=== PATIENT | male | born 1955 | race Caucasian/White ===

== ENCOUNTER 2019-12-03 15:52 | Inpatient (IN) | payer MEDICAID, MEDICARE, OTHER ==
[~2019-12-03] VITALS: Ht 162.5 cm; Wt 51.9 kg
--- NOTE | 2019-12-03 16:10 | NUR ---
pt self ambulatory to ED room with belongings, pt vs assessed and stable,
[2019-12-03] MEDS ORDERED: LIDOCAINE UROJET 2% GEL 10 ML PKG TOP ONE (16:15)
--- NOTE | 2019-12-03 16:33 | ED GU-Female ---
General Chief Complaint: - Urinary Stated Complaint: UNABLE TO URINATE Nursing Triage Note: COMPLAINS OF NOT BEING ABLE TO PEE SINCE YESTERDAY. RECENT DX OF PROSTATE CA. Nursing Sepsis Screen: No Definite Risk Source: patient Exam Limitations: no limitations History of Present Illness Date Seen by Provider: Dec 03, 2019 Time Seen by Provider: 16:30 Initial Comments Unable to urinate since yesterday, recently saw primary care for 30-40 pound weight loss in the past few months, elevated PSA lead to a follow-up with Dr. Liu who diagnosed prostate cancer, CT scan pending in the outpatient setting to further evaluate whether or not there is been any metastasis. Timing/Duration: constant, yesterday Severity/Quality: cramping Location: suprapubic Radiation: suprapubic Prior Genitourinary Problems: none Allergies and Home Medications Allergies Coded Allergies: No Known Drug Allergies (Unverified , 12/03/19) Patient Home Medication List Home Medication List Reviewed: Yes Review of Systems Review of Systems Constitutional: see HPI; No chills, No fever EENTM: see HPI Respiratory: no symptoms reported Cardiovascular: no symptoms reported Genitourinary: see HPI Musculoskeletal: no symptoms reported Skin: no symptoms reported Endocrine: No Symptoms Reported Past Gcpuqwv-Akrcdt-Qibcjt Hx Patient Social History Alcohol Use: Denies Use Recreational Drug Use: No Smoking Status: Former Smoker Recent Foreign Travel: No Contact w/Someone Who Travel: No Recent Infectious Disease Expo: No Recent Hopitalizations: No Seasonal Allergies Seasonal Allergies: No Past Medical History Surgeries: Yes (FACIAL) Orthopedic, Vasectomy Respiratory: No Cardiac: Yes Hypertension Neurological: No Genitourinary: Yes Prostate Problems Gastrointestinal: No Musculoskeletal: No Endocrine: No Cancer: Yes Prostate Psychosocial: No Physical Exam Vital Signs Vital Signs - First Documented 12/03/19 16:00 Temp 35.0 Pulse 75 Resp 16 B/P (MAP) 90/68 (75) Pulse Ox 100 O2 Delivery Room Air Capillary Refill : Less Than 3 Seconds Height, Weight, BMI Height: '" Weight: lbs. oz. kg; 20.00 BMI Method: General Appearance: WD/WN, no apparent distress, thin (cachectic, appears much older than stated age) HEENT: PERRL/EOMI, normal ENT inspection Respiratory: no respiratory distress, no accessory muscle use Gastrointestinal: normal bowel sounds, soft, other (due to his body habitus is very easy to see the outline of the bladder which is obviously distended) Extremities: normal range of motion, non-tender Neurologic/Psychiatric: alert, normal mood/affect, oriented x 3 Skin: normal color, warm/dry 16 Citizen Of [place] Hernandez catheter placed draining clear yellow urine, clamped after 150 mL of urine drained. Clamp for 15 minutes then released to further drain. Progress/Results/Core Measures Suspected Sepsis Recent Fever Within 48 Hours: No Infection Criteria Present: Suspected New Infection New/Unexplained Altered Menta: No Sepsis Screen: No Definite Risk SIRS Temperature: Pulse: 75 Respiratory Rate: 16 Laboratory Tests 12/03/19 16:38: White Blood Count 8.2 Blood Pressure 90 /68 Mean: 75 Laboratory Tests 12/03/19 16:38: Creatinine 1.70H, INR Comment 1.2, Platelet Count 89L Results/Orders Lab Results Laboratory Tests Test 12/03/19 16:38 12/03/19 16:48 Range/Units White Blood Count 8.2 4.3-11.0 10^3/uL Red Blood Count 2.41 L 4.35-5.85 10^6/uL Hemoglobin 6.6 *L 13.3-17.7 G/DL Hematocrit 21 L 40-54 % Mean Corpuscular Volume 88 80-99 FL Mean Corpuscular Hemoglobin 27 25-34 PG Mean Corpuscular Hemoglobin Concent 31 L 32-36 G/DL Red Cell Distribution Width 19.9 H 10.0-14.5 % Platelet Count 89 L 130-400 10^3/uL Mean Platelet Volume 10.5 H 7.4-10.4 FL Neutrophils (%) (Auto) 41 L 42-75 % Lymphocytes (%) (Auto) 41 12-44 % Monocytes (%) (Auto) 13 H 0-12 % Eosinophils (%) (Auto) 2 0-10 % Basophils (%) (Auto) 3 0-10 % Neutrophils # (Auto) 3.6 1.8-7.8 X 10^3 Lymphocytes # (Auto) 3.7 1.0-4.0 X 10^3 Monocytes # (Auto) 1.2 H 0.0-1.0 X 10^3 Eosinophils # (Auto) 0.1 0.0-0.3 10^3/uL Basophils # (Auto) 0.3 H 0.0-0.1 10^3/uL Neutrophils % (Manual) 38 % Lymphocytes % (Manual) 40 % Monocytes % (Manual) 18 % Eosinophils % (Manual) 13 % Band Neutrophils 3 % Nucleated Red Blood Cells 8 Blood Morphology Comment NORMAL Prothrombin Time 15.6 H 12.2-14.7 SEC INR Comment 1.2 0.8-1.4 Sodium Level 132 L 135-145 MMOL/L Potassium Level 5.0 3.6-5.0 MMOL/L Chloride Level 94 L 98-107 MMOL/L Carbon Dioxide Level 24 21-32 MMOL/L Anion Gap 14 5-14 MMOL/L Blood Urea Nitrogen 54 H 7-18 MG/DL Creatinine 1.70 H 0.60-1.30 MG/DL Estimat Glomerular Filtration Rate 41 BUN/Creatinine Ratio 32 Glucose Level 103 70-105 MG/DL Calcium Level 9.4 8.5-10.1 MG/DL Urine Color YELLOW Urine Clarity CLEAR Urine pH 5.5 5-9 Urine Specific [place] 1.020 1.016-1.022 Urine Protein TRACE H NEGATIVE Urine Glucose (UA) NEGATIVE NEGATIVE Urine Ketones NEGATIVE NEGATIVE Urine Nitrite NEGATIVE NEGATIVE Urine Bilirubin NEGATIVE NEGATIVE Urine Urobilinogen 0.2 < = 1.0 MG/DL Urine Leukocyte Esterase NEGATIVE NEGATIVE Urine RBC (Auto) 3+ H NEGATIVE Urine RBC >100 H /HPF Urine WBC 2-5 /HPF Urine Crystals NONE /LPF Urine Bacteria MODERATE H /HPF Urine Casts NONE /LPF Urine Mucus NEGATIVE /LPF Urine Culture Indicated NO My Orders Orders - WINSTON JIMÉNEZ APRN Cbc With Automated Diff (12/03/19 16:10) Basic Metabolic Panel (12/03/19 16:10) Lidocaine 2% (Urojet) (Xylocaine Urojet) (12/03/19 16:15) Hernandez Cath (12/03/19 16:10) Ua Culture If Indicated (12/03/19 16:12) Protime With Inr (12/03/19 16:51) Red Cells Leukocytes Reduced (12/03/19 16:51) Type And Screen (12/03/19 16:51) Ct Chest/Abdomen/Pelvis Wo (12/03/19 16:51) Manual Differential (12/03/19 16:38) Smear For Path Review (12/03/19 17:59) Reticulocyte Count (12/03/19 17:59) Iron Tibc %Sat & Ferritin (12/03/19 17:59) Ferritin (12/03/19 17:59) Medications Given in ED Current Medications Medications Dose Ordered Sig/Sofie Route Start Time Stop Time Status Last Admin Dose Admin Lidocaine HCl 10 ml ONCE ONCE TOP 12/03/19 16:15 12/03/19 16:16 DC 12/03/19 16:27 10 ML Vital Signs/I&O 12/03/19 16:00 Temp 35.0 Pulse 75 Resp 16 B/P (MAP) 90/68 (75) Pulse Ox 100 O2 Delivery Room Air Capillary Refill : Less Than 3 Seconds Blood Pressure Mean: 75 Departure Communication (Admissions) Time/Spoke to Admitting Phy: 18:[address] Ortega, we will admit consult Dr. Noe Quigley. after inserting the Hernandez we had 900 cc urine output. As with all admissions I did discuss CODE STATUS with this patient, he would like to be DO NOT RESUSCITATE status. Impression Primary Impression: Urinary retention Additional Impression: Prostate cancer Disposition: ADMITTED INPATIENT Condition: Stable Admissions Decision to Admit Reason: Admit from ER (General) Decision to Admit/Date: Dec 03, 2019 Time/Decision to Admit Time: 17:45 Departure-Patient Inst. Referrals: NIRMAL HAQUE (PCP) Primary Care Physician WINSTON JIMÉNEZ APRN Dec 03, 2019 16:32
[2019-12-03 16:45] LABS: BASOPHILS # (AUTO) 0.3 10^3/uL (0.0-0.1); BASOPHILS % (AUTO) 3 % (0-10); EOSINOPHILS # (AUTO) 0.1 10^3/uL (0.0-0.3); EOSINOPHILS % (AUTO) 2 % (0-10); HEMATOCRIT 21 % (40-54); LYMPHOCYTES # (AUTO) 3.7 X 10^3 (1.0-4.0); LYMPHOCYTES % (AUTO) 41 % (12-44); MEAN CORPUSCULAR HEMOGLOBIN 27 PG (25-34); MEAN CORPUSCULAR HGB CONC 31 G/DL (32-36); MEAN CORPUSCULAR VOLUME 88 FL (80-99); MEAN PLATELET VOLUME 10.5 FL (7.4-10.4); MONOCYTES # (AUTO) 1.2 X 10^3 (0.0-1.0); MONOCYTES % (AUTO) 13 % (0-12); NEUTROPHILS # (AUTO) 3.6 X 10^3 (1.8-7.8); NEUTROPHILS % (AUTO) 41 % (42-75); PLATELET COUNT 89 10^3/uL (130-400); RED CELL DISTRIBUTION WIDTH 19.9 % (10.0-14.5)
[2019-12-03 16:50] LABS: HEMOGLOBIN 6.6 G/DL (13.3-17.7)
[2019-12-03 16:59] LABS: BILIRUBIN,URINE NEGATIVE (NEGATIVE); CLARITY,URINE CLEAR; COLOR,URINE YELLOW; GLUCOSE, URINE (UA) NEGATIVE (NEGATIVE); KETONES,URINE NEGATIVE (NEGATIVE); LEUKOCYTE ESTERASE ,URINE NEGATIVE (NEGATIVE); NITRITE,URINE NEGATIVE (NEGATIVE); PH,URINE 5.5 (5-9); PROTEIN,URINE TRACE (NEGATIVE)
[2019-12-03 17:02] LABS: CALCIUM 9.4 MG/DL (8.5-10.1); CREATININE SERUM 1.7 MG/DL (0.60-1.30)
[2019-12-03 17:07] LABS: INR 1.2 (0.8-1.4); PROTHROMBIN TIME PATIENT 15.6 SEC (12.2-14.7)
[2019-12-03 17:15] LABS: BACTERIA,URINE MODERATE /HPF; RBC,URINE >100 /HPF
[2019-12-03 17:38] LABS: WHITE BLOOD COUNT 8.2 10^3/uL (4.3-11.0)
[2019-12-03 17:39] LABS: BAND NEUTROPHILS 3 %; EOSINOPHILS % (MANUAL) 13 %; LYMPHOCYTES % (MANUAL) 40 %; MONOCYTES % (MANUAL) 18 %; NEUTROPHILS % (MANUAL) 38 %
[2019-12-03 17:40] LABS: NUCLEATED RED BLOOD CELLS 8; RBC MORPH NORMAL
--- NOTE | 2019-12-03 17:49 | Diagnostic Imaging Report ---
PROCEDURE: CT chest, abdomen, and pelvis without contrast. TECHNIQUE: Multiple contiguous axial images were obtained through the chest, abdomen, and pelvis without the use of intravenous contrast. Auto Exposure Controls were utilized during the CT exam to meet ALARA standards for radiation dose reduction. INDICATION: Recently diagnosed prostate carcinoma with difficulty urinating. COMPARISON: No prior studies are available for comparison. FINDINGS: CT chest: No axillary lymphadenopathy is detected. Hilar and mediastinal evaluation is limited without intravenous contrast but no gross abnormality is seen. There are coronary arterial calcifications. No pericardial or pleural fluid is identified. No definite pulmonary infiltrates are seen. There are several small nodules in both lungs. Several tiny right upper lobe nodules are present. Nodules in the left lower lobe are seen, largest 8 mm. A nodule in the right lower lobe measures 7 mm. Features are concerning for metastatic disease. There are innumerable sclerotic lesions throughout the thoracic vertebrae as well as bilateral ribs, the sternum, consistent with osteoblastic metastatic disease. CT abdomen and pelvis: No discrete liver mass is identified. Gallbladder is unremarkable. There is no biliary ductal dilatation. Pancreas and spleen are grossly unremarkable. No definite adrenal mass is seen. No renal calculi on the right are identified. There appears to be a tiny nonobstructing calculus in lower pole of left kidney. Aorta is calcified but non-aneurysmal. Central retroperitoneum is difficult to evaluate without intravenous contrast. Bowel loops are normal caliber. There is moderate stool throughout the colon. No definite free fluid or fluid collection is seen. There is a large amount of artifact through the pelvis from patient's right hip hardware. There appears to be a Hernandez catheter within the bladder which is full of gas. There are innumerable sclerotic lesions throughout the lumbar spine, bony pelvis and proximal left femur consistent with skeletal metastases. IMPRESSION: 1. Widespread osteoblastic metastatic disease. 2. Numerous subcentimeter pulmonary nodules bilaterally suggestive of pulmonary metastatic disease. 3. Limited evaluation of the abdomen and pelvis due to absence of IV contrast and very little intraperitoneal fat. This makes evaluation for abdominal and pelvic lymphadenopathy difficult. Patient does have a tiny nonobstructing left renal calculus. Dictated by: Dictated on workstation # [id number]
[2019-12-03 18:25] LABS: ABSOLUTE RETIC # 106 10e9/L (24-90); RETICULOCYTE % 4.31 % (0.50-2.40)
--- NOTE | 2019-12-03 18:38 | NUR ---
PATIENT TO FLOOR AT THIS TIME VIA CART ACCOMPANIED BY PCT FROM ER.
[2019-12-03 18:55] VITALS: BP 130/67
[2019-12-03] MEDS ORDERED: NS IV 500 ML 500 ML IV ONE (19:00)
[2019-12-03 19:06] VITALS: BP 130/67
[2019-12-03] MEDS ORDERED: NS IV 500 ML 500 ML IV SCH (19:30)
--- NOTE | 2019-12-03 20:06 | History & Physical-Hospitalist ---
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 Source: patient, RN/MD, old records Date Seen 12/03/19 Time Seen by a Provider: 18:00 Attending Physician Lianet Ty DO PCP [facility] Referring Physician Date of Admission Dec 03, 2019 at 17:56 Home Medications & Allergies Home Medications Reviewed patient Home Medication Reconciliation performed by pharmacy medication reconciliations corn lab technician and/or nursing. Patients Allergies have been reviewed. Allergies Allergies Coded Allergies No Known Drug Allergies (Unverified12/03/19) Past Wqpqddq-Tsjfkz-Wltive Hx Past Med/Social Hx: Reviewed Nursing Past Med/Soc Hx, Reviewed and Corrections made Patient Social History Marrital Status: Employed/Student: retired Alcohol Use: Denies Use Recreational Drug Use: No Smoking Status: Former Smoker Recent Foreign Travel: No Contact w/other who traveled: No Recent Hopitalizations: No Recent Infectious Disease Expo: No Immunizations Up To Date Date of Influenza Vaccine: Sep 02, 2019 Seasonal Allergies Seasonal Allergies: No Past Medical History Surgeries: Orthopedic, Vasectomy Cardiac: Hypertension Genitourinary: Prostate Problems Cancer: Prostate Review of Systems Constitutional: see HPI Genitourinary: other (retention) All Other Systems Reviewed Negative Unless Noted: Yes Physical Exam Physical Exam Vital Signs Vital Signs - First Documented 12/03/19 16:00 Temp 35.0 Pulse 75 Resp 16 B/P (MAP) 90/68 (75) Pulse Ox 100 O2 Delivery Room Air Capillary Refill : Less Than 3 Seconds Height, Weight, BMI Height: '" Weight: lbs. oz. kg; 19.65 BMI Method: General Appearance: Anxious, Chronically ill, Cachetic, Mild Distress, Thin Eyes: Right Eye Normal Inspection, Right Eye PERRL HEENT: PERRL/EOMI, Normal ENT Inspection, Pharynx Normal, Moist Mucous Membranes Neck: Full Range of Motion, Normal Inspection, Non Tender Respiratory: Chest Non Tender, Lungs Clear, Normal Breath Sounds, No Accessory Muscle Use, No Respiratory Distress Cardiovascular: Regular Rate, Rhythm, No Edema, No Gallop, No JVD, No Murmur, Normal Peripheral Pulses Gastrointestinal: Normal Bowel Sounds, No Organomegaly, No Pulsatile Mass, Non Tender, Soft Back: Normal Inspection, No CVA Tenderness, No Vertebral Tenderness Extremity: Normal Capillary Refill, Normal Inspection, Normal Range of Motion, Non Tender, No Calf Tenderness, No Pedal Edema Neurologic/Psychiatric: Alert, Oriented x3, No Motor/Sensory Deficits, 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 Assessment/Plan Admission Diagnosis Assessment: Anemia Urinary retention requiring madrid cath Presumed prostate cancer with mets HTN Wt loss Former smoker Depression ARF creat 1.7 Plan: IVF [place] Peg Liu and Dann Admission Status: Inpatient Order (span 2 midnights) Reason for Inpatient Admission: severe anemia with prostate cancer with mets Diagnosis/Problems Diagnosis/Problems (1) Urinary retention Status: Acute (2) Prostate cancer Status: Acute LIANET TY DO Dec 03, 2019 20:06
[2019-12-03 20:10] VITALS: BP 114/56
[2019-12-03 20:38] VITALS: BP 105/58
[2019-12-03] MEDS ORDERED: ALPRAZolam 0.25 MG (XANAX) TAB PO PRN (21:15)
[2019-12-03] MEDS ORDERED: fentaNYL INJECTION 100 MCG/2 ML AMP IVP PRN (21:15)
[2019-12-03] MEDS ORDERED: DOCUSATE SODIUM 100 MG (COLACE) CAP PO PRN (21:15)
[2019-12-03] MEDS ORDERED: LOPERAMIDE 2 MG (IMODIUM) TABLET PO PRN (21:15)
[2019-12-03] MEDS ORDERED: HYDROmorphone 2 MG/ML VIAL (DILAUDID) IVP PRN (21:15)
[2019-12-03] MEDS ORDERED: ONDANSETRON 4 MG (ZOFRAN) ORAL DISSOLVE TAB PO PRN (21:15)
[2019-12-03] MEDS ORDERED: ONDANSETRON 4 MG/2 ML (SDV) Z0FRAN IVP PRN (21:15)
[2019-12-03] MEDS ORDERED: diphenhydrAMINE 25 MG TAB (BENADRYL) PO PRN (21:15)
[2019-12-03] MEDS ORDERED: CALCIUM CARBONATE 500 MG (TUMS) TAB.CHEW PO PRN (21:15)
[2019-12-03] MEDS: HYDROcodone/APAP 5 MG/325 MG (LORTAB) TAB PO PRN (22:33)
[2019-12-03] MEDS: MELATONIN 3 MG TABLET PO PRN (22:34)
[2019-12-03 23:09] VITALS: BP 130/70
[2019-12-03 23:11] VITALS: BP 130/70
[2019-12-04] VITALS (9 sets, daily range): BP systolic 90–128; BP diastolic 50–76
[2019-12-04] MEDS: HYDROcodone/APAP 5 MG/325 MG (LORTAB) TAB PO PRN ×3 (04:23→22:02)
[2019-12-04 06:17] LABS: BASOPHILS # (AUTO) 0.2 10^3/uL (0.0-0.1); BASOPHILS % (AUTO) 3 % (0-10); EOSINOPHILS # (AUTO) 0.1 10^3/uL (0.0-0.3); EOSINOPHILS % (AUTO) 2 % (0-10); HEMATOCRIT 22 % (40-54); LYMPHOCYTES # (AUTO) 2.2 X 10^3 (1.0-4.0); LYMPHOCYTES % (AUTO) 40 % (12-44); MEAN CORPUSCULAR HGB CONC 32 G/DL (32-36); MEAN CORPUSCULAR VOLUME 86 FL (80-99); MONOCYTES # (AUTO) 0.7 X 10^3 (0.0-1.0); MONOCYTES % (AUTO) 12 % (0-12); NEUTROPHILS # (AUTO) 2.3 X 10^3 (1.8-7.8); NEUTROPHILS % (AUTO) 42 % (42-75); PLATELET COUNT 56 10^3/uL (130-400); RED CELL DISTRIBUTION WIDTH 18.4 % (10.0-14.5); WHITE BLOOD COUNT 5.6 10^3/uL (4.3-11.0)
[2019-12-04 06:20] LABS: MEAN CORPUSCULAR HEMOGLOBIN 28 PG (25-34)
[2019-12-04 06:37] LABS: ALBUMIN 3.7 GM/DL (3.2-4.5); BILIRUBIN,TOTAL 0.9 MG/DL (0.1-1.0); CALCIUM 8.7 MG/DL (8.5-10.1); CREATININE SERUM 1.4 MG/DL (0.60-1.30); POTASSIUM 4.9 MMOL/L (3.6-5.0); TOTAL PROTEIN 5.9 GM/DL (6.4-8.2)
[2019-12-04] MEDS ORDERED: MELO7.5T46 PO ×2 (08:03)
[2019-12-04] MEDS ORDERED: ACET325T38 PO (08:03)
[2019-12-04] MEDS ORDERED: TRAM50TA3 PO (08:03)
[2019-12-04] MEDS ORDERED: IBUP-2473 PO ×2 (08:03)
--- NOTE | 2019-12-04 08:39 | NUR ---
SPOKE WITH THE PT WELL CALLING [facility] AND [facility] IN [place] TO COMPLETE THE MED REC. PT SAYS HE TAKES A BLOOD PRESSURE BUT WASNT SURE OF THE NAME- I CALLED [facility] AND WAS TOLD IT IS LISINOPRIL 5 MG BUT THEY HAVE NOT GIVEN HIM ANY THRU THE REPOSITORY SINCE 11-26-2018- FOR THAT REASON I LEFT IT OFF THE MED REC. OTC MEDS: TYLENOL IBUPROFEN
[2019-12-04] MEDS: ENOXAPARIN 40 MG/0.4 ML (LOVENOX) SYR SC SCH (08:45)
[2019-12-04] MEDS: SENNA W/DOCUSATE (SENOKOT S) TABLET PO SCH ×2 (08:45→20:11)
--- NOTE | 2019-12-04 10:00 | NUR ---
This RN asked Dr. Quigley if he would like to administer another unit of blood to the pt. Pt's hemoglobin had only gone up from 6.6 (12/03) to 7.0 (12/04). Dr. Quigley requested 1 unit to be administered.
--- NOTE | 2019-12-04 10:21 | NUR ---
Met with pt who lives in [place] with a friend who pt describes as helpful. Pt tearful about his recently diagnosed cancer and states that he scheduled a trip to [place] to visit his daughter and meet his granddaughter on December 10 and is hoping he can still make the trip. He is anxious to meet with ,Oncologist to discuss treatment options. 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 Will follow and assist.
--- NOTE | 2019-12-04 10:23 | NUR ---
This RN went and got the unit of blood. Pt's pre-blood vitals showed a temperature of 101.2. This RN notified Dr. Quigley of the temperature, he requested I hold the blood until the pt's temperature comes down and to notify PCP for blood culture orders. This RN returned the blood to blood bank. Addendum: 12/04/19 at 1804 by DALLAS MURRELL RN 1040: Tylenol was administered after notifying Dr. Quigley of temperature of 101.2. 1115: This RN rechecked pt's temperature which was 100.6.
--- NOTE | 2019-12-04 10:26 | Progress Note - Hospitalist ---
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 Subjective/Events-last exam Pt having a lot of pain so we did initiate pain medication. Hgb 7 after [address] unit [address] Dr[address] Madrigal ordered another unit. Dr. Niño will actually see the Pt since he was originally consulted as an outpatient. Fever noted, garcia culture and Zosyn initiated. Catheter in and draining bloody urine. Bowels need to move and he did take a stool softener. Spoke with Dr. Liu. Flomax and Proscar started. Review of Systems General: Fatigue Musculoskeletal: shoulder pain, back pain, leg pain Focused Exam Lactate Level 12/04/19 11:14: Lactic Acid Level 0.99 Objective Exam Vital Signs Vital Signs Date Time Temp Pulse Resp B/P (MAP) Pulse Ox O2 Delivery O2 Flow Rate FiO2 12/04/19 19:26 37.0 87 18 91/55 (67) 98 Room Air Capillary Refill : Less Than 3 Seconds General Appearance: WD/WN, Anxious, Chronically ill, Mild Distress, Thin Respiratory: Chest Non Tender, Lungs Clear, Normal Breath Sounds, No Accessory Muscle Use, No Respiratory Distress Cardiovascular: Regular Rate, Rhythm, No Edema, No Gallop, No JVD, No Murmur, Normal Peripheral Pulses Neurologic/Psychiatric: Alert, Oriented x3, No Motor/Sensory Deficits, Normal Mood/Affect Results/Procedures Lab Laboratory Tests 12/04/19 05:35 Patient resulted labs reviewed. Assessment/Plan Assessment and Plan Assess & Plan/Chief Complaint Assessment: Anemia Urinary retention requiring madrid cath Presumed prostate cancer with mets HTN Wt loss Former smoker Depression ARF creat 1.7 Fever s/p cultures and empirically started on Zosyn Plan: IVF [place] Peg Liu and [place] Ramirez and Tamie Lawson Diagnosis/Problems Diagnosis/Problems (1) Urinary retention Status: Acute (2) Prostate cancer Status: Acute Clinical Quality Measures DVT/VTE Risk/Contraindication: Risk Factor Score Per Nursin RFS Level Per Nursing on Admit: 2=Moderate ELENA TY DO Dec 04, 2019 10:26
[2019-12-04] MEDS: ACETAMINOPHEN 500 MG TAB (TYLENOL) PO PRN ×3 (10:30→22:01)
[2019-12-04] MEDS ORDERED: PIPERACILLIN/TAZO 4.5 GM/NS 100 ML IV NR ×2 (11:45)
[2019-12-04] MEDS: FINASTERIDE (PROSCAR) 5 MG TAB PO SCH (12:17)
--- NOTE | 2019-12-04 12:21 | CONSULTATION REPORT ---
DATE OF SERVICE: 12/04/2019 ATTENDING PHYSICIAN: Dr. Ortega. SUMMARY: A 64-year-old white man known to me, seen for the first time several days ago at the office for a PSA of 4000. At that time, rectal exam revealed a hard fixed prostate. He was also anemic and had lost 40 pounds. His alkaline phosphatase was elevated. I attempted to do an ultrasound of the prostate. He could not tolerate it, so I obtained biopsies from both sides and they both came back positive group V. He then called the office complaining of difficulty voiding. We told him to go to the emergency room to be evaluated. Catheter was inserted with recovery of 900 mL of urine. His H and H was 7 and 22. His creatinine was 1.4. His alkaline phosphatase 401. He had a CAT scan of the chest, abdomen and pelvis, which revealed widespread osteoblastic metastatic disease, pulmonary nodules. He was subsequently admitted to the hospital and received blood transfusion. He is under the care of Dr. Ortega, our hospitalist, who had seen him already and gave him blood transfusion. He is to be seen by Dr. Quigley. IMPRESSION: Advanced metastatic stage IV cancer of the prostate with urinary retention now, weight loss, and anemia. RECOMMENDATIONS: Hormonal manipulation along with treatment by Dr. Quigley regarding chemotherapy, it may be Zometa or else also start on some Flomax and Proscar, try to remedy the urinary retention. If Dr. Quigley will start medication on him might as well have the Cancer Center give him the hormonal manipulation, I will talk to Dr. Quigley and Dr. Ortega to correlate the treatment plan. Job ID: [id number] DocumentID: [id number] Dictated Date: 12/04/2019 11:42:09 Vmware Architect Date: 12/04/2019 12:20:19 Dictated By: PATRIZIA TOBIN MD
--- NOTE | 2019-12-04 13:30 | NUR ---
This RN tried to once again administer the unit of blood but pt's temperature was still elevated at 100.0. This [facility] and applied ice packs and cooling blankets to pt. 1600: Pt's vitals showed his BP: 95/50, R 18, Pulse 100, O2 98%, and temperature at 100.4. This RN administered tylenol at this time. 1700: This RN rechecked pt's temp 100.0. 1745: Myranda PCT rechecked BP and temperature at this time. Recorded as 100.2 for temp, and 101/51 for BP.
--- NOTE | 2019-12-04 13:32 | Diagnostic Imaging Report ---
INDICATION: Cachexia, history of prostate cancer, fever. Known metastatic disease. TECHNIQUE: Two-view chest at 12:57 p.m. CORRELATION STUDY: CT chest of 12/03/2019. FINDINGS: The heart size, mediastinal configuration and pulmonary vasculature are within normal limits. A few scattered pulmonary nodules are present on chest radiograph as demonstrated on recent CT examination. Lung pascual are hyperinflated. There is no definitive consolidating infiltrate or significant interval change from one day earlier. Heterogeneous somewhat increased density throughout the osseous structures, compatible with the known osseous blastic metastatic disease. There are multifocal areas of slight anterior wedging and loss of height of thoracic vertebral body segments. IMPRESSION: 1. Findings consistent with likely pulmonary and osseous metastatic disease. No appreciable change from CT chest examination one day earlier. No consolidating infiltrate to suggest pneumonia. Dictated by: Dictated on workstation # [id number]
[2019-12-04] MEDS: RT-ALBUTEROL SULF 2.5 MG/3 ML PRE-MIX VIAL INH SCH ×2 (14:22→22:06)
--- NOTE | 2019-12-04 15:13 | Physical Therapy Evaluation ---
PT Evaluation-General Medical Diagnosis Admission Date Dec 03, 2019 at 17:56 Medical Diagnosis: Prostate CA with mets Onset Date: Dec 04, 2019 Therapy Diagnosis Therapy Diagnosis: weakness Precautions Precautions/Isolations: Standard Precautions Referral Physician: Jordan Reason for Referral: Evaluation/Treatment Medical History Pertinent Medical History: HTN Additional Medical History anemia, depression Current History Pt admitted to [facility] with anemia. Reviewed History: Yes Social History Home: Single Level Current Living Status: Friend Prior Prior Level of Function SCALE: Activities may be completed with or without assistive devices. 1-Ledxuuvukq-nlwhgdp completes the activity by him/herself with no assistance from a helper. 5-Set-up or Clean-up Assistance-helper sets up or cleans up; patient completes activity. [place] assists only prior to or following the activity. 4-Supervision or Touching Assistance-helper provides verbal cues and/or touching/steadying and/or contact guard assistance as patient completes activity. Assistance may be provided throughout the activity or intermittently. 3-Partial/Moderate Assistance-helper does LESS THAN HALF the effort. [place] lifts, holds or supports trunk or limbs, but provides less than half the effort. 2-Substantial/Maximal Assistance-helper does MORE THAN HALF the effort. [place] lifts or holds trunk or limbs and provides more than half the effort. 5-Qttvrjsdq-pyabvw does ALL the effort. Patient does none of the effort to complete the activity. Or, the assistance of 2 or more helpers is required for the patient to complete the activity. If activity was not attempted, code reason: 7-Patient Refused. 9-Not Applicable-not attempted and the patient did not perform the activity be fore the current illness, exacerbation or injury. 10-Not Attempted due to Environmental Limitations-(lack of equipment, weather restraints, etc.). 88-Not Attempted due to Medical Conditions or Safety Concerns. Bed Mobility: 6 Transfers (B,C,W/C): 6 Gait: 6 (typically uses a cane) Stairs: 6 Indoor Mobility (Ambulation): Independent Stairs: Independent Pt reports that his mobilty has been limited in the recent past due to pain PT Evaluation-Current Subjective Agrees to PT. Pain Numeric Pain Scale: 8 Location: Right Location Body Site: Thigh (anterior) Pt/Family Goals return home when able Objective Patient Orientation: Person, Place, Time, Situation Attachments: Hernandez Catheter ROM/Strength ROM Lower Extremities wFL Strength Lower Extremities grossly 4-/5 Integumentary/Posture Integumentary refer to nursing notes. Bowel Incontinence: No Bladder Incontinence: Hernandez Cath Posture kyphotic, head forward and down and lacks full hip extension in standing. Neuromuscular (Tone, Coordination, Reflexes) intact and functional Sensory Vision: Wears Glasses Hearing: Functional Hand Dominance: Right Sensation Right Lower Extremit: Intact Sensation Left Lower Extremity: Intact Transfers Sit to Lying (QC): 5 Lying to Sitting/Side of Bed(Q: 5 Sit to Stand (QC): 4 (CGA for safety) Gait Does the Patient Walk?: Yes Mode of Locomotion: Walk Anticipated Mode of Locomotion: Walk Walk 10 feet (QC): 4 Walk 50 ft with 2 Turns(QC): 4 Distance: 75 ft Gait Assistive Device: FWW Comments/Gait Description slow gait, with narrow CONNOR and occas scissoring. Forward flexed. Balance Sitting Static: Good Sitting Dynamic: Good Standing Static: Fair Standing Dynamic: Fair Assessment/Needs Pt will benefit from skilled PT toaddress functional mobiltiy and strength to allow him to return home as before. He presents with strength, balance and functional activity deficits that impair safe mobility and limit his ability to care for himself. Rehab Potential: Good PT Prison Goals Full Time Goals PT Prison Goals Time Frame: Dec 11, 2019 Sit to Lying (QC): 6 Lying-Sitting on Side/Bed(QC): 6 Sit to Stand (QC): 6 Walk 150 ft (QC): 6 PT Plan Problem List Problem List: Activity Tolerance, Functional Strength, Safety, Balance, Gait, Transfer, Bed Mobility Treatment/Plan Treatment Plan: Continue Plan of Care Treatment Plan: Bed Mobility, Education, Functional Activity Cooper, Functional Strength, Gait, Safety, Therapeutic Exercise, Transfers Treatment Duration: Dec 11, 2019 Frequency: 5 times per week (to 6) Estimated Hrs Per Day: .25 hour per day Safety Risks/Education Patient Education: Safety Issues Teaching Recipient: Patient Teaching Methods: Discussion Response to Teaching: Reinforcement Needed Time/GCodes Time In: 1435 Time Out: 1455 Total Billed Treatment Time: 20 Total Billed Treatment visit EVM 20 KHADIJAH RAMIREZ PT Dec 04, 2019 15:13
--- NOTE | 2019-12-04 16:34 | Consultation ---
History of Present Illness History of Present Illness Patient Consulted On(tito/time) 12/04/19 16:29 Date Seen by Provider: Dec 04, 2019 Time Seen by Provider: 16:29 History of Present Illness Mr. Sargent is a 64 yo male with OA who was admitted last night with severe urine retention x1 day and UTI. Nine hundred ml urine was drained with a Hernandez in the ED. On admission he was found to be severely anemic and thrombocytopenic. Patient was referred to urology as an outpatient for a PSA >4000 detected by [facility] in [place], and peripheral prostate biopsies were consistent with grade group 5 adenocarcinoma. He initially presented to [facility] because he had been experiencing worsening left hip and intermittent radiating left thigh pain since June. Patient initially believed it was arthritis since he had a right hip replacement in the past, but a hip injection by ortho failed to control pain more than 3 days. He starting losing weight rapidly in September (35 lbs since then). In the hospital, patient's pain is generally well controlled with opiates although he still has episodes of severe pain in his left thigh. He can walk to the end of the perez and back with his walker. He currently has recurrent fevers and is on antibiotics. Allergies and Home Medications Allergies Coded Allergies: No Known Drug Allergies (Unverified , 12/03/19) Home Medications Acetaminophen 325 Mg Tablet, 650 MG PO Q8H PRN for PAIN-MILD (1-4), (Reported) Ibuprofen 200 Mg Tablet, 600 MG PO Q8H PRN for PAIN-MILD (1-4), (Reported) Meloxicam 7.5 Mg Tablet, 7.5 MG PO DAILY PRN for JOINT PAIN, (Reported) Tramadol HCl 50 Mg Tablet, 50 MG PO BID PRN for PAIN-MODERATE (5-7), (Reported) Patient Home Medication List Home Medication List Reviewed: Yes Past Bzhsqyd-Yqxuuc-Hzrenj Hx Past Med/Social Hx: Reviewed Nursing Past Med/Soc Hx, Reviewed and Corrections made Patient Social History Alcohol Use: Denies Use Recreational Drug Use: No Smoking Status: Former Smoker Recent Foreign Travel: No Contact w/Someone Who Travel: No Recent Infectious Disease Expo: No Recent Hopitalizations: No Immunizations Up To Date Date of Influenza Vaccine: Sep 02, 2019 Seasonal Allergies Seasonal Allergies: No Past Medical History Surgeries: Yes (FACIAL) Orthopedic, Vasectomy Respiratory: No Cardiac: Yes Hypertension Neurological: No Genitourinary: Yes Prostate Problems Gastrointestinal: No Musculoskeletal: No Endocrine: No Cancer: Yes Prostate Psychosocial: No Review of Systems-General Constitutional: malaise, weakness EENTM: no symptoms reported Respiratory: no symptoms reported Cardiovascular: no symptoms reported Gastrointestinal: No abdominal pain, No constipation; diarrhea, loss of appetite; No nausea, No vomiting Genitourinary: hesitancy, pain Musculoskeletal: joint pain (left hip), muscle pain (left thigh), muscle weakness Psychiatric/Neurological: No Symptoms Reported Physical Exam-General Problems Physical Exam Vital Signs Vital Signs - First Documented 12/03/19 16:00 Temp 35.0 Pulse 75 Resp 16 B/P (MAP) 90/68 (75) Pulse Ox 100 O2 Delivery Room Air Capillary Refill : Less Than 3 Seconds General Appearance: WD/WN, no apparent distress Eyes: Bilateral Eye Normal Inspection, Bilateral Eye EOMI HEENT: PERRL/EOMI, normal ENT inspection Neck: supple, normal inspection Respiratory: chest non-tender, lungs clear, normal breath sounds, no respiratory distress, no accessory muscle use Cardiovascular: regular rate, rhythm, no edema Gastrointestinal: normal bowel sounds, non tender, soft, no organomegaly Back: normal inspection Extremities: normal range of motion, non-tender, normal inspection, no pedal edema Neurologic/Psychiatric: no motor/sensory deficits, alert, normal mood/affect, oriented x 3 Skin: normal color, warm/dry Assessment/Plan Assessment/Plan Admission Diagnosis/Plan 64 yo male admitted with urine retention and UTI secondary to widespread prostate adenocarcinoma, metastatic to bilateral lungs and axial and appendicula r skeleton. Patient also has new severe anemia and thrombocytopenia. He received one unit of PRBCs last night for hgb 6.6. He is currently being treated for UTI and has a Hernandez in place. MALINDA improved with placement of catheter. Iron studies, folate and vitamin B12 are pending (although folate and B12 may be skewed by recent transfusion); that being said, nutritional deficiency seems less likely in the face of a robust reticulocytosis. I have a significant suspicion for myelophthisic cytopenias. Therefore, we will go ahead and do a bone marrow biopsy to rule out prostate adenocarcinoma infiltration. If he does have a significant amount of marrow replacement by cancer, he could benefit from receiving his first dose of palliative chemotherapy while [facility]. Will continue to follow. Thank you for allowing me to participate in the care of Mr. Sargent. Clinical Quality Measures DVT/VTE Risk/Contraindication: Risk Factor Score Per Nursin RFS Level Per Nursing on Admit: 2=Moderate Results Labs Labs Laboratory Tests 12/04/19 05:35: White Blood Count 5.6, Red Blood Count 2.52L, Hemoglobin 7.0L, Hematocrit 22L, Mean Corpuscular Volume 86, Mean Corpuscular Hemoglobin 28, Mean Corpuscular Hemoglobin Concent 32, Red Cell Distribution Width 18.4H, Platelet Count 56L, Mean Platelet Volume 11.0H, Neutrophils (%) (Auto) 42, Lymphocytes (%) (Auto) 40, Monocytes (%) (Auto) 12, Eosinophils (%) (Auto) 2, Basophils (%) (Auto) 3, Neutrophils # (Auto) 2.3, Lymphocytes # (Auto) 2.2, Monocytes # (Auto) 0.7, Eosinophils # (Auto) 0.1, Basophils # (Auto) 0.2H, Sodium Level 130L, Potassium Level 4.9, Chloride Level 95L, Carbon Dioxide Level 24, Anion Gap 11, Blood Urea Nitrogen 54H, Creatinine 1.40H, Estimat Glomerular Filtration Rate 51, BUN/Creatinine Ratio 39, Glucose Level 87, Calcium Level 8.7, Corrected Calcium 8.9, Total Bilirubin 0.9, Aspartate Amino Transf (AST/SGOT) 1574H, Alanine Aminotransferase (ALT/SGPT) 28, Alkaline Phosphatase 401H, Total Protein 5.9L, Albumin 3.7 12/04/19 11:14: Lactic Acid Level 0.99 12/04/19 11:54: Lab Scanned Report Transfusion Reaction Form Procedures Procedures Date of Exam:12/03/19 CT CHEST/ABDOMEN/PELVIS WO PROCEDURE: CT chest, abdomen, and pelvis without contrast. TECHNIQUE: Multiple contiguous axial images were obtained through the chest, abdomen, and pelvis without the use of intravenous contrast. Auto Exposure Controls were utilized during the CT exam to meet ALARA standards for radiation dose reduction. INDICATION: Recently diagnosed prostate carcinoma with difficulty urinating. COMPARISON: No prior studies are available for comparison. FINDINGS: CT chest: No axillary lymphadenopathy is detected. Hilar and mediastinal evaluation is limited without intravenous contrast but no gross abnormality is seen. There are coronary arterial calcifications. No pericardial or pleural fluid is identified. No definite pulmonary infiltrates are seen. There are several small nodules in both lungs. Several tiny right upper lobe nodules are present. Nodules in the left lower lobe are seen, largest 8 mm. A nodule in the right lower lobe measures 7 mm. Features are concerning for metastatic disease. There are innumerable sclerotic lesions throughout the thoracic vertebrae as well as bilateral ribs, the sternum, consistent with osteoblastic metastatic disease. CT abdomen and pelvis: No discrete liver mass is identified. Gallbladder is unremarkable. There is no biliary ductal dilatation. Pancreas and spleen are grossly unremarkable. No definite adrenal mass is seen. No renal calculi on the right are identified. There appears to be a tiny nonobstructing calculus in lower pole of left kidney. Aorta is calcified but non-aneurysmal. Central retroperitoneum is difficult to evaluate without intravenous contrast. Bowel loops are normal caliber. There is moderate stool throughout the colon. No definite free fluid or fluid collection is seen. There is a large amount of artifact through the pelvis from patient's right hip hardware. There appears to be a Hernandez catheter within the bladder which is full of gas. There are innumerable sclerotic lesions throughout the lumbar spine, bony pelvis and proximal left femur consistent with skeletal metastases. IMPRESSION: 1. Widespread osteoblastic metastatic disease. 2. Numerous subcentimeter pulmonary nodules bilaterally suggestive of pulmonary metastatic disease. 3. Limited evaluation of the abdomen and pelvis due to absence of IV contrast and very little intraperitoneal fat. This makes evaluation for abdominal and pelvic lymphadenopathy difficult. Patient does have a tiny nonobstructing left renal calculus. BOBBY RICHARDS MD Dec 04, 2019 16:34
[2019-12-04] MEDS: TAMSULOSIN 0.4 MG (FLOMAX) CAP PO SCH (18:09)
[2019-12-04] MEDS: PIPERACILLIN/TAZOBACTAM (BULK) 4.5 GM in NS (IVPB) 100 ML IV SCH (18:09)
[2019-12-04] MEDS: MELATONIN 3 MG TABLET PO PRN (20:12)
[2019-12-05] VITALS (19 sets, daily range): BP systolic 88–149; BP diastolic 41–82
[2019-12-05] MEDS: PIPERACILLIN/TAZOBACTAM (BULK) 4.5 GM in NS (IVPB) 100 ML IV SCH ×3 (01:29→18:34)
[2019-12-05 07:05] LABS: ABSOLUTE RETIC # 85 10e9/L (24-90); BASOPHILS # (AUTO) 0.1 10^3/uL (0.0-0.1); BASOPHILS % (AUTO) 2 % (0-10); EOSINOPHILS # (AUTO) 0.1 10^3/uL (0.0-0.3); EOSINOPHILS % (AUTO) 2 % (0-10); HEMATOCRIT 25 % (40-54); HEMOGLOBIN 8.1 G/DL (13.3-17.7); LYMPHOCYTES # (AUTO) 1.7 X 10^3 (1.0-4.0); LYMPHOCYTES % (AUTO) 38 % (12-44); MEAN CORPUSCULAR HEMOGLOBIN 28 PG (25-34); MEAN CORPUSCULAR HGB CONC 33 G/DL (32-36); MEAN CORPUSCULAR VOLUME 86 FL (80-99); MONOCYTES # (AUTO) 0.5 X 10^3 (0.0-1.0); MONOCYTES % (AUTO) 11 % (0-12); NEUTROPHILS # (AUTO) 2.2 X 10^3 (1.8-7.8); NEUTROPHILS % (AUTO) 47 % (42-75); PLATELET COUNT 51 10^3/uL (130-400); RED CELL DISTRIBUTION WIDTH 17.7 % (10.0-14.5); RETICULOCYTE % 2.94 % (0.50-2.40)
[2019-12-05 07:23] LABS: INR 1.2 (0.8-1.4); PROTHROMBIN TIME PATIENT 15.4 SEC (12.2-14.7)
[2019-12-05 07:28] LABS: ALBUMIN 3.8 GM/DL (3.2-4.5); BILIRUBIN,TOTAL 1.5 MG/DL (0.1-1.0); CREATININE SERUM 1.31 MG/DL (0.60-1.30); POTASSIUM 4.7 MMOL/L (3.6-5.0); TOTAL PROTEIN 6.3 GM/DL (6.4-8.2)
[2019-12-05] MEDS: ACETAMINOPHEN 500 MG TAB (TYLENOL) PO PRN ×2 (07:50→21:43)
[2019-12-05] MEDS: RT-ALBUTEROL SULF 2.5 MG/3 ML PRE-MIX VIAL INH SCH ×2 (08:00→16:16)
[2019-12-05 09:08] LABS: BAND NEUTROPHILS 4 %; BASOPHILS % (MANUAL) 0 %; EOSINOPHILS % (MANUAL) 2 %; LYMPHOCYTES % (MANUAL) 36 %; METAMYELOCYTES % 1 %; MONOCYTES % (MANUAL) 10 %; NEUTROPHILS % (MANUAL) 46 %; NUCLEATED RED BLOOD CELLS 10; POIKILOCYTOSIS SLIGHT; REACTIVE LYMPHOCYTES 1 %; WHITE BLOOD COUNT 4.2 10^3/uL (4.3-11.0)
[2019-12-05 09:09] LABS: ANISOCYTOSIS SLIGHT; ELLIPT/OVALOCYTES SLIGHT; HELMET/BITE CELLS SLIGHT; TEAR DROP CELLS SLIGHT
--- NOTE | 2019-12-05 09:19 | Physical Therapy Daily Note ---
PT Daily Note-Current Subjective Pt smiling. Agrees to PT. Reports he is hungry....notes he is NPO due to pending procedure today. Pain Comment: Pt reports he is not hurting today. Mental Status Patient Orientation: Person, Place, Time, Situation Transfers SCALE: Activities may be completed with or without assistive devices. 7-Axnnpyygbo-soruooj completes the activity by him/herself with no assistance from a helper. 5-Set-up or Clean-up Assistance-helper sets up or cleans up; patient completes activity. [place] assists only prior to or following the activity. 4-Supervision or Touching Assistance-helper provides verbal cues and/or touching/steadying and/or contact guard assistance as patient completes activity. Assistance may be provided throughout the activity or intermittently. 3-Partial/Moderate Assistance-helper does LESS THAN HALF the effort. [place] lifts, holds or supports trunk or limbs, but provides less than half the effort. 2-Substantial/Maximal Assistance-helper does MORE THAN HALF the effort. [place] lifts or holds trunk or limbs and provides more than half the effort. 6-Vstdlqgah-znrwbc does ALL the effort. Patient does none of the effort to complete the activity. Or, the assistance of 2 or more helpers is required for the patient to complete the activity. If activity was not attempted, code reason: 7-Patient Refused. 9-Not Applicable-not attempted and the patient did not perform the activity before the current illness, exacerbation or injury. 10-Not Attempted due to Environmental Limitations-(lack of equipment, weather restraints, etc.). 88-Not Attempted due to Medical Conditions or Safety Concerns. Lying to Sitting/Side of Bed(Q: 4 Sit to Stand (QC): 4 CGA for bed mobility and transfers for safety. Gait Training Does the Patient Walk?: Yes Distance: 150 ft Walk 150 ft (QC): 4 Gait Assistive Device: FWW CGA with gait; narrow CONNOR but no scissoring noted today. Increased safety with improved balance. Treatments Pt up in chair post treatment with needs met. Assessment Current Status: Good Progress Pt transferred and ambulated better today. Increased distance with decreased pain. Pt very motivated and cooperative. PT Supervisor Chlorine Liquefaction Goals Supervisor Chlorine Liquefaction Goals PT Supervisor Chlorine Liquefaction Goals Time Frame: Dec 11, 2019 Sit to Lying (QC): 6 Lying-Sitting on Side/Bed(QC): 6 Sit to Stand (QC): 6 Walk 150 ft (QC): 6 PT Plan Problem List Problem List: Activity Tolerance, Functional Strength, Safety Treatment/Plan Treatment Plan: Continue Plan of Care Treatment Plan: Bed Mobility, Education, Functional Activity Cooper, Functional Strength, Gait, Safety, Therapeutic Exercise, Transfers Treatment Duration: Dec 11, 2019 Frequency: 5 times per week (to 6) Estimated Hrs Per Day: .25 hour per day Safety Risks/Education Patient Education: Safety Issues Teaching Recipient: Patient Teaching Methods: Discussion Response to Teaching: Reinforcement Needed Time/GCodes Time In: 855 Time Out: 910 Total Billed Treatment Time: 15 Total Billed Treatment visit GT 15 KHADIJAH RAMIREZ PT Dec 05, 2019 09:19
--- NOTE | 2019-12-05 11:53 | Progress Note - Hospitalist ---
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 Subjective/Events-last exam Pt doing very well Receiving great care her reports Dr. Niño note reviewed Dr. Liu note reviewed [place] catheter maintained, Flomax and Proscar maintained Medicare advantage plan will evaluate if he can go to [facility] Pain is well controlled Bowels moved last night Review of Systems General: Fatigue Musculoskeletal: back pain Focused Exam Lactate Level 12/04/19 11:14: Lactic Acid Level 0.99 Objective Exam Vital Signs Vital Signs Date Time Temp Pulse Resp B/P (MAP) Pulse Ox O2 Delivery O2 Flow Rate FiO2 12/05/19 18:30 102 16 100/58 (72) 97 Room Air 12/05/19 15:54 37.5 12/05/19 13:33 2.00 Capillary Refill : Less Than 3 SecondsLess Than 3 Seconds General Appearance: No Apparent Distress, WD/WN, Chronically ill Respiratory: Chest Non Tender, Lungs Clear, Normal Breath Sounds, No Accessory Muscle Use, No Respiratory Distress Cardiovascular: Regular Rate, Rhythm, No Edema, No Gallop, No JVD, No Murmur, Normal Peripheral Pulses Neurologic/Psychiatric: Alert, Oriented x3, No Motor/Sensory Deficits, Normal Mood/Affect Results/Procedures Lab Laboratory Tests 12/05/19 05:58 Patient resulted labs reviewed. Assessment/Plan Assessment and Plan Assess & Plan/Chief Complaint Assessment: Anemia requiring transfusions Urinary retention requiring madrid cath Presumed prostate cancer with mets HTN Wt loss Former smoker Depression ARF creat 1.7 Fever s/p cultures and empirically started on Zosyn Plan: IVF Madrid Peg Johnson Flomax and Proscar Zosyn Diagnosis/Problems Diagnosis/Problems (1) Urinary retention Status: Acute (2) Prostate cancer Status: Acute Clinical Quality Measures DVT/VTE Risk/Contraindication: Risk Factor Score Per Nursin RFS Level Per Nursing on Admit: 2=Moderate ELENA TY DO Dec 05, 2019 11:53
--- NOTE | 2019-12-05 13:00 | NUR ---
patient is off floor for procedure
[2019-12-05] MEDS ORDERED: NS IV 1000 ML 1,000 ML IV STA (13:03)
[2019-12-05] MEDS ORDERED: LIDOCAINE 1% INJ 20 ML 20 ML VIAL ONE (13:08)
[2019-12-05] MEDS ORDERED: MIDAZOLAM 2 MG/2 ML (VERSED) VIAL ONE (13:08)
[2019-12-05] MEDS ORDERED: fentaNYL INJECTION 100 MCG/2 ML AMP IVP NR (13:12)
[2019-12-05] MEDS ORDERED: LIDOCAINE 1% INJ 20 ML 20 ML VIAL INJ NR (13:13)
[2019-12-05] MEDS ORDERED: MIDAZOLAM 2 MG/2 ML (VERSED) VIAL IVP ONE (13:15)
--- NOTE | 2019-12-05 13:59 | Diagnostic Imaging Report ---
INDICATION: Prostate carcinoma with anemia and thrombocytopenia. DETAILS OF PROCEDURE: Patient was brought to the CT suite, placed on table in the prone position. Axial imaging through the pelvis was performed to evaluate appropriate entry site. Low back was prepped and draped in usual sterile fashion. Small amount of 1% lidocaine was utilized for local anesthesia. Study was performed utilizing conscious sedation with radiology nursing in constant patient monitoring. Patient was administered a total of 100 mcg of fentanyl intravenously and 0.5 mg of Versed intravenously. Total procedure time was 11 minutes. Bone marrow needle was advanced and placed with its tip along the posterior cortex of the right iliac bone. The needle was advanced through the cortex utilizing the bone marrow drill. Aspiration was attempted however no return of marrow could be performed. The needle was then advanced further into the right iliac bone with a drill and reattempt at aspiration was performed. Again, no significant aspirate could be obtained. Therefore, the drill was utilized to obtain a core biopsy. Next, the procedure was repeated with a similar result of no significant aspirate. A second core biopsy was obtained. Hemostasis was obtained using manual compression. Patient tolerated the procedure well and left the department in stable condition. IMPRESSION: Successful CT-guided bone marrow biopsy, utilizing conscious sedation. Pathology results are currently pending. Dictated by: Dictated on workstation # [id number]
[2019-12-05] MEDS ORDERED: HYDROcodone/APAP 5 MG/325 MG (LORTAB) TAB PO PRN (14:00)
[2019-12-05] MEDS: FINASTERIDE (PROSCAR) 5 MG TAB PO SCH (14:04)
[2019-12-05] MEDS: SENNA W/DOCUSATE (SENOKOT S) TABLET PO SCH ×2 (14:04→20:15)
--- NOTE | 2019-12-05 15:52 | Pre-Op Note & Conscious Sedat ---
Pre-Operative Progress Note H&P Reviewed The H&P was reviewed, patient examined and no changes noted. Date H&P Reviewed: Dec 05, 2019 Time H&P Reviewed: 12:00 Pre-Op Diagnosis: prostate ca Conscious Sedation Pre-Proced Time 12:00 ASA Score 2 For ASA 3 and 4: Consider anesthesia and medical clearance. Also, for patients with a history of failed moderate sedation consider anesthesia. Airway Lungs Heart ASA score ASA 1: a normal healthy patient ASA 2: a patient with a mild systemic disease (mid diabetes, controlled hypertension, obesity ASA 3: a patient with a severe systemic disease that limits activity (angina, COPD, prior Myocardial infarction) ASA 4: a patient with an incapacitating disease that is a constant threat to life (CHF, renal failure) ASA 5: a moribund patient not expected to survive 24 hrs. (ruptured aneurysm) ASA 6: a declared brain- patient whose organs are being harvested. For emergent operations, add the letter E after the classification Mallampati Classification Grade 2 Sedation Plan Analgesia, Amnesia, Plan communicated to team members, Discussed options with patient/fam, Discussed risks with patient/fam The patient is an appropriate candidate to undergo the planned procedure, sedation, and anesthesia. The patient immediately re-assessed prior to indication. ISI ISRAEL MD Dec 05, 2019 15:52
--- NOTE | 2019-12-05 17:04 | Progress Note ---
Standard Progress Note Progress Notes/Assess & Plan Date Seen by a Provider: Dec 05, 2019 Time Seen by a Provider: 16:59 Progress/Assessment & Plan 64 yo male admitted with urine retention and UTI secondary to widespread prostate adenocarcinoma, metastatic to bilateral lungs and axial and append icular skeleton. Patient also has new severe anemia and thrombocytopenia. He received two units of PRBCs and responded well with hgb 8.1 this morning. Platelets seem to be nadiring around 50,000/ul. He is currently being treated for UTI and MALINDA continues to improve. Iron studies returned showing severely elevated iron and ferritin. Bone marrow biopsy done today and results are pending. 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 Ferritin could be elevated due to being an acute phase reactant in the setting of multiple sources of inflammation (infection, cancer). Could also be an underlying hemochromatosis. Will continue to follow. Focused Exam Lactate Level 12/04/19 11:14: Lactic Acid Level 0.99 BOBBY RICHARDS MD Dec 05, 2019 17:04
[2019-12-05] MEDS: TAMSULOSIN 0.4 MG (FLOMAX) CAP PO SCH (18:34)
[2019-12-05] MEDS: HYDROcodone/APAP 5 MG/325 MG (LORTAB) TAB PO PRN (20:15)
[2019-12-05 22:45] LABS: HEPATITIS C ANTIBODY C Non-Reactive (Non-Reactive)
[2019-12-06] MEDS: RT-ALBUTEROL SULF 2.5 MG/3 ML PRE-MIX VIAL INH SCH ×3 (01:12→15:39)
[2019-12-06] MEDS: PIPERACILLIN/TAZOBACTAM (BULK) 4.5 GM in NS (IVPB) 100 ML IV SCH ×2 (02:18→11:13)
[2019-12-06] MEDS: HYDROcodone/APAP 5 MG/325 MG (LORTAB) TAB PO PRN (02:22)
[2019-12-06 03:24] VITALS: BP 112/62
[2019-12-06 06:32] LABS: FIBRIN DEGRADATION PRODUCTS 15.04 UG/ML (0.00-0.49)
[2019-12-06 06:36] LABS: TRIGLYCERIDES 144 MG/DL (<150)
[2019-12-06] MEDS: FINASTERIDE (PROSCAR) 5 MG TAB PO SCH (07:32)
[2019-12-06] MEDS: SENNA W/DOCUSATE (SENOKOT S) TABLET PO SCH (07:32)
[2019-12-06 08:00] VITALS: BP 115/67
[2019-12-06] MEDS: ENOXAPARIN 40 MG/0.4 ML (LOVENOX) SYR SC SCH (09:00)
--- NOTE | 2019-12-06 09:55 | NUR ---
Met with pt and his sister who also lives in [place]. Pt cancelled his trip to [place] as realized that he was too weak to travel. Sister states that she can assist with pt care when discharged. Recommend he have a front wheel walker when discharged.
--- NOTE | 2019-12-06 10:43 | Physical Therapy Daily Note ---
PT Daily Note-Current Subjective Agreeable . Reports he will plan to sit up in his chair for meals through the weekend. Mental Status Patient Orientation: Person, Place, Time, Situation Transfers SCALE: Activities may be completed with or without assistive devices. 5-Ppqgswrlww-icwecan completes the activity by him/herself with no assistance from a helper. 5-Set-up or Clean-up Assistance-helper sets up or cleans up; patient completes activity. [place] assists only prior to or following the activity. 4-Supervision or Touching Assistance-helper provides verbal cues and/or touching/steadying and/or contact guard assistance as patient completes activity. Assistance may be provided throughout the activity or intermittently. 3-Partial/Moderate Assistance-helper does LESS THAN HALF the effort. [place] lifts, holds or supports trunk or limbs, but provides less than half the effort. 2-Substantial/Maximal Assistance-helper does MORE THAN HALF the effort. [place] lifts or holds trunk or limbs and provides more than half the effort. 4-Naagdjsfz-ajyrmb does ALL the effort. Patient does none of the effort to complete the activity. Or, the assistance of 2 or more helpers is required for the patient to complete the activity. If activity was not attempted, code reason: 7-Patient Refused. 9-Not Applicable-not attempted and the patient did not perform the activity before the current illness, exacerbation or injury. 10-Not Attempted due to Environmental Limitations-(lack of equipment, weather restraints, etc.). 88-Not Attempted due to Medical Conditions or Safety Concerns. Sit to Lying (QC): 5 Lying to Sitting/Side of Bed(Q: 5 Sit to Stand (QC): 4 (SBA with skilled cues for sequencing; unsteady with initial standing. ) Gait Training Does the Patient Walk?: Yes Distance: 200 ft Walk 150 ft (QC): 4 (CGA) Gait Assistive Device: FWW narrow CONNOR with occas scissoring. Treatments Functional gait training. Pt up in chair post treatment with needs met. Assessment Current Status: Good Progress Pt is progressing. Still unsteady with gait but distance and functional act tolerance progressing. PT Burring Wheel Operator Goals Burring Wheel Operator Goals PT Burring Wheel Operator Goals Time Frame: Dec 11, 2019 Sit to Lying (QC): 6 Lying-Sitting on Side/Bed(QC): 6 Sit to Stand (QC): 6 Walk 150 ft (QC): 6 PT Plan Problem List Problem List: Activity Tolerance, Functional Strength, Safety Treatment/Plan Treatment Plan: Continue Plan of Care Treatment Plan: Bed Mobility, Education, Functional Activity Cooper, Functional Strength, Gait, Safety, Therapeutic Exercise, Transfers Treatment Duration: Dec 11, 2019 Frequency: 5 times per week (to 6) Estimated Hrs Per Day: .25 hour per day Safety Risks/Education Patient Education: Safety Issues Teaching Recipient: Patient Teaching Methods: Discussion Response to Teaching: Reinforcement Needed Discharge Recommendations Therapy Discharge Recommendati: Post Acute PT (home PT at discharge) Time/GCodes Time In: 955 Time Out: 1011 Total Billed Treatment Time: 16 Total Billed Treatment visit GT 16 KHADIJAH RAMIREZ PT Dec 06, 2019 10:43
[2019-12-06 12:00] VITALS: BP 117/74
--- NOTE | 2019-12-06 13:14 | Progress Note - Hospitalist ---
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 Subjective/Events-last exam Patient is very cheerful but complains of severe right femur pain we will get plain films to make sure he does not have an pending fracture. Otherwise he feels much better. Review of Systems Musculoskeletal: leg pain Neurological: Weakness Focused Exam Lactate Level 12/04/19 11:14: Lactic Acid Level 0.99 Objective Exam Vital Signs Vital Signs Date Time Temp Pulse Resp B/P (MAP) Pulse Ox O2 Delivery O2 Flow Rate FiO2 12/06/19 15:40 100 12/06/19 12:00 37.6 102 18 117/74 (88) Room Air 12/05/19 13:33 2.00 Capillary Refill : Less Than 3 SecondsLess Than 3 Seconds General Appearance: Chronically ill HEENT: Other (Poor dentition) Neck: Supple Respiratory: Lungs Clear, Normal Breath Sounds, No Accessory Muscle Use, No Respiratory Distress Cardiovascular: Regular Rate, Rhythm, No Gallop, No Murmur Gastrointestinal: Soft Back: Normal Inspection Extremity: No Pedal Edema Neurologic/Psychiatric: Alert, Oriented x3, No Motor/Sensory Deficits, Normal Mood/Affect, transition manager II-XII Norm as Tested Results/Procedures Lab Patient resulted labs reviewed. Assessment/Plan Assessment and Plan Assess & Plan/Chief Complaint Metastatic prostate cancer-with multiple osteoblastic lesions Elevated serum ferritin and percent saturation of uncertain etiology Pancytopenia with bone marrow biopsy results pending unable to get aspiration per radiology Right leg pain will obtain plain films to rule out impending fracture Urinary retention Dr. Sandoval has requested that he be discharged with his catheter Cachexia Clinical Quality Measures DVT/VTE Risk/Contraindication: Risk Factor Score Per Nursin RFS Level Per Nursing on Admit: 2=Moderate SANDNESS,NAI Campos MD Dec 06, 2019 13:14
--- NOTE | 2019-12-06 14:28 | NUR ---
Swing Bed Note: Dr Ortega requested yesterday that a swing bed request for authorization be initiated yesterday with the patients [employer] Medicare insurance. I initiated that et submitted clinical yesterday 12/05/19 at 1300. I spoke with the clinical intake person at approximately 1500 to clarify with them that the clinical information that was submitted was for a swing bed request although it did have that information wrote on the cover sheet that was faxed along with the specific pending auth number of [id number] for swing bed request also wrote on the cover sheet. Care Management Nurse Katty ARANDA contacted me at approximately 0730 this morning to let me know that Shona from [facility] had left a message on her machine asking for an H&P, Consult notes, PT evaluation, et progress notes. They also asked her for OT evaluation which the patient did not have ordered at this time. What Lisha was requesting had been faxed yesterday 12/05/19 at 1300 except for the OT which the patient still does not have ordered. I re faxed that information to the same fax number of [phone] at 0815. I received a call from Shona at [facility] at 11:23 et she had additional clinical questions of when the IV abx were set to stop (12/09/19), what the plan of care was (to give palliative chemotherapy x1 in conjunction with continued Physical Therapy et anticipation of Occupational Therapy), et what the plan was after skilled/swing bed stay (to go home with his friend et his daughter lives near his home). She reported that she would put that information in and would send it to the medical radiation therapist for review. I have not received any further f/u.
--- NOTE | 2019-12-06 15:04 | Progress Note ---
Standard Progress Note Progress Notes/Assess & Plan Date Seen by a Provider: Dec 06, 2019 Time Seen by a Provider: 14:49 Progress/Assessment & Plan 64 yo male admitted with urine retention and UTI secondary to widespread prostate adenocarcinoma, metastatic to bilateral lungs and axial and append icular skeleton. Patient also has new severe anemia and thrombocytopenia. He received two units of PRBCs over two days and hgb improved from 6.6 to 8.1 the day after his second unit. Platelets seem to be nadiring around 50,000/ul. He is currently being treated for UTI and MALINDA continues to improve. Hernandez catheter expected to remain after discharge. He is complaining of worsening right thigh pain since the biopsy yesterday. Primary team is evaluating for fracture risk. Preliminary bone marrow biopsy results show extensive fibrosis with areas of adenocarcinoma consistent with prostate cancer. This is consistent with myelophthisic anemia and thrombocytopenia. He will need the chemotherapy docetaxel 75mg/m^2 IV for urgent control of disease, but I will start at a 20% dose reduction due to his cytopenias. His blood counts will not improve without treatment. If his blood counts remain stable tomorrow, he can be discharged, to follow in clinic next week. Otherwise, it might be better to consider giving c ycle 1 as an inpatient and monitoring blood counts for several days afterwards. Focused Exam Lactate Level 12/04/19 11:14: Lactic Acid Level 0.99 BOBBY RICHARDS MD Dec 06, 2019 15:04
[2019-12-07] MEDS ORDERED: ACHD5005 PO ×2 (14:03)
[2019-12-07] MEDS ORDERED: FINA5TAB6 PO ×2 (14:03)
--- OUTSIDE RECORDS SUMMARY | 2019-12-10 11:50 | XMS REPORT ---
Author Author [employer]. Organization [employer] Address [address] [address] Care Team Providers Care Campaign Coordinator Name Role Phone LAOTAMARA Carlisle Unavailable Unavailable HAQUENIRMAL SNOW Unavailable Unavailable YAMILETH RAMIREZ Unavailable SUSAN HAMM Unavailable M., ROCIO Grey Unavailable F., CASEY Palacios Unavailable F., POLLO Unavailable B., SAVANNAH Unavailable S., EDDIE Unavailable K., NOEMI Grey Unavailable G., SHAMAR Unavailable HAQUENIRMAL SNOW Unavailable HAQUE, NIRMAL Unavailable HAQUE NIRMAL Unavailable Migration, Doctor Unavailable Unavailable Migration, Doctor Unavailable Unavailable HAQUE, NIRMAL Unavailable HAQUENIRMAL SNOW R Unavailable Unavailable Unavailable Unavailable BAILEY DUARTE, NIRMAL Cleary Unavailable Unavailable VIOLETA NAM MD Unavailable Unavailable ELENA TY DO Unavailable Unavailable ELENA TY DO Unavailable Unavailable Keri [facility] Allergies The data below is from unstructured sources Substance Reaction Event Type N.K.D.A. Info Not Available Non Drug Allergy Allergy Code Allergy Type Reaction Status No Known Drug Allergies 0 Drug allergy Active No known allergies. Medications Current Medications Medication Ingredient Drug Dose Dates Status Sig Sig Care Class(es) (Normalized) (Original) Provid er no Acetaminoph no Active no Acetaminophe no information en information information n Active 650 n cesar (2 ORAL Every (no sources.) 8HRS as phone) needed for Pain-Mild (1-4) doxycycline Doxycycline Tetracyclin 100 mg 05-06-20 Active take 1 Doxycycline no hyclate 100 Translation e-class 13 tablet by Hyclate 100 name mg oral s: [ Drug mouth twice mg 1 tablet (no tablet (1 Doxycycline daily by Oral phone) source.) Hyclate 100 route 2 mg] times per day for 14 days February, Active finasteride Finasteride 5-alpha 12-07-19 Active no Finasteri de no 5 mg oral Reductase 20 information Active 5 name tablet (1 Inhibitor ORAL Daily (no source.) 30 30 phone) December 07, 2019 2:03pm sildenafil sildenafil Phosphodies 100 mg 10-25-19 Active take 0.5 -1 Viagra 100 no 100 mg oral Translation terase 5 18 tablets by mg Orally name tablet (4 s: [ Viagra Inhibitor mouth once Once a day (no sources.) 100 mg, daily as .5-1 tablet phone) Viagra 100 needed as needed mg] 24h Oct, Active sulfamethox Sulfamethox Dihydrofola 04-10-20 Active take 1 Bactr im DS no azole 800 azole / te 13 tablet by 800-160 mg 1 nam e mg / Trimethopri Reductase mouth twice tablet by (no trimethopri m Inhibitor daily Oral route 2 phone ) m 160 mg Translation Antibacteri times per oral tablet s: [ al, day for 10 (1 source.) Bactrim DS Sulfonamide day(s) 03 800-160 mg] Antimicrobi Apr, 2013 al Active Completed/Discontinued Medications Medication Ingredient Drug Dose Dates Status Sig Sig Care Class(es) (Normalized) (Original) Provid er meloxicam meloxicam Nonsteroida 12-07-19 Complete no Meloxic am no 7.5 mg oral l 20 d information Discontinued name tablet (2 Anti-inflam 7.5 ORAL (no sources.) [facility] Drug Daily as phone) needed for Joint Pain December 07, 2019 Problems Active Problems Problem Normalized Date of Normalized Normalized Provider Fac ility Classification Problem(s) Problem Problem Problem Sta tus Onset/Resoluti Duration on Other Acromegaly and 11-14-2019 - Chronic Active NIRMAL LEONG [facility] Via endocrine pituitary MD [place] disorders (1 [facility] - source.) [place] ([address]255) 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 (4 sources.) screening [facility] [address] [facility] malignant of [facility] neoplasm of [place] (89302) prostate Translations: [ - Prostate cancer screening Z12.5, - Prostate cancer screening Z12.5] Other [facility] joint [ Arthralgia of [facility] disorders (4 of right hip, [place] (39452) sources.) Arthralgia of right hip] Other male Impotence Chronic Active [facility] ity genital Translations: [address] [facility] disorders (6 [ Erectile of [facility] sources.) disorder, [place] (84856) acquired, generalized, moderate, Erectile disorder, acquired, generalized, moderate] Unclassified Male erectile Chronic Active [facility] (13 sources.) disorder [address] [facility] Translations: of [facility] [ - Erectile [place] (29811) disorder, acquired, generalized, moderate F52.21, - Erectile disorder, acquired, generalized, moderate F52.21] Cancer of Malignant Chronic Active [facility] [place] [facility] prostate ([place] [address] [place] source.) prostate Hospital Translations: (48073) [ Malignant neoplasm of prostate, Malignant neoplasm of prostate] Chronic ulcer Non-pressure 11-14-2019 - Chronic Active [facility] of skin (20 chronic ulcer [facility] [facility] sources.) of other part of [facility] of left foot [place] (08941) limited to breakdown of skin Translations: [ - Toe ulcer, left, limited to breakdown of skin L97.521, Toe ulcer, left, limited to breakdown of skin, Toe ulcer, left, limited to breakdown of skin, - Ulceration L98.499, Toe ulcer, left, limited to breakdown of skin, - Toe ulcer, left, limited to breakdown of skin L97.521, - Ulceration L98.499, Skin ulcer of toe of left foot, limited to breakdown of skin, - Skin ulcer of toe of left foot, limited to breakdown of skin L97.521, NON-PRS CHRONIC ULCER OTH PRT LEFT FOOT , NON-PRESSURE CHRONIC ULCER OTH PRT LEFT ] Acquired foot Other hammer Chronic Active NIRMAL HAQUE [facility] deformities (2 toe(s) [address] [facility] sources.) (acquired), of [facility] left foot [place] () Translations: [ - Other hammer toe(s) (acquired), left foot M20.42, Other hammer toe(s) (acquired), left foot, Other hammer toe(s) (acquired), left foot] Acquired foot Other hammer Chronic [facility] [address] [facility] sources.) (acquired), of [facility] right foot [place] () Translations: [ - Other hammer toe(s) (acquired), right foot M20.41, Other hammer toe(s) (acquired), right foot, Other hammer toe(s) (acquired), right foot] Genitourinary Retention of 12-05-2019 - Episodic Active ELENA TY [facility] Via symptoms and urine, DO [place] ill-defined unspecified Hospital - conditions (2 Translations: [place] sources.) [ Retention of (01861) urine, Retention of urine] Mycoses (2 Tinea pedis 11-14-2019 - Episodic Active NIRMAL CLARK [facility] Via sources.) , [facility] (24855) Other injuries Unspecified Episodic Active NIRMAL GARLAND [facility] and conditions site of sprain [id number] [place], [place] [address]e r due to and strain of [facility] external Translations: [place] () causes (4 [ - Muscle sources.) strain 848.9, - Muscle strain 848.9] Past or Other Problems Problem Normalized Date of Normalized Normalized Provider Fac ility Classification Problem(s) Problem Problem Problem Sta tus Onset/Resoluti Duration on Acquired foot Bunion of left no information no information [facility] ([facility] foot [facility] [facility] source.) Translations: of [facility] [ - Bunion of [place] (86203) great toe of left foot M21.612] Acquired foot Bunion of no information no information NIRMAL CARTER [facility] deformities (1 right foot [address]82 Health Center source.) Translations: of [facility] [ - Bunion of [place] (36940) right foot M21.611] Procedures Procedure Normalized Procedure Procedure Result Performer Facility Date 05-08-2018 Assay of prostate no information no name (no phone) [facility] specific antigen total [facility] ([id number]) 05-08-2018 Blood count complete no information no name (no shailesh ne) [facility] auto&auto difrntl wbc [facility] ([id number]) 12-05-2019 Bone marrow aspiration no information no name (no p marian) [place] [facility] ([id number]) 12-05-2019 - 12-05-2019 05-08-2018 Collection venous no information no name (no phone) [facility] blood venipuncture [facility] (18692) 05-08-2018 Comprehensive no information no name (no phone) [facility] metabolic panel [facility] (33553) 12-05-2019 CT guided aspiration no information no name (no shailesh ne) [place] [facility] ([id number]) 12-05-2019 - 12-05-2019 12-03-2019 CT of chest, abdomen no information no name (no shailesh ne) [place] [facility] and pelvis without Hospital (78155) 12-03-2019 contrast - 12-03-2019 12-04-2019 Diagnostic radiography no information no name (no p marian) [place] [facility], combined [facility] ([phone]) 12-04-2019 and lateral - 12-04-2019 07-22-2015 Diagnostic radiologic no information [facility] - examination [facility] 07-22-2015 [place] ([id number]) - 07-22-2015 12-05-2019 Intravenous sedation no information no name (no shailesh ne) [place] [facility] (31832) 12-05-2019 - 12-05-2019 05-08-2018 Lipid panel no information no name (no phone) [facility] (77105) 12-06-2019 Plain X-ray of femur no information no name (no shailesh ne) no [place] [facility] [place] [facility] (no phone) Hospital ([id number]) 12-06-2019 - 12-06-2019 12-03-2019 Total iron binding 337 no name (no phone) [place] [facility] (02596 ) 12-03-2019 - 12-03-2019 12-03-2019 Unsaturated iron 97 no name (no phone) [place] [facility] ([id number]) 12-03-2019 measurement - 12-03-2019 Comment: Test performed at [facility] Danielle PILAR# [id number] [place] [address] Immunizations Normalized Immunization Date Notes Care Provider Facili ty Immunization influenza, seasonal, 09-03-2019 no information no name [facility] ([id number]) Results Test Name Value Interpretation Reference Range Date Time Fa cility (Normalized) (Normalized) (Medline Reference) venous blood hemoglobin measurement (mass/volume) on 2019-12-07 Hemoglobin (Bld) 7.9 g/dL (L) 12.1 - 17.2 g/dL 12-07-2019 [place] [facility] [Mass/Vol] 14:55-0500 [facility] (55213) serum or plasma urea nitrogen/creatin ine mass ratio on 2019-12-07 Urea 21 mg/mg (no code) 6 - 22 mg/mg 12-07-2019 [place] [facility] nitrogen/Creatin 14:55-0500 [facility] ine [Mass ratio] (40017) serum or plasma urea nitrogen measurement (mass/volume) on 2019-12-07 Urea nitrogen 20 mg/dL (H) 7 - 20 mg/dL 12-07-2019 [facility] [Mass/Vol] 14:55-0500 [facility] (08701) serum or plasma total bilirubin measurement (mass/volume) on 2019-12-07 Bilirubin 0.7 mg/dL (no code) 0.1 - 1.2 mg/dL 12-07-2019 [facility] [Mass/Vol] 14:55-0500 [facility] (38062) serum or plasma sodium measurement (moles/volume) on 2019-12-07 Sodium 134 mmol/L (L) 135 - 145 mmol/L 12-07-2019 [facility] [Moles/Vol] 14:55-0500 [facility] (59206) serum or plasma protein measurement (mass/volume) on 2019-12-07 Protein 6.3 g/dL (L) 6.4 - 8.3 g/dL 12-07-2019 [facility] [Mass/Vol] 14:55-0500 [facility] (76086) serum or plasma potassium measurement (moles/volume) on 2019-12-07 Potassium 3.7 mmol/L (no code) 3.7 - 5.2 mmol/L 12-07-2019 [facility] [Moles/Vol] 14:55-0500 [facility] ([id number]) serum or plasma glucose measurement (mass/volume) on 2019-12-07 Glucose 100 mg/dL (no code) 60 - 125 mg/dL 12-07-2019 [facility] [Mass/Vol] 14:55-0500 [facility] ([id number]) serum or plasma creatinine measurement with calculation of estimated glomerular filtration rate on 2019-12-07 GFR/1.73 sq M mL/min/{1.73_m2} (no code) 90 - 120 12-07-2019 [facility] predicted among mL/min/{1.73_m2} 14:55-0500 [facility] spital non-blacks MDRD (02021) (S/P/Bld) [Vol rate/Area] Comment: GFR INTERPRETIVE DATA UNITS FOR ESTIMATED GFR (eGFR): mL/min/1.73 M2 REFERENCE RANGE FOR ESTIMATED GFR (eGFR) eGFR NORMAL eGFR >60 MODERATELY DECREASED eGFR 30-59 SEVERLY DECREASED eGFR 15-29 KIDNEY FAILURE <15 (OR DIALYSIS) serum or plasma creatinine measurement (mass/volume) on 2019-12-07 Creatinine 0.96 mg/dL (no code) 12-07-2019 [place] [facility] [Mass/Vol] 14:55-0500 [facility] (57731) serum or plasma chloride measurement (moles/volume) on 2019-12-07 Chloride 99 mmol/L (no code) 95 - 106 mmol/L 12-07-2019 [facility] [Moles/Vol] 14:55-0500 [facility] ([id number]) serum or plasma calcium measurement (mass/volume) on 2019-12-07 Calcium 9.2 mg/dL (no code) 8.5 - 10.2 mg/dL 12-07-2019 [facility] [Mass/Vol] 14:55-0500 [facility] (71636) serum or plasma aspartate aminotransferase measurement (enzymatic activity/volume) on 2019-12-07 AST [Catalytic 74 U/L (H) 10 - 34 U/L 12-07-2019 [facility] activity/Vol] 14:55-0500 [facility] (88369) serum or plasma anion gap determination (moles/volume) on 2019-12-07 Anion gap 10 mmol/L (no code) 3 - 11 mmol/L 12-07-2019 [facility] [Moles/Vol] 14:55-0500 [facility] (43290) serum or plasma alkaline phosphatase measurement (enzymatic activity/volume) on 2019-12-07 ALP [Catalytic 233 U/L (H) 44 - 147 U/L 12-07-2019 [facility] activity/Vol] 14:550500 [facility] ([id number]) serum or plasma albumin measurement (mass/volume) on 2019-12-07 Albumin 3.6 g/dL (no code) 3.4 - 5.4 g/dL 12-07-2019 [facility] [Mass/Vol] 14:55-0500 [facility] ([id number]) serum or plasma alanine aminotransferase measurement (enzymatic activity/volume) on 2019-12-07 ALT [Catalytic 14 U/L (no code) 4 - 40 U/L 12-07-2019 [facility] activity/Vol] 14:55-0500 [facility] (70086) carbon dioxide on 2019-12-07 CO2 [Moles/Vol] 25 mmol/L (no code) 23 - 29 mmol/L 12-07-2019 [facility] 14:550500 [facility] (39306) calcium measurement corrected for albumin on 2019-12-07 Calcium 9.5 mg/dL (no code) 8.5 - 10.2 mg/dL 12-07-2019 [facility] [Mass/Vol] 14:550500 [facility] (30807) Comment: Calcium corrected calculation = [0.8x(normal albumin - patient's albumin] + serum Ca levelformula in [employer] is (4-ALB)*0.8+CA blood monocytes/100 leukocytes on 2019-12-07 Monocytes/100 13 % (H) 2 - 8 % 12-07-2019 [facility] WBC (Bld) 14:55-0500 [facility] (52903) blood monocytes automated count (number/volume) on 2019-12-07 Monocytes (Bld) 0.5 10*3/uL (no code) 0.3 - 0.9 12-07-2019 [facility] [#/Vol] 10*3/uL 14:55-0500 [facility] l (49932) blood hematocrit (volume fraction) on 2019-12-07 Hematocrit (Bld) 24 % (L) 36.1 - 50.3 % 12-07-2019 [facility] [Volume 14:55-0500 [facility] fraction] ([id number]) blood erythrocytes automated count (number/volume) on 2019-12-07 RBC (Bld) 2.77 10*6/uL (L) 4.2 - 6.1 12-07-2019 [place] [facility] [#/Vol] 10*6/uL 14:55-0500 [facility] l (44698) automated erythrocyte mean corpuscular volume (mcv) measurement on 2019-12-07 MCV (RBC) 88 fL (no code) 80 - 100 fL 12-07-2019 [place] [facility] [Entitic vol] 14:55-0500 [facility] (23505) automated erythrocyte mean corpuscular hemoglobin concentration measurement (mass/volume) on 2019-12-07 MCHC (RBC) 32 g/dL (no code) 32 - 36 g/dL 12-07-2019 [facility] [Mass/Vol] 14:550500 [facility] (27062) automated erythrocyte mean corpuscular hemoglobin (mass per erythrocyte) on 2019-12-07 MCH (RBC) 29 pg (no code) 27 - 31 pg 12-07-2019 [place] [facility] [Entitic mass] 14:550500 [facility] ([id number]) automated erythrocyte distribution width ratio on 2019-12-07 Erythrocyte 18.1 % (H) 11.6 - 14.6 % 12-07-2019 [facility] distribution 14:550500 [facility] width (RBC) (69938) [Ratio] automated eosinophil count on 2019-12-07 Eosinophils 0.1 10*3/uL (no code) 0.05 - 0.5 12-07-2019 [facility] (Bld) [#/Vol] 10*3/uL 14:550500 [facility] al (25838) automated blood platelet mean volume measurement on 2019-12-07 Platelet mean 9.3 fL (no code) 7.2 - 11.7 fL 12-07-2019 [facility] volume (Bld) 14:550500 [facility] [Entitic vol] (24537) automated blood platelet count (count/volume) on 2019-12-07 Platelets (Bld) 47 10*3/uL (L) 150 - 450 12-07-2019 [facility] [#/Vol] 10*3/uL 14:550500 [facility] l (94524) automated blood neutrophils/100 leukocytes on 2019-12-07 Neutrophils/100 46 % (no code) 40 - 60 % 12-07-2019 [facility] WBC (Bld) 14:550500 [facility] ([id number]) automated blood neutrophil count (number/volume) on 2019-12-07 Neutrophils 1.8 10*3/uL (no code) 1.7 - 7 10*3/uL 12-07-2019 [facility] (Bld) [#/Vol] 14:550500 [facility] (19775) automated blood lymphocytes/100 leukocytes on 2019-12-07 Lymphocytes/100 36 % (no code) 20 - 40 % 12-07-2019 [facility] WBC (Bld) 14:550500 [facility] (68726) automated blood lymphocyte count (number/volume) on 2019-12-07 Lymphocytes 1.4 10*3/uL (no code) 0.9 - 2.9 12-07-2019 [facility] (Bld) [#/Vol] 10*3/uL 14:550500 [facility] al (12884) automated blood leukocyte count (number/volume) on 2019-12-07 WBC (Bld) 4.0 10*3/uL (L) 3.5 - 10.5 12-07-2019 [place] [facility] [#/Vol] 10*3/uL 14:550500 [facility] l (86578) automated blood eosinophils/100 leukocytes on 2019-12-07 Eosinophils/100 2 % (no code) 1 - 4 % 12-07-2019 [facility] WBC (Bld) 14:550500 [facility] (54386) automated blood basophils/100 leukocytes on 2019-12-07 Basophils/100 3 % (no code) 0.5 - 1 % 12-07-2019 [facility] WBC (Bld) 14: [facility] (09482) automated blood basophil count (number/volume) on 2019-12-07 Basophils (Bld) 0.1 10*3/uL (no code) 0 - 0.3 10*3/uL 12-07-2019 [place] [facility] [#/Vol] 14:55050 [facility] (61403) serum or plasma triglyceride measurement (mass/volume) on 2019-12-06 Triglyceride 144 mg/dL (no code) 0 - 150 mg/dL 12-06-2019 [facility] [Mass/Vol] 08: [facility] (96122) lactate dehydrogenase (ldh) measurement on 2019-12-06 LDH [Catalytic 1478 U/L (H) 105 - 333 U/L 12-06-2019 [facility] activity/Vol] 08: [facility] (07439) fibrinogen measurement in platelet poor plasma by coagulation assay (mass/volume) on 2019-12-06 Fibrinogen Coag 447 mg/dL (no code) 12-06-2019 [place] [facility] (PPP) [Mass/Vol] 08: [facility] (26506) fibrin d-dimer feu measurement in platelet poor plasma (mass/volume) on 2019-12-06 Fibrin D-dimer 15.04 (H) 12-06-2019 [place] [facility] FEU (PPP) 08: [facility] [Mass/Vol] ([id number]) vitamin b12 on 2019-12-05 Cobalamin 899 pg/mL (no code) 200 - 900 pg/mL 12-05-2019 [facility] (Vitamin B12) 08:540 [facility] [Mass/Vol] ([id number]) Comment: Test performed at [facility], CLIA# [id number] [place] [address] venous blood hemoglobin measurement (mass/volume) on 2019-12-05 Hemoglobin (Bld) 8.1 g/dL (L) 12.1 - 17.2 g/dL 12-05-2019 [place] [facility] [Mass/Vol] 08:58-0500 [facility] (91129) serum or plasma urea nitrogen/creatin ine mass ratio on 2019-12-05 Urea 31 mg/mg (no code) 6 - 22 mg/mg 12-05-2019 [place] [facility] nitrogen/Creatin 08:58-0500 [facility] ine [Mass ratio] (09783) serum or plasma urea nitrogen measurement (mass/volume) on 2019-12-05 Urea nitrogen 41 mg/dL (H) 7 - 20 mg/dL 12-05-2019 [facility] [Mass/Vol] 08:58-0500 [facility] (56393) serum or plasma total bilirubin measurement (mass/volume) on 2019-12-05 Bilirubin 1.5 mg/dL (H) 0.1 - 1.2 mg/dL 12-05-2019 [facility] [Mass/Vol] 08:58-0500 [facility] (34974) serum or plasma sodium measurement (moles/volume) on 2019-12-05 Sodium 132 mmol/L (L) 135 - 145 mmol/L 12-05-2019 [facility] [Moles/Vol] 08:58-0500 [facility] ([id number]) serum or plasma protein measurement (mass/volume) on 2019-12-05 Protein 6.3 g/dL (L) 6.4 - 8.3 g/dL 12-05-2019 [facility] [Mass/Vol] 08:58-0500 [facility] (07638) serum or plasma potassium measurement (moles/volume) on 2019-12-05 Potassium 4.7 mmol/L (no code) 3.7 - 5.2 mmol/L 12-05-2019 [facility] [Moles/Vol] 08:58-0500 [facility] (83572) serum or plasma glucose measurement (mass/volume) on 2019-12-05 Glucose 96 mg/dL (no code) 60 - 125 mg/dL 12-05-2019 [facility] [Mass/Vol] 08:58-0500 [facility] (35395) serum or plasma folate measurement (mass/volume) on 2019-12-05 Folate 7.1 ng/mL (no code) 2.7 - 17 ng/mL 12-05-2019 [facility] [Mass/Vol] 08:54-0500 [facility] (23799) Comment: Test performed at [facility], CLIA# [id number] [place] [address] serum or plasma creatinine measurement with calculation of estimated glomerular filtration rate on 2019-12-05 GFR/1.73 sq M 55 (no code) 90 - 120 12-05-2019 [facility] predicted among mL/min/{1.73_m2} mL/min/{1.73_m2} 08:580500 [facility] non-blacks MDRD (74615) (S/P/Bld) [Vol rate/Area] Comment: GFR INTERPRETIVE DATA UNITS FOR ESTIMATED GFR (eGFR): mL/min/1.73 M2 REFERENCE RANGE FOR ESTIMATED GFR (eGFR) eGFR NORMAL eGFR >60 MODERATELY DECREASED eGFR 30-59 SEVERLY DECREASED eGFR 15-29 KIDNEY FAILURE <15 (OR DIALYSIS) serum or plasma creatinine measurement (mass/volume) on 2019-12-05 Creatinine 1.31 mg/dL (H) 12-05-2019 [place] [facility] [Mass/Vol] 08:580500 [facility] (08688) serum or plasma chloride measurement (moles/volume) on 2019-12-05 Chloride 95 mmol/L (L) 95 - 106 mmol/L 12-05-2019 [facility] [Moles/Vol] 08:580500 [facility] (36917) serum or plasma calcium measurement (mass/volume) on 2019-12-05 Calcium 9.0 mg/dL (no code) 8.5 - 10.2 mg/dL 12-05-2019 [facility] [Mass/Vol] 08:58-0500 [facility] (00663) serum or plasma aspartate aminotransferase measurement (enzymatic activity/volume) on 2019-12-05 AST [Catalytic 254 U/L (H) 10 - 34 U/L 12-05-2019 [facility] activity/Vol] 08:58-0500 [facility] (78200) serum or plasma anion gap determination (moles/volume) on 2019-12-05 Anion gap 10 mmol/L (no code) 3 - 11 mmol/L 12-05-2019 [facility] [Moles/Vol] 08:58-0500 [facility] (21437) serum or plasma alkaline phosphatase measurement (enzymatic activity/volume) on 2019-12-05 ALP [Catalytic 347 U/L (H) 44 - 147 U/L 12-05-2019 [facility] activity/Vol] 08:580500 [facility] (91390) serum or plasma albumin measurement (mass/volume) on 2019-12-05 Albumin 3.8 g/dL (no code) 3.4 - 5.4 g/dL 12-05-2019 [facility] [Mass/Vol] 08:580500 [facility] (30375) serum or plasma alanine aminotransferase measurement (enzymatic activity/volume) on 2019-12-05 ALT [Catalytic 17 U/L (no code) 4 - 40 U/L 12-05-2019 [facility] activity/Vol] 08:580500 [facility] (54827) prothrombin time (pt) in platelet poor plasma on 2019-12-05 PT Coag (PPP) 15.4 s (H) 9.4 - 12.5 s 12-05-2019 [facility] [Time] 08:580500 [facility] (79044) manual eosinophils/100 leukocytes in nose on 2019-12-05 Eosinophils/100 2 % (no code) 12-05-2019 [place] [facility] WBC (Nose) [id number]:[id number] [facility] ([id number]) manual blood segmented neutrophils/100 leukocytes on 2019-12-05 Segmented 46 % (no code) 35 - 80 % 12-05-2019 [place] [facility] neutrophils/100 08:[id number] [facility] WBC (Bld) ([id number]) manual blood nucleated erythrocytes/100 leukocytes ratio on 2019-12-05 Nucleated 10 % (no code) 0 - 0 % 12-05-2019 [place] [facility] RBC/100 WBC 08:[id number] [facility] ([facility]) [Ratio] ([id number]) manual blood metamyelocytes/1 00 leukocytes on 2019-12-05 Metamyelocytes/1 1 % (no code) 0 - 0 % 12-05-2019 [facility] 00 WBC (Bld) 08:[id number] [facility] ([id number]) manual blood lymphocytes/100 leukocytes on 2019-12-05 Lymphocytes/100 36 % (no code) 20 - 40 % 12-05-2019 [facility] WBC (Bld) 08:[id number] [facility] (10531) manual blood basophils/100 leukocytes on 2019-12-05 Basophils/100 0 % (no code) 0.5 - 1 % 12-05-2019 [facility] WBC (Bld) 08:[id number] [facility] (08351) inr in platelet poor plasma or blood by coagulation assay on 2019-12-05 INR Coag 1.2 (no code) 12-05-2019 [place] [facility] (Platelet poor 08:580500 [facility] plasma or blood) ([id number]) [Relative time] Comment: INTERPRETIVE DATASUGGESTED THERAPEUTIC RANGE FOR INR'S: VENOUS THROMBOSIS, PULMONARY EMBOLISM, OR PREVENTION OF SYSTEMIC EMBOLISM (EG. IN ATRIAL FIBRILLATION): 2.0 - 3.0 MECHANICAL PROSTHETIC HEART VALVES: 2.5 - 3.5NOTE: INR'S UP TO 4.5 MAY BE NECESSARY IN SELECTED GROUPS OF HIGH RISK PATIENTS.SIX[employer] CHEST PHYSICIANS CONSENSUSCONFERE NCE ON ANTITHROMBOTIC THERAPY (1999). carbon dioxide on 2019-12-05 CO2 [Moles/Vol] 27 mmol/L (no code) 23 - 29 mmol/L 12-05-2019 [facility] [id number] [facility] ([id number]) calcium measurement corrected for albumin on 2019-12-05 Calcium 9.2 mg/dL (no code) 8.5 - 10.2 mg/dL 12-05-2019 [facility] [Mass/Vol] 08:[id number] [facility] (49230) Comment: Calcium corrected calculation = [0.8x(normal albumin - patient's albumin] + serum Ca levelformula in BMdrtech is (4-ALB)*0.8+CA blood reticulocytes/10 0 erythrocytes on 2019-12-05 Reticulocytes/10 2.94 % (H) 0.5 - 1.5 % 12-05-2019 [facility] 0 RBC (Bld) 08:580500 [facility] (21260) blood reticulocytes count (number/volume) on 2019-12-05 Reticulocytes 85 10*3/uL (no code) 12-05-2019 [place] [facility] (Bld) [#/Vol] 08:580500 [facility] (57959) blood poikilocytosis detection by light microscopy on 2019-12-05 Poikilocytosis SLIGHT (no code) 12-05-2019 [place] [facility] LM Ql (Bld) 08:58-0500 [facility] (76908) blood ovalocytes detection by light microscopy on 2019-12-05 Ovalocytes LM Ql SLIGHT (no code) 12-05-2019 [place] [facility] (Bld) 08:58-0500 [facility] (36865) blood monocytes/100 leukocytes on 2019-12-05 Monocytes/100 11 % (no code) 2 - 8 % 12-05-2019 [facility] WBC (Bld) 08:[id number] [facility] ([id number]) Monocytes/100 10 % (no code) 2 - 8 % 12-05-2019 [facility] WBC (Bld) 08:58-0500 [facility] (97653) blood monocytes automated count (number/volume) on 2019-12-05 Monocytes (Bld) 0.5 10*3/uL (no code) 0.3 - 0.9 12-05-2019 [facility] [#/Vol] 10*3/uL 08:58-0500 [facility] (12443) blood lymphocytes variant/100 leukocytes on 2019-12-05 Variant 1 % (no code) 0 - 1 % 12-05-2019 [place] [facility] lymphocytes/100 08:58-0500 [facility] WBC (Bld) (88832) blood hematocrit (volume fraction) on 2019-12-05 Hematocrit (Bld) 25 % (L) 36.1 - 50.3 % 12-05-2019 [facility] [Volume 08:58-0500 [facility] fraction] (72550) blood helmet cells detection by light microscopy on 2019-12-05 Helmet cells LM SLIGHT (no code) 12-05-2019 [place] [facility] Ql (Bld) 08:58-0500 [facility] (35283) blood erythrocytes automated count (number/volume) on 2019-12-05 RBC (Bld) 2.89 10*6/uL (L) 4.2 - 6.1 12-05-2019 [place] [facility] [#/Vol] 10*6/uL 08:58-0500 [facility] l (48818) blood dacrocytes detection by light microscopy on 2019-12-05 Dacrocytes LM Ql SLIGHT (no code) 12-05-2019 [place] [facility] (Bld) 08:58-0500 [facility] (56961) blood basophilic stippling detection by light microscopy on 2019-12-05 Basophilic SLIGHT (no code) 12-05-2019 [place] [facility] stippling LM Ql 08:580500 [facility] (d) (93931) blood band neutrophils/100 leukocytes on 2019-12-05 Band form 4 % (no code) 0 - 3 % 12-05-2019 [place] [facility] neutrophils/100 08:580500 [facility] WBC (Bld) (16369) blood anisocytosis detection by light microscopy on 2019-12-05 Anisocytosis Ql SLIGHT (no code) 12-05-2019 [place] [facility] (Bld) 08:58-0500 [facility] (18908) automated erythrocyte mean corpuscular volume (mcv) measurement on 2019-12-05 MCV (RBC) 86 fL (no code) 80 - 100 fL 12-05-2019 [place] [facility] [Entitic vol] 08:58-0500 [facility] (77395) automated erythrocyte mean corpuscular hemoglobin concentration measurement (mass/volume) on 2019-12-05 MCHC (RBC) 33 g/dL (no code) 32 - 36 g/dL 12-05-2019 [facility] [Mass/Vol] 08:58-0500 [facility] (57777) automated erythrocyte mean corpuscular hemoglobin (mass per erythrocyte) on 2019-12-05 MCH (RBC) 28 pg (no code) 27 - 31 pg 12-05-2019 [place] [facility] [Entitic mass] 08:58-0500 [facility] (26529) automated erythrocyte distribution width ratio on 2019-12-05 Erythrocyte 17.7 % (H) 11.6 - 14.6 % 12-05-2019 [facility] distribution 08:580500 [facility] width (RBC) (54848) [Ratio] automated eosinophil count on 2019-12-05 Eosinophils 0.1 10*3/uL (no code) 0.05 - 0.5 12-05-2019 [facility] (Bld) [#/Vol] 10*3/uL 08:58-0500 [facility] (28958) automated blood platelet count (count/volume) on 2019-12-05 Platelets (Bld) 51 10*3/uL (L) 150 - 450 12-05-2019 [facility] [#/Vol] 10*3/uL 08:58050 [facility] (60313) automated blood neutrophils/100 leukocytes on 2019-12-05 Neutrophils/100 47 % (no code) 40 - 60 % 12-05-2019 [facility] WBC (Bld) 08: [facility] () automated blood neutrophil count (number/volume) on 2019-12-05 Neutrophils 2.2 10*3/uL (no code) 1.7 - 7 10*3/uL 12-05-2019 [facility] (Bld) [#/Vol] 08:050 [facility] () automated blood lymphocytes/100 leukocytes on 2019-12-05 Lymphocytes/100 38 % (no code) 20 - 40 % 12-05-2019 [facility] WBC (Bld) 08: [facility] () automated blood lymphocyte count (number/volume) on 2019-12-05 Lymphocytes 1.7 10*3/uL (no code) 0.9 - 2.9 12-05-2019 [facility] (Bld) [#/Vol] 10*3/uL 08:58050 [facility] (42363) automated blood leukocyte count (number/volume) on 2019-12-05 WBC (Bld) 4.2 10*3/uL (L) 3.5 - 10.5 12-05-2019 [place] [facility] [#/Vol] 10*3/uL 08:58050 [facility] (06401) Comment: Corrected WBC for nucleated red blood cell count--- 12/05/19906 ---WBC previously reported as: 4.6 10^3/uL automated blood eosinophils/100 leukocytes on 2019-12-05 Eosinophils/100 2 % (no code) 1 - 4 % 12-05-2019 [facility] WBC (Bld) 08: [facility] () automated blood basophils/100 leukocytes on 2019-12-05 Basophils/100 2 % (no code) 0.5 - 1 % 12-05-2019 [facility] WBC (Bld) 08:58-0500 [facility] (56424) automated blood basophil count (number/volume) on 2019-12-05 Basophils (Bld) 0.1 10*3/uL (no code) 0 - 0.3 10*3/uL 12-05-2019 [place] [facility] [#/Vol] 08:58-0500 [facility] (45555) activated partial thromboplastin time (aptt) in platelet poor plasma bycoagulation assay on 2019-12-05 aPTT Coag (PPP) 38 s (H) 25 - 35 s 12-05-2019 [facility] [Time] 08:58-0500 [facility] (08013) blood lactic acid measurement (moles/volume) on 2019-12-04 Lactate 0.99 mmol/L (no code) 0.5 - 2.2 mmol/L 12-04-2019 [facility] [Moles/Vol] 14:140500 [facility] (87002) Comment: Lactic acid levels can appear lower than actual values in patients receiving NAC (N-Acetyl Cysteine). bacterial blood culture on 2019-12-04 Bacteria No growth (no code) 12-04-2019 [place] [facility] identified Cx 14:19-0500 [facility] Nom (Bld) (39665) automated blood platelet mean volume measurement on 2019-12-04 Platelet mean 11.0 fL (H) 7.2 - 11.7 fL 12-04-2019 [facility] volume (Bld) 08:35-0500 [facility] [Entitic vol] (38034) urine urobilinogen measurement by automated test strip (mass/volume) on 2019-12-03 Urobilinogen (U) 0.2 mg/dL (no code) 12-03-2019 [place] [facility] [Mass/Vol] 19:48-0500 [facility] (92476) urine total bilirubin detection by test strip on 2019-12-03 Bilirubin Ql (U) no information (no code) 12-03-2019 [facility] 19:48-0500 [facility] (05931) urine protein assay by test strip, semi-quantitativ e on 2019-12-03 Protein Ql (U) TRACE (no code) 12-03-2019 [place] [facility] 19:48-0500 [facility] (20660) urine ph measurement by test strip on 2019-12-03 pH (U) 5.5 [pH] (no code) 4.6 - 8 [pH] 12-03-2019 [place] [facility] 19:48-0500 [facility] (64239) urine nitrite detection by test strip on 2019-12-03 Nitrite Ql (U) no information (no code) 12-03-2019 [facility] 19:48-0500 [facility] (08634) urine leukocyte esterase detection by dipstick on 2019-12-03 Leukocyte no information (no code) 12-03-2019 [place] [facility] esterase Test 19:48-0500 [facility] strip Ql (U) (94861) urine ketones detection by automated test strip on 2019-12-03 Ketones Auto no information (no code) 12-03-2019 [place] [facility] test strip Ql 19:48-0500 [facility] (U) (07422) urine glucose detection by automated test strip on 2019-12-03 Glucose Auto no information (no code) 12-03-2019 [place] [facility] test strip Ql 19:48-0500 [facility] (U) (58392) urine color determination on 2019-12-03 Color (U) YELLOW (no code) 12-03-2019 [place] [facility] 19:48-0500 [facility] (61574) urine clarity determination on 2019-12-03 Clarity (U) CLEAR (no code) 12-03-2019 [place] [facility] 19:48-0500 [facility] (58624) total iron binding capacity and transferrin saturation measurement on 2019-12-03 Iron and Iron 71 (H) 12-03-2019 [place] [facility] binding capacity 19:38-0500 [facility] panel - Serum or (31360) Plasma specific gravity of urine by test strip on 2019-12-03 Specific gravity 1.020 (no code) 12-03-2019 [place] [facility] (U) [Rel 19:48-0500 [facility] density] (22179) serum or plasma iron measurement (mass/volume) on 2019-12-03 Iron [Mass/Vol] 240 ug/dL (H) 60 - 170 ug/dL 12-03-2019 [facility] 19:38-0500 [facility] (54139) serum or plasma ferritin measurement (mass/volume) on 2019-12-03 Ferritin 67364.3 ng/mL (H) 12-03-2019 [place] [facility] [Mass/Vol] 19:38-0500 [facility] (17283) Comment: Test performed at [facility], CLIA# [id number] [place] [address] mucus detection in urine sediment by light microscopy on 2019-12-03 Mucus Ql (Urine no information (no code) 12-03-2019 [facility] sed) 19:480500 [facility] (10918) erythrocytes detection in urine sediment by light microscopy on 2019-12-03 RBC Ql (U) 3+ (no code) 12-03-2019 [place] [facility] 19:48-0500 [facility] (81614) crystals detection in urine sediment by light microscopy on 2019-12-03 Crystals LM Ql NONE (no code) 12-03-2019 [place] [facility] (Urine sed) :480500 [facility] (48747) complete urinalysis with reflex to culture on 2019-12-03 Urinalysis NO (no code) 12-03-2019 [place] [facility] complete W 19:48-0500 [facility] Reflex Culture ([id number]) panel - Urine casts detection in urine sediment by light microscopy on 2019-12-03 Casts LM Ql NONE (no code) 12-03-2019 [place] [facility] (Urine sed) 19:48-0500 [facility] (47149) blood erythrocyte morphology finding identification on 2019-12-03 RBC morphology NORMAL (no code) 12-03-2019 [place] [facility] finding Nom 19:380500 [facility] (Bld) (82922) bacteria detection in urine sediment by light microscopy on 2019-12-03 Bacteria LM Ql MODERATE (no code) 12-03-2019 [place] [facility] (Urine sed) 19:48-0500 [facility] (03213) automated urine sediment leukocyte count by microscopy (number/high power field) on 2019-12-03 WBC LM.HPF 2-5 (no code) 12-03-2019 [place] [facility] (Urine sed) 19:480500 [facility] [#/Area] (79300) automated urine sediment erythrocyte count by microscopy (number/high power field) on 2019-12-03 RBC LM.HPF /[HPF] (no code) 0 - 4 /[HPF] 12-03-2019 [facility] (Urine sed) 19:48-0500 [facility] [#/Area] (15340) No panel information on 2019-11-11 Band form 0.528 10*3/uL (N) 0 - 0.75 10*3/uL [facility] neutrophils [facility] (Bld) [#/Vol] [facility] (93795) Band form 12 % (N) 0 - 3 % Counts Include [address] [facility] th neutrophils/100 [facility] WBC (Bld) [facility] (67722) Basophils (Bld) 0 10*3/uL (N) 0 - 0.3 10*3/uL [facility] [#/Vol] [facility] (76069) Basophils/100 0 % (N) 0.5 - 1 % [facility] He alth WBC (Bld) [facility] (50490) Blasts (Bld) 0.132 10*3/uL (H) Counts Include [facility] [#/Vol] [facility] (57080) Blasts/100 WBC 3 % (H) 0 - 0 % [facility] H ealth (Bld) [facility] (74694) Cobalamin 1773 pg/mL (H) 200 - 900 pg/mL [facility] (Vitamin B12) [facility] [Mass/Vol] [facility] (44861) Eosinophils 0.088 10*3/uL (N) 0.05 - 0.5 [facility] He alth (Bld) [#/Vol] 10*3/uL [facility] (03353) Eosinophils/100 2 % (N) 1 - 4 % [facility] WBC (Bld) [facility] (16489) Erythrocyte 14.9 % (N) 11.6 - 14.6 % [facility] H ealth distribution [facility] width (RBC) [facility] [Ratio] (83887) Ferritin 5011 ng/mL (H) Counts Include [facility] [Mass/Vol] [facility] (30608) Folate 7.5 ng/mL (N) 2.7 - 17 ng/mL [facility] [Mass/Vol] [facility] (72133) HAV IgM IA Ql NON-REACTIVE (N) [facility] (29665) HBV core IgM IA NON-REACTIVE (N) [facility] (89680) HBV surface Ag NON-REACTIVE (N) [facility] IA Ql [facility] (70609) HCV Ab IA Ql NON-REACTIVE (N) [facility] (21450) HCV Ab 0.01 {ratio} (N) 0 - 3 {ratio} [facility] Signal/Cutoff IA [facility] [Rel units/Vol] [facility] (88702) Hematocrit (Bld) 24.0 % (L) 36.1 - 50.3 % [facility] [[facility] (76242) Hemoglobin (Bld) 8.1 g/dL (L) 12.1 - 17.2 g/dL [facility] [Mass/Vol] [facility] (01613) Iron [Mass/Vol] 185 ug/dL (H) 60 - 170 ug/dL [facility] (78037) Iron binding 287 (N) [facility] [Mass/Vol] [facility] (37148) Iron saturation 64 (H) [facility] [Mass fraction] [facility] (95527) Lymphocytes 1.54 10*3/uL (N) 0.9 - 2.9 [facility] [#/[facility] 10*3/uL [facility] (47409) Lymphocytes/100 35 % (N) 20 - 40 % [facility] WBC (Bld) [facility] (09305) MCH (RBC) 27.7 pg (N) 27 - 31 pg [facility] [Entitic mass] [facility] (03073) MCHC (RBC) 33.8 g/dL (N) 32 - 36 g/dL [facility] [Mass/Vol] [facility] (16765) MCV (RBC) 82.2 fL (N) 80 - 100 fL [facility]a [facility]th [Entitic vol] [facility] (90685) Metamyelocytes 0.704 10*3/uL (H) [facility] [#/Vol] [facility] (21785) Metamyelocytes/1 16 % (H) 0 - 0 % [facility] 00 WBC (Bld) [facility] (97404) Monocytes (Bld) 0.132 10*3/uL (L) 0.3 - 0.9 [facility] [#/Vol] 10*3/uL [facility] (66726) Monocytes/100 3 % (N) 2 - 8 % [facility] alth WBC (Bld) [facility] (13631) Morphology [place] no information (N) [facility]alt [facility] (Bld) [Interp] [facility] (40790) Myelocytes (Bld) 0.176 10*3/uL (H) 0.2 - 0.9 [facility] [#/Vol] 10*3/uL [facility] (64816) Myelocytes/100 4 % (H) 2 - 8 % [facility] ealth WBC (Bld) [facility] (72419) Neutrophils 1.1 10*3/uL (L) 1.7 - 7 10*3/uL [facility] (Bld) [#/Vol] [facility] (30243) Neutrophils/100 25 % (N) 40 - 60 % [facility] WBC (Bld) [facility] (15590) Nucleated RBC 0.704 10*3/uL (H) 0 - 0 10*3/uL [facility] (Bld) [#/Vol] [facility] (48226) Nucleated 16 (H) Counts [facility] RBC/100 WBC [facility] (Bld) [Ratio] [facility] (63200) Pathologist no information (no code) [facility] comment (Bld) (63398) [Interp] Platelet mean 11.9 fL (N) 7.2 - 11.7 fL [facility] volume (Bld) [facility] [Entitic vol] [facility] (49613) Platelets (Bld) 96 10*3/uL (L) 150 - 450 [facility] [#/Vol] 10*3/uL [facility] (87342) Platelets LM Ql DECREASED (A) Counts Include [address] [facility] th (Bld) [facility] (74675) RBC (Bld) 2.92 10*6/uL (L) 4.2 - 6.1 [facility]th [#/Vol] 10*6/uL [facility] (80065) Service comment no information (no code) [facility] (Unsp spec) [facility] [Interp] [facility] () WBC (Bld) 4.4 10*3/uL (N) 3.5 - 10.5 [facility] [#/Vol] 10*3/uL [facility] (38758) No panel information on 2019-11-07 Albumin 4.2 g/dL (N) 3.4 - 5.4 g/dL [facility] [Mass/Vol] [facility] () Albumin/Globulin 1.7 {ratio} (N) 1 - 2.5 {ratio} Comm [facility] [Mass ratio] [facility] () ALP [Catalytic 332 U/L (H) 44 - 147 U/L [facility] activity/Vol] [facility] (13677) ALT [Catalytic 13 U/L (N) 4 - 40 U/L [facility] activity/Vol] [facility] () Appearance (U) CLEAR (N) [facility]alt h [facility] (31335) AST [Catalytic 76 U/L (H) 10 - 34 U/L [facility] activity/Vol] [facility] (11592) Bacteria LM.HPF NONE SEEN (N) [facility] (Urine sed) [facility] [#/Area] [facility] () Band form 1.02 10*3/uL (H) 0 - 0.75 10*3/uL [facility] neutrophils [facility] (Bld) [#/Vol] [facility] (12612) Band form 17 % (N) 0 - 3 % [facility] neutrophils/100 [facility] WBC (Bld) [facility] (14507) Basophils (Bld) 0.06 10*3/uL (N) 0 - 0.3 10*3/uL [facility] [#/Vol] [facility] (87163) Basophils/100 1 % (N) 0.5 - 1 % [facility] WBC (Bld) [facility] (92353) Bilirubin 1.0 mg/dL (N) 0.1 - 1.2 mg/dL [facility] [Mass/Vol] [facility] (48539) Bilirubin Ql (U) no information (N) [facility] (97457[facility] Blasts (Bld) 0.12 10*3/uL (H) [facility] h [#/Vol] [facility] (31773) Blasts/100 WBC 2 % (H) 0 - 0 % [facility] ealth (Bld) [facility] (34798) Calcium 10.2 mg/dL (N) 8.5 - 10.2 mg/dL [facility] [Mass/Vol] [facility] (06658) Calcium oxalate FEW (N) [facility] crystals LM.HPF [facility] (Urine sed) [facility] [#/Area] (48564) Chloride 97 mmol/L (L) 95 - 106 mmol/L [facility] [Moles/Vol] [facility] (45316) Cholesterol 177 mg/dL (N) 180 - 200 mg/dL [facility] [Mass/Vol] [facility] (30919) Cholesterol in 37 mg/dL (L) [facility] h HDL [Mass/Vol] [facility] (00052) Cholesterol in 109 mg/dL (H) 0 - 100 mg/dL [facility] LDL [Mass/Vol] [facility] (68189) Cholesterol non 140 mg/dL (H) [facility] HDL [Mass/Vol] [facility] (57474) Cholesterol.tota 4.8 {ratio} (N) [facility] HDL [Mass ratio] [facility] (86309) CO2 [Moles/Vol] 26 mmol/L (N) 23 - 29 mmol/L [facility] (34584) Color (U) YELLOW (N) [facility] (27434) Creatinine 1.14 mg/dL (N) [facility] [Mass/Vol] [facility] (98971) Eosinophils 0.18 10*3/uL (N) 0.05 - 0.5 [facility] Hea lth (Bld) [#/Vol] 10*3/uL [facility] (37401) Eosinophils/100 3 % (N) 1 - 4 % [facility] WBC (Bld) [facility] (31558) Epithelial 0-5 (no code) [facility] cells.squamous [facility] LM.HPF (Urine [facility] sed) [#/Area] (31814) Erythrocyte 14.5 % (N) 11.6 - 14.6 % [facility] ealth distribution [facility] width (RBC) [facility] [Ratio] (31254) GFR/1.73 sq M 77 (N) 90 - 120 [facility] predicted among mL/min/{1.73_m2} mL/min/{1.73_m2} [place] [facility] blacks MDRD [facility] (S/P/Bld) [Vol (16854) rate/Area] GFR/1.73 sq 67 (N) 90 - 120 Counts Include [address] [facility] th M.predicted MDRD mL/min/{1.73_m2} mL/min/{1.73_m2} [facility] (S/P/Bld) [Vol [facility] rate/Area] (13869) Globulin (S) 2.5 g/dL (N) 2 - 3.5 g/dL [facility] ealt [Mass/Vol] [facility] (74215) Glucose 116 mg/dL (H) 60 - 125 mg/dL [facility] [Mass/Vol] [facility] (60931) Glucose Ql (U) no information (N) [facility] (71497) Hematocrit (Bld) 26.9 % (L) 36.1 - 50.3 % [facility] [Volume [facility]] [facility] (81981) Hemoglobin (Bld) 8.9 g/dL (L) 12.1 - 17.2 g/dL [facility] [Mass/Vol] [facility] (74788) Hemoglobin Ql no information (N) [facility] (U[facility] (38742) Hyaline casts 10-20 (A) [facility] (Urine sed) [facility] [#/Area] [facility] (15908) Ketones Ql (U) no information (N) [facility] (43509) Leukocyte no information (N) Counts Include [facility] ester[facility] Ql (U) [facility] (40953) Lymphocytes 1.86 10*3/uL (N) 0.9 - 2.9 [facility] lth (Bld) [#/Vol] 10*3/uL [facility] (77457) Lymphocytes/100 31 % (N) 20 - 40 % [facility] WBC (Bld) [facility] (28390) MCH (RBC) 27.2 pg (N) 27 - 31 pg [facility] [Entitic mass] [facility] (18910) MCHC (RBC) 33.1 g/dL (N) 32 - 36 g/dL [facility] alth [Mass/Vol] [facility] (89660) MCV (RBC) 82.3 fL (N) 80 - 100 fL [facility] lt [Entitic vol] [facility] (41617) Metamyelocytes 0.18 10*3/uL (H) [facility]alt h (Bld) [#/Vol] [facility] (46274) Metamyelocytes/1 3 % (H) 0 - 0 % [facility] 00 WBC (Bld) [facility] (24271) Monocytes (Bld) 0.36 10*3/uL (N) 0.3 - 0.9 [facility] [#/Vol] 10*3/uL [facility] (32012) Monocytes/100 6 % (N) 2 - 8 % [facility] alth WBC (Bld) [facility] (50841) Myelocytes (Bld) 0.12 10*3/uL (H) 0.2 - 0.9 [facility] [#/Vol] 10*3/uL [facility] (04426) Myelocytes/100 2 % (H) 2 - 8 % [facility] WBC (Bld) [facility] (44292) Neutrophils 2.1 10*3/uL (N) 1.7 - 7 10*3/uL [facility] Health (Bld) [#/Vol] [facility] (80473) Neutrophils/100 35 % (N) 40 - 60 % [facility] WBC (Bld) [facility] (63182) Nitrite Ql (U) no information (N) [facility] (42376) Nucleated RBC 0.3 10*3/uL (H) 0 - 0 10*3/uL [facility] (Bld) [#/Vol] [facility] (48566) Nucleated 5 (H) Counts Include [facility] WBC [facility] (Bld) [Ratio] [facility] (98144) pH (U) 5.5 [pH] (N) 4.6 - 8 [pH] [facility] (44603) Platelet mean 11.4 fL (N) 7.2 - 11.7 fL [facility] Health volume (Bld) [facility] [Entitic vol] [facility] (92328) Platelets (Bld) 93 10*3/uL (L) 150 - 450 [facility] [#/Vol] 10*3/uL [facility] (54673) Potassium 4.5 mmol/L (N) 3.7 - 5.2 mmol/L [facility] [Moles/Vol] [facility] (36266) Prostate 4056.4 ng/mL (H) 0 - 4 ng/mL [facility] specific Ag [facility] [Mass/Vol] [facility] (73164) Protein 6.7 g/dL (N) 6.4 - 8.3 g/dL [facility] [Mass/Vol] [facility] (82991) Protein Ql (U) TRACE (A) [facility]alt [facility] (20724) RBC (Bld) 3.27 10*6/uL (L) 4.2 - 6.1 [facility]th [#/Vol] 10*6/uL [facility] (57331) RBC LM.HPF 0-2 (N) [facility] (Urine sed) [facility] [#/Area] [facility] (23824) Service comment no information (no code) [facility] (Unsp spec) [facility] [Interp] [facility] (46545) Sodium 136 mmol/L (N) 135 - 145 mmol/L [facility] [Moles/Vol] [facility] (09522) Specific gravity 1.020 (N) [facility] (U) [Rel [facility] density] [facility] (72260) Triglyceride 191 mg/dL (H) 0 - 150 mg/dL [facility] [Mass/Vol] [facility] (56015) TSH Qn 0.01 m[IU]/L (L) 0.4 - 4 m[IU]/L [facility] (38088) Urate crystals MANY (A) Counts Include [facility] LM.HPF (Urine [facility]) [#/Area] [facility] (98273) Urea nitrogen 35 mg/dL (H) 7 - 20 mg/dL [facility] [Mass/Vol] [facility] (86299) Urea 31 mg/mg (H) 6 - 22 mg/mg [facility] alth nitrogen/Creatin [facility] [Mass ratio] [facility] (75341) WBC (Bld) 6.0 10*3/uL (N) 3.5 - 10.5 [facility] [#/Vol] 10*3/uL [facility] (93005) WBC LM.HPF 0-5 (N) [facility] (Urine sed) [facility] [#/Area] [facility] (59656) No panel information on 2018-05-08 Albumin mass 3.9 g/dL (N) 3.4 - 5.4 g/dL [facility] (85896) Albumin/Globulin 1.4 (N) [facility] mass ratio [facility] (43039) ALP enzyme 114 U/L (N) 44 - 147 U/L [facility] act/vol [facility] (88963) ALT enzyme 20 U/L (N) 4 - 40 U/L Counts Include [facility] th act/vol [facility] (26105) AST enzyme 16 U/L (N) 10 - 34 U/L [facility] act/vol [facility] (37376) Basophils Auto 0.03 10*3/uL (N) 0 - 0.3 10*3/uL [facility] #/vol (Bld) [facility] (64930) Basophils/100 0.5 % (N) 0.5 - 1 % [facility] alth WBC Auto (d) [facility] (52382) Bilirubin mass 0.3 mg/dL (N) 0.1 - 1.2 mg/dL [facility] (81270) Calcium mass 9.3 mg/dL (N) 8.5 - 10.2 mg/dL [facility] (40260) Chloride molar 101 mmol/L (N) 95 - 106 mmol/L [facility] (74306) Cholesterol in 41 mg/dL (N) Counts Include [facility] HDL mass conc [facility] (63501) Cholesterol in 88 (N) Counts Include [facility] LDL mass conc [facility] (35553) Cholesterol mass 158 mg/dL (N) 180 - 200 mg/dL [facility] (46819) Cholesterol non 117 (N) [facility] HDL mass conc [facility] (66427) Cholesterol.tota 3.9 (N) [facility] lt l/Cholesterol in [facility] HDL mass [facility] (19144) CO2 molar conc 28 mmol/L (N) 23 - 29 mmol/L [facility] (82948) Creatinine mass 0.83 mg/dL (N) [facility] (88641) Eosinophils Auto 0.372 10*3/uL (N) 0.05 - 0.5 [facility] #/vol (Bld) 10*3/uL [facility] (65750) Eosinophils/100 6.3 % (N) 1 - 4 % [facility] WBC Auto (Bld) [facility] (12441) Erythrocyte 12.8 % (N) 11.6 - 14.6 % [facility] ealth distribution [facility] Auto Ratio [facility] (RBC) (01088) GFR/1.73 sq M 107 (N) 90 - 120 [facility] predicted among mL/min/{1.73_m2} mL/min/{1.73_m2} Center o f [facility] MDRD vol [facility] rate/area (59166) (S/P/Bld) GFR/1.73 sq 92 (N) 90 - 120 [facility] Heal th M.predicted MDRD mL/min/{1.73_m2} mL/min/{1.73_m2} Center [facility] rate/area [facility] (39947) Globulin 2.7 (N) Counts Include [facility] Calculated mass [facility] (S) [facility] (78595) Glucose mass 79 mg/dL (N) 60 - 125 mg/dL [facility] (09154) Hematocrit Auto 41.8 % (N) 36.1 - 50.3 % [facility] Volume Fraction [facility] (Bld) [facility] (93959) Hemoglobin mass 13.9 g/dL (N) 12.1 - 17.2 g/dL [facility] conc (Bld) [facility] (64467) Lymphocytes Auto 1.794 10*3/uL (N) 0.9 - 2.9 [facility] #/vol (Bld) 10*3/uL [facility] (31291) Lymphocytes/100 30.4 % (N) 20 - 40 % [facility] WBC Auto (Bld) [facility] (47652) MCH Auto Entitic 28.7 pg (N) 27 - 31 pg [facility] mass (RBC) [facility] (20741) MCHC Auto mass 33.3 g/dL (N) 32 - 36 g/dL [facility] conc (RBC) [facility] (15904) MCV Auto Entitic 86.4 fL (N) 80 - 100 fL [facility] volume (RBC) [facility] (11570) Monocytes Auto 0.684 10*3/uL (N) 0.3 - 0.9 [facility] Health #/vol (Bld) 10*3/uL [facility] (29236) Monocytes/100 11.6 % (N) 2 - 8 % [facility] He alth WBC Auto (Bld) [facility] (34158) Neutrophils Auto 3.021 10*3/uL (N) 1.7 - 7 10*3/uL [facility] #/vol (Bld) [facility] (40999) Neutrophils/100 51.2 % (N) 40 - 60 % [facility] WBC Auto (Bld) [facility] (85724) Platelet mean 10.9 fL (N) 7.2 - 11.7 fL [facility] Health volume Auto [facility] Entitic [facility] (Bld) (98681) Platelets Auto 274 10*3/uL (N) 150 - 450 [facility] #/vol (Bld) 10*3/uL [facility] (55256) Potassium molar 4.8 mmol/L (N) 3.7 - 5.2 mmol/L [facility] (04780) Prostate 47.6 ng/mL (H) 0 - 4 ng/mL [facility] Hea lth specific Ag mass [facility] (43731) Protein mass 6.6 g/dL (N) 6.4 - 8.3 g/dL [facility] conc [facility] (96547) RBC Auto #/vol 4.84 10*6/uL (N) 4.2 - 6.1 [facility] Health (Bld) 10*6/uL [facility] (21071) Sodium molar 136 mmol/L (N) 135 - 145 mmol/L [facility] (07974) Triglyceride 196 mg/dL (H) 0 - 150 mg/dL [facility] conc [facility] (95781) Urea nitrogen 22 mg/dL (N) 7 - 20 mg/dL [facility] (70671) Urea NOT APPLICABLE (no code) [facility] nitrogen/Creatin [facility] (37105) WBC Auto #/vol 5.9 10*3/uL (N) 3.5 - 10.5 [facility] (Bld) 10*3/uL [facility] (63406) Vital Signs Vital Sign Value Interpretation Reference Date Time Care Prov ider Facility (Normalized) (Normalized) Range BMI (Body Mass 27.5 kg/m2 (no code) 15 - 25 kg/m2 11-27-2018 [facility] Index) 11:20-0500 41435 [facility] (34370) BMI (Body Mass 26.31 kg/m2 (no code) 15 - 25 kg/m2 05-08-2018 [facility] Community Index) 11:00-0400 54323 [facility] (20080) BMI (Body Mass 26.38 kg/m2 (no code) 15 - 25 kg/m2 12-18-2017 [facility] Index) 11:40-[id number] [place] [address] (13259) BMI (Body Mass 26.54 kg/m2 (no code) 15 - 25 kg/m2 10-25-2017 [facility] Index) 13:20-0500 16903 [facility] (95468) Body 96.1 [degF] (no code) 97.8 - 99.0 11-27-2018 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 Community Temperature [degF]

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
--- OUTSIDE RECORDS SUMMARY | 2019-12-10 11:51 | XMS REPORT | CCD ---
Author Author GIGI VILLARREAL Organization Unknown Address [address] [facility] [address] [place] [address] Care Team Providers Care Family Nurse Name Role Phone HANSEL DUARTE, SUSAN GUAMAN Attphys M., ROCIO Grey NASST F., CASEY Palacios NASST F., POLLO NASST B., SAVANNAH NASST S., EDDIE NASST K., NOEMI Grey NASST G., SHAMAR NASST Allergies Allergy Code Allergy Type Reaction Status No Known Drug Allergies 0 Drug allergy Active Active Medications Medication Code Dose Units Frequency Rou te Modification Start Date/Time Aspirin 325MG Oral Tablet, Enteric Coated 170016 1 TABLET TWO TIMES A DAY BY MOUTH 12/15/2016 08:05 Prescription Detail 1 TABLET BY MOUTH TWO TIMES A DAY start 24hrs after the last Xarleto dose HYDROcodone bitartrate-acetaminophen 10MG-325MG Oral Tablet 228121 1/2 - 1 TABLET NEEDED EVERY 4 HR BY MOUTH FOR P AIN 12/15/2016 08:04 Prescription Detail 1/2 - 1 TABLET BY MOUTH NEEDED EVERY 4 HR FOR PAIN Docusate Sodium 100MG Oral Capsule, Liquid Filled 6419920 1 TABLET TWO TIMES A DAY BY MOUTH 12/15/2016 08:03 Prescription Detail 1 TABLET BY MOUTH TWO TIMES A DAY hold with loose stools Thera-M Enhanced 90MG-0.03MG-0.15MG-4 Oral Tablet 246339 1 TABLET DAILY BY MOUTH 12/15/2016 08:03 Prescription Detail 1 TABLET BY MOUTH DAILY Xarelto 10MG Oral Tablet 1655141 1 MILLIGRAM S DAILY BY MOUTH 12/15/2016 08:03 Prescription Detail 1 MILLIGRAMS BY MOUTH DAILY for ten days Problems Problem Code Start Date Resolved Date Sta s Status post hip replacement 954983292851 Active Post op pain 315416543 Active HTN 44377634 Active Procedures Procedure Code Procedure Type Date Replacement of Right Hip Joint with [place] l on Polyethylene Synthetic Substi [id number] ICD-10 PCS 12/14/2016 PT THERAPEUTIC EXERCISES [address] 12/15/2016 PT GROUP THERAPY 322641122 SNOM[address] CT 7 PT GAIT TRAINING/STAIRS EA 15 MIN 71596448 SNOMED C T 12/15/2016 PT EVALUATION; LOW 821221292 SNOMED CT 017 HIP [address] 12/14/2016 CBC W/ AUTO DIFF (RFLX MAN DIFF IF IND) 3344706 SN OMED CT 12/15/2016 THERAPEP SUBSEQUENT 298131716 SNOMED CT 2016 THERAPEP SUBSEQUENT 548660005 SNOMED CT 2016 THERAPEP SUBSEQUENT 304386885 SNOMED CT 2016 THERAPEP SUBSEQUENT 681565427 SNOMED CT 2016 THERAPEP TREATMENT 217394675 SNOMED CT 017 ^CBC W/AUTO DIFF 1344926 SNOMED CT 7 Results CBC W/ AUTO DIFF (RFLX MAN DIFF IF IND) - Collect Date/Time: 12/15/2016 06:20 Test Name Code Test Result Test Units Lola t Ref Range WBC 83068-5 10.9 TH/CMM L=4.5 H=1 0.8 RBC 789-8 4.70 ML/CMM L=4.70 H=6. 10 HGB 718-7 13.5 G/DL L=14.0 H=18 .0 HCT 4544-3 40.3 % L=42.0 H=52 .0 MCV 36541-2 86 FL L=81 H=9 9 MCH 15463-2 28.7 PG L=27.0 H=3 3.0 MCHC 97726-4 33.5 G/DL L=31.0 H=3 6.0 [place] [address]-9 38 FL L=36 H=5 0 [place] [address]-0 12.3 % L=0.0 H=1 4.8 MPV 25671-7 10.2 FL L=9.3 H=1 2.5 PLT 777-3 239 TH/CMM L=130 H=44 0 NRBC# 12316-1 0.00 TH/CMM L=0.00 H=0 .00 NRBC% 18268-1 0.0 /100WBC L=0.0 H= 2.0 %NEUT 74916-4 72.2 % %LYMP 08431-6 14.8 % %MONO 58813-9 12.4 % %EOS 92406-8 0.1 % %BASO 63987-8 0.1 % #NEUT 03434-3 7.84 TH/CMM L=2.10 H=8 .20 #LYMP 63245-7 1.61 TH/CMM L=0.90 H=5 .20 #MONO 70283-2 1.34 TH/CMM L=0.16 H=1 .00 #EOS 01467-3 0.01 TH/CMM L=0.00 H=0 .80 #BASO 89425-1 0.01 TH/CMM L=0.00 H=0 .20 MANUAL DIFF 52971-9 NOT IND N/A Function Status Unknown or Not Available. History of Immunizations Unknown or Not Available. Plan of Treatment Unknown or Not Available. Social History Smoking Status Code Start Date End Date Current every day smoker 432494218 Vital Signs Vital Sign Value Unit Date/Time Recent/I nitial? Weight Measured 170 [lb_av] 03/28/2016 08:09 Initial VS Height 65 [in_i] 03/28/2016 08:09 Initi al VS BMI (Body Mass Index) 28.29 kg/m2 03/28/2016 08 :09 Initial VS BSA (Body Surface Area) 1.88 m2 03/28/2016 08:09 Initial VS BP Systolic 135 mm[Hg] 11/21/2016 11:00 Initial VS BP Diastolic 79 mm[Hg] 11/21/2016 11:00 Initial VS Respiratory Rate 18 /min 11/21/2016 11:00 Initial VS Heart Rate 81 /min 11/21/2016 11:00 I nitial VS O2 % BldC Oximetry 97 % 11/21/2016 11:00 Initial VS Body Temperature 95.4 [degF] 12/14/2016 15:00 Initial VS BP Systolic 95 mm[Hg] 12/15/2016 14:38 Most Recent VS BP Diastolic 51 mm[Hg] 12/15/2016 14:38 Most Recent VS Respiratory Rate 16 /min 12/15/2016 14:38 Most Recent VS Heart Rate 92 /min 12/15/2016 14:38 M ost Recent VS O2 % BldC Oximetry 95 % 12/15/2016 14:38 Most Recent VS Body Temperature 98.9 [degF] 12/15/2016 14:38 Most Recent VS Function Status Unknown or Not Available. Goals Unknown or Not Available. ASSESSMENTS Unknown or Not Available. Health Concerns Section Unknown or Not Available.
--- OUTSIDE RECORDS SUMMARY | 2019-12-10 11:52 | XMS REPORT ---
Author Author Rich HAQUE Organization [employer] Address Unknown Phone Unavailable Care Team Providers Care Bridal Gown Fitter Name Role Phone NIRMAL HAQUE CP Unavailable Allergies, Adverse Reactions, Alerts Substance Reaction Event Type N.K.D.A. Info Not Available Non Drug Allergy Problems Problem Type Condition Code Onset Dates Condition Statu s Problem Elevated blood pressure reading without diagnosi s of hypertension 796.2 Active Problem Cellulitis and abscess of unspecified site 682.9 Active Problem Actinic keratosis 702.0 Active Problem Arthralgia of right hip M25.551 Acti ve Problem Muscle strain 848.9 Active Problem Primary osteoarthritis of right hip M16.11 Active Problem Other, multiple, and unspeci fied sites, insect bite, nonvenomous, infected 919.5 Active Problem Pain in soft tissues of limb 729.5 Active Problem Muscle spasm 728.85 Active Problem Muscle strain of thigh 843.9 Activ e Problem Abdominal pain, periumbilic 789.05 Active Problem Unspecified follow-up examination V67.9 Active Problem Encounter for change or removal of surgical wound dres sing V58.31 Active Assessment Primary osteoarthritis of right hip M16.11 Active Problem Other, multiple, and unspeci fied sites, insect bite, nonvenomous, without mention of infection 919.4 Active Medications Medication Code System Code Instructions Start Date End Date Status Dosage Ibuprofen [facility] [address]-69 800 MG Orally Three times a day Jun 02, 2015 1 tablet Tramadol HCl [facility] [address]-09 50 MG Orally 3 times a day Aug 24 15 1 tablet as needed Procedures Procedure Coding System Code Date Office Visit, Est Pt., Level 3 CPT-4 55268 N 2014 Vital Signs Date/Time: Aug 24, 2015 Temperature 98.3 F Weight 162.6 lbs Height 67.5 in BMI 25.09 Index Blood Pressure Diastolic 80 mmHg Blood Pressure Systolic 142 mmHg Cardiac Monitoring Heart Rate 84 bpm Results No Known Results Summary Purpose [employer] Submission
--- OUTSIDE RECORDS SUMMARY | 2019-12-10 11:52 | XMS REPORT ---
Author Author Rich HAQUE [facility] Address [address] [place] [address] Care Team Providers Care Salesperson Men'S Furnishings Name Role Phone NIRMAL HAQUE Unavailable PROBLEMS Type Condition ICD9-CM Code [id number] Code Onset Dates Condition S tatus SNOMED Code Problem Pain in soft tissues of limb 729.5 A ctive 28964697 Problem Muscle strain of thigh 843.9 Active 252244736 Problem Other, multiple, and unspeci fied sites, insect bite, nonvenomous, infected 919.5 Active 581186586 Problem Toe ulcer, left, limited to breakdown of skin L97. 521 Active 570716193 Problem Essential hypertension I10 Active 45887429 Problem Muscle strain 848.9 Active 194815 05 Problem Muscle spasm 728.85 Active 1038669 6 Problem Primary osteoarthritis of right hip M16.11 Active 642614270 Problem Arthralgia of right hip M25.551 Active 07277123 Problem Abdominal pain, periumbilic 789.05 Ac tive 969685600 Problem Other, multiple, and unspeci fied sites, insect bite, nonvenomous, without mention of infection 919.4 Active 198627053 Problem Elevated blood pressure reading without diagnosi s of hypertension 796.2 Active 999315375 Problem Unspecified follow-up examination V67.9 Active 142460612 Problem Actinic keratosis 702.0 Active 20 3487969 Problem Encounter for change or removal of surgical wound dressing V58.31 Active 96248265 Problem Cellulitis and abscess of unspecified site 682.9 Active 509176665 ALLERGIES Substance Reaction Event Type Date Status N.K.D.A. Unknown Non Drug Allergy Sep, Unknown SOCIAL HISTORY No smoking Hx information available PLAN OF CARE Activity Details Follow Up prn Reason:after consult VITAL SIGNS Height 67.5 in 2016-09-27 Weight 161.4 lbs 2016-09-27 Heart Rate 84 bpm 2016-09-27 Respiratory Rate 16 2016-09-27 BMI 24.90 kg/m2 2016-09-27 Blood pressure systolic 120 mmHg 2016-09-27 Blood pressure diastolic 68 mmHg 2016-09-27 MEDICATIONS No Known Medications RESULTS No Results PROCEDURES Procedure Date Ordered Related Diagnosis Body Site Office Visit, Est Pt., Level 3 Sep 27, 2016 IMMUNIZATIONS No Known Immunizations
--- OUTSIDE RECORDS SUMMARY | 2019-12-10 11:52 | XMS REPORT ---
Author Author Rich HAQUE Organization [employer] Address Unknown Phone Unavailable Care Team Providers Care Inspector Wire Rope Name Role Phone NIRMAL HAQUE CP Unavailable [...] Instructions Start Date End Date Status Dosage Acetaminophen-Codeine [facility] [address]-74 300-30 MG Orally 3 times a day Sep 23, 2015 1 tablet as needed Diclofenac Sodium [facility] [address]-05 75 MG Orally Twice a day Sep 23, 2015 1 tablet Amitriptyline HCl [facility] [address]-32 25 MG Orally Once a day Sep 23, 2015 .5- 1 tablet Procedures Procedure Coding System Code Date Office Visit, Est Pt., Level 3 CPT-4 09037 D 2014 Vital Signs Date/Time: Sep 23, 2015 Temperature 98.1 F Weight 167.4 lbs Height 67.5 in BMI 25.83 Index Blood Pressure Diastolic 92 mmHg Blood Pressure Systolic 184 mmHg Cardiac Monitoring Heart Rate 87 bpm Results No Known Results Summary Purpose [employer] Submission
--- OUTSIDE RECORDS SUMMARY | 2019-12-10 11:52 | XMS REPORT ---
Author Author Rich LAO [facility] [employer] Address Unknown Phone Unavailable Care Team Providers Care Infection Control Coordinator Name Role Phone TAMARA LAO Unavailable Allergies No Known Allergies Problems Problem Type Condition Code Onset Dates [...] surgical wound dres sing V58.31 Active Assessment Degenerative joint disease of right hip M16.11 Active Problem Other, multiple, and unspeci fied sites, insect bite, nonvenomous, without mention of infection 919.4 Active Medications No Known Medications Procedures Procedure Coding System Code Date Office Visit, Est Pt., Level 2 CPT-4 11265 N ov 2014 Vital Signs Date/Time: Aug 20, 2015 Blood Pressure Diastolic 86 mmHg Blood Pressure Systolic 140 mmHg Height 67.5 in Results No Known Results Summary Purpose [employer] Submission
--- OUTSIDE RECORDS SUMMARY | 2019-12-10 11:52 | XMS REPORT ---
Author Author Rich HAQUE Organization [employer] Address Unknown Phone Unavailable Care Team Providers Care Improvement Auditor Name Role Phone NIRMAL HAQUE CP Unavailable Allergies No Known Allergies Problems Problem Type Condition Code Onset Dates Condition Statu s Problem Other, multiple, and unspeci fied sites, insect bite, nonvenomous, without mention of infection 919.4 Active Problem Actinic keratosis 702.0 Active Problem Elevated blood pressure reading without diagnosi s of hypertension 796.2 Active Problem Muscle strain 848.9 Active Problem Muscle spasm 728.85 Active Problem Arthralgia of right hip M25.551 Acti ve Problem Pain in soft tissues of limb 729.5 Active Problem Cellulitis and abscess of unspecified site 682.9 Active Problem Muscle strain of thigh 843.9 Activ e Problem Other, multiple, and unspeci fied sites, insect bite, nonvenomous, infected 919.5 Active Assessment Arthralgia of right hip M25.551 Acti ve Problem Abdominal pain, periumbilic 789.05 Active Problem Unspecified follow-up examination V67.9 Active Problem Encounter for change or removal of surgical wound dres sing V58.31 Active Medications No Known Medications Procedures Procedure Coding System Code Date X-RAY EXAM OF HIP CPT-4 36518 Jul 22, 2015 Results No Known Results Summary Purpose [employer] Submission
--- OUTSIDE RECORDS SUMMARY | 2019-12-10 11:52 | XMS REPORT | Continuity of Care Document ---
Author Organization Unknown Address Unknown Phone Unavailable Allergies Active Description Code Type Severity Reaction Onset Reported/Identified Relationship to Patient Clinical Status Yes No Known Drug Allergies [id number] Drug Allergy Unknown N/A 12/03/2019 Medications There is no data. 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 09/13/2012 NIRMAL HAQUE APRN 796.2 ELEVATED BLOOD PRESSURE READING WITHOUT DIAGNOSIS OF H YPERTENSION 09/13/2012 702.0 ACTI YESY KERATOSIS 09/13/2012 796.2 ELEV ATED BLOOD PRESSURE READING WITHOUT DIAGNOSIS OF HYPERTENSION 09/13/2012 702.0 ACTI YESY KERATOSIS 09/13/2012 796.2 ELEV ATED BLOOD PRESSURE READING WITHOUT DIAGNOSIS OF HYPERTENSION 09/13/2012 702.0 ACTI YESY KERATOSIS 09/13/2012 796.2 ELEV ATED BLOOD PRESSURE READING WITHOUT DIAGNOSIS OF HYPERTENSION 02/11/[address] BITE NONVENOMOUS OF OTHER MULTIPLE AND UNSPECIFIED SITES WITHOUT INFECTION 01/18/2016 NIRMAL AVALOS MD Ot B35 .3 01/18/2016 NIRMAL AVALOS MD, Ot L97.522 01/18/2016 NIRMAL AVALOS MD, Ot M86.372 01/19/2016 NIRMAL AVALOS MD Ot B35 .3 01/19/2016 NIRMAL AVALOS MD Ot E22 .0 01/19/2016 NIRMAL AVALOS MD Ot L97.522 01/19/2016 NIRMAL AVALOS MD, Ot M86.371 01/19/2016 NIRMAL AVALOS MD, Ot M86.372 01/29/2016 BAILEY DUARTE, NIRMAL Cleary Ot L97.529 NON-PRESSURE CHRONIC ULCER OTH PRT LEFT 01/29/2016 NIRMAL AVALOS MD Ot B35 .3 TINEA PEDIS 01/29/2016 NIRMAL AVALOS MD Ot E22 .0 ACROMEGALY AND PITUITARY GIGANTISM 01/29/2016 NIRMAL AVALOS MD Ot L97.522 NON-PRS CHRONIC ULCER OTH PRT LEFT FOOT 01/29/2016 NIRMAL AVALOS MD Ot M86.371 CHRONIC MULTIFOCAL OSTEOMYELITIS, RIGHT 01/29/2016 NIRMAL AVALOS MD Ot M86.372 CHRONIC MULTIFOCAL OSTEOMYELITIS, LEFT A 02/08/2016 NIRMAL AVALOS MD Ot B35 .3 TINEA PEDIS 02/08/2016 NIRMAL AVALOS MD Ot L97.522 NON-PRS CHRONIC ULCER OTH PRT LEFT FOOT 02/08/2016 NIRMAL AVALOS MD Ot M86.372 CHRONIC MULTIFOCAL OSTEOMYELITIS, LEFT A 11/14/2019 NIRMAL AVALOS MD Ot L97.529 NON-PRESSURE CHRONIC ULCER OTH PRT LEFT 11/14/2019 NIRMAL AVALOS MD Ot B35 .3 TINEA PEDIS 11/14/2019 NIRMAL AVALOS MD Ot E22 .0 ACROMEGALY AND PITUITARY GIGANTISM 11/14/2019 NIRMAL AVALOS MD Ot L97.522 NON-PRS CHRONIC ULCER OTH PRT LEFT FOOT 11/14/2019 NIRMAL AVALOS MD Ot M86.371 CHRONIC MULTIFOCAL OSTEOMYELITIS, RIGHT 11/14/2019 NIRMAL AVALOS MD Ot M86.372 CHRONIC MULTIFOCAL OSTEOMYELITIS, LEFT A 12/05/2019 TY DO, ELENA Ot R33.9 RETENTION OF URINE, UNSPECIFIED 12/06/2019 TY DO, ELENA Ot C61 MALIGNANT NEOPLASM OF PROSTATE 12/06/2019 TY DO, ELENA Ot 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 12/06/2019 TY DO, ELENA Ot 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 12/06/2019 TY DO, ELENA Ot C79.51 SECONDARY MALIGNANT NEOPLASM OF BONE 12/06/2019 TY DO, ELENA Ot D61.81 8 OTHER PANCYTOPENIA 12/06/2019 TY DO, ELENA Ot F32.9 MAJOR DEPRESSIVE DISORDER, SINGLE EPISOD 12/06/2019 TY DO, ELENA Ot I10 ESSENTIAL (PRIMARY) HYPERTENSION 12/06/2019 TY DO, ELENA Ot N17.9 ACUTE KIDNEY FAILURE, UNSPECIFIED 12/06/2019 TY DO, ELENA Ot N39.0 URINARY TRACT INFECTION, SITE NOT SPECIF 12/06/2019 TY DO, ELENA Ot R33.9 RETENTION OF URINE, UNSPECIFIED 12/06/2019 TY DO, ELENA Ot R50.9 FEVER, UNSPECIFIED 12/06/2019 TY DO, ELENA Ot R64 CACHEXIA 12/06/2019 TY DO, ELENA Ot R70.1 ABNORMAL PLASMA VISCOSITY 12/06/2019 TY DO, ELENA Ot Z66 DO NOT RESUSCITATE 12/06/2019 TY DO, ELENA Ot Z87.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 DEPENDENCE 12/07/2019 NAI BERNARD MD Ot C61 MALIGNANT NEOPLASM OF PROSTATE 12/07/2019 NAI BERNARD MD Ot 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 12/07/2019 NAI BERNARD MD Ot 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 12/07/2019 NAI BERNARD MD Ot C79.51 SECONDARY MALIGNANT NEOPLASM OF BONE 12/07/2019 NAI BERNARD MD Ot D61.818 OTHER PANCYTOPENIA 12/07/2019 NAI BERNARD MD Ot M79.661 PAIN IN RIGHT LOWER LEG 12/07/2019 NAI BERNARD MD Ot N39.0 URINARY TRACT INFECTION, SITE NOT SPECIF 12/07/2019 NAI BERNARD MD Ot R15.9 FULL INCONTINENCE OF FECES 12/07/2019 NAI BERNARD MD Ot R33.9 RETENTION OF URINE, UNSPECIFIED 12/07/2019 NAI BERNARD MD Ot R64 [place] Procedures Code Description [place] [id number] LESI ON DESTRUCTION 1-14 (BENIGN) 10/10/2012 [id number] EX TRACTION OF ILIAC BONE MARROW, PERC AP 12/05/2019 Results Test Result Range PSA - 05/08/18 11:11 PSA, TOTAL 47.6 ng/mL < OR = 4.0 UA W/ MICROSCOPY - 11/07/19 10:54 COLOR YELLOW YELLOW APPEARANCE CLEAR CLEAR SPECIFIC GRAVITY 1.020 1.001-1.035 PH 5.5 5.0-8.0 GLUCOSE NEGATIVE NEGATIVE BILIRUBIN NEGATIVE NEGATIVE KETONES NEGATIVE NEGATIVE OCCULT BLOOD NEGATIVE NEGATIVE PROTEIN TRACE NEGATIVE NITRITE NEGATIVE NEGATIVE LEUKOCYTE ESTERASE NEGATIVE NEGATIVE WBC 0-5 /HPF < OR = 5 RBC 0-2 /HPF < OR = 2 SQUAMOUS EPITHELIAL CELLS 0-5 /HPF < OR = 5 BACTERIA NONE SEEN /HPF NONE SEEN HYALINE CAST 10-20 /LPF NONE SEEN CALCIUM OXALATE CRYSTALS FEW /HPF NONE OR FEW URIC ACID CRYSTALS MANY /HPF NONE OR FEW PSA - 11/07/19 10:54 PSA, TOTAL 4056.4 ng/mL < OR = 4.0 TSH - 11/07/19 10:54 TSH 0.01 mIU/L 0.40-4.50 DIFFERENTIAL, MANUAL - 11/11/19 09:37 ABSOLUTE NEUTROPHILS 1100 cells/uL 1500- 7800 ABSOLUTE MONOCYTES 132 cells/uL 200-950 ABSOLUTE EOSINOPHILS 88 cells/uL 15-500 ABSOLUTE BASOPHILS 0 cells/uL 0-200 NEUTROPHILS 25 % NRG LYMPHOCYTES 35 % NRG MONOCYTES 3 % NRG EOSINOPHILS 2 % NRG BASOPHILS 0 % NRG ABSOLUTE BAND NEUTROPHILS 528 cells/uL 0 -750 ABSOLUTE METAMYELOCYTES 704 cells/uL ABSOLUTE LYMPHOCYTES 1540 cells/uL 850-3 900 BAND NEUTROPHILS 12 % NRG METAMYELOCYTES 16 % NRG PLATELET ESTIMATION DECREASED ADEQUATE CBC MORPHOLOGY NORMAL ABSOLUTE MYELOCYTES 176 cells/uL ABSOLUTE BLASTS 132 cells/uL ABSOLUTE NUCLEATED RBC 704 cells/uL MYELOCYTES 4 % NRG BLASTS 3 % NRG NUCLEATED RBC 16 /100 WBC COMMENT(S) NRG FOLATE (FOLIC ACID) - 11/11/19 09:37 FOLATE, SERUM 7.5 ng/mL NRG VITAMIN B12 - 11/11/19 09:37 VITAMIN B12 1773 pg/mL 200-1100 Pathologist review of blood test by scooby ent - 12/03/19 16:38 Blood leukocytes automated count (number/volume) 8.2 10*3/uL 4.3-11.0 Blood erythrocytes automated count (number/volume) 2.41 10*6/uL 4.35-5.85 Venous blood hemoglobin measurement (mass/volume) 6.6 g/dL 13.3-17.7 Blood hematocrit (volume fraction) 21 % 40-54 Automated erythrocyte mean corpuscular volume 88 [ foz_us] 80-99 Automated erythrocyte mean corpuscular h emoglobin (mass per erythrocyte) 27 pg 25-34 Automated erythrocyte mean corpuscular h emoglobin concentration measurement (mass/volume) 31 g/dL 32-36 Automated erythrocyte distribution width ratio 19. 9 % 10.0- 14.5 Automated blood platelet count (count/volume) 89 1 0*3/uL 130-400 Automated blood platelet mean volume measurement 10.5 [foz_us] 7.4-10.4 Automated blood neutrophils/100 leukocytes 41 % 42-75 Automated blood lymphocytes/100 leukocytes 41 % 12-44 Blood monocytes/100 leukocytes 18 % NRG Automated blood eosinophils/100 leukocytes 2 % 0-10 Automated blood basophils/100 leukocytes 3 % 0-10 Blood neutrophils automated count (number/volume) 3.6 10*3 1.8-7.8 Blood lymphocytes automated count (number/volume) 3.7 10*3 1.0-4.0 Blood monocytes automated count (number/volume) 1. 2 10*3 0.0-1.0 Automated eosinophil count 0.1 10*3/uL 0 .0-0.3 Automated blood basophil count (count/volume) 0.3 10*3/uL 0.0-0.1 Manual blood segmented neutrophils/100 leukocytes 38 % NRG Blood band neutrophils/100 leukocytes 3 % NRG Manual blood lymphocytes/100 leukocytes 40 % NRG Manual eosinophils/100 leukocytes in nose 13 % NRG Blood erythrocyte morphology finding identification NORMAL NRG Manual blood nucleated erythrocytes/100 leukocytes ratio 8 NRG Blood reticulocytes count (number/volume) 106 10*9 /L 24-90 Blood reticulocytes/100 erythrocytes 4.31 % 0.50-2.40 Whole blood basic metabolic panel - 11/10 02/25 16:38 Serum or plasma sodium measurement (moles/volume) 132 mmol/L 135-145 Serum or plasma potassium measurement (moles/volume) 5.0 mmol/L 3.6-5.0 Serum or plasma chloride measurement (moles/volume) 94 mmol/L 98-107 Carbon dioxide 24 mmol/L 21-32 Serum or plasma anion gap determination (moles/volume) 14 mmol/L 5-14 Serum or plasma urea nitrogen measurement (mass/volume ) 54 mg/dL 7-18 Serum or plasma creatinine measurement (mass/volume) 1.70 mg/dL 0.60-1.30 Serum or plasma urea nitrogen/creatinine mass ratio 32 NRG Serum or plasma creatinine measurement w ith calculation of estimated glomerular filtration rate 41 NRG Serum or plasma glucose measurement (mass/volume) 103 mg/dL 70-105 Serum or plasma calcium measurement (mass/volume) 9.4 mg/dL 8.5-10.1 PT panel in platelet poor plasma by coag ulation assay - 12/03/19 16:38 Prothrombin time (PT) in platelet poor plasma by coagu lation assay 15.6 s 12.2-14.7 INR in platelet poor plasma or blood by coagulation as say 1.2 0.8-1.4 Manual absolute plasma cell count - 11/10 02/25 16:38 Blood monocytes/100 leukocytes 18 % NRG Manual blood segmented neutrophils/100 leukocytes 38 % NRG Blood band neutrophils/100 leukocytes 3 % NRG Manual blood lymphocytes/100 leukocytes 40 % NRG Manual eosinophils/100 leukocytes in nose 13 % NRG Blood erythrocyte morphology finding identification NORMAL NRG Manual blood nucleated erythrocytes/100 leukocytes ratio 8 NRG Serum or plasma ferritin measurement (ma ss/volume) - 12/03/19 16:38 Serum or plasma ferritin measurement (mass/volume) 54607.3 % 32.0-356.0 Serum iron and total iron binding capaci ty panel - 12/03/19 16:38 TIBC 337 % 280-380 UIBC 97 % 55-450 Serum or plasma iron measurement (mass/volume) 240 % 40-180 Total iron binding capacity and transferrin saturation measurement 71 % 15-50 Complete urinalysis with reflex to cultu re - 12/03/19 16:48 Urine color determination YELLOW NRG Urine clarity determination CLEAR NR G Urine pH measurement by test strip 5.5 5-9 Specific gravity of urine by test strip 1.020 1.016-1.022 Urine protein assay by test strip, semi-quantitative TRACE NEGATIVE Urine glucose detection by automated test strip NE GATIVE NEGATIVE Erythrocytes detection in urine sediment by light micr oscopy 3+ NEGATIVE Urine ketones detection by automated test strip NE GATIVE NEGATIVE Urine nitrite detection by test strip NEGATIVE NEGATIVE Urine total bilirubin detection by test strip NEGA TIVE NEGATIVE Urine urobilinogen measurement by automated test strip (mass/volume) 0.2 mg/dL < = 1.0 Urine leukocyte esterase detection by dipstick NEG ATIVE NEGATIVE Automated urine sediment erythrocyte cou nt by microscopy (number/high power field) > [HPF] NRG Automated urine sediment leukocyte count by microscopy (number/high power field) [HPF] NRG Bacteria detection in urine sediment by light microsco py MODERATE NRG Crystals detection in urine sediment by light microsco py NONE NRG Casts detection in urine sediment by light microscopy NONE NRG Mucus detection in urine sediment by light microscopy NEGATIVE NRG Complete urinalysis with reflex to culture NO NRG RED CELLS LEUKO REDUCED AS1 - 12/03/19 1 7:01 RED CELLS LEUKO REDUCED AS1 T RANSFUSED 12/03/192006 NRG Blood type T Indirect antibody screen pa davide - 12/03/19 17:01 WRISTBAND NUMBER [id number] NRG ABO+Rh group AP NRG Blood group antibody screen NEGATIVE NR G Complete blood count (CBC) with automate d white blood cell (WBC) differential - 12/04/19 05:35 Blood leukocytes automated count (number/volume) 5.6 10*3/uL 4.3-11.0 Blood erythrocytes automated count (number/volume) 2.52 10*6/uL 4.35-5.85 Venous blood hemoglobin measurement (mass/volume) 7.0 g/dL 13.3-17.7 Blood hematocrit (volume fraction) 22 % 40-54 Automated erythrocyte mean corpuscular volume 86 [ foz_us] 80-99 Automated erythrocyte mean corpuscular h emoglobin (mass per erythrocyte) 28 pg 25-34 Automated erythrocyte mean corpuscular h emoglobin concentration measurement (mass/volume) 32 g/dL 32-36 Automated erythrocyte distribution width ratio 18. 4 % 10.0- 14.5 Automated blood platelet count (count/volume) 56 1 0*3/uL 130-400 Automated blood platelet mean volume measurement 11.0 [foz_us] 7.4-10.4 Automated blood neutrophils/100 leukocytes 42 % 42-75 Automated blood lymphocytes/100 leukocytes 40 % 12-44 Blood monocytes/100 leukocytes 12 % 0-12 Automated blood eosinophils/100 leukocytes 2 % 0-10 Automated blood basophils/100 leukocytes 3 % 0-10 Blood neutrophils automated count (number/volume) 2.3 10*3 1.8-7.8 Blood lymphocytes automated count (number/volume) 2.2 10*3 1.0-4.0 Blood monocytes automated count (number/volume) 0. 7 10*3 0.0-1.0 Automated eosinophil count 0.1 10*3/uL 0 .0-0.3 Automated blood basophil count (count/volume) 0.2 10*3/uL 0.0-0.1 Comprehensive metabolic panel - 12/04/19 05:35 Serum or plasma sodium measurement (moles/volume) 130 mmol/L 135-145 Serum or plasma potassium measurement (moles/volume) 4.9 mmol/L 3.6-5.0 Serum or plasma chloride measurement (moles/volume) 95 mmol/L 98-107 Carbon dioxide 24 mmol/L 21-32 Serum or plasma anion gap determination (moles/volume) 11 mmol/L 5-14 Serum or plasma urea nitrogen measurement (mass/volume ) 54 mg/dL 7-18 Serum or plasma creatinine measurement (mass/volume) 1.40 mg/dL 0.60-1.30 Serum or plasma urea nitrogen/creatinine mass ratio 39 NRG Serum or plasma creatinine measurement w ith calculation of estimated glomerular filtration rate 51 NRG Serum or plasma glucose measurement (mass/volume) 87 mg/dL 70-105 Serum or plasma calcium measurement (mass/volume) 8.7 mg/dL 8.5-10.1 Serum or plasma total bilirubin measurement (mass/volu me) 0.9 mg/dL 0.1-1.0 Serum or plasma alkaline phosphatase zainab surement (enzymatic activity/volume) 401 U/L 40-136 Serum or plasma aspartate aminotransfera se measurement (enzymatic activity/volume) 1574 U/L 5-34 Serum or plasma alanine aminotransferase measurement (enzymatic activity/volume) 28 U/L 0-55 Serum or plasma protein measurement (mass/volume) 5.9 g/dL 6.4-8.2 Serum or plasma albumin measurement (mass/volume) 3.7 g/dL 3.2-4.5 CALCIUM CORRECTED 8.9 mg/dL 8.5-10.1 Blood lactic acid measurement (moles/vol ume) - 12/04/19 11:14 Blood lactic acid measurement (moles/volume) 0.99 mmol/L 0.50-2.00 Bacterial blood culture - 12/04/19 11:14 Bacterial blood culture NG NRG Bacterial blood culture - 12/04/19 11:19 Bacterial blood culture NG NRG Serum or plasma folate measurement (mass /volume) - 12/05/19 05:54 Serum or plasma folate measurement (mass/volume) 7 .1 % >=4.0 Acute hepatitis panel - 12/05/19 05:54 HEPATITIS A ANTIBODY IGM Non-Reactive N on-Reactive HEPATITIS B CORE MALIHA IGM Non-Reactive N on-Reactive Confirmatory quantitative serum or plasm a hepatitis B virus surface antigen measurement Non-Reactive Non-Reactive Serum hepatitis C virus antibody detection Non-Antonia ctive Non-Reactive VITAMIN B 12 - 12/05/19 05:54 VITAMIN B 12 899 pg/mL 190-1100 Serum ragweed IgE antibody assay - 12/05 05:54 Serum ragweed IgE antibody assay 204.3 % 70.0-140.0 Blood CBC with ordered manual differenti al panel - 12/05/19 05:58 Blood leukocytes automated count (number/volume) 4.2 10*3/uL 4.3-11.0 Blood erythrocytes automated count (number/volume) 2.89 10*6/uL 4.35-5.85 Venous blood hemoglobin measurement (mass/volume) 8.1 g/dL 13.3-17.7 Blood hematocrit (volume fraction) 25 % 40-54 Automated erythrocyte mean corpuscular volume 86 [ foz_us] 80-99 Automated erythrocyte mean corpuscular h emoglobin (mass per erythrocyte) 28 pg 25-34 Automated erythrocyte mean corpuscular h emoglobin concentration measurement (mass/volume) 33 g/dL 32-36 Automated erythrocyte distribution width ratio 17. 7 % 10.0- 14.5 Automated blood platelet count (count/volume) 51 1 0*3/uL 130-400 Automated blood neutrophils/100 leukocytes 47 % 42-75 Automated blood lymphocytes/100 leukocytes 38 % 12-44 Blood monocytes/100 leukocytes 10 % NRG Automated blood eosinophils/100 leukocytes 2 % 0-10 Automated blood basophils/100 leukocytes 2 % 0-10 Blood neutrophils automated count (number/volume) 2.2 10*3 1.8-7.8 Blood lymphocytes automated count (number/volume) 1.7 10*3 1.0-4.0 Blood monocytes automated count (number/volume) 0. 5 10*3 0.0-1.0 Automated eosinophil count 0.1 10*3/uL 0 .0-0.3 Automated blood basophil count (count/volume) 0.1 10*3/uL 0.0-0.1 Manual blood segmented neutrophils/100 leukocytes 46 % NRG Blood band neutrophils/100 leukocytes 4 % NRG Manual blood lymphocytes/100 leukocytes 36 % NRG Manual eosinophils/100 leukocytes in nose 2 % NRG Manual blood basophils/100 leukocytes 0 % NRG Blood lymphocytes variant/100 leukocytes 1 % NRG Blood anisocytosis detection by light microscopy S LIGHT NRG Blood ovalocytes detection by light microscopy SLI GHT NRG Manual blood metamyelocytes/100 leukocytes 1 % NRG Blood poikilocytosis detection by light microscopy SLIGHT NRG Manual blood nucleated erythrocytes/100 leukocytes rat io 10 NRG Blood dacrocytes detection by light microscopy SLI GHT NRG Blood basophilic stippling detection by light microsco py SLIGHT NRG Blood helmet cells detection by light microscopy S LIGHT NRG Automated reticulocyte percentage - 11/10 04/27 05:58 Blood reticulocytes count (number/volume) 85 10*9/ L 24-90 Blood reticulocytes/100 erythrocytes 2.94 % 0.50-2.40 PT panel in platelet poor plasma by coag ulation assay - 12/05/19 05:58 Prothrombin time (PT) in platelet poor plasma by coagu lation assay 15.4 s 12.2-14.7 INR in platelet poor plasma or blood by coagulation as say 1.2 0.8-1.4 Activated partial thromboplastin time (a PTT) in platelet poor plasma bycoagulation assay - 12/05/19 05:58 Activated partial thromboplastin time (a PTT) in platelet poor plasma bycoagulation assay 38 s 24-35 Comprehensive metabolic panel - 12/05/19 05:58 Serum or plasma sodium measurement (moles/volume) 132 mmol/L 135-145 Serum or plasma potassium measurement (moles/volume) 4.7 mmol/L 3.6-5.0 Serum or plasma chloride measurement (moles/volume) 95 mmol/L 98-107 Carbon dioxide 27 mmol/L 21-32 Serum or plasma anion gap determination (moles/volume) 10 mmol/L 5-14 Serum or plasma urea nitrogen measurement (mass/volume ) 41 mg/dL 7-18 Serum or plasma creatinine measurement (mass/volume) 1.31 mg/dL 0.60-1.30 Serum or plasma urea nitrogen/creatinine mass ratio 31 NRG Serum or plasma creatinine measurement w ith calculation of estimated glomerular filtration rate 55 NRG Serum or plasma glucose measurement (mass/volume) 96 mg/dL 70-105 Serum or plasma calcium measurement (mass/volume) 9.0 mg/dL 8.5-10.1 Serum or plasma total bilirubin measurement (mass/volu me) 1.5 mg/dL 0.1-1.0 Serum or plasma alkaline phosphatase zainab surement (enzymatic activity/volume) 347 U/L 40-136 Serum or plasma aspartate aminotransfera se measurement (enzymatic activity/volume) 254 U/L 5-34 Serum or plasma alanine aminotransferase measurement (enzymatic activity/volume) 17 U/L 0-55 Serum or plasma protein measurement (mass/volume) 6.3 g/dL 6.4-8.2 Serum or plasma albumin measurement (mass/volume) 3.8 g/dL 3.2-4.5 CALCIUM CORRECTED 9.2 mg/dL 8.5-10.1 Serum ragweed IgE antibody assay - 12/06 05:23 Serum ragweed IgE antibody assay 1478 U/L 125-220 Fibrinogen measurement in platelet poor plasma by coagulation assay (mass/volume) - 12/06/19 05:23 Fibrinogen measurement in platelet poor plasma by coagulation assay (mass/volume) 447 mg/dL 221-496 Fibrin D-dimer FEU measurement in platel et poor plasma (mass/volume) - 12/06/19 05:23 Fibrin D-dimer FEU measurement in platelet poor plasma (mass/volume) 15.04 ug/mL 0.00-0.49 Serum or plasma triglyceride measurement (mass/volume) - 12/06/19 05:23 Serum or plasma triglyceride measurement (mass/volume) 144 mg/dL <150 Complete blood count (CBC) with automate d white blood cell (WBC) differential - 12/07/19 11:55 Blood leukocytes automated count (number/volume) 4.0 10*3/uL 4.3-11.0 Blood erythrocytes automated count (number/volume) 2.77 10*6/uL 4.35-5.85 Venous blood hemoglobin measurement (mass/volume) 7.9 g/dL 13.3-17.7 Blood hematocrit (volume fraction) 24 % 40-54 Automated erythrocyte mean corpuscular volume 88 [ foz_us] 80-99 Automated erythrocyte mean corpuscular h emoglobin (mass per erythrocyte) 29 pg 25-34 Automated erythrocyte mean corpuscular h emoglobin concentration measurement (mass/volume) 32 g/dL 32-36 Automated erythrocyte distribution width ratio 18. 1 % 10.0- 14.5 Automated blood platelet count (count/volume) 47 1 0*3/uL 130-400 Automated blood platelet mean volume measurement 9.3 [foz_us] 7.4-10.4 Automated blood neutrophils/100 leukocytes 46 % 42-75 Automated blood lymphocytes/100 leukocytes 36 % 12-44 Blood monocytes/100 leukocytes 13 % 0-12 Automated blood eosinophils/100 leukocytes 2 % 0-10 Automated blood basophils/100 leukocytes 3 % 0-10 Blood neutrophils automated count (number/volume) 1.8 10*3 1.8-7.8 Blood lymphocytes automated count (number/volume) 1.4 10*3 1.0-4.0 Blood monocytes automated count (number/volume) 0. 5 10*3 0.0-1.0 Automated eosinophil count 0.1 10*3/uL 0 .0-0.3 Automated blood basophil count (count/volume) 0.1 10*3/uL 0.0-0.1 Comprehensive metabolic panel - 12/07/19 11:55 Serum or plasma sodium measurement (moles/volume) 134 mmol/L 135-145 Serum or plasma potassium measurement (moles/volume) 3.7 mmol/L 3.6-5.0 Serum or plasma chloride measurement (moles/volume) 99 mmol/L 98-107 Carbon dioxide 25 mmol/L 21-32 Serum or plasma anion gap determination (moles/volume) 10 mmol/L 5-14 Serum or plasma urea nitrogen measurement (mass/volume ) 20 mg/dL 7-18 Serum or plasma creatinine measurement (mass/volume) 0.96 mg/dL 0.60-1.30 Serum or plasma urea nitrogen/creatinine mass ratio 21 NRG Serum or plasma creatinine measurement w ith calculation of estimated glomerular filtration rate > NRG Serum or plasma glucose measurement (mass/volume) 100 mg/dL 70-105 Serum or plasma calcium measurement (mass/volume) 9.2 mg/dL 8.5-10.1 Serum or plasma total bilirubin measurement (mass/volu me) 0.7 mg/dL 0.1-1.0 Serum or plasma alkaline phosphatase zainab surement (enzymatic activity/volume) 233 U/L 40-136 Serum or plasma aspartate aminotransfera se measurement (enzymatic activity/volume) 74 U/L 5-34 Serum or plasma alanine aminotransferase measurement (enzymatic activity/volume) 14 U/L 0-55 Serum or plasma protein measurement (mass/volume) 6.3 g/dL 6.4-8.2 Serum or plasma albumin measurement (mass/volume) 3.6 g/dL 3.2-4.5 CALCIUM CORRECTED 9.5 mg/dL 8.5-10.1 Encounters ACCT No. Visit Date/Time Discharge Status Pt. Type Provider Facility Loc./Unit Complaint [id number] 10/29/2012 10:07:00 10/29/2012 23:59: 59 CLS Outpatient [id number] 10/10/2012 09:59:00 10/10/2012 23:59: 59 CLS Outpatient [id number] 09/13/2012 15:00:00 09/13/2012 23:59: 59 CLS Outpatient NIRMAL HAQUE APRN [id number] 02/11/2013 11:23:00 Document Registration [id number] 12/06/2019 15:53:00 020 17:40:00 DIS Inpatient MARCO ANTONIO DUARTE, NAI Campos [facility] [address] [place] [id number] 12/03/2019 17:56:00 020 15:33:00 DIS Inpatient ELENA TY DO, [facility] [address] [place], [place] [id number] 11/27/2019 16:09:00 020 23:59:59 CLS Preadmit BOBBY RICHARDS MD [facility] ONC [id number] 02/08/2016 08:44:00 016 12:00:00 DIS Outpatient NIRMAL AVALOS MD [facility] WOUNDCARE [id number] 01/18/2016 09:41:00 016 23:59:59 CLS Outpatient NIRMAL AVALOS MD [facility] RAD ACROMEGALY,CHRONIC OSTEOMYLITIS,RIGHT ANKLE FOOT [id number] 01/18/2016 06:29:00 016 23:59:59 CLS Outpatient BAILEY DUARTE, NIRMAL Cleary [facility] LAB CBC [id number] 11/18/2019 14:40:00 11/18/2019 23:59:5 9 CLS Outpatient NIRMAL HAQUE APRN [facility] [address] [id number] 11/11/2019 09:20:00 Document Registration [id number] 11/07/2019 09:20:00 Document Registration [id number] 05/08/2018 10:00:00 Document Registration [id number] 02/09/2017 11:15:58 02/09/2017 23:59: 59 CLS Outpatient Maylin Duncan [id number] 03/31/2016 12:05:37 03/31/2016 23:59: 59 CLS Outpatient Maylin Duncan
--- OUTSIDE RECORDS SUMMARY | 2019-12-10 11:52 | XMS REPORT ---
Author Author Rich HAQUE Organization [employer] Address Unknown Phone Unavailable Care Team Providers Care Bacteriologist Soil Name Role Phone NIRMAL HAQUE CP Unavailable Allergies, Adverse Reactions, Alerts Substance Reaction Event Type N.K.D.A. Info Not Available Non Drug Allergy Problems Problem Type Condition ICD-9 Code Onset Dates Condition Statu s Problem Unspecified follow-up examination V67.9 Active Problem Other, multiple, and unspeci fied sites, insect bite, nonvenomous, without mention of infection 919.4 Active Problem Encounter for change or removal of surgical wound dres sing V58.31 Active Assessment Muscle spasm 728.85 Active Problem Abdominal pain, periumbilic 789.05 Active Problem Muscle strain of thigh 843.9 Activ e Problem Other, multiple, and unspeci fied sites, insect bite, nonvenomous, infected 919.5 Active Problem Muscle spasm 728.85 Active Problem Actinic keratosis 702.0 Active Problem Elevated blood pressure reading without diagnosi s of hypertension 796.2 Active Problem Pain in soft tissues of limb 729.5 Active Problem Cellulitis and abscess of unspecified site 682.9 Active Medications Medication Code System Code Instructions Start Date End Date Status Dosage Parafon Forte DSC [facility] [address]-45 500 MG Orally 2 times a day Jun 02, 2015 1 tablet Ibuprofen [facility] [address]-29 800 MG Orally Three times a day Jun 02, 2015 1 tablet Procedures Procedure Coding System Code Date Office Visit, Est Pt., Level 3 CPT-4 57145 A 2014 Vital Signs Date/Time: Jun 02, 2015 Temperature 97.8 F Weight 169.0 lbs Height 67.5 in BMI 26.08 Index Blood Pressure Diastolic 96 mmHg Blood Pressure Systolic 162 mmHg Cardiac Monitoring Heart Rate 92 bpm Results No Known Results Summary Purpose [employer] Submission
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
--- OUTSIDE RECORDS SUMMARY | 2019-12-10 11:52 | XMS REPORT ---
Author Author Rich HAQUE Organization [employer] Address Unknown Phone Unavailable Care Team Providers Care Rope Silica Machine Operator Name Role Phone NIRMAL HAQUE CP Unavailable Allergies, Adverse Reactions, Alerts Substance Reaction Event Type N.K.D.A. Info Not Available Non Drug Allergy Problems Problem Type Condition ICD-9 Code Onset Dates Condition Statu s Problem Encounter for change or removal of surgical wound dres sing V58.31 Active Problem Elevated blood pressure reading without diagnosi s of hypertension 796.2 Active Problem Other, multiple, and unspeci fied sites, insect bite, nonvenomous, without mention of infection 919.4 Active Problem Muscle spasm 728.85 Active Problem Muscle strain of thigh 843.9 Activ e Problem Muscle strain 848.9 Active Problem Cellulitis and abscess of unspecified site 682.9 Active Problem Actinic keratosis 702.0 Active Problem Other, multiple, and unspeci fied sites, insect bite, nonvenomous, infected 919.5 Active Problem Pain in soft tissues of limb 729.5 Active Assessment Muscle strain 848.9 Active Problem Abdominal pain, periumbilic 789.05 Active Problem Unspecified follow-up examination V67.9 Active Medications Medication Code System Code Instructions Start Date End Date Status Dosage Parafon Forte DSC [facility] [address]-96 500 MG Orally 2 times a day Jun 02, 2015 1 tablet PredniSONE [facility] [address]-94 10 MG Orally Once a day 1 tablet with food or milk Ibuprofen [facility] [address]-31 800 MG Orally Three times a day Jun 02, 2015 1 tablet Methocarbamol [facility] [address]-53 500 MG Orally 3 times a day 1 tablet Procedures Procedure Coding System Code Date Office Visit, Est Pt., Level 3 CPT-4 24623 S ept 2014 Vital Signs Date/Time: Jun 23, 2015 Temperature 96.0 F Weight 166.8 lbs Height 67.5 in BMI 25.74 Index Blood Pressure Diastolic 98 mmHg Blood Pressure Systolic 148 mmHg Cardiac Monitoring Heart Rate 78 bpm Results No Known Results Summary Purpose eClinicalWorks Submission
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
--- OUTSIDE RECORDS SUMMARY | 2019-12-10 13:41 | XMS REPORT ---
Author Author [employer]. Organization [employer] Address [address] [address] Care Team Providers Care Digital Product Manager Name Role Phone LAOTAMARA Carlisle Unavailable Unavailable [...] Unavailable ELENA TY DO Unavailable Unavailable Keri SHENANDOAH - [place] OF PCP Allergies The data below is [...] and 11-14-2019 - Chronic Active NIRMAL LEONG [facility] Via endocrine pituitary MD [place] disorders (1 [facility] - source.) [place] ([address]) Infective Chronic 11-14-2019 - Chronic Active NIRMAL AVALOS [facility] Via arthritis and multifocal , MD [place] osteomyelitis osteomyelitis, Hospital - (except that left ankle and [place] caused by foot (19591) tuberculosis Translations: or sexually [ CHRONIC transmitted MULTIFOCAL disease) (3 OSTEOMYELITIS, sources.) RIGHT ] Unclassified Encounter for Episodic Active [facility] (4 [place] [address] [facility] malignant of [facility] neoplasm of [place] ([address]) prostate Translations: [ - Prostate cancer screening Z12.5, - Prostate cancer screening Z12.5] Other Hip pain [facility] [address] [facility] joint [ Arthralgia of [facility] disorders (4 of right hip, [place] ([address]2110) sources.) Arthralgia of right hip] Other male Impotence Chronic Active [facility] ity genital Translations: [address] [facility] disorders (6 [ Erectile of [facility] sources.) disorder, [place] (46301) acquired, generalized, moderate, Erectile disorder, acquired, generalized, moderate] Unclassified Male erectile Chronic Active [facility] (13 sources.) disorder [address] [facility] Translations: of [facility] [ - Erectile [place] (66602) disorder, acquired, generalized, moderate F52.21, - Erectile disorder, acquired, generalized, moderate F52.21] Cancer of Malignant Chronic Active SHENANDOAH [facility] [place] Via prostate [place] [address] [place] source.) prostate Hospital Translations: (88473) [ Malignant neoplasm of prostate, Malignant neoplasm of prostate] Chronic ulcer Non-pressure 11-14-2019 - Chronic Active [facility] of skin (20 chronic ulcer [address] [facility] sources.) of other part of [facility] of left foot [place] (17429) limited to breakdown of skin Translations: [ [...] foot Other hammer Chronic Active NIRMAL HAQUE [facility] deformities (2 toe(s) [address] [facility] sources.) (acquired), of [facility] left foot [place] () Translations: [ - Other hammer toe(s) (acquired), left foot M20.42, Other hammer toe(s) (acquired), left foot, Other hammer toe(s) (acquired), left foot] Acquired foot Other hammer [facility] [address] [facility] sources.) (acquired), of [facility] right foot [place] () Translations: [ - Other hammer toe(s) (acquired), right foot M20.41, Other hammer toe(s) (acquired), right foot, Other hammer toe(s) (acquired), right foot] Genitourinary Retention of 12-05-2019 - Episodic Active ELENA TY [facility] Via symptoms and urine, DO [place] ill-defined unspecified Hospital - conditions (2 Translations: [place] sources.) [ Retention of (89261) urine, Retention of urine] Mycoses (2 Tinea pedis 11-14-2019 - Episodic Active NIRMAL [facility] Via sources.) , [facility] (76889) Other injuries Unspecified Episodic Active NIRMAL GARLAND [facility] and conditions site of sprain [id number] [place], [place] [address]e r due to and strain of [facility] external Translations: [place] () causes (4 [ - Muscle sources.) strain 848.9, - Muscle strain 848.9] Past or Other Problems Problem Normalized Date of Normalized Normalized Provider Fac ility Classification Problem(s) Problem Problem Problem Sta tus Onset/Resoluti Duration on Acquired foot Bunion of left no information no information [facility] [facility] source.) Translations: of [facility] [ - Bunion of [place] (58072) great toe of left foot M21.612] Acquired foot Bunion of no information no information 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 CARTER [facility] deformities (1 right foot [address] [facility] source.) Translations: of [facility] [ - Bunion of [place] (75421) right foot M21.611] Procedures Procedure Normalized Procedure Procedure Result Performer Facility Date 05-08-2018 Assay of prostate no information no name (no phone) [facility] specific antigen total [facility] ([id number]) 05-08-2018 Blood count complete no information no name (no shailesh ne) [facility] auto&auto difrntl wbc [facility] (23284) 12-05-2019 Bone marrow aspiration no information no name (no p marian) [place] [facility] ([id number]) 12-05-2019 - 12-05-2019 05-08-2018 Collection venous no information no name (no phone) [facility] blood venipuncture [facility] (78923) 05-08-2018 Comprehensive no information no name (no phone[facility] (24952) 12-05-2019 CT guided aspiration no information no name (no shailesh ne) [place] [facility] (32350) 12-05-2019 - 12-05-2019 12-03-2019 CT of chest, abdomen no information no name (no shailesh ne) [place] [facility] and pelvis without Hospital (72009) 12-03-2019 contrast - 12-03-2019 12-04-2019 Diagnostic radiography no information no name (no p marian) [place] [facility], combined [facility] (0000 0) 12-04-2019 and lateral - 12-04-2019 07-22-2015 Diagnostic radiologic no information [facility] - examination [facility] 07-22-2015 [place] (07988) - 07-22-2015 12-05-2019 Intravenous sedation no information no name (no shailesh ne) [place] [facility] (88194) 12-05-2019 - 12-05-2019 05-08-2018 Lipid panel no information no name (no phone) [facility] (46005) 12-06-2019 Plain X-ray of femur no information no name (no shailesh ne) no [place] [facility] [place] [facility] (no phone) Hospital ([id number]) 12-06-2019 - 12-06-2019 12-03-2019 Total iron binding 337 no name (no phone) [place] [facility] ([id number] ) 12-03-2019 - 12-03-2019 12-03-2019 Unsaturated iron 97 no name (no phone) [facility] Via [facility] (31368) 12-03-2019 measurement - 12-03-2019 Comment: Test performed at COUNT INCLUDES THE [facility] Danielle PILAR# [id number] [place] [address] Immunizations Normalized Immunization Date Notes Care Provider Facili ty Immunization influenza, seasonal, 09-03-2019 no information no name [facility] ([id number]) Results Test Name Value Interpretation Reference Range Date Time Fa cility (Normalized) (Normalized) (Medline Reference) venous blood hemoglobin measurement (mass/volume) on 2019-12-07 Hemoglobin (Bld) 7.9 g/dL (L) 12.1 - 17.2 g/dL 12-07-2019 [place] [facility] [Mass/Vol] 14:55-0500 [facility] (71191) serum or plasma urea nitrogen/creatin ine mass ratio on 2019-12-07 Urea 21 mg/mg (no code) 6 - 22 mg/mg 12-07-2019 [place] [facility] nitrogen/Creatin 14:55-0500 [facility] ine [Mass ratio] (50848) serum or plasma urea nitrogen measurement (mass/volume) on 2019-12-07 Urea nitrogen 20 mg/dL (H) 7 - 20 mg/dL 12-07-2019 [facility] Via [Mass/Vol] 14:55-0500 [facility] (00400) serum or plasma total bilirubin measurement (mass/volume) on 2019-12-07 Bilirubin 0.7 mg/dL (no code) 0.1 - 1.2 mg/dL 12-07-2019 [facility] Via [Mass/Vol] 14:55-0500 [facility] (34539) serum or plasma sodium measurement (moles/volume) on 2019-12-07 Sodium 134 mmol/L (L) 135 - 145 mmol/L 12-07-2019 Asce nsion Via [Moles/Vol] 14:55-0500 [facility] (45556) serum or plasma protein measurement (mass/volume) on 2019-12-07 Protein 6.3 g/dL (L) 6.4 - 8.3 g/dL 12-07-2019 [facility] [Mass/Vol] 14:55-0500 [facility] (89852) serum or plasma potassium measurement (moles/volume) on 2019-12-07 Potassium 3.7 mmol/L (no code) 3.7 - 5.2 mmol/L 12-07-2019 As[facility] nsion Via [Moles/Vol] 14:55-0500 [facility] (06955) serum or plasma glucose measurement (mass/volume) on 2019-12-07 Glucose 100 mg/dL (no code) 60 - 125 mg/dL 12-07-2019 [facility] [Mass/Vol] 14:55-0500 [facility] (57563) serum or plasma creatinine measurement with calculation of estimated glomerular filtration rate on 2019-12-07 GFR/1.73 sq M mL/min/{1.73_m2} (no code) 90 - 120 12-07-2019 A scension Via predicted among mL/min/{1.73_m2} 14:55-0500 [facility] spital non-blacks MDRD (74037) (S/P/Bld) [Vol rate/Area] Comment: GFR INTERPRETIVE DATA UNITS FOR ESTIMATED GFR (eGFR): mL/min/1.73 M2 REFERENCE RANGE FOR ESTIMATED GFR (eGFR) eGFR NORMAL eGFR >60 MODERATELY DECREASED eGFR 30-59 SEVERLY DECREASED eGFR 15-29 KIDNEY FAILURE <15 (OR DIALYSIS) serum or plasma creatinine measurement (mass/volume) on 2019-12-07 Creatinine 0.96 mg/dL (no code) 12-07-2019 [place] [facility] [Mass/Vol] 14:55-0500 [facility] (54153) serum or plasma chloride measurement (moles/volume) on 2019-12-07 Chloride 99 mmol/L (no code) 95 - 106 mmol/L 12-07-2019 [facility] [Moles/Vol] 14:55-0500 [facility] (86094) serum or plasma calcium measurement (mass/volume) on 2019-12-07 Calcium 9.2 mg/dL (no code) 8.5 - 10.2 mg/dL 12-07-2019 [facility]en ruth Via [Mass/Vol] 14:55-0500 [facility] (33770) serum or plasma aspartate aminotransferase measurement (enzymatic activity/volume) on 2019-12-07 AST [Catalytic 74 U/L (H) 10 - 34 U/L 12-07-2019 Ascen ruth Via activity/Vol] 14:55-0500 [facility] (23754) serum or plasma anion gap determination (moles/volume) on 2019-12-07 Anion gap 10 mmol/L (no code) 3 - 11 mmol/L 12-07-2019 [facility] Via [Moles/Vol] 14:55-0500 [facility] (50165) serum or plasma alkaline phosphatase measurement (enzymatic activity/volume) on 2019-12-07 ALP [Catalytic 233 U/L (H) 44 - 147 U/L 12-07-2019 Asce nsion Via activity/Vol] 14:550500 [facility] (94307) serum or plasma albumin measurement (mass/volume) on 2019-12-07 Albumin 3.6 g/dL (no code) 3.4 - 5.4 g/dL 12-07-2019 [facility] [Mass/Vol] 14:55-0500 [facility] (80969) serum or plasma alanine aminotransferase measurement (enzymatic activity/volume) on 2019-12-07 ALT [Catalytic 14 U/L (no code) 4 - 40 U/L 12-07-2019 [facility] activity/Vol] 14:55-0500 [facility] (08627) carbon dioxide on 2019-12-07 CO2 [Moles/Vol] 25 mmol/L (no code) 23 - 29 mmol/L 12-07-2019 A scension Via 14:550500 [facility] (08545) calcium measurement corrected for albumin on 2019-12-07 Calcium 9.5 mg/dL (no code) 8.5 - 10.2 mg/dL 12-07-2019 Ascen ruth Via [Mass/Vol] 14:550500 [facility] (27129) Comment: Calcium corrected calculation = [0.8x(normal albumin - patient's albumin] + serum Ca levelformula in [employer] is (4-ALB)*0.8+CA blood monocytes/100 leukocytes on 2019-12-07 Monocytes/100 13 % (H) 2 - 8 % 12-07-2019 [facility] Via WBC (Bld) 14:55-0500 [facility] (69610) blood monocytes automated count (number/volume) on 2019-12-07 Monocytes (Bld) 0.5 10*3/uL (no code) 0.3 - 0.9 12-07-2019 Asce nsion Via [#/Vol] 10*3/uL 14:55-0500 [facility] l (05570) blood hematocrit (volume fraction) on 2019-12-07 Hematocrit (Bld) 24 % (L) 36.1 - 50.3 % 12-07-2019 A scension Via [Volume 14:55-0500 [facility] fraction] (57925) blood erythrocytes automated count (number/volume) on 2019-12-07 RBC (Bld) 2.77 10*6/uL (L) 4.2 - 6.1 12-07-2019 [place] [facility] [#/Vol] 10*6/uL 14:55-0500 [facility] l (08039) automated erythrocyte mean corpuscular volume (mcv) measurement on 2019-12-07 MCV (RBC) 88 fL (no code) 80 - 100 fL 12-07-2019 [place] [facility] [Entitic vol] 14:55-0500 [facility] (52667) automated erythrocyte mean corpuscular hemoglobin concentration measurement (mass/volume) on 2019-12-07 MCHC (RBC) 32 g/dL (no code) 32 - 36 g/dL 12-07-2019 [facility] Via [Mass/Vol] 14:550500 [facility] (25645) automated erythrocyte mean corpuscular hemoglobin (mass per erythrocyte) on 2019-12-07 MCH (RBC) 29 pg (no code) 27 - 31 pg 12-07-2019 [place] [facility] ia [Entitic mass] 14:550500 [facility] (57068) automated erythrocyte distribution width ratio on 2019-12-07 Erythrocyte 18.1 % (H) 11.6 - 14.6 % 12-07-2019 [facility] Via distribution 14:550500 [facility] width (RBC) (32150) [Ratio] automated eosinophil count on 2019-12-07 Eosinophils 0.1 10*3/uL (no code) 0.05 - 0.5 12-07-2019 [facility] Via (Bld) [#/Vol] 10*3/uL 14:550500 [facility] al (40756) automated blood platelet mean volume measurement on 2019-12-07 Platelet mean 9.3 fL (no code) 7.2 - 11.7 fL 12-07-2019 Asce nsion Via volume (Bld) 14:550500 [facility] [Entitic vol] (93132) automated blood platelet count (count/volume) on 2019-12-07 Platelets (Bld) 47 10*3/uL (L) 150 - 450 12-07-2019 Ascen ruth Via [#/Vol] 10*3/uL 14:550500 [facility] l (50040) automated blood neutrophils/100 leukocytes on 2019-12-07 Neutrophils/100 46 % (no code) 40 - 60 % 12-07-2019 [facility] Via WBC (Bld) 14:550500 [facility] (46781) automated blood neutrophil count (number/volume) on 2019-12-07 Neutrophils 1.8 10*3/uL (no code) 1.7 - 7 10*3/uL 12-07-2019 As cension Via (Bld) [#/Vol] 14:550500 [facility] (83560) automated blood lymphocytes/100 leukocytes on 2019-12-07 Lymphocytes/100 36 % (no code) 20 - 40 % 12-07-2019 [facility] WBC (Bld) 14:550500 [facility] (71502) automated blood lymphocyte count (number/volume) on 2019-12-07 Lymphocytes 1.4 10*3/uL (no code) 0.9 - 2.9 12-07-2019 [facility] Via (Bld) [#/Vol] 10*3/uL 14:550500 [facility] al (47479) automated blood leukocyte count (number/volume) on 2019-12-07 WBC (Bld) 4.0 10*3/uL (L) 3.5 - 10.5 12-07-2019 [place] [facility] [#/Vol] 10*3/uL 14:550500 [facility] l (56543) automated blood eosinophils/100 leukocytes on 2019-12-07 Eosinophils/100 2 % (no code) 1 - 4 % 12-07-2019 [facility] WBC (Bld) 14:550500 [facility] (30899) automated blood basophils/100 leukocytes on 2019-12-07 Basophils/100 3 % (no code) 0.5 - 1 % 12-07-2019 [facility] WBC (Bld) 14: [facility] (58382) automated blood basophil count (number/volume) on 2019-12-07 Basophils (Bld) 0.1 10*3/uL (no code) 0 - 0.3 10*3/uL 12-07-2019 [place] [facility] [#/Vol] 14:55050 [facility] (77797) serum or plasma triglyceride measurement (mass/volume) on 2019-12-06 Triglyceride 144 mg/dL (no code) 0 - 150 mg/dL 12-06-2019 [facility]en ruth Via [Mass/Vol] 08: [facility] (14684) lactate dehydrogenase (ldh) measurement on 2019-12-06 LDH [Catalytic 1478 U/L (H) 105 - 333 U/L 12-06-2019 Asc ension Via activity/Vol] 08: [facility] (56572) fibrinogen measurement in platelet poor plasma by coagulation assay (mass/volume) on 2019-12-06 Fibrinogen Coag 447 mg/dL (no code) 12-06-2019 [place] Via (PPP) [Mass/Vol] 08: [facility] (67528) fibrin d-dimer feu measurement in platelet poor plasma (mass/volume) on 2019-12-06 Fibrin D-dimer 15.04 (H) 12-06-2019 [place] [facility] ia FEU (PPP) 08: [facility] [Mass/Vol] (91407) vitamin b12 on 2019-12-05 Cobalamin 899 pg/mL (no code) 200 - 900 pg/mL 12-05-2019 [facility] Via (Vitamin B12) 08:540 [facility] [Mass/Vol] (64965) Comment: Test performed at [facility], CLIA# [id number] [place] [address] venous blood hemoglobin measurement (mass/volume) on 2019-12-05 Hemoglobin (Bld) 8.1 g/dL (L) 12.1 - 17.2 g/dL 12-05-2019 [place] [facility] [Mass/Vol] 08:58-0500 [facility] (29245) serum or plasma urea nitrogen/creatin ine mass ratio on 2019-12-05 Urea 31 mg/mg (no code) 6 - 22 mg/mg 12-05-2019 [place] Via nitrogen/Creatin 08:58-0500 [facility] ine [Mass ratio] (91539) serum or plasma urea nitrogen measurement (mass/volume) on 2019-12-05 Urea nitrogen 41 mg/dL (H) 7 - 20 mg/dL 12-05-2019 Ascen ruth Via [Mass/Vol] 08:58-0500 [facility] (49416) serum or plasma total bilirubin measurement (mass/volume) on 2019-12-05 Bilirubin 1.5 mg/dL (H) 0.1 - 1.2 mg/dL 12-05-2019 [facility] [Mass/Vol] 08:58-0500 [facility] (01028) serum or plasma sodium measurement (moles/volume) on 2019-12-05 Sodium 132 mmol/L (L) 135 - 145 mmol/L 12-05-2019 Asce nsion Via [Moles/Vol] 08:58-0500 [facility] (30576) serum or plasma protein measurement (mass/volume) on 2019-12-05 Protein 6.3 g/dL (L) 6.4 - 8.3 g/dL 12-05-2019 [facility] [Mass/Vol] 08:58-0500 [facility] (35314) serum or plasma potassium measurement (moles/volume) on 2019-12-05 Potassium 4.7 mmol/L (no code) 3.7 - 5.2 mmol/L 12-05-2019 Asce nsion Via [Moles/Vol] 08:58-0500 [facility] (00902) serum or plasma glucose measurement (mass/volume) on 2019-12-05 Glucose 96 mg/dL (no code) 60 - 125 mg/dL 12-05-2019 [facility] [Mass/Vol] 08:58-0500 [facility] (16946) serum or plasma folate measurement (mass/volume) on 2019-12-05 Folate 7.1 ng/mL (no code) 2.7 - 17 ng/mL 12-05-2019 [facility] [Mass/Vol] 08:54-0500 [facility] (38107) Comment: Test performed at [facility], CLIA# [id number] [place] [address] serum or plasma creatinine measurement with calculation of estimated glomerular filtration rate on 2019-12-05 GFR/1.73 sq M 55 (no code) 90 - 120 12-05-2019 [facility] Via predicted among mL/min/{1.73_m2} mL/min/{1.73_m2} 08:580500 [facility] non-blacks MDRD (24956) (S/P/Bld) [Vol rate/Area] Comment: GFR INTERPRETIVE DATA UNITS FOR ESTIMATED GFR (eGFR): mL/min/1.73 M2 REFERENCE RANGE FOR ESTIMATED GFR (eGFR) eGFR NORMAL eGFR >60 MODERATELY DECREASED eGFR 30-59 SEVERLY DECREASED eGFR 15-29 KIDNEY FAILURE <15 (OR DIALYSIS) serum or plasma creatinine measurement (mass/volume) on 2019-12-05 Creatinine 1.31 mg/dL (H) 12-05-2019 [place] [facility] [Mass/Vol] 08:580500 [facility] (95155) serum or plasma chloride measurement (moles/volume) on 2019-12-05 Chloride 95 mmol/L (L) 95 - 106 mmol/L 12-05-2019 [facility] [Moles/Vol] 08:580500 [facility] (18147) serum or plasma calcium measurement (mass/volume) on 2019-12-05 Calcium 9.0 mg/dL (no code) 8.5 - 10.2 mg/dL 12-05-2019 [facility] Via [Mass/Vol] 08:58-0500 [facility] (89419) serum or plasma aspartate aminotransferase measurement (enzymatic activity/volume) on 2019-12-05 AST [Catalytic 254 U/L (H) 10 - 34 U/L 12-05-2019 [facility] Via activity/Vol] 08:58-0500 [facility] (55156) serum or plasma anion gap determination (moles/volume) on 2019-12-05 Anion gap 10 mmol/L (no code) 3 - 11 mmol/L 12-05-2019 [facility] [Moles/Vol] 08:58-0500 [facility] (67547) serum or plasma alkaline phosphatase measurement (enzymatic activity/volume) on 2019-12-05 ALP [Catalytic 347 U/L (H) 44 - 147 U/L 12-05-2019 Asce nsion Via activity/Vol] 08:580500 [facility] (72193) serum or plasma albumin measurement (mass/volume) on 2019-12-05 Albumin 3.8 g/dL (no code) 3.4 - 5.4 g/dL 12-05-2019 [facility] [Mass/Vol] 08:580500 [facility] (56859) serum or plasma alanine aminotransferase measurement (enzymatic activity/volume) on 2019-12-05 ALT [Catalytic 17 U/L (no code) 4 - 40 U/L 12-05-2019 [facility] Via activity/Vol] 08:580500 [facility] (00074) prothrombin time (pt) in platelet poor plasma on 2019-12-05 PT Coag (PPP) 15.4 s (H) 9.4 - 12.5 s 12-05-2019 [facility] Via [Time] 08:580500 [facility] (87975) manual eosinophils/100 leukocytes in nose on 2019-12-05 Eosinophils/100 2 % (no code) 12-05-2019 [place] [facility] WBC (Nose) 08:580500 [facility] (33708) manual blood segmented neutrophils/100 leukocytes on 2019-12-05 Segmented 46 % (no code) 35 - 80 % 12-05-2019 [place] [facility] a neutrophils/100 08:580500 [facility] WBC (Bld) (02811) manual blood nucleated erythrocytes/100 leukocytes ratio on 2019-12-05 Nucleated 10 % (no code) 0 - 0 % 12-05-2019 [place] [facility] a RBC/100 WBC 08:580500 [facility] ([facility]) [Ratio] (17620) manual blood metamyelocytes/1 00 leukocytes on 2019-12-05 Metamyelocytes/1 1 % (no code) 0 - 0 % 12-05-2019 [facility] Via 00 WBC (Bld) 08:580500 [facility] (48479) manual blood lymphocytes/100 leukocytes on 2019-12-05 Lymphocytes/100 36 % (no code) 20 - 40 % 12-05-2019 [facility] WBC (Bld) 08:580500 [facility] (63563) manual blood basophils/100 leukocytes on 2019-12-05 Basophils/100 0 % (no code) 0.5 - 1 % 12-05-2019 [facility] WBC (Bld) 08:580500 [facility] (72798) inr in platelet poor plasma or blood by coagulation assay on 2019-12-05 INR Coag 1.2 (no code) 12-05-2019 [place] [facility] (Platelet poor 08:580500 [facility] plasma or blood) (41482) [Relative time] Comment: INTERPRETIVE DATASUGGESTED THERAPEUTIC RANGE FOR INR'S: VENOUS THROMBOSIS, PULMONARY EMBOLISM, OR PREVENTION OF SYSTEMIC EMBOLISM (EG. IN ATRIAL FIBRILLATION): 2.0 - 3.0 MECHANICAL PROSTHETIC HEART VALVES: 2.5 - 3.5NOTE: INR'S UP TO 4.5 MAY BE NECESSARY IN SELECTED GROUPS OF HIGH RISK PATIENTS.[employer] CONSENS[employer]CONFERE NCE ON ANTITHROMBOTIC THERAPY (1999). carbon dioxide on 2019-12-05 CO2 [Moles/Vol] 27 mmol/L (no code) 23 - 29 mmol/L 12-05-2019 A scension Via 08:580500 [facility] (12982) calcium measurement corrected for albumin on 2019-12-05 Calcium 9.2 mg/dL (no code) 8.5 - 10.2 mg/dL 12-05-2019 [facility] Via [Mass/Vol] 08:580500 [facility] (52177) Comment: Calcium corrected calculation = [0.8x(normal albumin - patient's albumin] + serum Ca levelformula in [employer] is (4-ALB)*0.8+CA blood reticulocytes/10 0 erythrocytes on 2019-12-05 Reticulocytes/10 2.94 % (H) 0.5 - 1.5 % 12-05-2019 Asc ension Via 0 RBC (Bld) 08:580500 [facility] (89864) blood reticulocytes count (number/volume) on 2019-12-05 Reticulocytes 85 10*3/uL (no code) 12-05-2019 [place] [facility] a (Bld) [#/Vol] 08:580500 [facility] (86034) blood poikilocytosis detection by light microscopy on 2019-12-05 Poikilocytosis SLIGHT (no code) 12-05-2019 [place] [facility] LM Ql (Bld) 08:58-0500 [facility] (14247) blood ovalocytes detection by light microscopy on 2019-12-05 Ovalocytes LM Ql SLIGHT (no code) 12-05-2019 [place] [facility] (Bld) 08:58-0500 [facility] (12196) blood monocytes/100 leukocytes on 2019-12-05 Monocytes/100 11 % (no code) 2 - 8 % 12-05-2019 [facility] WBC (Bld) 08:580500 [facility] (56077) Monocytes/100 10 % (no code) 2 - 8 % 12-05-2019 [facility] WBC (Bld) 08:58-0500 [facility] (64463) blood monocytes automated count (number/volume) on 2019-12-05 Monocytes (Bld) 0.5 10*3/uL (no code) 0.3 - 0.9 12-05-2019 [facility] nsion Via [#/Vol] 10*3/uL 08:58-0500 [facility] [place] ([address]74) blood lymphocytes variant/100 leukocytes on 2019-12-05 Variant 1 % (no code) 0 - 1 % 12-05-2019 [place] [facility] a lymphocytes/100 08:58-0500 [facility] WBC (Bld) (51073) blood hematocrit (volume fraction) on 2019-12-05 Hematocrit (Bld) 25 % (L) 36.1 - 50.3 % 12-05-2019 A [facility] [Volume 08:58-0500 [facility] fraction] ([id number]) blood helmet cells detection by light microscopy on 2019-12-05 Helmet cells LM SLIGHT (no code) 12-05-2019 [place] [facility] Ql (Bld) 08:58-0500 [facility] (56869) blood erythrocytes automated count (number/volume) on 2019-12-05 RBC (Bld) 2.89 10*6/uL (L) 4.2 - 6.1 12-05-2019 [place] [facility] [#/Vol] 10*6/uL 08:58-0500 [facility] l (08010) blood dacrocytes detection by light microscopy on 2019-12-05 Dacrocytes LM Ql SLIGHT (no code) 12-05-2019 [place] [facility] (Bld) 08:58-0500 [facility] (14431) blood basophilic stippling detection by light microscopy on 2019-12-05 Basophilic SLIGHT (no code) 12-05-2019 [place] [facility] stippling LM Ql 08:580500 [facility] (d) (68682) blood band neutrophils/100 leukocytes on 2019-12-05 Band form 4 % (no code) 0 - 3 % 12-05-2019 [place] [facility] [place] neutrophils/100 08:580500 [facility] WBC (Bld) (24852) blood anisocytosis detection by light microscopy on 2019-12-05 Anisocytosis Ql SLIGHT (no code) 12-05-2019 [place] [facility] (Bld) 08:58-0500 [facility] (92780) automated erythrocyte mean corpuscular volume (mcv) measurement on 2019-12-05 MCV (RBC) 86 fL (no code) 80 - 100 fL 12-05-2019 [place] [facility] [Entitic vol] 08:58-0500 [facility] (01102) automated erythrocyte mean corpuscular hemoglobin concentration measurement (mass/volume) on 2019-12-05 MCHC (RBC) 33 g/dL (no code) 32 - 36 g/dL 12-05-2019 [facility] [Mass/Vol] 08:58-0500 [facility] (19481) automated erythrocyte mean corpuscular hemoglobin (mass per erythrocyte) on 2019-12-05 MCH (RBC) 28 pg (no code) 27 - 31 pg 12-05-2019 [place] [facility] [Entitic mass] 08:58-0500 [facility] (34392) automated erythrocyte distribution width ratio on 2019-12-05 Erythrocyte 17.7 % (H) 11.6 - 14.6 % 12-05-2019 [facility] distribution 08:580500 [facility] width (RBC) (12082) [Ratio] automated eosinophil count on 2019-12-05 Eosinophils 0.1 10*3/uL (no code) 0.05 - 0.5 12-05-2019 [facility] (Bld) [#/Vol] 10*3/uL 08:58-0500 [facility] (81754) automated blood platelet count (count/volume) on 2019-12-05 Platelets (Bld) 51 10*3/uL (L) 150 - 450 12-05-2019 [facility] ruth [facility] [#/Vol] 10*3/uL 08:58050 [facility] [place] (14341) automated blood neutrophils/100 leukocytes on 2019-12-05 Neutrophils/100 47 % (no code) 40 - 60 % 12-05-2019 [facility] WBC (Bld) 08: [facility] () automated blood neutrophil count (number/volume) on 2019-12-05 Neutrophils 2.2 10*3/uL (no code) 1.7 - 7 10*3/uL 12-05-2019 As cension [facility] (Bld) [#/Vol] 08:050 [facility] () automated blood lymphocytes/100 leukocytes on 2019-12-05 Lymphocytes/100 38 % (no code) 20 - 40 % 12-05-2019 [facility] WBC (Bld) 08: [facility] () automated blood lymphocyte count (number/volume) on 2019-12-05 Lymphocytes 1.7 10*3/uL (no code) 0.9 - 2.9 12-05-2019 [facility] (Bld) [#/Vol] 10*3/uL 08:58050 [facility] (44951) automated blood leukocyte count (number/volume) on 2019-12-05 WBC (Bld) 4.2 10*3/uL (L) 3.5 - 10.5 12-05-2019 [place] [facility] [#/Vol] 10*3/uL 08:58050 [facility] [place] (45644) Comment: Corrected WBC for nucleated red blood cell count--- 12/05/19906 ---WBC previously reported as: 4.6 10^3/uL automated blood eosinophils/100 leukocytes on 2019-12-05 Eosinophils/100 2 % (no code) 1 - 4 % 12-05-2019 [facility] WBC (Bld) 08: [facility] () automated blood basophils/100 leukocytes on 2019-12-05 Basophils/100 2 % (no code) 0.5 - 1 % 12-05-2019 [facility] WBC (Bld) 08:58-0500 [facility] (07142) automated blood basophil count (number/volume) on 2019-12-05 Basophils (Bld) 0.1 10*3/uL (no code) 0 - 0.3 10*3/uL 12-05-2019 [place] [facility] [#/Vol] 08:58-0500 [facility] (88819) activated partial thromboplastin time (aptt) in platelet poor plasma bycoagulation assay on 2019-12-05 aPTT Coag (PPP) 38 s (H) 25 - 35 s 12-05-2019 [facility] [Time] 08:58-0500 [facility] (90854) blood lactic acid measurement (moles/volume) on 2019-12-04 Lactate 0.99 mmol/L (no code) 0.5 - 2.2 mmol/L 12-04-2019 [facility] [Moles/Vol] 14:140500 [facility] (73280) Comment: Lactic acid levels can appear lower than actual values in patients receiving NAC (N-Acetyl Cysteine). bacterial blood culture on 2019-12-04 Bacteria No growth (no code) 12-04-2019 [place] [facility] identified Cx 14:19-0500 [facility] Nom (Bld) (22710) automated blood platelet mean volume measurement on 2019-12-04 Platelet mean 11.0 fL (H) 7.2 - 11.7 fL 12-04-2019 Asce nsion Via volume (Bld) 08:35-0500 [facility] [Entitic vol] (53955) urine urobilinogen measurement by automated test strip (mass/volume) on 2019-12-03 Urobilinogen (U) 0.2 mg/dL (no code) 12-03-2019 [place] [facility] [Mass/Vol] 19:48-0500 [facility] (79699) urine total bilirubin detection by test strip on 2019-12-03 Bilirubin Ql (U) no information (no code) 12-03-2019 [facility] 19:48-0500 [facility] (80554) urine protein assay by test strip, semi-quantitativ e on 2019-12-03 Protein Ql (U) TRACE (no code) 12-03-2019 [place] [facility] 19:48-0500 [facility] (17735) urine ph measurement by test strip on 2019-12-03 pH (U) 5.5 [pH] (no code) 4.6 - 8 [pH] 12-03-2019 [place] [facility] 19:48-0500 [facility] (65451) urine nitrite detection by test strip on 2019-12-03 Nitrite Ql (U) no information (no code) 12-03-2019 [facility] 19:48-0500 [facility] (59486) urine leukocyte esterase detection by dipstick on 2019-12-03 Leukocyte no information (no code) 12-03-2019 [place] [facility] esterase Test 19:48-0500 [facility] strip Ql (U) (15646) urine ketones detection by automated test strip on 2019-12-03 Ketones Auto no information (no code) 12-03-2019 [place] [facility] test strip Ql 19:48-0500 [facility] (U) (20225) urine glucose detection by automated test strip on 2019-12-03 Glucose Auto no information (no code) 12-03-2019 [place] [facility] test strip Ql 19:48-0500 [facility] (U) (30185) urine color determination on 2019-12-03 Color (U) YELLOW (no code) 12-03-2019 [place] [facility] 19:48-0500 [facility] (80448) urine clarity determination on 2019-12-03 Clarity (U) CLEAR (no code) 12-03-2019 [place] [facility] 19:48-0500 [facility] (61954) total iron binding capacity and transferrin saturation measurement on 2019-12-03 Iron and Iron 71 (H) 12-03-2019 [place] [facility] a binding capacity 19:38-0500 [facility] panel - Serum or (39249) Plasma specific gravity of urine by test strip on 2019-12-03 Specific gravity 1.020 (no code) 12-03-2019 [place] [facility] (U) [Rel 19:48-0500 [facility] density] (43328) serum or plasma iron measurement (mass/volume) on 2019-12-03 Iron [Mass/Vol] 240 ug/dL (H) 60 - 170 ug/dL 12-03-2019 A scension Via 19:38-0500 [facility] (19926) serum or plasma ferritin measurement (mass/volume) on 2019-12-03 Ferritin 65996.3 ng/mL (H) 12-03-2019 [place] [facility] [place] [Mass/Vol] 19:38-0500 [facility] (21443) Comment: Test performed at [facility], CLIA# [id number] [place] [address] mucus detection in urine sediment by light microscopy on 2019-12-03 Mucus Ql (Urine no information (no code) 12-03-2019 [facility] sed) 19:480500 [facility] (23315) erythrocytes detection in urine sediment by light microscopy on 2019-12-03 RBC Ql (U) 3+ (no code) 12-03-2019 [place] [facility] 19:48-0500 [facility] (73273) crystals detection in urine sediment by light microscopy on 2019-12-03 Crystals LM Ql NONE (no code) 12-03-2019 [place] [facility] (Urine sed) :480500 [facility] (84103) complete urinalysis with reflex to culture on 2019-12-03 Urinalysis NO (no code) 12-03-2019 [place] [facility] complete W 19:48-0500 [facility] Reflex Culture (50280) panel - Urine casts detection in urine sediment by light microscopy on 2019-12-03 Casts LM Ql NONE (no code) 12-03-2019 [place] [facility] (Urine sed) 19:48-0500 [facility] (40894) blood erythrocyte morphology finding identification on 2019-12-03 RBC morphology NORMAL (no code) 12-03-2019 [place] [facility] finding Nom 19:380500 [facility] (Bld) (06299) bacteria detection in urine sediment by light microscopy on 2019-12-03 Bacteria LM Ql MODERATE (no code) 12-03-2019 [place] [facility] (Urine sed) 19:48-0500 [facility] (12936) automated urine sediment leukocyte count by microscopy (number/high power field) on 2019-12-03 WBC LM.HPF 2-5 (no code) 12-03-2019 [place] [facility] (Urine sed) 19:480500 [facility] [#/Area] (40493) automated urine sediment erythrocyte count by microscopy (number/high power field) on 2019-12-03 RBC LM.HPF /[HPF] (no code) 0 - 4 /[HPF] 12-03-2019 [facility] (Urine sed) 19:48-0500 [facility] [#/Area] (18039) No panel information on 2019-11-11 Band form 0.528 10*3/uL (N) 0 - 0.75 10*3/uL [facility] neutrophils [facility] (Bld) [#/Vol] [facility] (62101) Band form 12 % (N) 0 - 3 % [facility] th neutrophils/100 [facility] WBC (Bld) [facility] (33601) Basophils (Bld) 0 10*3/uL (N) 0 - 0.3 10*3/uL [facility] [#/Vol] [facility] (00451) Basophils/100 0 % (N) 0.5 - 1 % [facility] WBC (Bld) [facility] (73797) Blasts (Bld) 0.132 10*3/uL (H) [facility] [#/Vol] [facility] (32279) Blasts/100 WBC 3 % (H) 0 - 0 % [facility] (Bld) [facility] (51568) Cobalamin 1773 pg/mL (H) 200 - 900 pg/mL [facility] (Vitamin B12) [facility] [Mass/Vol] [facility] (27141) Eosinophils 0.088 10*3/uL (N) 0.05 - 0.5 [facility] (Bld) [#/Vol] 10*3/uL [facility] (04902) Eosinophils/100 2 % (N) 1 - 4 % [facility] WBC (Bld) [facility] (86526) Erythrocyte 14.9 % (N) 11.6 - 14.6 % [facility] distribution [facility] width (RBC) [facility] [Ratio] (20104) Ferritin 5011 ng/mL (H) [facility] [Mass/Vol] [facility] (56477) Folate 7.5 ng/mL (N) 2.7 - 17 ng/mL [facility] [Mass/Vol] [facility] (30731) HAV IgM IA Ql NON-REACTIVE (N) [facility] (15138) HBV core IgM IA NON-REACTIVE (N) [facility] (00457) HBV surface Ag NON-REACTIVE (N) [facility] IA Ql [facility] (52073) HCV Ab IA Ql NON-REACTIVE (N) [facility] (68105) HCV Ab 0.01 {ratio} (N) 0 - 3 {ratio} [facility] Signal/Cutoff IA [facility] [Rel units/Vol] [facility] (45050) Hematocrit (Bld) 24.0 % (L) 36.1 - 50.3 % [facility] [Volume [facility] (06708) Hemoglobin (Bld) 8.1 g/dL (L) 12.1 - 17.2 g/dL Critical [facility] hospital [Mass/Vol] [facility] (02699) Iron [Mass/Vol] 185 ug/dL (H) 60 - 170 ug/dL [facility] (01023) Iron binding 287 (N) [facility] [Mass/Vol] [facility] (71316) Iron saturation 64 (H) [facility] [Mass fraction] [facility] (35540) Lymphocytes 1.54 10*3/uL (N) 0.9 - 2.9 [facility] [#/Vol[facility] 10*3/uL [facility] (32504) Lymphocytes/100 35 % (N) 20 - 40 % [facility] WBC (Bld) [facility] (61852) MCH (RBC) 27.7 pg (N) 27 - 31 pg [facility] [Entitic mass] [facility] (41811) MCHC (RBC) 33.8 g/dL (N) 32 - 36 g/dL [facility] [Mass/Vol] [facility] (44691) MCV (RBC) 82.2 fL (N) 80 - 100 fL [facility] [Entitic vol] [facility] (35695) Metamyelocytes 0.704 10*3/uL (H) [facility] [#/Vol] [facility] (63376) Metamyelocytes/1 16 % (H) 0 - 0 % [facility] 00 WBC (Bld) [facility] (21232) Monocytes (Bld) 0.132 10*3/uL (L) 0.3 - 0.9 [facility] [#/Vol] 10*3/uL [facility] (81296) Monocytes/100 3 % (N) 2 - 8 % [facility] WBC (Bld) [facility] (27730) Morphology [place] no information (N) [facility] (Bld) [Interp] [facility] (47916) Myelocytes (Bld) 0.176 10*3/uL (H) 0.2 - 0.9 [facility] [#/Vol] 10*3/uL [facility] (18525) Myelocytes/100 4 % (H) 2 - 8 % [facility] WBC (Bld) [facility] (16694) Neutrophils 1.1 10*3/uL (L) 1.7 - 7 10*3/uL [facility] (Bld) [#/Vol] [facility] (43037) Neutrophils/100 25 % (N) 40 - 60 % [facility] WBC (Bld) [facility] (51672) Nucleated RBC 0.704 10*3/uL (H) 0 - 0 10*3/uL [facility] (Bld) [#/Vol] [facility] (04631) Nucleated 16 (H) [facility] RBC/100 WBC [facility] (Bld) [Ratio] [facility] (09464) Pathologist no information (no code) [facility] comment (Bld) (34189) [Interp] Platelet mean 11.9 fL (N) 7.2 - 11.7 fL [facility] volume (Bld) [facility] [Entitic vol] [facility] (75505) Platelets (Bld) 96 10*3/uL (L) 150 - 450 [facility] [#/Vol] 10*3/uL [facility] (02443) Platelets LM Ql DECREASED (A) [facility] (Bld) [facility] (02099) RBC (Bld) 2.92 10*6/uL (L) 4.2 - 6.1 [facility] [#/Vol] 10*6/uL [facility] (40802) Service comment no information (no code) [facility] (Unsp spec) [facility] [Interp] [facility] () WBC (Bld) 4.4 10*3/uL (N) 3.5 - 10.5 [facility] [#/Vol] 10*3/uL [facility] (96288) No panel information on 2019-11-07 Albumin 4.2 g/dL (N) 3.4 - 5.4 g/dL [facility] [Mass/Vol] [facility] () Albumin/Globulin 1.7 {ratio} (N) 1 - 2.5 {ratio} Comm [facility] [Mass ratio] [facility] () ALP [Catalytic 332 U/L (H) 44 - 147 U/L [facility] activity/Vol] [facility] (89719) ALT [Catalytic 13 U/L (N) 4 - 40 U/L [facility] activity/Vol] [facility] () Appearance (U) CLEAR (N) [facility] (12150) AST [Catalytic 76 U/L (H) 10 - 34 U/L [facility] activity/Vol] [facility] (94199) Bacteria LM.HPF NONE SEEN (N) [facility] (Urine sed) [facility] [#/Area] [facility] () Band form 1.02 10*3/uL (H) 0 - 0.75 10*3/uL [facility] neutrophils [facility] (Bld) [#/Vol] [facility] (47594) Band form 17 % (N) 0 - 3 % [facility] neutrophils/100 [facility] WBC (Bld) [facility] (68989) Basophils (Bld) 0.06 10*3/uL (N) 0 - 0.3 10*3/uL [facility] [#/Vol] [facility] (04676) Basophils/100 1 % (N) 0.5 - 1 % [facility] WBC (Bld) [facility] (12850) Bilirubin 1.0 mg/dL (N) 0.1 - 1.2 mg/dL [facility] [Mass/Vol] [facility] (47929) Bilirubin Ql (U) no information (N) [facility] (40315) Blasts (Bld) 0.12 10*3/uL (H) [facility] h [#/Vol] [facility] (35528) Blasts/100 WBC 2 % (H) 0 - 0 % [facility] (Bld) [facility] (06653) Calcium 10.2 mg/dL (N) 8.5 - 10.2 mg/dL [facility] [Mass/Vol] [facility] (14157) Calcium oxalate FEW (N) [facility] crystals LM.HPF [facility] (Urine sed) [facility] [#/Area] (70185) Chloride 97 mmol/L (L) 95 - 106 mmol/L [facility] [Moles/Vol] [facility] (90584) Cholesterol 177 mg/dL (N) 180 - 200 mg/dL [facility] [Mass/Vol] [facility] (59051) Cholesterol in 37 mg/dL (L) [facility] h HDL [Mass/Vol] [facility] (21074) Cholesterol in 109 mg/dL (H) 0 - 100 mg/dL [facility] LDL [Mass/Vol] [facility] (04711) Cholesterol non 140 mg/dL (H) [facility] HDL [Mass/Vol] [facility] (47689) Cholesterol.tota 4.8 {ratio} (N) [facility]/Cholesterol in [facility] HDL [Mass ratio] [facility] (33677) CO2 [Moles/Vol] 26 mmol/L (N) 23 - 29 mmol/L [facility] (04891) Color (U) YELLOW (N) [facility] (08383) Creatinine 1.14 mg/dL (N) [facility] [Mass/Vol] [facility] (16747) Eosinophils 0.18 10*3/uL (N) 0.05 - 0.5 [facility] (Bld) [#/Vol] 10*3/uL [facility] (57923) Eosinophils/100 3 % (N) 1 - 4 % [facility] WBC (Bld) [facility] (42005) Epithelial 0-5 (no code) [facility] cells.squamous [facility] LM.HPF (Urine [facility] sed) [#/Area] (90732) Erythrocyte 14.5 % (N) 11.6 - 14.6 % [facility] ealth distribution [facility] width (RBC) [facility] [Ratio] (40078) GFR/1.73 sq M 77 (N) 90 - 120 [facility] predicted among mL/min/{1.73_m2} mL/min/{1.73_m2} [place] [facility] blacks MDRD [facility] (S/P/Bld) [Vol (05575) rate/Area] GFR/1.73 sq 67 (N) 90 - 120 [facility] M.predicted MDRD mL/min/{1.73_m2} mL/min/{1.73_m2} [facility] (S/P/Bld) [Vol [facility] rate/Area] (17974) Globulin (S) 2.5 g/dL (N) 2 - 3.5 g/dL [facility] ealt [Mass/Vol] [facility] (65416) Glucose 116 mg/dL (H) 60 - 125 mg/dL [facility] [Mass/Vol] [facility] (58942) Glucose Ql (U) no information (N) [facility] (70848) Hematocrit (Bld) 26.9 % (L) 36.1 - 50.3 % [facility] [Volume [facility] (16295) Hemoglobin (Bld) 8.9 g/dL (L) 12.1 - 17.2 g/dL [facility] [Mass/Vol] [facility] (82989) Hemoglobin Ql no information (N) [facility] (U) [facility] (98199) Hyaline casts 10-20 (A) [facility] (Urine sed) [facility] [#/Area] [facility] (03795) Ketones Ql (U) no information (N) [facility] (25530) Leukocyte no information (N) [facility] esterase Test [facility] Ql (U) [facility] (05817) Lymphocytes 1.86 10*3/uL (N) 0.9 - 2.9 [facility] lth (Bld) [#/Vol] 10*3/uL [facility] (15794) Lymphocytes/100 31 % (N) 20 - 40 % [facility] WBC (Bld) [facility] (67645) MCH (RBC) 27.2 pg (N) 27 - 31 pg [facility] [Entitic mass] [facility] (12893) MCHC (RBC) 33.1 g/dL (N) 32 - 36 g/dL [facility] alth [Mass/Vol] [facility] (01649) MCV (RBC) 82.3 fL (N) 80 - 100 fL [facility] lt [Entitic vol] [facility] (24429) Metamyelocytes 0.18 10*3/uL (H) [facility] (Bld) [#/Vol] [facility] (56775) Metamyelocytes/1 3 % (H) 0 - 0 % [facility] 00 WBC (Bld) [facility] (01691) Monocytes (Bld) 0.36 10*3/uL (N) 0.3 - 0.9 [facility] [#/Vol] 10*3/uL [facility] (45258) Monocytes/100 6 % (N) 2 - 8 % [facility] alth WBC (Bld) [facility] (91286) Myelocytes (Bld) 0.12 10*3/uL (H) 0.2 - 0.9 [facility] [#/Vol] 10*3/uL [facility] (62748) Myelocytes/100 2 % (H) 2 - 8 % [facility] WBC (Bld) [facility] (83483) Neutrophils 2.1 10*3/uL (N) 1.7 - 7 10*3/uL [facility] (Bld) [#/Vol] [facility] (82652) Neutrophils/100 35 % (N) 40 - 60 % [facility] WBC (Bld) [facility] (89136) Nitrite Ql (U) no information (N) [facility] (41170) Nucleated RBC 0.3 10*3/uL (H) 0 - 0 10*3/uL [facility] (Bld) [#/Vol] [facility] (79280) Nucleated 5 (H) [facility] RBC/100 WBC [facility] (Bld) [Ratio] [facility] (03940) pH (U) 5.5 [pH] (N) 4.6 - 8 [pH] [facility] (80706) Platelet mean 11.4 fL (N) 7.2 - 11.7 fL [facility] volume (Bld) [facility] [Entitic vol] [facility] (60067) Platelets (Bld) 93 10*3/uL (L) 150 - 450 [facility] [#/Vol] 10*3/uL [facility] (40219) Potassium 4.5 mmol/L (N) 3.7 - 5.2 mmol/L [facility] [Moles/Vol] [facility] (96400) Prostate 4056.4 ng/mL (H) 0 - 4 ng/mL [facility] specific Ag [facility] [Mass/Vol] [facility] (11590) Protein 6.7 g/dL (N) 6.4 - 8.3 g/dL [facility] [Mass/Vol] [facility] (61402) Protein Ql (U) TRACE (A) [facility] (18217) RBC (Bld) 3.27 10*6/uL (L) 4.2 - 6.1 [facility] [#/Vol] 10*6/uL [facility] (77084) RBC LM.HPF 0-2 (N) [facility] (Urine sed) [facility] [#/Area] [facility] (06754) Service comment no information (no code) [facility] (Unsp spec) [facility] [Interp] [facility] (10107) Sodium 136 mmol/L (N) 135 - 145 mmol/L [facility] [Moles/Vol] [facility] (68857) Specific gravity 1.020 (N) [facility] (U) [Rel [facility] density] [facility] (96813) Triglyceride 191 mg/dL (H) 0 - 150 mg/dL [facility] [Mass/Vol] [facility] (95607) TSH Qn 0.01 m[IU]/L (L) 0.4 - 4 m[IU]/L [facility] (27461) Urate crystals MANY (A) [facility] LM.HPF (Urine [facility] Hospital) [#/Area] [facility] (92564) Urea nitrogen 35 mg/dL (H) 7 - 20 mg/dL [facility] [Mass/Vol] [facility] (29767) Urea 31 mg/mg (H) 6 - 22 mg/mg [facility] alth nitrogen/Creatin [facility] [Mass ratio] [facility] (91526) WBC (Bld) 6.0 10*3/uL (N) 3.5 - 10.5 [facility] [#/Vol] 10*3/uL [facility] (68546) WBC LM.HPF 0-5 (N) Formerly [facility], 1928–1983 (Urine sed) [facility] [#/Area] [facility] (77992) No panel information on 2018-05-08 Albumin mass 3.9 g/dL (N) 3.4 - 5.4 g/dL [facility] (05134) Albumin/Globulin 1.4 (N) [facility] mass [facility] (15451) ALP enzyme 114 U/L (N) 44 - 147 U/L [facility] act/vol [facility] (63871) ALT enzyme 20 U/L (N) 4 - 40 U/L [facility] th act/vol [facility] (20078) AST enzyme 16 U/L (N) 10 - 34 U/L [facility] act/vol [facility] (10637) Basophils Auto 0.03 10*3/uL (N) 0 - 0.3 10*3/uL [facility] #/vol (Bld) [facility] (04147) Basophils/100 0.5 % (N) 0.5 - 1 % [facility] alth WBC Auto (d) [facility] (69066) Bilirubin mass 0.3 mg/dL (N) 0.1 - 1.2 mg/dL [facility] (67322) Calcium mass 9.3 mg/dL (N) 8.5 - 10.2 mg/dL [facility] (06640) Chloride molar 101 mmol/L (N) 95 - 106 mmol/L [facility] (09911) Cholesterol in 41 mg/dL (N) [facility] HDL mass conc [facility] (59945) Cholesterol in 88 (N) [facility] LDL mass conc [facility] (08218) Cholesterol mass 158 mg/dL (N) 180 - 200 mg/dL [facility] (42803) Cholesterol non 117 (N) [facility] HDL mass conc [facility] (55732) Cholesterol.tota 3.9 (N) [facility] lt l/Cholesterol in [facility] HDL mass [facility] (58852) CO2 molar conc 28 mmol/L (N) 23 - 29 mmol/L [facility] (56029) Creatinine mass 0.83 mg/dL (N) [facility] (31763) Eosinophils Auto 0.372 10*3/uL (N) 0.05 - 0.5 [facility] #/vol (Bld) 10*3/uL [facility] (76273) Eosinophils/100 6.3 % (N) 1 - 4 % [facility] WBC Auto (Bld) [facility] (38381) Erythrocyte 12.8 % (N) 11.6 - 14.6 % [facility] ealth distribution [facility] Auto Ratio [facility] (RBC) (80706) GFR/1.73 sq M 107 (N) 90 - 120 [facility] predicted among mL/min/{1.73_m2} mL/min/{1.73_m2} Center o f [facility] MDRD vol [facility] rate/area (88405) (S/P/Bld) GFR/1.73 sq 92 (N) 90 - 120 [facility] th M.predicted MDRD mL/min/{1.73_m2} mL/min/{1.73_m2} Center [facility] rate/area [facility] (22190) Globulin 2.7 (N) [facility] Calculated mass [facility] (S) [facility] (91981) Glucose mass 79 mg/dL (N) 60 - 125 mg/dL [facility] (28153) Hematocrit Auto 41.8 % (N) 36.1 - 50.3 % [facility] Volume Fraction [facility] (Bld) [facility] (41265) Hemoglobin mass 13.9 g/dL (N) 12.1 - 17.2 g/dL [facility] conc (Bld) [facility] (65565) Lymphocytes Auto 1.794 10*3/uL (N) 0.9 - 2.9 [facility] #/vol (Bld) 10*3/uL [facility] (54036) Lymphocytes/100 30.4 % (N) 20 - 40 % [facility] WBC Auto (Bld) [facility] (40815) MCH Auto Entitic 28.7 pg (N) 27 - 31 pg [facility] mass (RBC) [facility] (59282) MCHC Auto mass 33.3 g/dL (N) 32 - 36 g/dL [facility] conc (RBC) [facility] (61372) MCV Auto Entitic 86.4 fL (N) 80 - 100 fL [facility] volume (RBC) [facility] (36805) Monocytes Auto 0.684 10*3/uL (N) 0.3 - 0.9 [facility] #/vol (Bld) 10*3/uL [facility] (25367) Monocytes/100 11.6 % (N) 2 - 8 % [facility]th WBC Auto (Bld) [facility] (53096) Neutrophils Auto 3.021 10*3/uL (N) 1.7 - 7 10*3/uL [facility] #/vol (Bld) [facility] (55835) Neutrophils/100 51.2 % (N) 40 - 60 % [facility] WBC Auto (Bld) [facility] (37338) Platelet mean 10.9 fL (N) 7.2 - 11.7 fL [facility] volume [facility] Entitic [facility] (Bld) (12288) Platelets Auto 274 10*3/uL (N) 150 - 450 [facility] #/vol (Bld) 10*3/uL [facility] (88837) Potassium molar 4.8 mmol/L (N) 3.7 - 5.2 mmol/L [facility] (15893) Prostate 47.6 ng/mL (H) 0 - 4 ng/mL [facility] specific Ag mass [facility] (79486) Protein mass 6.6 g/dL (N) 6.4 - 8.3 g/dL [facility] conc [facility] (88223) RBC Auto #/vol 4.84 10*6/uL (N) 4.2 - 6.1 [facility] (Bld) 10*6/uL [facility] (48449) Sodium molar 136 mmol/L (N) 135 - 145 mmol/L [facility] (24342) Triglyceride 196 mg/dL (H) 0 - 150 mg/dL [facility] conc [facility] (15387) Urea nitrogen 22 mg/dL (N) 7 - 20 mg/dL [facility] (92790) Urea NOT APPLICABLE (no code) [facility] nitrogen/Creatin [facility] (64277) WBC Auto #/vol 5.9 10*3/uL (N) 3.5 - 10.5 [facility] (Bld) 10*3/uL [facility] (36316) Vital Signs Vital Sign Value Interpretation Reference Date Time Care Prov ider Facility (Normalized) (Normalized) Range BMI (Body Mass 27.5 kg/m2 (no code) 15 - 25 kg/m2 11-27-2018 [facility] Index) 11:20-0500 62106 [facility] (40890) BMI (Body Mass 26.31 kg/m2 (no code) 15 - 25 kg/m2 05-08-2018 [facility] Community Index) 11:00-0400 21680 [facility] (75447) BMI (Body Mass 26.38 kg/m2 (no code) 15 - 25 kg/m2 12-18-2017 [facility] Index) 11:40-[id number] [place] [address] (72907) BMI (Body Mass 26.54 kg/m2 (no code) 15 - 25 kg/m2 10-25-2017 [facility] Index) 13:20-0500 95962 [facility] (59938) Body 96.1 [degF] (no code) 97.8 - 99.0 11-27-2018 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 Community Temperature [degF] 11:20-[address] [facility] (35864) Body 97.3 [degF] (no code) 97.8 - 99.0 05-08-2018 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 Community Temperature [degF] 11:00-[address] [facility] (45402) Body 98 [degF] (no code) 97.8 - 99.0 12-18-2017 NIRMAL MORRISON [facility] Temperature [degF] 11:40-[address] [facility] (41381) Body 98.1 [degF] (no code) 97.8 - 99.0 10-25-2017 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 [facility] Temperature [degF] 13:20-[address] [facility] (90331) Body weight 77.29 kg (no code) kg 11-27-2018 [place] MARIBETH [facility] 11:20-[address] [place] [address] (47057) Height 167.64 cm (no code) cm 11-27-2018 [place] GARLAND [facility] 11:20-[address] [place] [address] (30119) Height 167.64 cm (no code) cm 05-08-2018 [place] GARLAND [facility] 11:00-[id number] [place] [address] (54612) Height 171.45 cm (no code) cm [facility]-18-2017 [facility] 11:40-[address] [place] [address] (56219) Height 171.45 cm (no code) cm 10-25-2017 [facility] 13:20-[address] [place] [address] (04346) Weight 73.94 kg (no code) kg 05-08-2018 [place] GARLAND [facility] 11:00-[id number] [place] [address] (25158) Weight 77.57 kg (no code) kg 12-18-2017 [facility] 11:40-[id number] [place] [address] (50576) Weight 78.02 kg (no code) kg 10-25-2017 [facility] 13:20-[address] [place] [address] (08740) Interventions No Information Plan of Treatment Normalized Care Care Detail Care Activity Date Care Provider F acility Activity (ACUTE) Acute Visit [facility] 05-01-2019 NIRMAL GARLAND [address] [place] [address] (41327) Copper (Unsp spec) no information no information [facility] [phone] [place] [address] [Mass/Vol] [facility] (06874) Patient Education no information no information SHENANDOAH SEK [phone] [place] [address] [facility] (61722) Goals Patient Goal Desired Goal no information no information Social History Normalized Code Original Code Date Value Tobacco smoking status Tobacco smoking status no information Ex-smoker (finding) NCIS NCIS no information no information 12-03-2019 Denies Use no information no information 12-03-2019 No no information no information 12-03-2019 Former Smoker Sex Assigned At Sex Assigned At 1955 - 03-09 Male Functional Status Status Assessment Result Care Provider Facility Functional status no information MICAELA SEK [address] [facility] Person;Place;Time;Situati [facility] (26226) on Functional status Patient Orientation MICAELA SEK [address] [facility] Person;Place;[facility] (09706) Functional status Pasero Opioid-induced MICAELA SEK [address] [facility] [facility] Sedation Scale (POSS) [facility] (56113) Awake and alert Mental Status Status Assessment Result Care Provider Facility Cognitive function no information MICAELA SEK [address] [facility] (13207) Cognitive function Comprehension Ability MICAELA SEK [address] [place] [facility] (12257) Cognitive function Pasero Opioid-induced MICAELA SEK [address] [place] [address] [facility] Sedation Scale (POSS) [facility] (85510) Awake and alert Encounters Encounter Normalized Encounter Encounter Diagnosis Care Provi boom Organization Date Type 04-17-2019 (ACUTE) Acute Visit Non-pressure chronic NIRMAL PUCKETT RBES (no [facility] M[facility] (no ulcer of other part of phone) phone) left foot limited to breakdown of skin 11-27-2018 ([facility]) Chronic Health Essential (primary) NIRMAL PUCKETT RBES (no [facility] (no - Maintenance hypertension phone) phone) 11-27-2018 - 11-27-2018 05-08-2018 ([facility]) Chronic Health Essential (primary) NIRMAL PUCKETT RBES [...] - phone) phone) 07-21-2015 - 07-21-2015 06-23-2015 [facility] MICA[facility]

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
== END 2019-12-06 15:33 | disposition swing bed (61) | DRG 723 ==
LOC: EDUNIT# 15:52 → ER 15:54 → 4TH 17:56
PROVIDERS: ADMIT Internal Medicine; ATTEND Internal Medicine
PROC: 07DR3ZX Extraction of Iliac Bone Marrow, Percutaneous Approach, Diagnostic (ICD-10-PCS; principal; 2019-12-05)
DX: C61 Malignant neoplasm of prostate (principal); N39.0 Urinary tract infection, site not specified; R33.9 Retention of urine, unspecified; N17.9 Acute kidney failure, unspecified; C78.01 Secondary malignant neoplasm of right lung; C78.02 Secondary malignant neoplasm of left lung; C79.51 Secondary malignant neoplasm of bone; D61.818 Other pancytopenia; Z66 Do not resuscitate; R64 Cachexia; I10 Essential (primary) hypertension; F32.9 Major depressive disorder, single episode, unspecified; R50.9 Fever, unspecified; R70.1 Abnormal plasma viscosity; Z87.891 Personal history of nicotine dependence
CPT/HCPCS: 36415; 38222; 71046; 71250; 74176; 77012; 80048; 80053; 80074; 81000; 82525; 82607; 82728; 82746; 83540; 83605; 83615; 84478; 85007; 85025; 85027; 85045; 85379; 85384; 85610; 85730; 86850; 86900; 86901; 86920; 87040; 94640; 94760; 99156

== ENCOUNTER 2019-12-06 15:08 | Inpatient (IN) | payer MEDICARE ==
[~2019-12-06] VITALS: Ht 162.5 cm; Wt 51.9 kg
[~2019-12-06 15:08] MED LIST: ACET325T38 PO; IBUP-2473 PO; MELO7.5T46 PO; TRAM50TA3 PO
[2019-12-06] MEDS ORDERED: DOCUSATE SODIUM 100 MG (COLACE) CAP PO PRN (15:45)
[2019-12-06] MEDS ORDERED: ALPRAZolam 0.25 MG (XANAX) TAB PO PRN (15:45)
[2019-12-06] MEDS ORDERED: diphenhydrAMINE 25 MG TAB (BENADRYL) PO PRN (15:45)
[2019-12-06] MEDS ORDERED: HYDROmorphone 2 MG/ML VIAL (DILAUDID) IVP PRN (15:45)
[2019-12-06] MEDS ORDERED: fentaNYL INJECTION 100 MCG/2 ML AMP IVP PRN (15:45)
[2019-12-06] MEDS ORDERED: PIPERACILLIN/TAZOBACTAM (BULK) 4.5 GM in NS (IVPB) 100 ML IV SCH (15:45)
[2019-12-06] MEDS ORDERED: ACETAMINOPHEN 500 MG TAB (TYLENOL) PO PRN (15:45)
[2019-12-06] MEDS ORDERED: ONDANSETRON 4 MG (ZOFRAN) ORAL DISSOLVE TAB PO PRN (15:45)
[2019-12-06] MEDS ORDERED: MELATONIN 3 MG TABLET PO PRN (15:45)
[2019-12-06] MEDS ORDERED: LOPERAMIDE 2 MG (IMODIUM) TABLET PO PRN (15:45)
[2019-12-06] MEDS ORDERED: ONDANSETRON 4 MG/2 ML (SDV) Z0FRAN IVP PRN (15:45)
[2019-12-06] MEDS ORDERED: CALCIUM CARBONATE 500 MG (TUMS) TAB.CHEW PO PRN (15:45)
--- NOTE | 2019-12-06 15:55 | Physical Therapy Evaluation ---
PT Evaluation-General Medical Diagnosis Admission Date Medical Diagnosis: Magalys prostate cancer Onset Date: Dec 06, 2019 Therapy Diagnosis Therapy Diagnosis: Muscle weakness Referral Physician: [facility] Reason for Referral: Evaluation/Treatment Medical History Pertinent Medical History: HTN Additional Medical History Prostate cancer Reviewed History: Yes Social History Home: Single Level Current Living Status: Alone Prior Prior Level of Function SCALE: Activities may be completed with or without assistive devices. 5-Ijdeluhegg-aybgcjo completes the activity by him/herself with no assistance from a helper. 5-Set-up or Clean-up Assistance-helper sets up or cleans up; patient completes activity. [place] assists only prior to or following the activity. 4-Supervision or Touching Assistance-helper provides verbal cues and/or touching/steadying and/or contact guard assistance as patient completes activity. Assistance may be provided throughout the activity or intermittently. 3-Partial/Moderate Assistance-helper does LESS THAN HALF the effort. [place] lifts, holds or supports trunk or limbs, but provides less than half the effort. 2-Substantial/Maximal Assistance-helper does MORE THAN HALF the effort. [place] lifts or holds trunk or limbs and provides more than half the effort. 4-Sadnnedle-eyfptd does ALL the effort. Patient does none of the effort to complete the activity. Or, the assistance of 2 or more helpers is required for the patient to complete the activity. If activity was not attempted, code reason: 7-Patient Refused. 9-Not Applicable-not attempted and the patient did not perform the activity before the current illness, exacerbation or injury. 10-Not Attempted due to Environmental Limitations-(lack of equipment, weather restraints, etc.). 88-Not Attempted due to Medical Conditions or Safety Concerns. Bed Mobility: 6 Transfers (B,C,W/C): 6 Gait: 6 Indoor Mobility (Ambulation): Independent PT Evaluation-Current Subjective Patient is agreeable to therapy at this time. Pain Numeric Pain Scale: 0-No Pain Pt/Family Goals "improve strength" Objective Patient Orientation: Person, Place, Time, Situation ROM/Strength ROM Lower Extremities WNL BLE Strength Lower Extremities 4+ / 5 grossly BLE Integumentary/Posture Integumentary See nursing notes. Sensory Vision: Functional Hearing: Functional Sensation Right Lower Extremit: Intact Sensation Left Lower Extremity: Intact Transfers Roll Left to Right (QC): 6 Sit to Lying (QC): 6 Lying to Sitting/Side of Bed(Q: 6 Sit to Stand (QC): 4 Chair/Pyg-rx-Wsjrd Xfer(QC): 4 Gait Does the Patient Walk?: Yes Mode of Locomotion: Walk Anticipated Mode of Locomotion: Walk Walk 10 feet (QC): 4 Walk 50 ft with 2 Turns(QC): 4 Walk 150 ft (QC): 4 Distance: 500' Gait Assistive Device: FWW Comments/Gait Description CGA for safety. Patient walks with feet one foot in front of the other, almost in tandem. Wheelchair Training Does the Pt Use a Wheelchair?: No Balance Sitting Static: Good Sitting Dynamic: Good Standing Static: Good Standing Dynamic: Good Treatment BLE exercise x 10: ankle pumps, LAQ, seated marching, hip abduction Assessment/Needs Patient tolerates exercises well. Patient is stable during ambulation and walks with one foot in front of the other, almost in tandem. Rehab Potential: Fair PT Silica Filter Operator Goals Silica Filter Operator Goals PT Silica Filter Operator Goals Time Frame: Dec 13, 2019 Roll Left & Right (QC): 6 Sit to Lying (QC): 6 Lying-Sitting on Side/Bed(QC): 6 Sit to Stand (QC): 6 Chair/Fyn-xa-Gfovt Xfer(QC): 6 Toilet Transfer (QC): 6 Does the Patient Walk: Yes Walk 10 feet (QC): 6 Walk 50ft with 2 Turns (QC): 6 Walk 150 ft (QC): 6 PT Plan Problem List Problem List: Activity Tolerance, Functional Strength, Safety, Balance, Gait, Transfer Treatment/Plan Treatment Plan: Continue Plan of Care Treatment Plan: Education, Functional Activity Cooper, Functional Strength, Gait, Safety, Therapeutic Exercise, Transfers Treatment Duration: Dec 13, 2019 Frequency: 6 times per week Estimated Hrs Per Day: .25 hour per day Patient and/or Family Agrees t: Yes Safety Risks/Education Patient Education: Gait Training, Transfer Techniques, Correct Positioning, Safety Issues Teaching Recipient: Patient Teaching Methods: Demonstration, Discussion Response to Teaching: Reinforcement Needed Discharge Recommendations Plan Patient will participate in bed mobility training, transfer training, strength a nd endurance training, balance training, and gait training. Therapy Discharge Recommendati: Home & Family Time/GCodes Time In: 1522 Time Out: 1552 Total Billed Treatment Time: 30 Total Billed Treatment 1 visit EVL 20 EX 10 JOSE MANUEL ANGEL PT Dec 06, 2019 15:55
--- NOTE | 2019-12-06 16:13 | NUR ---
Authorization for swing bed has been given by ERICKA clinical reviewer of [facility]. Auth number is [id number]. The next review date is 12/10/19 et the fax number is [phone]. The swing bed request is for continued IV abx (UTI) with patient also having dx of prostate cancer with mets to the bone. He will be receiving a palliative chemotherapy treatment (for pain) while on swing bed with continued need for Physical et Occupational therapy to maximize independent level of functioning to return home with an elderly friend as his support system. His ultimate goal is to return home with manageable pain level et independence with his ADLS. He also has a daughter that lives near him that will be a support at discharge.
--- NOTE | 2019-12-06 16:21 | NUR ---
Admission Drug Regimen Review: Date: 12/06/19 Time: 1620 Review Completed, No Issues found
--- NOTE | 2019-12-06 16:28 | Occupational Therapy Eval ---
OT Evaluation-General/PLF Medical Diagnosis Admission Date Dec 06, 2019 at 15:53 Medical Diagnosis: Nirmala, prostate cancer Onset Date: Dec 06, 2019 Therapy Diagnosis Therapy Diagnosis: debility Referral Physician: [facility] Medical History Pertinent Medical History: HTN Additional Medical History prostate cancer Social History Home: Single Level Current Living Status: Alone Entry Into Home: Stairs With Railing Steps Into Home: 3 ADL-Prior Level of Function SCALE: Activities may be completed with or without assistive devices. 1-[place]jb-ynxcfmq completes the activity by him/herself with no assistance from a helper. 5-Set-up or Clean-up Assistance-helper sets up or cleans up; patient completes activity. [place] assists only prior to or following the activity. 4-Supervision or Touching Assistance-helper provides verbal cues and/or touching/steadying and/or contact guard assistance as patient completes activity. Assistance may be provided throughout the activity or intermittently. 3-Partial/Moderate Assistance-helper does LESS THAN HALF the effort. [place] lifts, holds or supports trunk or limbs, but provides less than half the effort. 2-Substantial/Maximal Assistance-helper does MORE THAN HALF the effort. [place] lifts or holds trunk or limbs and provides more than half the effort. 5-Yhxvisrbx-ykrbeg does ALL the effort. Patient does none of the effort to complete the activity. Or, the assistance of 2 or more helpers is required for the patient to complete the activity. If activity was not attempted, code reason: 7-Patient Refused. 9-Not Applicable-not attempted and the patient did not perform the activity before the current illness, exacerbation or injury. 10-Not Attempted due to Environmental Limitations-(lack of equipment, weather restraints, etc.). 88-Not Attempted due to Medical Conditions or Safety Concerns. ADL PLOF Comments Pt reports being independent with basic self care and mobility prior to admission. Uses cane for mobility. Self Care: Independent DME/Equipment: Grab Bars, Shower, Tub/Shower, Toilet/[address] Self: Yes OT Current Status Subjective Pt resting in bed, agrees to therapy. Pt reports 4/10 pain in right LE. Mental Status/Objective Patient Orientation: Person, Place, Situation Attachments: [place] Catheter, IV Current Glasses/Contacts: Yes Hearing Aids: No Dentures/Partials: No Hand Dominance: Right Upper Extremity ROM Grossly WFL Upper Extremity Coordination Intact Upper Extremity Sensation Intact per pt report Upper Extremity Strength Grossly 4/5 ADL-Treatment Eating (QC): 6 (Pt reports feeding self and managing containers without assist) Oral Hygiene (QC): 5 (Pt states he already brushed teeth this morning after set up) Upper Body Dressing (QC): 5 On/Off Footwear (QC): 3 Toileting Hygiene (QC): 7 (Pt has a [place] and denied need to use restroom at this time.) Other Treatments Pt states he just returned to bed after ambulating with PT. Pt supine to sit without assist. Pt sat EOB with good balance during assessment. Pt performed sit to stand with supervision. Sit to supine without assist. Pt resting in bed with needs met after session. Education OT Patient Education: Rehab process Teaching Recipient: Patient Teaching Methods: Discussion Response to Teaching: Verbalize Understanding OT Assisted Goals Assisted Goals Time Frame: Dec 20, 2019 Eating (QC): 6 Oral Hygiene (QC): 6 Toileting Hygiene (QC): 6 Shower/Bathe Self (QC): 6 Upper Body Dressing (QC): 6 Lower Body Dressing (QC): 6 On/Off Footwear (QC): 6 Additional Goals: 1-Demonstrate ADL Tasks, 2-Verbalize Understanding, 3- ImproveStrength/Cooper 1=Demonstrate adherence to instructed precautions during ADL tasks. 2=Patient will verbalize/demonstrate understanding of assistive devices/modifications for ADL. 3=Patient will improve strength/tolerance for activity to enable patient to perform ADL's. OT Education/Plan Problem List/Assessment Assessment: Decreased Activ Tolerance, Decreased UE Strength, Dependent Transfers, Impaired Self-Care Skills Pt to benefit from skilled OT intervention for ADL training, transfers, strengthening, and home safety education to increase level of independence and allow safe discharge home. Discharge Recommendations Plan/Recommendations: Continue POC Treatment Plan/Plan of Care Treatment,Training & Education: Yes Patient would benefit from OT for education, treatment and training to promote independence in ADL's, mobility, safety and/or upper extremity function for ADL's. Plan of Care: ADL Retraining, Functional Mobility, UE Funct Exercise/Act Treatment Duration: Dec 20, 2019 Frequency: 5 times per week Estimated Hrs Per Day: .25 hour per day Agreement: Yes Rehab Potential: Fair Time/GCodes Start Time: 15:55 Stop Time: 16:20 Total Time Billed (hr/min): 25 Billed Treatment Time 1 visit, EVL(10minutes), ADL(15minutes) DENNY MADERA OT Dec 06, 2019 16:28
[2019-12-06 16:35] VITALS: BP 134/74
--- NOTE | 2019-12-06 17:16 | Diagnostic Imaging Report ---
INDICATION: Right leg pain. FINDINGS: Two views of the right femur demonstrate previous right total hip. No evidence of hardware loosening or fracture is present. Mild arterial sclerosis is present. IMPRESSION: There are no acute findings. Dictated by: Dictated on workstation # [id number]
[2019-12-06] MEDS: PIPERACILLIN/TAZOBACTAM (BULK) 4.5 GM in NS (IVPB) 100 ML IV SCH (17:42)
[2019-12-06 18:00] VITALS: BP 109/59
[2019-12-06] MEDS ORDERED: TAMSULOSIN 0.4 MG (FLOMAX) CAP PO SCH (18:00)
[2019-12-06 19:28] VITALS: BP 109/59
[2019-12-06] MEDS: RT-ALBUTEROL SULF 2.5 MG/3 ML PRE-MIX VIAL INH SCH (20:08)
[2019-12-06] MEDS: SENNA W/DOCUSATE (SENOKOT S) TABLET PO SCH (21:35)
[2019-12-07] MEDS: PIPERACILLIN/TAZOBACTAM (BULK) 4.5 GM in NS (IVPB) 100 ML IV SCH ×3 (02:23→17:36)
[2019-12-07] MEDS: HYDROcodone/APAP 5 MG/325 MG (LORTAB) TAB PO PRN ×2 (04:03→16:24)
[2019-12-07 06:06] VITALS: BP 112/74
[2019-12-07] MEDS: RT-ALBUTEROL SULF 2.5 MG/3 ML PRE-MIX VIAL INH SCH ×2 (07:57→13:54)
[2019-12-07] MEDS: SENNA W/DOCUSATE (SENOKOT S) TABLET PO SCH (08:26)
[2019-12-07] MEDS ORDERED: FINASTERIDE (PROSCAR) 5 MG TAB PO SCH (09:00)
[2019-12-07] MEDS ORDERED: ENOXAPARIN 40 MG/0.4 ML (LOVENOX) SYR SC SCH (09:00)
[2019-12-07 12:03] LABS: BASOPHILS # (AUTO) 0.1 10^3/uL (0.0-0.1); BASOPHILS % (AUTO) 3 % (0-10); EOSINOPHILS # (AUTO) 0.1 10^3/uL (0.0-0.3); EOSINOPHILS % (AUTO) 2 % (0-10); HEMATOCRIT 24 % (40-54); HEMOGLOBIN 7.9 G/DL (13.3-17.7); LYMPHOCYTES # (AUTO) 1.4 X 10^3 (1.0-4.0); LYMPHOCYTES % (AUTO) 36 % (12-44); MEAN CORPUSCULAR HEMOGLOBIN 29 PG (25-34); MEAN CORPUSCULAR HGB CONC 32 G/DL (32-36); MEAN CORPUSCULAR VOLUME 88 FL (80-99); MEAN PLATELET VOLUME 9.3 FL (7.4-10.4); MONOCYTES # (AUTO) 0.5 X 10^3 (0.0-1.0); MONOCYTES % (AUTO) 13 % (0-12); NEUTROPHILS # (AUTO) 1.8 X 10^3 (1.8-7.8); NEUTROPHILS % (AUTO) 46 % (42-75); PLATELET COUNT 47 10^3/uL (130-400); RED CELL DISTRIBUTION WIDTH 18.1 % (10.0-14.5)
--- NOTE | 2019-12-07 12:17 | Physical Therapy Daily Note ---
PT Daily Note-Current Subjective Agrees to PT. Reports he did not sleep well last night, reports he felt he was worrying. Transfers SCALE: Activities may be completed with or without assistive devices. 5-Qfjovscyfo-wjneoyq completes the activity by him/herself with no assistance from a helper. 5-Set-up or Clean-up Assistance-helper sets up or cleans up; patient completes activity. [place] assists only prior to or following the activity. 4-Supervision or Touching Assistance-helper provides verbal cues and/or touching/steadying and/or contact guard assistance as patient completes activity. Assistance may be provided throughout the activity or intermittently. 3-Partial/Moderate Assistance-helper does LESS THAN HALF the effort. [place] lifts, holds or supports trunk or limbs, but provides less than half the effort. 2-Substantial/Maximal Assistance-helper does MORE THAN HALF the effort. [place] lifts or holds trunk or limbs and provides more than half the effort. 0-Mxpwvsngm-mlddva does ALL the effort. Patient does none of the effort to complete the activity. Or, the assistance of 2 or more helpers is required for the patient to complete the activity. If activity was not attempted, code reason: 7-Patient Refused. 9-Not Applicable-not attempted and the patient did not perform the activity before the current illness, exacerbation or injury. 10-Not Attempted due to Environmental Limitations-(lack of equipment, weather restraints, etc.). 88-Not Attempted due to Medical Conditions or Safety Concerns. Lying to Sitting/Side of Bed(Q: 4 Sit to Stand (QC): 4 Gait Training Does the Patient Walk?: Yes Distance: 250 ft Walk 150 ft (QC): 4 Gait Assistive Device: FWW Narrow CONNOR with occas scissoring but without sallie LOB; SBA with gait for safety. Pt up in chair post treatment with needs met. Assessment Current Status: Good Progress Progressing well. Cooperative and motivated PT Spice Blender Goals Spice Blender Goals PT Chcf Goals Time Frame: Dec 13, 2019 Roll Left & Right (QC): 6 Sit to Lying (QC): 6 Lying-Sitting on Side/Bed(QC): 6 Sit to Stand (QC): 6 Chair/Kvx-ze-Xhbdm Xfer(QC): 6 Toilet Transfer (QC): 6 Does the Patient Walk: Yes Walk 10 feet (QC): 6 Walk 50ft with 2 Turns (QC): 6 Walk 150 ft (QC): 6 PT Plan Problem List Problem List: Activity Tolerance, Functional Strength, Safety Treatment/Plan Treatment Plan: Continue Plan of Care Treatment Plan: Education, Functional Activity Cooper, Functional Strength, Gait, Safety, Therapeutic Exercise, Transfers Treatment Duration: Dec 13, 2019 Frequency: 6 times per week Estimated Hrs Per Day: .25 hour per day Patient and/or Family Agrees t: Yes Safety Risks/Education Patient Education: Safety Issues Teaching Recipient: Patient Teaching Methods: Discussion Response to Teaching: Return Demonstration Time/GCodes Time In: 905 Time Out: 926 Total Billed Treatment Time: 21 Total Billed Treatment visit GT 21 KHADIJAH RAMIREZ PT Dec 07, 2019 12:17
[2019-12-07 12:21] LABS: ALANINE AMINOTRANSFERASE 14 U/L (0-55); ALBUMIN 3.6 GM/DL (3.2-4.5); ALKALINE PHOSPHATASE 233 U/L (40-136); BILIRUBIN,TOTAL 0.7 MG/DL (0.1-1.0); BUN/CREATININE RATIO 21; CALCIUM 9.2 MG/DL (8.5-10.1); CARBON DIOXIDE 25 MMOL/L (21-32); CHLORIDE 99 MMOL/L (98-107); CREATININE SERUM 0.96 MG/DL (0.60-1.30); GFR ESTIMATED > 60; GLUCOSE 100 MG/DL (70-105); POTASSIUM 3.7 MMOL/L (3.6-5.0); SODIUM 134 MMOL/L (135-145); TOTAL PROTEIN 6.3 GM/DL (6.4-8.2)
--- NOTE | 2019-12-07 12:41 | Progress Note - Hospitalist ---
Subjective HPI/CC On Admission Date Seen by Provider: Dec 07, 2019 Time Seen by Provider: 11:45 Patient currently is doing a little bit better. He says he feels a lot better than when he came in. He did have some fecal incontinence yesterday. He has no real weakness of his legs. Dr. Niño and I discussed going ahead and starting treatments since he's in swing bed status, and this would help his movement and pain the most quickly. X-ray of his right femur was unremarkable. Subjective/Events-last exam No new complaints except the bowel movements, patient is somewhat tearful today Review of Systems Genitourinary: Incontinence Neurological: Weakness Objective Exam Vital Signs Vital Signs Date Time Temp Pulse Resp B/P (MAP) Pulse Ox O2 Delivery O2 Flow Rate FiO2 12/07/19 08:30 96 Room Air 12/07/19 06:06 37.5 83 18 112/74 (87) Capillary Refill : Less Than 3 Seconds General Appearance: Chronically ill HEENT: Other (Poor dentition) Neck: Normal Inspection, Non Tender Respiratory: Chest Non Tender, Lungs Clear, Normal Breath Sounds, No Accessory Muscle Use, No Respiratory Distress Cardiovascular: Regular Rate, Rhythm, No Edema, No Gallop Gastrointestinal: Normal Bowel Sounds, No Organomegaly, Non Tender, Soft Rectal: Deferred Extremity: Normal Capillary Refill, Normal Range of Motion, No Calf Tenderness, No Pedal Edema, Other (Muscle strength 5 over 5 lower extremities) Neurologic/Psychiatric: Alert, Oriented x3, No Motor/Sensory Deficits, Normal Mood/Affect, wood gluer II-XII Norm as Tested Skin: Pallor Results/Procedures Lab Laboratory Tests 12/07/19 11:55 Patient resulted labs reviewed. 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 Sandoval has requested that he be discharged with his catheter Cachexia Plan is to proceed with treatment while he is an inpatient so that we can follow his blood counts Clinical Quality Measures DVT/VTE Risk/Contraindication: Risk Factor Score Per Nursin NAI BERNARD MD Dec 07, 2019 12:41
--- NOTE | 2019-12-07 12:46 | Progress Note ---
Standard Progress Note Progress Notes/Assess & Plan Date Seen by a Provider: Dec 07, 2019 Time Seen by a Provider: 12:29 Progress/Assessment & Plan 64 yo male admitted on 12/03/19 with urine retention and UTI secondary to widespread prostate adenocarcinoma, metastatic to bilateral lungs and axial and appendicular skeleton. Patient also developed new severe anemia and thrombocytopenia, noted on admission. He received two units of PRBCs from 12/03 to 12/04 and hgb improved from 6.6 to 8.1 g/dl by 12/05. Hgb has stabilized around 8.0 and platelets seem to be stable around 50,000/ul. He appears to have developed a mild leukopenia as well. He is currently being treated for UTI and MALINDA appears to have resolved. Hernandez catheter expected to remain after discharge. Pain in his right leg is improved and x-ray did not show any concern for fracture. Patient was incontinent of bowel three times last night but has no signs of spinal impingement on imaging or exam. Possibly it is related to stool softeners given last night and antibiotics. Preliminary bone marrow biopsy results show extensive fibrosis with areas of adenocarcinoma consistent with prostate cancer. This is consistent with myelophthisic pancytopenia. He will need the chemotherapy docetaxel 75mg/m^2 IV for urgent control of disease, but I will start at a 20% dose reduction due to his cytopenias. Patient transitioned to swing bed status today, so we will plan to treat him while he is in the hospital. If patient wishes to leave, we will treat him in clinic. Nothing to be done this weekend. Will continue to follow. BOBBY RICHARDS MD Dec 07, 2019 12:46
[2019-12-07] MEDS ORDERED: FINA5TAB6 PO ×2 (14:03)
[2019-12-07] MEDS ORDERED: ACHD5005 PO ×2 (14:03)
--- NOTE | 2019-12-07 14:08 | Discharge Summary ---
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 Severe anemia Urinary retention Cachexia Discharge Summary Discharge Physical Exam Allergies: Coded Allergies: No Known Drug Allergies (Unverified , 12/03/19) Vitals & I&Os Vital Signs Date Time Temp Pulse Resp B/P (MAP) Pulse Ox O2 Delivery O2 Flow Rate FiO2 12/07/19 13:54 96 Room Air 12/07/19 06:06 37.5 83 18 112/74 (87) General Appearance: Chronically ill HEENT: Other (Poor dentition) Respiratory: Lungs Clear, Normal Breath Sounds, No Accessory Muscle Use, No Respiratory Distress Cardiovascular: Regular Rate, Rhythm, No Gallop, No Murmur, Normal Peripheral Pulses Gastrointestinal: Normal Bowel Sounds, No Organomegaly, Non Tender, Soft Extremity: Normal Capillary Refill, Normal Range of Motion, No Calf Tenderness Skin: Warm/Dry, Pallor Neurologic/Psychiatric: Alert, Oriented x3, No Motor/Sensory Deficits, Normal Mood/Affect, Other (Tearful) Hospital Course Was the Problem List Reviewed?: Yes Patient was admitted and transfused with several units of packed red cells. He was seen in consultation by Dr. RICHARDS. Bone marrow biopsy was done which showed fibrosis. No aspiration was obtained. This was consistent with myelophthisic pancytopenia. The patient felt much better after his pain was controlled and after he is transfusions. He is anxious to go home to be with his animals and to get outside before he begins treatment. As such she is discharged home with a urinary catheter in place with instructions to follow-up with Dr. Richards on Monday Labs (last 24 hrs) Laboratory Tests 12/07/19 11:55: White Blood Count 4.0L, Red Blood Count 2.77L, Hemoglobin 7.9L, Hematocrit 24L, Mean Corpuscular Volume 88, Mean Corpuscular Hemoglobin 29, Mean Corpuscular Hemoglobin Concent 32, Red Cell Distribution Width 18.1H, Platelet Count 47L, Mean Platelet Volume 9.3, Neutrophils (%) (Auto) 46, Lymphocytes (%) (Auto) 36, Monocytes (%) (Auto) 13H, Eosinophils (%) (Auto) 2, Basophils (%) (Auto) 3, Neutrophils # (Auto) 1.8, Lymphocytes # (Auto) 1.4, Monocytes # (Auto) 0.5, Eosinophils # (Auto) 0.1, Basophils # (Auto) 0.1, Sodium Level 134L, Potassium Level 3.7, Chloride Level 99, Carbon Dioxide Level 25, Anion Gap 10, Blood Urea Nitrogen 20H, Creatinine 0.96, Estimat Glomerular Filtration Rate > 60, B UN/Creatinine Ratio 21, Glucose Level 100, Calcium Level 9.2, Corrected Calcium 9.5, Total Bilirubin 0.7, Aspartate Amino Transf (AST/SGOT) 74H, Alanine Aminotransferase (ALT/SGPT) 14, Alkaline Phosphatase 233H, Total Protein 6.3L, Albumin 3.6 Patient resulted labs reviewed. Pending Labs Laboratory Tests 12/07/19 11:55: White Blood Count 4.0, Red Blood Count 2.77, Hemoglobin 7.9, Hematocrit 24, Mean Corpuscular Volume 88, Mean Corpuscular Hemoglobin 29, Mean Corpuscular Hemoglobin Concent 32, Red Cell Distribution Width 18.1, Platelet Count 47, Mean Platelet Volume 9.3, Neutrophils (%) (Auto) 46, Lymphocytes (%) (Auto) 36, Monocytes (%) (Auto) 13, Eosinophils (%) (Auto) 2, Basophils (%) (Auto) 3, Neutrophils # (Auto) 1.8, Lymphocytes # (Auto) 1.4, Monocytes # (Auto) 0.5, Eosinophils # (Auto) 0.1, Basophils # (Auto) 0.1, Sodium Level 134, Potassium Level 3.7, Chloride Level 99, Carbon Dioxide Level 25, Anion Gap 10, Blood Urea Nitrogen 20, Creatinine 0.96, Estimat Glomerular Filtration Rate > 60, BUN/Creatinine Ratio 21, Glucose Level 100, Calcium Level 9.2, Corrected Calcium 9.5, Total Bilirubin 0.7, Aspartate Amino Transf (AST/SGOT) 74, Alanine Aminotransferase (ALT/SGPT) 14, Alkaline Phosphatase 233, Total Protein 6.3, Albumin 3.6 Discussion & Recommendations Discharge Planning: <30 minutes discharge planning Discharge Home Medications: Active Scripts Active Hydrocodone/Acetaminophen 5/325mg Tablet (Acetaminophen/Hydrocodone Bitart) 1 Tab Tab 1-2 Tab PO Q4H PRN 30 Days Finasteride 5 Mg Tablet 5 Mg PO DAILY 30 Days Reported Tylenol (Acetaminophen) 325 Mg Tablet 650 Mg PO Q8H PRN Ibuprofen 200 Mg Tablet 600 Mg PO Q8H PRN Meloxicam 7.5 Mg Tablet 7.5 Mg PO DAILY PRN Tramadol HCl 50 Mg Tablet 50 Mg PO BID PRN Condition at discharge STable Instructions to patient/family Please see electronic discharge instructions given to patient. Clinical Quality Measures DVT/VTE Risk/Contraindication: VTE Addressed: Yes VTE Present on Admission: Yes Risk Factor Score Per Nursin NAI BERNARD MD Dec 07, 2019 14:08
[2019-12-07 16:03] VITALS: BP 111/62
[2019-12-07 16:32] VITALS: BP 111/62
== END 2019-12-07 17:40 | disposition home or self-care (01) | DRG 723 ==
LOC: 4TH 15:53
PROVIDERS: ADMIT Internal Medicine; ATTEND Internal Medicine
DX: C61 Malignant neoplasm of prostate (principal); C79.51 Secondary malignant neoplasm of bone; C78.01 Secondary malignant neoplasm of right lung; C78.02 Secondary malignant neoplasm of left lung; N39.0 Urinary tract infection, site not specified; D61.818 Other pancytopenia; R33.9 Retention of urine, unspecified; R15.9 Full incontinence of feces; R64 Cachexia; M79.661 Pain in right lower leg
CPT/HCPCS: 36415; 73552; 80053; 85025; 94640; 94760

== ENCOUNTER → 2019-12-12 | Outpatient (CLI) | payer MEDICARE ==
[~2019-12-12] MED LIST changes: +ACHD5005 PO; +FINA5TAB6 PO
--- NOTE | 2019-12-12 10:41 | Diagnostic Imaging Report ---
EXAMINATION: CT chest, abdomen, and pelvis without intravenous contrast. TECHNIQUE: Multiple contiguous axial images were obtained through the chest, abdomen and pelvis without intravenous contrast. All CT scans use one or more of the following dose optimizing techniques: Automated exposure control, MA and/or KvP adjustment based on a patient size and exam type, or iterative reconstruction. HISTORY: Prostate cancer. COMPARISON: 12/03/2019. FINDINGS: There is no edema or pneumonia. No pleural effusion. No pneumothorax. There are unchanged scattered pulmonary nodules (greater than 10). The largest is in the left lower lobe and measures 8 mm, unchanged (series 2, image 47). No new nodules are seen. Heart size is normal. There are mild coronary artery calcifications. No pericardial effusion. Aorta is normal in caliber. There is no axillary or supraclavicular lymphadenopathy. There is no mediastinal lymphadenopathy. The liver is normal without focal lesion. There is no biliary ductal dilation. Gallbladder is normal. Pancreas is normal. Spleen is normal. Adrenal glands are normal. Nonobstructing punctate stones are seen in the left kidney. No suspicious renal lesions are seen. There is no hydronephrosis. Urinary bladder is decompressed by a Hernandez catheter. Visualized bowel is normal in caliber without obstruction or inflammation. No free fluid or air. There is an unchanged 20 mm retroperitoneal lymph node (series 2, image 61). There is likely additional lymphadenopathy, but these are obscured by absence of intravenous contrast and paucity of intraperitoneal fat. Aorta is normal in caliber without aneurysm. There is widespread osseous metastatic disease as evidenced by blastic lesions throughout the skeleton. No pathologic fracture is seen. There is extensive involvement of the left acetabulum. There has been a right total hip arthroplasty. The extent of osseous disease appears unchanged. IMPRESSION: 1. Unchanged pulmonary nodules, retroperitoneal lymphadenopathy, and osseous metastatic disease. Dictated by: Dictated on workstation # [id number]
== END ==
LOC: RAD 09:14
PROVIDERS: ATTEND Urology
DX: C61 Malignant neoplasm of prostate (principal); C79.51 Secondary malignant neoplasm of bone; R59.0 Localized enlarged lymph nodes; R91.8 Other nonspecific abnormal finding of lung field
CPT/HCPCS: 71250; 74176

== ENCOUNTER 2019-12-17 14:54 | Emergency (ER) | payer MEDICARE ==
[~2019-12-17] VITALS: Ht 162 cm; Wt 56.2 kg
[2019-12-17] MEDS ORDERED: LIDOCAINE UROJET 2% GEL 10 ML PKG TOP ONE (15:30)
--- NOTE | 2019-12-17 15:33 | ED GU-Male ---
General Chief Complaint: Abdominal/GI Problems Stated Complaint: TROUBLE URINATING Nursing Triage Note: patient states has had issues since yesterday with urination. states had a madrid cath in for about a week and removed yesterday. pt states unable to void. also said frequent bm. denies diarrhea, states soft stools. Source: patient Exam Limitations: no limitations History of Present Illness Date Seen by Provider: Dec 17, 2019 Time Seen by Provider: 15:30 Initial Comments To ER with urinary retention. Recent diagnosis of prostate cancer, admitted for this recently secondary to anemia. He had his Madrid catheter removed yesterday, urinating okay initially and today it is nothing more than agreeable. He is on Proscar and Flomax daily. Follows with Dr. Liu. No fevers or chills. Timing/Duration: constant Severity/Quality: moderate Location: suprapubic Radiation: none Activities at Onset: none Prior Genitourinary Problems: none Associated Symptoms: dysuria Allergies and Home Medications Allergies Coded Allergies: No Known Drug Allergies (Unverified , 12/03/19) Home Medications Acetaminophen 325 Mg Tablet, 650 MG PO Q8H PRN for PAIN-MILD (1-4), (Reported) Finasteride 5 Mg Tablet, 5 MG PO DAILY Prescribed by: NAI BERNARD on 12/07/19 1403 Hydrocodone Bit/Acetaminophen 1 Tab Tab, 1-2 TAB PO Q4H PRN for PAIN-MODERATE (5-7) Prescribed by: NAI BERNARD on 12/07/19 1403 Tramadol HCl 50 Mg Tablet, 50 MG PO BID PRN for PAIN-MODERATE (5-7), (Reported) Patient Home Medication List Home Medication List Reviewed: Yes Review of Systems Review of Systems Constitutional: see HPI EENTM: see HPI Respiratory: no symptoms reported Cardiovascular: no symptoms reported Genitourinary: see HPI Musculoskeletal: no symptoms reported Skin: no symptoms reported Psychiatric/Neurological: No Symptoms Reported Past Nlhdswt-Akfxpk-Jffaxz Hx Patient Social History Alcohol Use: Denies Use Recreational Drug Use: No Smoking Status: Never a Smoker 2nd Hand Smoke Exposure: No Recent Foreign Travel: No Contact w/Someone Who Travel: No Recent Infectious Disease Expo: No Recent Hopitalizations: No Immunizations Up To Date Tetanus Booster (TDap): Unknown Date of Influenza Vaccine: Aug 08, 2019 Seasonal Allergies Seasonal Allergies: No Past Medical History Surgeries: Yes (FACIAL) Orthopedic, Vasectomy Respiratory: No Cardiac: Yes Hypertension Neurological: No Genitourinary: Yes Prostate Problems Gastrointestinal: No Musculoskeletal: No Endocrine: No Cancer: Yes Prostate Psychosocial: No Physical Exam Vital Signs Vital Signs - First Documented 12/17/19 15:02 Temp 36.4 Pulse 82 Resp 18 B/P (MAP) 109/70 (83) Pulse Ox 98 O2 Delivery Room Air Capillary Refill : Less Than 3 Seconds Height, Weight, BMI Height: '" Weight: lbs. oz. kg; 21.00 BMI Method: General Appearance: WD/WN, no apparent distress HEENT: PERRL/EOMI, normal ENT inspection Respiratory: no respiratory distress, no accessory muscle use Gastrointestinal: normal bowel sounds, soft, tenderness (suprapubic fullness and tenderness consistent with bladder distention) Neurologic/Psychiatric: alert, normal mood/affect, oriented x 3 Skin: normal color, warm/dry Progress/Results/Core Measures Suspected Sepsis Recent Fever Within 48 Hours: No Infection Criteria Present: None New/Unexplained Altered Menta: No Sepsis Screen: No Definite Risk SIRS Temperature: Pulse: 82 Respiratory Rate: 18 Blood Pressure 109 /70 Mean: 83 Results/Orders My Orders Orders - WINSTON JIMÉNEZ APRN Lidocaine 2% (Urojet) (Xylocaine Urojet) (12/17/19 15:30) Madrid Cath (12/17/19 15:22) Medications Given in ED Current Medications Medications Dose Ordered Sig/Sofie Route Start Time Stop Time Status Last Admin Dose Admin Lidocaine HCl 10 ml ONCE ONCE TOP 12/17/19 15:30 12/17/19 15:31 12/17/19 15:27 10 ML Vital Signs/I&O 12/17/19 15:02 Temp 36.4 Pulse 82 Resp 18 B/P (MAP) 109/70 (83) Pulse Ox 98 O2 Delivery Room Air Capillary Refill : Less Than 3 Seconds Blood Pressure Mean: 83 Departure Communication (Admissions) Urojet was used, a Madrid catheter inserted by RN, attached to leg bag. I discussed with Dr. Liu he would like to increase the Flomax from once a day to twice a day. Impression Primary Impression: Urinary retention Additional Impression: Prostate cancer Disposition: HOME, SELF-CARE Condition: Stable Departure-Patient Inst. Decision time for Depature: 15:32 Referrals: [facility] (PCP) Primary Care Physician NIRMAL HAQUE (Family) Primary Care Physician Patient Instructions: Urinary Retention Add. Discharge Instructions: 1. Increase your Flomax (Tamsulosin) from once a day to twice a day. Leave the Madrid catheter in place until you follow up with Dr. Liu. All discharge instructions reviewed with patient and/or family. Voiced understanding. WINSTON JIMÉNEZ APRN Dec 17, 2019 15:33
[2019-12-17 16:00] VITALS: BP 109/70
[2019-12-17 16:06] LABS: BILIRUBIN,URINE NEGATIVE (NEGATIVE); CLARITY,URINE SL CLOUDY; COLOR,URINE YELLOW; GLUCOSE, URINE (UA) NEGATIVE (NEGATIVE); KETONES,URINE NEGATIVE (NEGATIVE); LEUKOCYTE ESTERASE ,URINE NEGATIVE (NEGATIVE); NITRITE,URINE NEGATIVE (NEGATIVE); PH,URINE 6.5 (5-9); PROTEIN,URINE NEGATIVE (NEGATIVE)
[2019-12-17 16:36] LABS: BACTERIA,URINE TRACE /HPF; RBC,URINE RARE /HPF; WBC,URINE RARE /HPF
== END 2019-12-17 16:00 | disposition home or self-care (01) ==
LOC: EDUNIT# 14:54 → ER 14:55
DX: C61 Malignant neoplasm of prostate (principal)
CPT/HCPCS: 51702; 81000

== ENCOUNTER 2020-01-02 12:04 | Inpatient (IN) | payer MEDICARE ==
[~2020-01-02] VITALS: Ht 162.6 cm; Wt 58.7 kg
--- NOTE | 2020-01-02 12:13 | ED General ---
General Stated Complaint: WEAKNESS Source of Information: Patient, EMS Exam Limitations: No Limitations History of Present Illness Date Seen by Provider: Jan 02, 2020 Time Seen by Provider: 12:11 Initial Comments To ER per EMS from home in [facility] with general weakness and fever. This gentleman has recently diagnosed prostate cancer with metastasis to multiple bony sites. He was supposed to receive chemotherapy today but was too weak to do so. Upon arrival to ER his temperature is 102, he does have a cough. He also reports that his chest pain for about 2 weeks. Timing/Duration: 1-2 Days Severity: Moderate Associated Systoms: Cough, Fever/Chills, Weakness Allergies and Home Medications Allergies Coded Allergies: No Known Drug Allergies (Unverified , 12/03/19) Home Medications Acetaminophen 325 Mg Tablet, 650 MG PO Q8H PRN for PAIN-MILD (1-4), (Reported) Finasteride 5 Mg Tablet, 5 MG PO DAILY Prescribed by: NAI BERNARD on 12/07/19 1403 Hydrocodone Bit/Acetaminophen 1 Tab Tab, 1-2 TAB PO Q4H PRN for PAIN-MODERATE (5-7) Prescribed by: NAI BERNARD on 12/07/19 1403 Tramadol HCl 50 Mg Tablet, 50 MG PO BID PRN for PAIN-MODERATE (5-7), (Reported) Patient Home Medication List Home Medication List Reviewed: Yes Review of Systems Review of Systems Constitutional: see HPI EENTM: see HPI Respiratory: see HPI, cough Cardiovascular: no symptoms reported Genitourinary: no symptoms reported Musculoskeletal: no symptoms reported Skin: no symptoms reported Psychiatric/Neurological: No Symptoms Reported Hematologic/Lymphatic: No Symptoms Reported Immunological/Allergic: no symptoms reported Past Sveomqg-Vawdlr-Bvmpby Hx Patient Social History 2nd Hand Smoke Exposure: No Recent Hopitalizations: No Immunizations Up To Date Tetanus Booster (TDap): Unknown Date of Influenza Vaccine: Aug 08, 2019 Seasonal Allergies Seasonal Allergies: No Past Medical History Surgeries: Yes (FACIAL) Orthopedic, Vasectomy Respiratory: No Cardiac: Yes Hypertension Neurological: No Genitourinary: Yes Prostate Problems Gastrointestinal: No Musculoskeletal: No Endocrine: No Cancer: Yes Prostate Psychosocial: No Physical Exam Vital Signs Vital Signs - First Documented Capillary Refill : Height, Weight, BMI Height: '" Weight: lbs. oz. kg; 21.00 BMI Method: General Appearance: No Apparent Distress, WD/WN Eyes: Bilateral Eye Normal Inspection, Bilateral Eye PERRL, Bilateral Eye EOMI HEENT: PERRL/EOMI, TMs Normal Respiratory: No Accessory Muscle Use, No Respiratory Distress Gastrointestinal: Normal Bowel Sounds, Non Tender, Soft Extremity: Normal Capillary Refill, Normal Inspection Neurologic/Psychiatric: Alert, Oriented x3 Skin: Normal Color, Warm/Dry Focused Exam Lactate Level 01/02/20 12:09: Lactic Acid Level 1.12 Lactic Acid Level Laboratory Tests Test 01/02/20 12:09 Lactic Acid Level 1.12 MMOL/L (0.50-2.00) Progress/Results/Core Measures Suspected Sepsis SIRS Temperature: Pulse: Respiratory Rate: Laboratory Tests 01/02/20 12:09: White Blood Count 10.9 Blood Pressure / Mean: 01/02/20 12:09: Lactic Acid Level 1.12 Laboratory Tests 01/02/20 12:09: Creatinine 0.92, Platelet Count 120L, Total Bilirubin 1.4H Results/Orders Lab Results Laboratory Tests Test 01/02/20 12:09 01/02/20 12:34 01/02/20 12:35 Range/Units White Blood Count 10.9 4.3-11.0 10^3/uL Red Blood Count 2.40 L 4.35-5.85 10^6/uL Hemoglobin 7.0 L 13.3-17.7 G/DL Hematocrit 22 L 40-54 % Mean Corpuscular Volume 90 80-99 FL Mean Corpuscular Hemoglobin 29 25-34 PG Mean Corpuscular Hemoglobin Concent 32 32-36 G/DL Red Cell Distribution Width 19.8 H 10.0-14.5 % Platelet Count 120 L 130-400 10^3/uL Mean Platelet Volume 9.5 7.4-10.4 FL Neutrophils (%) (Auto) 70 42-75 % Lymphocytes (%) (Auto) 19 12-44 % Monocytes (%) (Auto) 9 0-12 % Eosinophils (%) (Auto) 1 0-10 % Basophils (%) (Auto) 1 0-10 % Neutrophils # (Auto) 7.6 1.8-7.8 X 10^3 Lymphocytes # (Auto) 2.1 1.0-4.0 X 10^3 Monocytes # (Auto) 1.0 0.0-1.0 X 10^3 Eosinophils # (Auto) 0.1 0.0-0.3 10^3/uL Basophils # (Auto) 0.2 H 0.0-0.1 10^3/uL Sodium Level 128 L 135-145 MMOL/L Potassium Level 4.3 3.6-5.0 MMOL/L Chloride Level 96 L 98-107 MMOL/L Carbon Dioxide Level 24 21-32 MMOL/L Anion Gap 8 5-14 MMOL/L Blood Urea Nitrogen 28 H 7-18 MG/DL Creatinine 0.92 0.60-1.30 MG/DL Estimat Glomerular Filtration Rate > 60 BUN/Creatinine Ratio 30 Glucose Level 103 70-105 MG/DL Lactic Acid Level 1.12 0.50-2.00 MMOL/L Calcium Level 8.4 L 8.5-10.1 MG/DL Corrected Calcium 8.8 8.5-10.1 MG/DL Total Bilirubin 1.4 H 0.1-1.0 MG/DL Aspartate Amino Transf (AST/SGOT) 1421 H 5-34 U/L Alanine Aminotransferase (ALT/SGPT) 27 0-55 U/L Alkaline Phosphatase 551 H 40-136 U/L Troponin I < 0.028 <0.028 NG/ML B-Type Natriuretic Peptide 82.5 <100.0 PG/ML Total Protein 6.1 L 6.4-8.2 GM/DL Albumin 3.5 3.2-4.5 GM/DL Urine Color YELLOW Urine Clarity CLOUDY Urine pH 6.0 5-9 Urine Specific [place] 1.015 L 1.016-1.022 Urine Protein 2+ H NEGATIVE Urine Glucose (UA) NEGATIVE NEGATIVE Urine Ketones NEGATIVE NEGATIVE Urine Nitrite NEGATIVE NEGATIVE Urine Bilirubin NEGATIVE NEGATIVE Urine Urobilinogen 4.0 < = 1.0 MG/DL Urine Leukocyte Esterase 2+ H NEGATIVE Urine RBC (Auto) 1+ H NEGATIVE Urine RBC NONE /HPF Urine WBC 50-100 H /HPF Urine Squamous Epithelial Cells NONE /HPF Urine Crystals NONE /LPF Urine Bacteria LARGE H /HPF Urine Casts NONE /LPF Urine Mucus NEGATIVE /LPF Urine Culture Indicated YES Group A Streptococcus Screen NEGATIVE NEGATIVE Micro Results Microbiology 01/02/20 Influenza Types A,B Antigen (SANDRA) - Final, Complete My Orders Orders - WINSTON JIMÉNEZ CRACKER AND COOKIE MACHINE OPERATOR Cbc With Automated Diff (01/02/20 12:09) Comprehensive Metabolic Panel (01/02/20 12:09) Troponin I (01/02/20 12:09) Chest 1 View, Ap/Pa Only (01/02/20 12:09) Influenza A And B Antigens (01/02/20 12:09) Rapid Strep A Screen (01/02/20 12:09) Blood Culture (01/02/20 12:09) Lactic Acid Analyzer (01/02/20 12:09) Acetaminophen Tablet (Tylenol Tablet) (01/02/20 12:15) Ekg Tracing (01/02/20 12:09) BNP (01/02/20 12:09) Ua Culture If Indicated (01/02/20 12:13) Acetaminophen Tablet (Tylenol Tablet) (01/02/20 12:15) Red Cells Leukocytes Reduced (01/02/20 12:22) Type And Screen (01/02/20 12:22) Urine Culture (01/02/20 12:34) Ceftriaxone For Iv Use (Rocephin For I (01/02/20 13:00) Medications Given in ED Current Medications Medications Dose Ordered Sig/Sofie Route Start Time Stop Time Status Last Admin Dose Admin Acetaminophen 1,000 mg ONCE ONCE PO 01/02/20 12:15 01/02/20 12:16 DC 01/02/20 12:19 1,000 MG Ceftriaxone Sodium 1000 mg/ Sterile Water 10 ml @ 200 mls/hr ONCE ONCE IV 01/02/20 13:00 01/02/20 13:02 DC 01/02/20 13:04 200 MLS/HR Vital Signs/I&O 01/02/20 01/02/20 01/02/20 12:06 12:06 12:19 Temp 39.0 39.0 Pulse 116 Resp 22 B/P (MAP) 135/77 (96) Pulse Ox 94 O2 Delivery Nasal Cannula Nasal Cannula O2 Flow Rate 2.00 2.0 Capillary Refill : Diagnostic Imaging Diagonstic Imaging: Xray Plain Films/CT/US/NM/MRI: chest Comments NAME: GIGI VALDIV[facility] REC#: [id number] PT STATUS: REG ER : 1955 PHYSICIAN: WINSTON JIMÉNEZ APRN ADMIT DATE: 01/02/20/ER Draft Date of Exam:01/02/20 CHEST 1 VIEW, AP/PA ONLY Indication: Fever, shortness of air. Exam compared to 12/04/2019. Findings: Symmetrical hyperexpansion of lungs and air trapping a chronic finding. Interstitial markings bilaterally have increased in density in the interim suspicious for an active inflammatory process. No sallie lobar or alveolar consolidation. No effusion or pneumothorax. Heart size and vascular is stable. Impression: 1. Chronic air trapping, pulmonary markings are more conspicuous and denser than on prior suggestive of a diffuse inflammatory process. No focal consolidation or pleural abnormality. Dictated on workstation # [id number] Dict: 01/02/20 1241 Trans: 01/02/20 1258 CV [id number] Interpreted by: ISSAC LAROSE Electronically signed by: Departure Communication (Admissions) Time/Spoke to Admitting Phy: 13:[address] Ortega, we'll admit using Rocephin for UTI, Tylenol Motrin for fever, transfused 2 units of packed red cells. Spoke with Dr. Niño and he agrees. He lives at home in [place], there is 1 case of COVID-19 it is not community spread at this point and he has no known exposure to contacts who have that. He has other diagnoses that would explain the findings including prostate cancer metastasized to lung and urinary tract infection to account for the fever. We will not do COVID-19 testing on this gentleman at this time. He was do not resuscitate status last visit and we'll continue that this viist. Impression Primary Impression: Anemia Additional Impressions: Urinary tract infection Prostate cancer metastatic to bone Disposition: ADMITTED INPATIENT Condition: Stable Admissions Decision to Admit Reason: Admit from ER (General) Decision to Admit/Date: Jan 02, 2020 Time/Decision to Admit Time: 13:18 Departure-Patient Inst. Referrals: [facility] (PCP) Primary Care Physician NIRMAL HAQUE (Family) Primary Care Physician WINSTON JIMÉNEZ APRN Jan 02, 2020 12:13
[2020-01-02] MEDS ORDERED: ACETAMINOPHEN 500 MG TAB (TYLENOL) PO ONE ×2 (12:15)
[2020-01-02 12:19] LABS: BASOPHILS # (AUTO) 0.2 10^3/uL (0.0-0.1); BASOPHILS % (AUTO) 1 % (0-10); EOSINOPHILS # (AUTO) 0.1 10^3/uL (0.0-0.3); EOSINOPHILS % (AUTO) 1 % (0-10); HEMATOCRIT 22 % (40-54); LYMPHOCYTES # (AUTO) 2.1 X 10^3 (1.0-4.0); LYMPHOCYTES % (AUTO) 19 % (12-44); MEAN CORPUSCULAR HEMOGLOBIN 29 PG (25-34); MEAN CORPUSCULAR HGB CONC 32 G/DL (32-36); MEAN CORPUSCULAR VOLUME 90 FL (80-99); MEAN PLATELET VOLUME 9.5 FL (7.4-10.4); MONOCYTES % (AUTO) 9 % (0-12); NEUTROPHILS # (AUTO) 7.6 X 10^3 (1.8-7.8); NEUTROPHILS % (AUTO) 70 % (42-75); PLATELET COUNT 120 10^3/uL (130-400); RED CELL DISTRIBUTION WIDTH 19.8 % (10.0-14.5); WHITE BLOOD COUNT 10.9 10^3/uL (4.3-11.0)
[2020-01-02 12:42] LABS: BILIRUBIN,URINE NEGATIVE (NEGATIVE); CLARITY,URINE CLOUDY; COLOR,URINE YELLOW; GLUCOSE, URINE (UA) NEGATIVE (NEGATIVE); KETONES,URINE NEGATIVE (NEGATIVE); LEUKOCYTE ESTERASE ,URINE 2+ (NEGATIVE); NITRITE,URINE NEGATIVE (NEGATIVE); PROTEIN,URINE 2+ (NEGATIVE)
[2020-01-02 12:42] LABS: ALANINE AMINOTRANSFERASE 27 U/L (0-55); ALBUMIN 3.5 GM/DL (3.2-4.5); ALKALINE PHOSPHATASE 551 U/L (40-136); BILIRUBIN,TOTAL 1.4 MG/DL (0.1-1.0); BUN/CREATININE RATIO 30; CALCIUM 8.4 MG/DL (8.5-10.1); CARBON DIOXIDE 24 MMOL/L (21-32); CHLORIDE 96 MMOL/L (98-107); CREATININE SERUM 0.92 MG/DL (0.60-1.30); GFR ESTIMATED > 60; GLUCOSE 103 MG/DL (70-105); POTASSIUM 4.3 MMOL/L (3.6-5.0); SODIUM 128 MMOL/L (135-145); TOTAL PROTEIN 6.1 GM/DL (6.4-8.2)
[2020-01-02 12:53] LABS: BACTERIA,URINE LARGE /HPF; WBC,URINE 50-100 /HPF
--- NOTE | 2020-01-02 12:58 | Diagnostic Imaging Report ---
Indication: Fever, shortness of air. Exam compared to 12/04/2019. Findings: Symmetrical hyperexpansion of lungs and air trapping a chronic finding. Interstitial markings bilaterally have increased in density in the interim suspicious for an active inflammatory process. No sallie lobar or alveolar consolidation. No effusion or pneumothorax. Heart size and vascular is stable. Impression: 1. Chronic air trapping, pulmonary markings are more conspicuous and denser than on prior suggestive of a diffuse inflammatory process. No focal consolidation or pleural abnormality. Dictated by: Dictated on workstation # [id number]
[2020-01-02] MEDS ORDERED: cefTRIAXone FOR IV USE 1,000 MG in WATER (STERILE) FOR INJECTION 10 ML IV ONE (13:00)
--- NOTE | 2020-01-02 13:23 | NUR ---
Provider contacted sister, Cecille, regarding pt update et adm to fourth floor.
[2020-01-02 14:26] VITALS: BP 102/59
[2020-01-02] MEDS ORDERED: NS IV 500 ML 500 ML IV SCH (14:45)
[2020-01-02] MEDS ORDERED: fentaNYL INJECTION 100 MCG/2 ML AMP IVP PRN (14:45)
[2020-01-02] MEDS ORDERED: FINA5TAB6 PO (15:15)
[2020-01-02] MEDS ORDERED: DEXA4TAB PO (15:15)
[2020-01-02] MEDS ORDERED: PANT20TA3 PO (15:15)
[2020-01-02] MEDS ORDERED: PRED5TAB PO (15:15)
[2020-01-02] MEDS ORDERED: HYDR-3820 PO (15:15)
[2020-01-02 15:35] VITALS: BP 108/64
[2020-01-02] MEDS ORDERED: TMSL.4C PO (15:37)
--- NOTE | 2020-01-02 15:38 | NUR ---
SPOKE WITH THE PT (HE HAD A MED LIST ON HIS CHART), WENT THRU THE EXT MED HISTORY, CALLED [facility]OD[facility] AND DR GEORGE OFFICE TO COMPLETE THE MED REC LISINOPRIL: WHEN THE PT WAS HERE IN NOVEMBER I SPOKE WITH HIM THEN AND HE STATED HE WAS ON LISINOPRIL HOWEVER AFTER CONSULTING [facility] AND [facility] IN [place] I FOUND NEITHER LOCATION HAD DISPENSED THIS MED SINCE - FOR THAT REASON IT WAS LEFT OFF THE MED REC. IT IS STILL LISTED ON THE HOME MED LIST AND I CHECKED WITH BOTH PROVIDERS AND THEY STILL HAVE NOT FILLED THIS MEDICATION SO I DID NOT ADD THIS TO THE MED REC DEXAMETHASON 4MG:PT TAKES 2 TABS BID THE DAY BEFORE, THE DAY OF AND THE DAY AFTER CHEMO FINASTERIDE 5MG AND TAMSULOSIN 0.4MG: I CHECKED WITH DR. GEORGE OFFICE TO MAKE SURE PT WAS SUPPOSED TO BE TAKING BOTH THESE MEDICATIONS- THE NURSE VERIFIED IN HIS CHART THAT HE IS ON BOTH MEDICATIONS. OTC MEDS: TYLENOL PRN
[2020-01-02 16:01] VITALS: BP 111/63
[2020-01-02 16:24] VITALS: BP 108/64
--- NOTE | 2020-01-02 16:40 | NUR ---
PER BLOOD BANK PATIENT'S DON'T RECEIVE PRBC UNLESS Hgb IS LESS THAN 7.PT WILL HAVE ONE UNIT WITH REPEAT Hgb IN AM.
[2020-01-02 17:20] VITALS: BP 131/78
--- NOTE | 2020-01-02 18:16 | History & Physical-Hospitalist ---
History of Present Illness HPI/Chief Complaint Chief complaint: UTI with severe anemia and advanced prostate cancer with widespread skeletal metastasis History present illness: This is a 64-year-old white male known to me from prior admission upon the diagnosis of widespread prostate cancer requiring bone marrow biopsy status post transfusions and ultimately sent home in a Madrid catheter due to urinary retention close follow-up with Dr. Liu who presented to the ER with severe weakness cachexia and fever and chills found to have UTI and severe anemia of hemoglobin 7.0 requiring transfusion and oncology consultation. Patient reports that he does not feel safe at home is unable to get to adequate food and water and had severe pain. Patient appears to be slightly delusional and subtle confusion. Source: patient Exam Limitations: no limitations Date Seen 01/02/20 Time Seen by a Provider: 18:00 Attending Physician Lianet Ty DO PCP [facility] Referring Physician Date of Admission Jan 02, 2020 at 13:00 Home Medications & Allergies Home Medications Reviewed patient Home Medication Reconciliation performed by pharmacy medication reconciliations electron beam photo mask technician and/or nursing. Patients Allergies have been reviewed. 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[employer]) Alcohol Use: Denies Use Recreational Drug Use: No Smoking Status: Never a Smoker 2nd Hand Smoke Exposure: No Recent Foreign Travel: No Contact w/other who traveled: No Recent Hopitalizations: No Recent Infectious Disease Expo: No Immunizations Up To Date Tetanus Booster (TDap): Unknown Date of Influenza Vaccine: Aug 08, 2019 Seasonal Allergies Seasonal Allergies: No Past Medical History Surgeries: Orthopedic, Vasectomy Cardiac: Hypertension Genitourinary: Prostate Problems Cancer: Prostate Did You Recieve Any Treatments: Yes What Type of Treatment Did You: Chemotherapy Review of Systems Constitutional: see HPI, dizziness, fever, malaise, weakness EENTM: no symptoms reported Respiratory: no symptoms reported Cardiovascular: no symptoms reported Gastrointestinal: loss of appetite, nausea Genitourinary: dysuria, hesitancy Skin: no symptoms reported Psychiatric/Neurological: Anxiety, Depressed Physical Exam Physical Exam Vital Signs Vital Signs - First Documented Capillary Refill : Less Than 3 SecondsLess Than 3 Seconds Height, Weight, BMI Height: '" Weight: lbs. oz. kg; 22.20 BMI Method: General Appearance: No Apparent Distress, Anxious, Chronically ill, Cachetic Eyes: Right Eye Normal Inspection, Right Eye PERRL HEENT: PERRL/EOMI, Normal ENT Inspection, Pharynx Normal, Moist Mucous Membran es Neck: Full Range of Motion, Normal Inspection, Non Tender Respiratory: Chest Non Tender, Lungs Clear, Normal Breath Sounds, No Accessory Muscle Use, No Respiratory Distress Cardiovascular: Regular Rate, Rhythm, No Edema, No Gallop, No JVD, No Murmur, Normal Peripheral Pulses Gastrointestinal: Normal Bowel Sounds, No Organomegaly, No Pulsatile Mass, Non Tender, Soft Back: Normal Inspection, No CVA Tenderness, No Vertebral Tenderness Extremity: Normal Capillary Refill, Normal Inspection, Normal Range of Motion, Non Tender, No Calf Tenderness, No Pedal Edema Neurologic/Psychiatric: Alert, Oriented x3, No Motor/Sensory Deficits, Normal Mood/Affect, chest pain coordinator II-XII Norm as Tested Skin: Normal Color, Warm/Dry Lymphatic: No Adenopathy Results Results/Procedures Labs Laboratory Tests 01/02/20 12:09 Patient resulted labs reviewed. Assessment/Plan Admission Diagnosis Assessment: Sepsis UTI with fever and chills and leukocytosis Anemia-secondary to fibrosis from adenocarcinoma of prostate severe and symptomatic requiring transfusion of PRBC's h/o Urinary retention requiring madrid cath in the past Dehydration Adenocarcinoma of prostate with mets to axial skeleton and lungs undergoing treatment by Dr Niño HTN Wt loss/cachexia Former smoker Depression CRI Plan: IV abx empiric IVF Transfuse Dr Niño consultation is appreciated Pain control Admission Status: Inpatient Order (span 2 midnights) Reason for Inpatient Admission: UTI with advanced prostate cancer with transfusion dependency Diagnosis/Problems Diagnosis/Problems (1) Urinary tract infection Status: Acute (2) Anemia Status: Acute (3) Prostate cancer metastatic to bone Status: Acute Clinical Quality Measures AMI/AHF: ASA po Prior to arrival: No DVT/VTE Risk/Contraindication: Risk Factor Score Per Nursin RFS Level Per Nursing on Admit: 4+=Very High LIANET TY DO Jan 02, 2020 18:15
[2020-01-02] MEDS ORDERED: ONDANSETRON 4 MG/2 ML (SDV) Z0FRAN IVP PRN (18:30)
[2020-01-02] MEDS ORDERED: ACETAMINOPHEN 500 MG TAB (TYLENOL) PO PRN (18:30)
[2020-01-02] MEDS ORDERED: LOPERAMIDE 2 MG (IMODIUM) TABLET PO PRN (18:30)
[2020-01-02] MEDS ORDERED: CALCIUM CARBONATE 500 MG (TUMS) TAB.CHEW PO PRN (18:30)
[2020-01-02] MEDS ORDERED: HYDROmorphone 2 MG/ML VIAL (DILAUDID) IVP PRN (18:30)
[2020-01-02] MEDS ORDERED: MELATONIN 3 MG TABLET PO PRN (18:30)
[2020-01-02] MEDS ORDERED: DOCUSATE SODIUM 100 MG (COLACE) CAP PO PRN (18:30)
[2020-01-02] MEDS ORDERED: diphenhydrAMINE 25 MG TAB (BENADRYL) PO PRN (18:30)
[2020-01-02] MEDS: NS IV 1000 ML 1,000 ML IV SCH (18:37)
--- NOTE | 2020-01-02 18:47 | Consultation ---
History of Present Illness History of Present Illness Patient Consulted On(tito/time) 01/02/20 18:38 Date Seen by Provider: Jan 02, 2020 Time Seen by Provider: 18:38 History of Present Illness Mr. Sargent is a 64 yo male with myelophthisic pancytopenia and urinary obstruction secondary to widely metastatic prostate cancer. He was treated with one cycle of docetaxel on 12/13/19. He was supposed to present to clinic for cycle two earlier this morning but he was so weak that his sister was unable to bring him in. Patient complains mainly of pelvic and low back pain that has been worsening over the last couple weeks. At times, pain is so bad he cannot move. He lives with a woman that has not been helping him as he expected she would and constantly taunts him, keeping water and pain medications out of reach. He had a severe pelvic/low back pain episode this morning. He has not noticed any fever or chills until this afternoon when he was brought to the ED by EMS. In the ED, he was found to have a temperature of 39 C and a positive UA. He has an indwelling urinary catheter. He is a very poor historian and perseverates about his difficult home situation. Allergies and Home Medications Allergies Coded Allergies: No Known Drug Allergies (Unverified , 12/03/19) Home Medications Acetaminophen 325 Mg Tablet, 650 MG PO Q8H PRN for PAIN-MILD (1-4), (Reported) Dexamethasone 4 Mg Tablet, 8 MG PO BID PRN for CHEMO TREATMENTS, (Reported) TAKES 2 (4MG) TABS TWICE DAILY THE DAY BEFORE, THE DAY OF AND THEN DAY AFTER TREATMENT Finasteride 5 Mg Tablet, 5 MG PO DAILY, (Reported) Hydrocodone/Acetaminophen 1 Each Tablet, 1 EA PO Q4H PRN for PAIN-MODERATE (5- 7), (Reported) Pantoprazole Sodium 20 Mg Tablet.dr, 20 MG PO DAILY, (Reported) Prednisone 5 Mg Tablet, 5 MG PO BID, (Reported) Tamsulosin HCl 0.4 Mg Cap, 0.4 MG PO BID, (Reported) Tramadol HCl 50 Mg Tablet, 50 MG PO BID PRN for PAIN-MODERATE (5-7), (Reported) Patient Home Medication List Home Medication List Reviewed: Yes Past Tnlctdr-Iqkmwz-Czpamj Hx Patient Social History Alcohol Use: Denies Use Recreational Drug Use: No Smoking Status: Never a Smoker 2nd Hand Smoke Exposure: No Recent Foreign Travel: No Contact w/Someone Who Travel: No Recent Infectious Disease Expo: No Recent Hopitalizations: No Immunizations Up To Date Tetanus Booster (TDap): Unknown Date of Influenza Vaccine: Aug 08, 2019 Seasonal Allergies Seasonal Allergies: No Past Medical History Surgeries: Yes (FACIAL) Orthopedic, Vasectomy Respiratory: No Cardiac: Yes Hypertension Neurological: No Genitourinary: Yes Prostate Problems Gastrointestinal: No Musculoskeletal: No Endocrine: No Cancer: Yes Prostate Did You Recieve Any Treatments: Yes What Type of Treatment Did You: Chemotherapy Psychosocial: No Review of Systems-General ROS-Unable to Obtain: patient is labile and unable to focus on conversation Constitutional: chills Genitourinary: dysuria, pain Musculoskeletal: back pain Physical Exam-General Problems Physical Exam Vital Signs Vital Signs - First Documented Capillary Refill : Less Than 3 SecondsLess Than 3 Seconds General Appearance: WD/WN, no apparent distress Eyes: Bilateral Eye Normal Inspection, Bilateral Eye EOMI HEENT: normal ENT inspection Neck: full range of motion, normal inspection Respiratory: chest non-tender, lungs clear, normal breath sounds, no respiratory distress, no accessory muscle use Cardiovascular: regular rate, rhythm Gastrointestinal: normal bowel sounds, non tender, soft Extremities: normal inspection Neurologic/Psychiatric: no motor/sensory deficits, alert, oriented x 3, depressed affect, other (highly labile, constantly tearful) Skin: normal color, warm/dry Assessment/Plan Assessment/Plan Admission Diagnosis/Plan 64 yo male with widely metastatic prostate cancer receiving chemotherapy urgently for marrow replacement by tumor. Plan was to give cycle 2 docetaxel today but he was unable to make it to clinic. He has severe urinary obstruction from his cancer and requires a urinary catheter. This has likely led to his UTI and sepsis in the last 2-3 days. The urinary issues have probably exacerbated his usual pain. He would probably benefit from a low dose of long acting opiate like Oxycontin. After his infection has been treated and pain regimen has been optimized, he will need evaluation by social media editor to see if he is safe at home. If he cannot tolerate a second cycle of chemotherapy, I am afraid he will be transfusion dependent. Fortunately, his cytopenias appear to be stable at this time. Transfuse to keep hgb > 7.0, platelets > 10 (or >50 with significant bleeding). Thank you for allowing me to participate in the care of Mr. Sargent. Clinical Quality Measures AMI/AHF: ASA po Prior to arrival: No DVT/VTE Risk/Contraindication: Risk Factor Score Per Nursin RFS Level Per Nursing on Admit: 4+=Very High BOBBY RICHARDS MD Jan 02, 2020 18:47
--- NOTE | 2020-01-02 19:42 | NUR ---
patient spiked a temperature of 39.6. tylenol given and ice packs applied Soheila simon to follow up with recheck
[2020-01-02 19:58] VITALS: BP 124/73
[2020-01-02] MEDS: SENNA W/DOCUSATE (SENOKOT S) TABLET PO SCH (21:49)
[2020-01-03] VITALS (7 sets, daily range): BP systolic 91–138; BP diastolic 57–70
[2020-01-03] MEDS: IBUPROFEN 600 MG (MOTRIN) TAB PO PRN (02:59)
[2020-01-03] MEDS: ACETAMINOPHEN 325 MG TABLET PO PRN ×3 (04:04→23:41)
[2020-01-03] MEDS: NS IV 1000 ML 1,000 ML IV SCH ×2 (05:17→17:07)
[2020-01-03 06:56] LABS: BASOPHILS % (AUTO) 0 % (0-10); EOSINOPHILS # (AUTO) 0.1 10^3/uL (0.0-0.3); EOSINOPHILS % (AUTO) 1 % (0-10); HEMATOCRIT 22 % (40-54); LYMPHOCYTES # (AUTO) 0.9 X 10^3 (1.0-4.0); LYMPHOCYTES % (AUTO) 13 % (12-44); MEAN CORPUSCULAR HEMOGLOBIN 28 PG (25-34); MEAN CORPUSCULAR HGB CONC 32 G/DL (32-36); MEAN CORPUSCULAR VOLUME 89 FL (80-99); MEAN PLATELET VOLUME 10.3 FL (7.4-10.4); MONOCYTES # (AUTO) 0.7 X 10^3 (0.0-1.0); MONOCYTES % (AUTO) 10 % (0-12); NEUTROPHILS # (AUTO) 5.1 X 10^3 (1.8-7.8); NEUTROPHILS % (AUTO) 76 % (42-75); PLATELET COUNT 110 10^3/uL (130-400); RED CELL DISTRIBUTION WIDTH 18.6 % (10.0-14.5); WHITE BLOOD COUNT 6.7 10^3/uL (4.3-11.0)
[2020-01-03 07:07] LABS: ALANINE AMINOTRANSFERASE 12 U/L (0-55); ALBUMIN 2.9 GM/DL (3.2-4.5); ALKALINE PHOSPHATASE 426 U/L (40-136); BILIRUBIN,TOTAL 1.2 MG/DL (0.1-1.0); BUN/CREATININE RATIO 32; CARBON DIOXIDE 19 MMOL/L (21-32); CHLORIDE 99 MMOL/L (98-107); CREATININE SERUM 0.79 MG/DL (0.60-1.30); GFR ESTIMATED > 60; GLUCOSE 84 MG/DL (70-105); POTASSIUM 3.6 MMOL/L (3.6-5.0); SODIUM 131 MMOL/L (135-145); TOTAL PROTEIN 5.2 GM/DL (6.4-8.2)
[2020-01-03] MEDS: SENNA W/DOCUSATE (SENOKOT S) TABLET PO SCH ×2 (09:04→21:10)
--- NOTE | 2020-01-03 11:46 | Progress Note - Hospitalist ---
Subjective HPI/CC On Admission Date Seen by Provider: Jan 03, 2020 Time Seen by Provider: 11:00 Chief complaint: UTI with severe anemia and advanced prostate cancer with widespread skeletal metastasis History present illness: This is a 64-year-old white male known to me from prior admission upon the diagnosis of widespread prostate cancer requiring bone marrow biopsy status post transfusions and ultimately sent home in a [place] catheter due to urinary retention close follow-up with Dr. Liu who presented to the ER with severe weakness cachexia and fever and chills found to have UTI and severe anemia of hemoglobin 7.0 requiring transfusion and oncology consultation. Patient reports that he does not feel safe at home is unable to get to adequate food and water and had severe pain. Patient appears to be slightly delusional and subtle confusion. 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 miner of Systems General: Fatigue Genitourinary: Retention Musculoskeletal: back pain Focused Exam Lactate Level 01/02/20 12:09: Lactic Acid Level 1.12 Objective Exam Vital Signs Vital Signs Date Time Temp Pulse Resp B/P (MAP) Pulse Ox O2 Delivery O2 Flow Rate FiO2 01/03/20 12:00 36.1 51 16 91/57 (68) 98 Nasal Cannula 2.00 Capillary Refill : Less Than 3 SecondsLess Than 3 Seconds General Appearance: No Apparent Distress, WD/WN, Chronically ill, Cachetic Respiratory: Chest Non Tender, Lungs Clear, Normal Breath Sounds, No Accessory Muscle Use, No Respiratory Distress Cardiovascular: Regular Rate, Rhythm, No Edema, No Gallop, No JVD, No Murmur, Normal Peripheral Pulses Neurologic/Psychiatric: Alert, Oriented x3, No Motor/Sensory Deficits, Normal Mood/Affect Results/Procedures Lab Laboratory Tests 01/03/20 05:56 Patient resulted labs reviewed. Assessment/Plan Assessment and Plan Assess & Plan/Chief Complaint Assessment: Sepsis receiving IVF UTI with fever and chills and leukocytosis Anemia-secondary to fibrosis from adenocarcinoma of prostate severe and symptomatic requiring transfusion of PRBC's h/o Urinary retention requiring madrid cath in the past Dehydration Adenocarcinoma of prostate with mets to axial skeleton and lungs undergoing treatment by Dr Niño HTN Wt loss/cachexia Former smoker Depression CRI Hyponatremia 128 on admit much improved 131 today Plan: IV abx empiric IVF Transfuse Dr Niño consultation is appreciated Pain control Monitor sodium level PT OT Diagnosis/Problems Diagnosis/Problems (1) Urinary tract infection Status: Acute (2) Anemia Status: Acute (3) Prostate cancer metastatic to bone Status: Acute Clinical Quality Measures AMI/AHF: ASA po Prior to arrival: No DVT/VTE Risk/Contraindication: Risk Factor Score Per Nursin RFS Level Per Nursing on Admit: 4+=Very High ELENA TY DO Jan 03, 2020 11:46
--- NOTE | 2020-01-03 13:24 | NUR ---
Pt known by me from previous admission and [facility].Pt's sister Cecille Franco called and reported that pt's current caregiving situation isn't good.She states that both the caregiver and pt become agitated with each other resulting in pt's inability to receive adequate care. Pt's sister is willing to provide pt intermittent care but not willing to move in and provide 24 hour care. Pt does have limited Medicare skilled benefits and would have at least 20 covered days and would be able to provide [employer] application depending on financial situation and his willingness to seek skilled care. Will contact pt's caregiver for further information about home situation.Will follow
[2020-01-03] MEDS: cefTRIAXone 1,000 MG/SWFI 10 ML IV PUSH IV SCH ×2 (14:31)
--- NOTE | 2020-01-03 14:45 | NUR ---
Pastoral care visit, pt shared extensively during life review and also became very tearful during sharing and speaking of his current health status. I provided listening and support and comfort.
--- NOTE | 2020-01-03 16:25 | Progress Note ---
Standard Progress Note Progress Notes/Assess & Plan Date Seen by a Provider: Jan 03, 2020 Time Seen by a Provider: 16:20 Progress/Assessment & Plan 64 yo male with widely metastatic prostate cancer receiving chemotherapy urgently for marrow replacement by tumor. Patient was admitted yesterday with UTI, sepsis and exacerbated pain. He was febrile persistently throughout the early evening last night but did not feel feverish. His low back pain is much better today and he was able to sleep several hours and felt well rested afterward. Cytopenias continue to be stable at this time, although it is concerning that he was given one unit of PRBCs yesterday and his hgb was not improved this morning. Agree with continued antibiotics and PT/OT. Transfuse to keep hgb > 7.0, platelets > 10 (or >50 with significant bleeding). He will likely need to be discharged to a skilled facility since he has no support at home. Focused Exam Lactate Level 01/02/20 12:09: Lactic Acid Level 1.12 BOBBY RICHARDS MD Jan 03, 2020 16:25
--- NOTE | 2020-01-03 16:34 | Occupational Therapy Eval ---
OT Evaluation-General/PLF Medical Diagnosis Admission Date Jan 02, 2020 at 13:00 Medical Diagnosis: UTI, anemia Onset Date: Jan 02, 2020 Therapy Diagnosis Therapy Diagnosis: decreased self care skills Precautions Precautions/Isolations: Fall Prevention, Standard Precautions Safety Interventions: Bed Exit Alarm, Reorient-PRN Referral Physician: steffany Medical History Pertinent Medical History: HTN Additional Medical History Pt has advanced prostate cancer with widespread skeletal metastasis Reviewed History: Yes Social History Home: Single Level Current Living Status: ADL-Prior Level of Function SCALE: Activities may be completed with or without assistive devices. 1-Zlfpuwzvse-pnvsxnc completes the activity by him/herself with no assistance from a helper. 5-Set-up or Clean-up Assistance-helper sets up or cleans up; patient completes activity. Happy assists only prior to or following the activity. 4-Supervision or Touching Assistance-helper provides verbal cues and/or touching/steadying and/or contact guard assistance as patient completes activity. Assistance may be provided throughout the activity or intermittently. 3-Partial/Moderate Assistance-helper does LESS THAN HALF the effort. Happy lifts, holds or supports trunk or limbs, but provides less than half the effort. 2-Substantial/Maximal Assistance-helper does MORE THAN HALF the effort. Happy lifts or holds trunk or limbs and provides more than half the effort. 3-Fiohixihb-vdzoew does ALL the effort. Patient does none of the effort to complete the activity. Or, the assistance of 2 or more helpers is required for the patient to complete the activity. If activity was not attempted, code reason: 7-Patient Refused. 9-Not Applicable-not attempted and the patient did not perform the activity before the current illness, exacerbation or injury. 10-Not Attempted due to Environmental Limitations-(lack of equipment, weather restraints, etc.). 88-Not Attempted due to Medical Conditions or Safety Concerns. ADL PLOF Comments Pt states he has someone staying with him, but they are not much help. Pt states he walks with a walker as able. Pt reports requiring some assist with ADLs as needed. Does not provide detailed information Self Care: Needed Some Help OT Current Status Subjective Pt resting in bed, agrees to therapy. Pt has no c/o pain. Mental Status/Objective Patient Orientation: Person Attachments: Hernandez Catheter, IV, Oxygen Current Upper Extremity ROM grossly WFL Upper Extremity Coordination Intact Upper Extremity Strength generalized weakness ADL-Treatment ADL-Current Assist for footwear. Pt performed supine to sit with SBA and increased time. Pt was incontinent of bowel, required total assist for hygiene. Donned clean gown with assist secondary to IV. Pt returned to supine with needs met after session. On/Off Footwear (QC): 2 Toileting Hygiene (QC): 1 Education OT Patient Education: Rehab process Teaching Recipient: Patient Teaching Methods: Discussion Response to Teaching: Verbalize Understanding OT Alf Goals Bundle Breaker Goals Time Frame: Jan 10, 2020 Eating (QC): 6 Oral Hygiene (QC): 5 Toileting Hygiene (QC): 4 (SBA) Shower/Bathe Self (QC): 4 Upper Body Dressing (QC): 4 Lower Body Dressing (QC): 4 Additional Goals: 1-Demonstrate ADL Tasks, 2-Verbalize Understanding, 3- ImproveStrength/Cooper 1=Demonstrate adherence to instructed precautions during ADL tasks. 2=Patient will verbalize/demonstrate understanding of assistive devices/modifications for ADL. 3=Patient will improve strength/tolerance for activity to enable patient to perform ADL's. OT Education/Plan Problem List/Assessment Assessment: Decreased Activ Tolerance, Decreased UE Strength, Dependent Transfers, Impaired Funct Balance, Impaired Self-Care Skills Discharge Recommendations Plan/Recommendations: Continue POC Treatment Plan/Plan of Care Treatment,Training & Education: Yes Patient would benefit from OT for education, treatment and training to promote independence in ADL's, mobility, safety and/or upper extremity function for ADL's. Plan of Care: ADL Retraining, Functional Mobility, UE Funct Exercise/Act Treatment Duration: Jan 10, 2020 Frequency: 5 times per week Estimated Hrs Per Day: .25 hour per day Rehab Potential: Fair Time/GCodes Start Time: 16:05 Stop Time: 16:25 Total Time Billed (hr/min): 20 Billed Treatment Time 1 visit, DUDLEY(20minutes) DENNY MADERA OT Jan 03, 2020 16:34
[2020-01-04 04:05] LABS: BASOPHILS % (AUTO) 0 % (0-10); EOSINOPHILS # (AUTO) 0.1 10^3/uL (0.0-0.3); EOSINOPHILS % (AUTO) 2 % (0-10); HEMATOCRIT 21 % (40-54); LYMPHOCYTES # (AUTO) 1.1 X 10^3 (1.0-4.0); LYMPHOCYTES % (AUTO) 19 % (12-44); MEAN CORPUSCULAR HEMOGLOBIN 29 PG (25-34); MEAN CORPUSCULAR HGB CONC 32 G/DL (32-36); MEAN CORPUSCULAR VOLUME 90 FL (80-99); MONOCYTES # (AUTO) 0.5 X 10^3 (0.0-1.0); MONOCYTES % (AUTO) 9 % (0-12); NEUTROPHILS % (AUTO) 70 % (42-75); PLATELET COUNT 97 10^3/uL (130-400); RED CELL DISTRIBUTION WIDTH 18.4 % (10.0-14.5); WHITE BLOOD COUNT 5.7 10^3/uL (4.3-11.0)
[2020-01-04 04:10] LABS: HEMOGLOBIN 6.7 G/DL (13.3-17.7)
[2020-01-04 04:24] LABS: ALANINE AMINOTRANSFERASE 13 U/L (0-55); ALBUMIN 2.7 GM/DL (3.2-4.5); ALKALINE PHOSPHATASE 293 U/L (40-136); BILIRUBIN,TOTAL 0.6 MG/DL (0.1-1.0); BUN/CREATININE RATIO 28; CALCIUM 7.6 MG/DL (8.5-10.1); CARBON DIOXIDE 19 MMOL/L (21-32); CHLORIDE 100 MMOL/L (98-107); CREATININE SERUM 0.76 MG/DL (0.60-1.30); GFR ESTIMATED > 60; GLUCOSE 108 MG/DL (70-105); POTASSIUM 3.5 MMOL/L (3.6-5.0); SODIUM 129 MMOL/L (135-145); TOTAL PROTEIN 4.8 GM/DL (6.4-8.2)
[2020-01-04 04:45] VITALS: BP 110/67
[2020-01-04] MEDS: NS IV 1000 ML 1,000 ML IV SCH (07:37)
[2020-01-04 07:42] VITALS: BP 134/77
[2020-01-04] MEDS: SENNA W/DOCUSATE (SENOKOT S) TABLET PO SCH ×2 (08:53→20:58)
--- NOTE | 2020-01-04 09:07 | Physical Therapy Evaluation ---
PT Evaluation-General Medical Diagnosis Admission Date Jan 02, 2020 at 13:00 Medical Diagnosis: UTI, anemia Onset Date: Jan 02, 2020 Therapy Diagnosis Therapy Diagnosis: impaired mobility Precautions Precautions/Isolations: Fall Prevention, Standard Precautions Referral Physician: steffany Reason for Referral: Evaluation/Treatment Medical History Pertinent Medical History: HTN Additional Medical History Past Medical History Surgeries: Orthopedic, Vasectomy Cardiac: Hypertension Genitourinary: Prostate Problems Cancer: Prostate Did You Recieve Any Treatments: Yes What Type of Treatment Did You: Chemotherapy Current History prostate CA Reviewed History: Yes Social History Home: Single Level Current Living Status: Entry Into Home: Stairs With Railing PT Steps Into Home: 3 Prior Prior Level of Function SCALE: Activities may be completed with or without assistive devices. 0-Ujawtoztuh-joxtuft completes the activity by him/herself with no assistance from a helper. 5-Set-up or Clean-up Assistance-helper sets up or cleans up; patient completes activity. [place] assists only prior to or following the activity. 4-Supervision or Touching Assistance-helper provides verbal cues and/or touching/steadying and/or contact guard assistance as patient completes activity. Assistance may be provided throughout the activity or intermittently. 3-Partial/Moderate Assistance-helper does LESS THAN HALF the effort. [place] lifts, holds or supports trunk or limbs, but provides less than half the effort. 2-Substantial/Maximal Assistance-helper does MORE THAN HALF the effort. [place] lifts or holds trunk or limbs and provides more than half the effort. 1-Mdyieemgj-tkddiz does ALL the effort. Patient does none of the effort to c omplete the activity. Or, the assistance of 2 or more helpers is required for the patient to complete the activity. If activity was not attempted, code reason: 7-Patient Refused. 9-Not Applicable-not attempted and the patient did not perform the activity before the current illness, exacerbation or injury. 10-Not Attempted due to Environmental Limitations-(lack of equipment, weather restraints, etc.). 88-Not Attempted due to Medical Conditions or Safety Concerns. Bed Mobility: 6 Transfers (B,C,W/C): 6 Gait: 6 Stairs: 6 Patient was using a cane previously PT Evaluation-Current Subjective Patient just getting into bed with nurse assist as therapist enters the room, patient refuses to get back out of bed at this time but does agree let therapist assess patient in bed. Patient has no pain currently. Pt/Family Goals "to be independent at home" Objective Patient Orientation: Person, Place, Situation ROM/Strength ROM Lower Extremities WNL Strength Lower Extremities 5/5 gross BLE Sensory Vision: Hearing: Functional Sensation Right Lower Extremit: Intact Sensation Left Lower Extremity: Intact Treatment BLE exercises x20 (AP, HS) Assessment/Needs Patient has impaired mobility, endurance. Patient very emotional during evaluation. Rehab Potential: Fair PT Long-Term Goals Long-Term Goals PT Ash Kier Boiler Goals Time Frame: Jan 11, 2020 Roll Left & Right (QC): 6 Sit to Lying (QC): 6 Lying-Sitting on Side/Bed(QC): 6 Sit to Stand (QC): 6 Chair/Vit-eb-Vjkvj Xfer(QC): 6 Walk 10 feet (QC): 6 Walk 50ft with 2 Turns (QC): 6 PT Plan Problem List Problem List: Activity Tolerance, Functional Strength, Safety, Balance, Gait, Transfer Treatment/Plan Treatment Plan: Continue Plan of Care Treatment Plan: Education, Functional Activity Cooper, Functional Strength, Gait, Safety, Therapeutic Exercise, Transfers Treatment Duration: Jan 11, 2020 Frequency: 6 times per week Estimated Hrs Per Day: .25 hour per day Patient and/or Family Agrees t: Yes Safety Risks/Education Patient Education: Correct Positioning, Safety Issues Teaching Recipient: Patient Teaching Methods: Demonstration, Discussion Response to Teaching: Reinforcement Needed Discharge Recommendations Plan Patient will perform bed mobility and transfer training, balance and endurance training, functional strengthening, stair training, gait training, and education, to improve functional mobility and independence at home. Therapy Discharge Recommendati: Intermittent Supervision, Scheduled Assistance, Home & Family Time/GCodes Time In: 0840 Time Out: 0856 Total Billed Treatment Time: 16 Total Billed Treatment 1 visit JOSE MANUEL MARI PT Jan 04, 2020 09:07
--- NOTE | 2020-01-04 11:08 | Progress Note - Hospitalist ---
Subjective HPI/CC On Admission Date Seen by Provider: Jan 04, 2020 Time Seen by Provider: 10:00 Chief complaint: UTI with severe anemia and advanced prostate cancer with widespread skeletal metastasis History present illness: This is a 64-year-old white male known to me from prior admission upon the diagnosis of widespread prostate cancer requiring bone marrow biopsy status post transfusions and ultimately sent home in a [place] catheter due to urinary retention close follow-up with Dr. Liu who presented to the ER with severe weakness cachexia and fever and chills found to have UTI and severe anemia of hemoglobin 7.0 requiring transfusion and oncology consultation. Patient reports that he does not feel safe at home is unable to get to adequate food and water and had severe pain. Patient appears to be slightly delusional and subtle confusion. Subjective/Events-last exam Patient denies pain and pain meds work well No chest pain reported BM were loose Complains a lot about his care at home and here at [facility] which appears to be inconsistent with all healthcare providers here at [facility] Supportive care maintained IVF DC Hgb 6.7 no evidence transfusion is required Appreciate Dr Snow consultation Review of Systems General: Fatigue Gastrointestinal: Diarrhea Neurological: Confusion Focused Exam Lactate Level 01/02/20 12:09: Lactic Acid Level 1.12 Objective Exam Vital Signs Vital Signs Date Time Temp Pulse Resp B/P (MAP) Pulse Ox O2 Delivery O2 Flow Rate FiO2 01/04/20 13:12 38.5 01/04/20 11:51 107 18 108/65 (79) 94 Room Air 01/04/20 07:42 0.50 Capillary Refill : Less Than 3 SecondsLess Than 3 Seconds General Appearance: No Apparent Distress, Chronically ill, Cachetic Respiratory: Lungs Clear Cardiovascular: Regular Rate, Rhythm Neurologic/Psychiatric: Alert, Oriented x3, No Motor/Sensory Deficits, Normal Mood/Affect, Disoriented (subtle appears delusional type) Results/Procedures Lab Laboratory Tests 01/04/20 03:54 01/04/20 03:59 Patient resulted labs reviewed. 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 undergoing treatment by Dr Niño HTN Wt loss/cachexia Former smoker Depression CRI Hyponatremia 128 on admit Plan: IV abx empiric IVF HL Transfuse Dr Niño consultation is appreciated Pain control Monitor sodium level PT OT Diagnosis/Problems Diagnosis/Problems (1) Urinary tract infection Status: Acute (2) Anemia Status: Acute (3) Prostate cancer metastatic to bone Status: Acute Clinical Quality Measures AMI/AHF: ASA po Prior to arrival: No DVT/VTE Risk/Contraindication: Risk Factor Score Per Nursin RFS Level Per Nursing on Admit: 4+=Very High Contraindications-Pharm: Other *list below* Other: severe anemia requiring tx ELENA TY DO Jan 04, 2020 11:08
[2020-01-04 11:51] VITALS: BP 108/65
--- NOTE | 2020-01-04 12:06 | NUR ---
DR BABIN here to see patient. Told This RN to DC fluids at this time and encourage patient to eat and drink instead
--- NOTE | 2020-01-04 12:38 | Progress Note ---
Progress Note Assessment/Plan Time Seen by Provider: 12:37 Events since last exam Called to see patient because Hb drop again to 6.7 after one unit of RBC transfusion yesterday. Cover for Dr spann Assessment/Plan I saw patient and he told me that he felt great today. He has some epigastric pain but he specific told it is not heart attach pain. He is eating and drinking fluid good. He wants to go home if all possible. He is still getting IV Rocephin and IVF. Since patient is feeling good, I would hold off the transfusion because it is short of blood products due to the current pandemic virus situation that we are not able to collect the blood from the donors. I would start him on Protonix and check the stool occult blood. If positive, I would add Carafate to reduce the GI bleeding. Since he is able to eat and drink well, I would change IVF to KVO. Dr Ortega to decide the discharge time. Pt wants to go home. Vitals Last set of Vitals Signs Vital Signs Date Time Temp Pulse Resp B/P (MAP) Pulse Ox O2 Delivery O2 Flow Rate FiO2 01/04/20 11:51 38.5 107 18 108/65 (79) 94 Room Air 01/04/20 07:42 0.50 I&O I&O Intake and Output 01/04/20 00:00 Intake Total 3040 ml Output Total 3225 ml Balance -185 ml Intake Oral 2040 ml IV Total 1000 ml Output Urine Total 3225 ml # Bowel Movements 1 Labs Laboratory Tests 01/04/20 03:54: White Blood Count 5.7, Red Blood Count 2.31L, Hemoglobin 6.7*L, Hematocrit 21L, Mean Corpuscular Volume 90, Mean Corpuscular Hemoglobin 29, Mean Corpuscular Hemoglobin Concent 32, Red Cell Distribution Width 18.4H, Platelet Count 97L, Mean Platelet Volume 9.0, Neutrophils (%) (Auto) 70, Lymphocytes (%) (Auto) 19, Monocytes (%) (Auto) 9, Eosinophils (%) (Auto) 2, Basophils (%) (Auto) 0, Neutrophils # (Auto) 4.0, Lymphocytes # (Auto) 1.1, Monocytes # (Auto) 0.5, E osinophils # (Auto) 0.1, Basophils # (Auto) 0.0 01/04/20 03:59: Sodium Level 129L, Potassium Level 3.5L, Chloride Level 100, Carbon Dioxide Level 19L, Anion Gap 10, Blood Urea Nitrogen 21H, Creatinine 0.76, Estimat Glomerular Filtration Rate > 60, BUN/Creatinine Ratio 28, Glucose Level 108H, Calcium Level 7.6L, Corrected Calcium 8.6, Total Bilirubin 0.6, Aspartate Amino Transf (AST/SGOT) 27, Alanine Aminotransferase (ALT/SGPT) 13, Alkaline Phosphatase 293H, Total Protein 4.8L, Albumin 2.7L Microbiology 01/02/20 Throat Culture - Preliminary, Resulted No Beta Strep isolated 01/02/20 Blood Culture - Preliminary, Resulted No growth 01/02/20 Urine Culture - Preliminary, Resulted Mixed Bacterial Gracia Klebsiella pneumoniae Focused Exam Lactate Level 01/02/20 12:09: Lactic Acid Level 1.12 Clinical Quality Measures AMI/AHF: ASA po Prior to arrival: No DVT/VTE Risk/Contraindication: Risk Factor Score Per Nursin RFS Level Per Nursing on Admit: 4+=Very High Contraindications-Pharm: Other *list below* Other: severe anemia requiring tx MARIA FERNANDA BABIN MD Jan 04, 2020 12:38
[2020-01-04] MEDS: PANTOPRAZOLE 40 MG (PROTONIX) TAB PO SCH (13:10)
[2020-01-04] MEDS: ALPRAZolam 0.25 MG (XANAX) TAB PO PRN (13:11)
[2020-01-04] MEDS: ACETAMINOPHEN 325 MG TABLET PO PRN ×2 (13:12→21:04)
[2020-01-04] MEDS: cefTRIAXone 1,000 MG/SWFI 10 ML IV PUSH IV SCH ×2 (13:24)
[2020-01-04 15:43] VITALS: BP 115/61
[2020-01-04] MEDS: SUCRALFATE 1 GM (CARAFATE) TAB PO SCH ×2 (16:10→20:55)
[2020-01-04] MEDS: IBUPROFEN 600 MG (MOTRIN) TAB PO PRN (16:10)
[2020-01-04 19:38] VITALS: BP 99/64
[2020-01-05] VITALS (7 sets, daily range): BP systolic 93–136; BP diastolic 49–78
[2020-01-05 04:37] LABS: BASOPHILS % (AUTO) 1 % (0-10); EOSINOPHILS # (AUTO) 0.1 10^3/uL (0.0-0.3); EOSINOPHILS % (AUTO) 2 % (0-10); HEMATOCRIT 21 % (40-54); LYMPHOCYTES % (AUTO) 20 % (12-44); MEAN CORPUSCULAR HEMOGLOBIN 29 PG (25-34); MEAN CORPUSCULAR HGB CONC 32 G/DL (32-36); MEAN CORPUSCULAR VOLUME 90 FL (80-99); MEAN PLATELET VOLUME 9.5 FL (7.4-10.4); MONOCYTES # (AUTO) 0.5 X 10^3 (0.0-1.0); MONOCYTES % (AUTO) 11 % (0-12); NEUTROPHILS # (AUTO) 3.3 X 10^3 (1.8-7.8); NEUTROPHILS % (AUTO) 67 % (42-75); PLATELET COUNT 108 10^3/uL (130-400); RED CELL DISTRIBUTION WIDTH 18.6 % (10.0-14.5)
[2020-01-05 04:40] LABS: HEMOGLOBIN 6.6 G/DL (13.3-17.7)
[2020-01-05 04:57] LABS: ALANINE AMINOTRANSFERASE 9 U/L (0-55); ALBUMIN 2.7 GM/DL (3.2-4.5); ALKALINE PHOSPHATASE 267 U/L (40-136); BILIRUBIN,TOTAL 0.5 MG/DL (0.1-1.0); BUN/CREATININE RATIO 26; CARBON DIOXIDE 21 MMOL/L (21-32); CHLORIDE 103 MMOL/L (98-107); GFR ESTIMATED > 60; GLUCOSE 96 MG/DL (70-105); POTASSIUM 3.8 MMOL/L (3.6-5.0); SODIUM 134 MMOL/L (135-145)
[2020-01-05] MEDS: SUCRALFATE 1 GM (CARAFATE) TAB PO SCH ×4 (06:16→21:15)
[2020-01-05] MEDS: PANTOPRAZOLE 40 MG (PROTONIX) TAB PO SCH (08:02)
[2020-01-05] MEDS: ACETAMINOPHEN 325 MG TABLET PO PRN ×3 (08:03→19:46)
[2020-01-05] MEDS: SENNA W/DOCUSATE (SENOKOT S) TABLET PO SCH ×2 (08:04→21:14)
--- NOTE | 2020-01-05 10:28 | Progress Note ---
Progress Note Assessment/Plan Time Seen by Provider: 10:23 Events since last exam Pt has positive stool occult blood test suggesting GI bleeding. Assessment/Plan He started Protonix and Carafate yesterday. Hb is relatively stable, 6.7 yesterday and 6.6 today. No symptoms. I would continue closely monitoring for now. Hold off RBC transfusion. I will also check iron study. I will hold off oral iron treatment for now and wa it for his stomach pain resolved, then start him on oral iron pills as out patient. Dr Ortega to decide the discharge time. Pt wants to go home. Vitals Last set of Vitals Signs Vital Signs Date Time Temp Pulse Resp B/P (MAP) Pulse Ox O2 Delivery O2 Flow Rate FiO2 01/05/20 08:03 38.1 01/05/20 08:00 Nasal Cannula 01/05/20 07:21 86 20 122/77 (92) 96 01/04/20 20:00 0.50 I&O I&O Intake and Output 01/05/20 00:00 Intake Total 2830 ml Output Total 3275 ml Balance -445 ml Intake Oral 2830 ml Output Urine Total 3275 ml # Bowel Movements 3 Labs Laboratory Tests 01/05/20 04:25: White Blood Count 5.0, Red Blood Count 2.30L, Hemoglobin 6.6*L, Hematocrit 21L, Mean Corpuscular Volume 90, Mean Corpuscular Hemoglobin 29, Mean Corpuscular Hemoglobin Concent 32, Red Cell Distribution Width 18.6H, Platelet Count 108L, Mean Platelet Volume 9.5, Neutrophils (%) (Auto) 67, Lymphocytes (%) (Auto) 20, Monocytes (%) (Auto) 11, Eosinophils (%) (Auto) 2, Basophils (%) (Auto) 1, Neutrophils # (Auto) 3.3, Lymphocytes # (Auto) 1.0, Monocytes # (Auto) 0.5, Eosinophils # (Auto) 0.1, Basophils # (Auto) 0.0, Sodium Level 134L, Potassium Level 3.8, Chloride Level 103, Carbon Dioxide Level 21, Anion Gap 10, Blood Urea Nitrogen 18, Creatinine 0.70, Estimat Glomerular Filtration Rate > 60, BUN/Creatinine Ratio 26, Glucose Level 96, Calcium Level 8.0L, Corrected Calcium 9.0, Total Bilirubin 0.5, Aspartate Amino Transf (AST/SGOT) 20, Alanine Aminotransferase (ALT/SGPT) 9, Alkaline Phosphatase 267H, Total Protein 5.0L, Albumin 2.7L 01/05/20 08:50: Stool Occult Blood Immunoassay POSITIVEH Microbiology 01/02/20 Throat Culture - Final, Complete No Beta Strep isolated 01/02/20 Blood Culture - Preliminary, Resulted No growth 01/02/20 Urine Culture - Final, Complete Mixed Bacterial Gracia Klebsiella pneumoniae Focused Exam Lactate Level 01/02/20 12:09: Lactic Acid Level 1.12 Clinical Quality Measures AMI/AHF: ASA po Prior to arrival: No DVT/VTE Risk/Contraindication: Risk Factor Score Per Nursin RFS Level Per Nursing on Admit: 4+=Very High Contraindications-Pharm: Other *list below* Other: severe anemia requiring tx MARIA FERNANDA BABIN MD Jan 05, 2020 10:28
--- NOTE | 2020-01-05 12:12 | Progress Note - Hospitalist ---
Subjective HPI/CC On Admission Date Seen by Provider: Jan 05, 2020 Time Seen by Provider: 12:00 Chief complaint: UTI with severe anemia and advanced prostate cancer with widespread skeletal metastasis History present illness: This is a 64-year-old white male known to me from prior admission upon the diagnosis of widespread prostate cancer requiring bone marrow biopsy status post transfusions and ultimately sent home in a [place] catheter due to urinary retention close follow-up with Dr. Liu who presented to the ER with severe weakness cachexia and fever and chills found to have UTI and severe anemia of hemoglobin 7.0 requiring transfusion and oncology consultation. Patient reports that he does not feel safe at home is unable to get to adequate food and water and had severe pain. Patient appears to be slightly delusional and subtle confusion. Subjective/Events-last exam Patient doing much better BM+ Fever improved SW consult for dispo since where he was may not be a safe option Pain well controlled Eating and drinking well Checked meds and labs UCx reviewed Review of Systems General: Fatigue Musculoskeletal: back pain Objective Exam Vital Signs Vital Signs Date Time Temp Pulse Resp B/P (MAP) Pulse Ox O2 Delivery O2 Flow Rate FiO2 01/05/20 19:51 104 01/05/20 19:48 39.4 18 116/78 (91) 94 Room Air 01/04/20 20:00 0.50 Capillary Refill : Less Than 3 SecondsLess Than 3 Seconds General Appearance: No Apparent Distress, WD/WN, Chronically ill, Cachetic, Thin Respiratory: Chest Non Tender, Lungs Clear, Normal Breath Sounds, No Accessory Muscle Use, No Respiratory Distress Cardiovascular: Regular Rate, Rhythm, No Edema, No Gallop, No JVD, No Murmur, Normal Peripheral Pulses Neurologic/Psychiatric: Alert, Oriented x3, No Motor/Sensory Deficits, Normal M ood/Affect Results/Procedures Lab Laboratory Tests 01/05/20 04:25 Patient resulted labs reviewed. 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 undergoing treatment by Dr Niño HTN Wt loss/cachexia Former smoker Depression CRI Hyponatremia 134 today on admit Plan: IV abx empiric IVF HL Transfuse Dr Niño consultation is appreciated Pain control Monitor sodium level PT OT Diagnosis/Problems Diagnosis/Problems (1) Urinary tract infection Status: Acute (2) Anemia Status: Acute (3) Prostate cancer metastatic to bone Status: Acute Clinical Quality Measures AMI/AHF: ASA po Prior to arrival: No DVT/VTE Risk/Contraindication: Risk Factor Score Per Nursin RFS Level Per Nursing on Admit: 4+=Very High Contraindications-Pharm: Other *list below* Other: severe anemia requiring tx ELENA TY DO Jan 05, 2020 12:12
[2020-01-05] MEDS: cefTRIAXone 1,000 MG/SWFI 10 ML IV PUSH IV SCH ×2 (13:28)
[2020-01-06 04:30] VITALS: BP 139/69
[2020-01-06] MEDS: ACETAMINOPHEN 325 MG TABLET PO PRN ×2 (04:45→12:09)
[2020-01-06] MEDS: SUCRALFATE 1 GM (CARAFATE) TAB PO SCH ×4 (06:07→20:47)
[2020-01-06 07:33] VITALS: BP 116/68
[2020-01-06] MEDS: SENNA W/DOCUSATE (SENOKOT S) TABLET PO SCH ×2 (08:33→20:47)
[2020-01-06] MEDS: PANTOPRAZOLE 40 MG (PROTONIX) TAB PO SCH (08:33)
[2020-01-06 09:25] LABS: BASOPHILS % (AUTO) 1 % (0-10); EOSINOPHILS # (AUTO) 0.1 10^3/uL (0.0-0.3); EOSINOPHILS % (AUTO) 1 % (0-10); HEMATOCRIT 27 % (40-54); HEMOGLOBIN 8.5 G/DL (13.3-17.7); LYMPHOCYTES # (AUTO) 1.1 X 10^3 (1.0-4.0); LYMPHOCYTES % (AUTO) 18 % (12-44); MEAN CORPUSCULAR HEMOGLOBIN 29 PG (25-34); MEAN CORPUSCULAR HGB CONC 32 G/DL (32-36); MEAN CORPUSCULAR VOLUME 91 FL (80-99); MEAN PLATELET VOLUME 9.7 FL (7.4-10.4); MONOCYTES # (AUTO) 0.5 X 10^3 (0.0-1.0); MONOCYTES % (AUTO) 8 % (0-12); NEUTROPHILS # (AUTO) 4.6 X 10^3 (1.8-7.8); NEUTROPHILS % (AUTO) 73 % (42-75); PLATELET COUNT 156 10^3/uL (130-400); RED CELL DISTRIBUTION WIDTH 18.2 % (10.0-14.5); WHITE BLOOD COUNT 6.3 10^3/uL (4.3-11.0)
[2020-01-06 09:49] LABS: ANISOCYTOSIS SLIGHT; BAND NEUTROPHILS 12 %; BASOPHILS % (MANUAL) 0 %; EOSINOPHILS % (MANUAL) 1 %; LYMPHOCYTES % (MANUAL) 19 %; METAMYELOCYTES % 2 %; MONOCYTES % (MANUAL) 5 %; MYELOCYTES % 7 %; NEUTROPHILS % (MANUAL) 54 %; POIKILOCYTOSIS SLIGHT
[2020-01-06 09:56] LABS: BUN/CREATININE RATIO 17; CALCIUM 8.8 MG/DL (8.5-10.1); CARBON DIOXIDE 24 MMOL/L (21-32); CHLORIDE 98 MMOL/L (98-107); CREATININE SERUM 0.78 MG/DL (0.60-1.30); GFR ESTIMATED > 60; GLUCOSE 131 MG/DL (70-105); SODIUM 135 MMOL/L (135-145)
--- NOTE | 2020-01-06 09:57 | Physical Therapy Daily Note ---
PT Daily Note-Current Subjective Patient is very agreeable to participate with therapy. No c/o. Pain Numeric Pain Scale: 0-No Pain Location: No Pain Reported Mental Status Patient Orientation: Normal For Age Attachments: Hernandez Catheter Transfers SCALE: Activities may be completed with or without assistive devices. 3-Wqmctueuoq-ccxdeab completes the activity by him/herself with no assistance from a helper. 5-Set-up or Clean-up Assistance-helper sets up or cleans up; patient completes activity. [place] assists only prior to or following the activity. 4-Supervision or Touching Assistance-helper provides verbal cues and/or touching/steadying and/or contact guard assistance as patient completes activity. Assistance may be provided throughout the activity or intermittently. 3-Partial/Moderate Assistance-helper does LESS THAN HALF the effort. [place] lifts, holds or supports trunk or limbs, but provides less than half the effort. 2-Substantial/Maximal Assistance-helper does MORE THAN HALF the effort. [place] lifts or holds trunk or limbs and provides more than half the effort. 9-Nqlkqeeol-ojsmkw does ALL the effort. Patient does none of the effort to complete the activity. Or, the assistance of 2 or more helpers is required for the patient to complete the activity. If activity was not attempted, code reason: 7-Patient Refused. 9-Not Applicable-not attempted and the patient did not perform the activity before the current illness, exacerbation or injury. 10-Not Attempted due to Environmental Limitations-(lack of equipment, weather restraints, etc.). 88-Not Attempted due to Medical Conditions or Safety Concerns. Roll Left & Right (QC): 6 Lying to Sitting/Side of Bed(Q: 6 Sit to Stand (QC): 6 Chair/Lfd-gc-Dhlhm Xfer(QC): 6 Toilet Transfer (QC): 6 Gait Training Does the Patient Walk?: Yes Distance: 400' Walk 10 feet (QC): 5 Walk 50 ft with 2 Turns(QC): 5 Walk 150 ft (QC): 5 Gait Assistive Device: FWW extended UE's with FWW use with skilled verbal instruction with body placement in FWW. Assessment Patient up in recliner with needs met. PT to increase activity as tolerated by patient. PT Jewel Diameter Gauger Goals Jewel Diameter Gauger Goals PT Jewel Diameter Gauger Goals Time Frame: Jan 11, 2020 Roll Left & Right (QC): 6 Sit to Lying (QC): 6 Lying-Sitting on Side/Bed(QC): 6 Sit to Stand (QC): 6 Chair/Zdh-cp-Yfrbz Xfer(QC): 6 Walk 10 feet (QC): 6 Walk 50ft with 2 Turns (QC): 6 PT Plan Treatment/Plan Treatment Plan: Continue Plan of Care Treatment Plan: Education, Functional Activity Cooper, Functional Strength, Gait, Safety, Therapeutic Exercise, Transfers Treatment Duration: Jan 11, 2020 Frequency: 6 times per week Estimated Hrs Per Day: .25 hour per day Patient and/or Family Agrees t: Yes Time/GCodes Time In: 901 Time Out: 915 Total Billed Treatment Time: 14 Total Billed Treatment 1 visit FA 14 min CARLINE BENTLEY PT Jan 06, 2020 09:57
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
[2020-01-06 12:10] VITALS: BP 123/63
[2020-01-06] MEDS: cefTRIAXone 1,000 MG/SWFI 10 ML IV PUSH IV SCH ×2 (13:11)
--- NOTE | 2020-01-06 13:20 | NUR ---
Pastoral Care Visit.
--- NOTE | 2020-01-06 13:49 | Occupational Ther Daily Note ---
OT Current Status-Daily Note Subjective Pt laying in bed at start of session, agreeable to OT tx at this time. He did not report any pain. ADL-Treatment Therapy Code Descriptions/Definitions Functional [place] Measure: 0=Not Assessed/NA 4=Minimal Assistance 1=Total Assistance 5=Supervision or Setup 2=Maximal Assistance 6=Modified [place] 3=Moderate Assistance 7=Complete IndependenceSCALE: Activities may be completed with or without assistive devices. 9-Luxleqsnty-rdfuxwm completes the activity by him/herself with no assistance from a helper. 5-Set-up or Clean-up Assistance-helper sets up or cleans up; patient completes activity. [place] assists only prior to or following the activity. 4-Supervision or Touching Assistance-helper provides verbal cues and/or touching/steadying and/or contact guard assistance as patient completes activity. Assistance may be provided throughout the activity or intermittently. 3-Partial/Moderate Assistance-helper does LESS THAN HALF the effort. [place] lifts, holds or supports trunk or limbs, but provides less than half the effort. 2-Substantial/Maximal Assistance-helper does MORE THAN HALF the effort. [place] lifts or holds trunk or limbs and provides more than half the effort. 6-Lwvhchhec-wjnrtj does ALL the effort. Patient does none of the effort to complete the activity. Or, the assistance of 2 or more helpers is required for the patient to complete the activity. If activity was not attempted, code reason: 7-Patient Refused. 9-Not Applicable-not attempted and the patient did not perform the activity before the current illness, exacerbation or injury. 10-Not Attempted due to Environmental Limitations-(lack of equipment, weather restraints, etc.). 88-Not Attempted due to Medical Conditions or Safety Concerns. Other Treatment Pt laying in bed. In order to increase BUE strength and functional endurance, pt completed x15 reps BUE shoulder flexion & x20 reps BUE elbow flexion/extension. OT educated pt about the purpose and benefits of performing exercises a few times throughout the day, he verbalized understanding. Throughout session, pt appeared distracted, talking about his prostate cancer. Noted slight difficulty with word finding during tx. Post OT session, pt laying in bed, call light in reach and all needs met. Education OT Patient Education: Correct positioning, Energy conservation, Exercise program, Progress toward Goal/Update tx plan, Purpose of tx/functional activities Teaching Recipient: Patient Teaching Methods: Discussion Response to Teaching: Verbalize Understanding OT Residential Goals Residential Goals Time Frame: Jan 10, 2020 Eating (QC): 6 Oral Hygiene (QC): 5 Toileting Hygiene (QC): 4 (SBA) Shower/Bathe Self (QC): 4 Upper Body Dressing (QC): 4 Lower Body Dressing (QC): 4 Additional Goals: 1-Demonstrate ADL Tasks, 2-Verbalize Understanding, 3-Imp roveStrength/Cooper 1=Demonstrate adherence to instructed precautions during ADL tasks. 2=Patient will verbalize/demonstrate understanding of assistive devices/modifications for ADL. 3=Patient will improve strength/tolerance for activity to enable patient to perform ADL's. OT Education/Plan Problem List/Assessment Assessment: Decreased Activ Tolerance, Decreased UE Strength, Impaired I ADL's, Impaired Self-Care Skills Discharge Recommendations Plan/Recommendations: Continue POC Treatment Plan/Plan of Care Treatment,Training & Education: Yes Patient would benefit from OT for education, treatment and training to promote independence in ADL's, mobility, safety and/or upper extremity function for ADL's. Plan of Care: ADL Retraining, Functional Mobility, UE Funct Exercise/Act Treatment Duration: Jan 10, 2020 Frequency: 5 times per week Estimated Hrs Per Day: .25 hour per day Rehab Potential: Fair Time/GCodes Start Time: 13:25 Stop Time: 13:38 Total Time Billed (hr/min): 13 Billed Treatment Time 1, EX SONNY GAMINO OT Jan 06, 2020 13:49
--- NOTE | 2020-01-06 15:16 | Progress Note ---
Progress Note Assessment/Plan Date Seen by Provider: Jan 06, 2020 Time Seen by Provider: 11:00 Events since last exam Pt had fever last night 38C Otherwise doing well. Plan to discharge tomorrow. Hb 8.5 today 01/05/20 without RBC transfusion. Last transfusion 01/02/2020. Iron study after 2 units of units 12/13/19 and 01/02/20 still showed iron deficiency. Stool occult blood test +. Assessment/Plan A/P 1. Iron deficiency anemia from GI bleeding: Continue Protonix for at least 2 months and Carafate for 2 weeks. 2. Prostate cancer. F/u with Dr Niño as scheduled. 3. I will hold off oral iron treatment for now and wait for his stomach pain/issue resolved, then start him on oral iron pills as out patient. 4. UTI: On IV antibiotics. Dr Ortega to decide the discharge time. Pt wants to go home. Vitals Last set of Vitals Signs Vital Signs Date Time Temp Pulse Resp B/P (MAP) Pulse Ox O2 Delivery O2 Flow Rate FiO2 01/06/20 12:10 37.9 105 18 123/63 (83) 98 Room Air 01/04/20 20:00 0.50 I&O I&O Intake and Output 01/06/20 00:00 Intake Total 2860 ml Output Total 2375 ml Balance 485 ml Intake Oral 2860 ml Output Urine Total 2375 ml # Bowel Movements 1 Labs Laboratory Tests 01/06/20 09:08: White Blood Count 6.3, Red Blood Count 2.97L, Hemoglobin 8.5#L, Hematocrit 27L, Mean Corpuscular Volume 91, Mean Corpuscular Hemoglobin 29, Mean Corpuscular Hemoglobin Concent 32, Red Cell Distribution Width 18.2H, Platelet Count 156, Mean Platelet Volume 9.7, Neutrophils (%) (Auto) 73, Lymphocytes (%) (Auto) 18, Monocytes (%) (Auto) 8, Eosinophils (%) (Auto) 1, Basophils (%) (Auto) 1, Neutrophils # (Auto) 4.6, Lymphocytes # (Auto) 1.1, Monocytes # (Auto) 0.5, Eosinophils # (Auto) 0.1, Basophils # (Auto) 0.0, Neutrophils % (Manual) 54, Lymphocytes % (Manual) 19, Monocytes % (Manual) 5, Eosinophils % (Manual) 1, Basophils % (Manual) 0, Metamyelocytes % 2, Myelocytes % 7, Band Neutrophils 12, Poikilocytosis SLIGHT, Anisocytosis SLIGHT, Sodium Level 135, Potassium Level 3.0L, Chloride Level 98, Carbon Dioxide Level 24, Anion Gap 13, Blood Urea Nitrogen 13, Creatinine 0.78, Estimat Glomerular Filtration Rate > 60, BUN/Creatinine Ratio 17, Glucose Level 131H, Calcium Level 8.8, Iron Level 28L, Total Iron Binding Capacity 190L, Unsaturated Iron Binding Capacity 162, Transferrin % Saturation 15, Smear Scan Microbiology 01/02/20 Throat Culture - Final, Complete No Beta Strep isolated 01/02/20 Blood Culture - Preliminary, Resulted No growth 01/02/20 Urine Culture - Final, Complete Mixed Bacterial Gracia Klebsiella pneumoniae Clinical Quality Measures AMI/AHF: ASA po Prior to arrival: No DVT/VTE Risk/Contraindication: Risk Factor Score Per Nursin RFS Level Per Nursing on Admit: 4+=Very High Contraindications-Pharm: Other *list below* Other: severe anemia requiring tx MARIA FERNANDA BABIN MD Jan 06, 2020 15:16
[2020-01-06 15:27] VITALS: BP 117/58
--- NOTE | 2020-01-06 16:59 | Progress Note ---
Subjective Subjective/Events-last exam Febrile overnight, states he is feeling great and anxious to go home. Objective Exam Last Set of Vital Signs Vital Signs Date Time Temp Pulse Resp B/P (MAP) Pulse Ox O2 Delivery O2 Flow Rate FiO2 01/06/20 15:27 37.7 90 18 117/58 (77) 96 Room Air 01/04/20 20:00 0.50 Capillary Refill : Less Than 3 SecondsLess Than 3 Seconds I&O Intake and Output 01/06/20 00:00 Intake Total 2860 ml Output Total 2375 ml Balance 485 ml Intake Oral 2860 ml Output Urine Total 2375 ml # Bowel Movements 1 General: Alert, No Acute Distress Lungs: Clear to Auscultation, Normal Air Movement Heart: Regular Rate, No Murmurs Extremities: No Edema Neuro: Normal Speech Psych/Mental Status: Mental Status NL Results/Procedures Lab Laboratory Tests 01/06/20 09:08: White Blood Count 6.3, Red Blood Count 2.97L, Hemoglobin 8.5#L, Hematocrit 27L, Mean Corpuscular Volume 91, Mean Corpuscular Hemoglobin 29, Mean Corpuscular Hemoglobin Concent 32, Red Cell Distribution Width 18.2H, Platelet Count 156, Mean Platelet Volume 9.7, Neutrophils (%) (Auto) 73, Lymphocytes (%) (Auto) 18, Monocytes (%) (Auto) 8, Eosinophils (%) (Auto) 1, Basophils (%) (Auto) 1, Neutrophils # (Auto) 4.6, Lymphocytes # (Auto) 1.1, Monocytes # (Auto) 0.5, Eosinophils # (Auto) 0.1, Basophils # (Auto) 0.0, Neutrophils % (Manual) 54, Lymphocytes % (Manual) 19, Monocytes % (Manual) 5, Eosinophils % (Manual) 1, Basophils % (Manual) 0, Metamyelocytes % 2, Myelocytes % 7, Band Neutrophils 12, Poikilocytosis SLIGHT, Anisocytosis SLIGHT, Sodium Level 135, Potassium Level 3.0L, Chloride Level 98, Carbon Dioxide Level 24, Anion Gap 13, Blood Urea Nitrogen 13, Creatinine 0.78, Estimat Glomerular Filtration Rate > 60, BUN/Creatinine Ratio 17, Glucose Level 131H, Calcium Level 8.8, Iron Level 28L, Total Iron Binding Capacity 190L, Unsaturated Iron Binding Capacity 162, Transferrin % Saturation 15, Smear Scan Microbiology 01/02/20 Throat Culture - Final, Complete No Beta Strep isolated 01/02/20 Blood Culture - Preliminary, Resulted No growth 01/02/20 Urine Culture - Final, Complete Mixed Bacterial Gracia Klebsiella pneumoniae Assessment/Plan Assessment/Plan (1) Urinary tract infection Status: Acute Assessment & Plan: Klebsiella sensitive to ceftriaxone, continue. Febrile yesterday, will monitor today. (2) Anemia Status: Acute Assessment & Plan: Appreciate Hematology recommendations. (3) Prostate cancer metastatic to bone Status: Acute Assessment & Plan: Following with Oncology. (4) DVT prophylaxis Status: Acute Assessment & Plan: No pharmacologic due to pancytopenia Clinical Quality Measures AMI/AHF: ASA po Prior to arrival: No DVT/VTE Risk/Contraindication: Risk Factor Score Per Nursin RFS Level Per Nursing on Admit: 4+=Very High Contraindications-Pharm: Other *list below* Other: severe anemia requiring tx JESSICA YING MD Jan 06, 2020 16:59
[2020-01-06] MEDS ORDERED: KCL 20 MEQ TAB (K-DUR) PO NR (17:00)
[2020-01-06 20:00] VITALS: BP 128/79
[2020-01-06] MEDS: ALPRAZolam 0.25 MG (XANAX) TAB PO PRN (21:08)
[2020-01-07] MEDS: ACETAMINOPHEN 325 MG TABLET PO PRN (00:24)
[2020-01-07 00:39] VITALS: BP 134/84
[2020-01-07 04:18] VITALS: BP 124/73
[2020-01-07] MEDS: SUCRALFATE 1 GM (CARAFATE) TAB PO SCH ×2 (05:10→11:43)
[2020-01-07 05:50] LABS: RED CELL DISTRIBUTION WIDTH 18.4 % (10.0-14.5); WHITE BLOOD COUNT 6.6 10^3/uL (4.3-11.0)
[2020-01-07 05:57] LABS: HEMOGLOBIN 6.8 G/DL (13.3-17.7)
[2020-01-07 06:11] LABS: BUN/CREATININE RATIO 19; CALCIUM 8.4 MG/DL (8.5-10.1); CARBON DIOXIDE 22 MMOL/L (21-32); CHLORIDE 99 MMOL/L (98-107); CREATININE SERUM 0.73 MG/DL (0.60-1.30); GFR ESTIMATED > 60; GLUCOSE 107 MG/DL (70-105); SODIUM 133 MMOL/L (135-145)
[2020-01-07] MEDS ORDERED: KCL 10 MEQ TAB (MICRO K) PO SCH (07:00)
--- NOTE | 2020-01-07 07:01 | NUR ---
notified dr quezada of hgb 6.8
[2020-01-07 08:00] VITALS: BP 131/76
[2020-01-07] MEDS: PANTOPRAZOLE 40 MG (PROTONIX) TAB PO SCH (08:39)
[2020-01-07] MEDS: SENNA W/DOCUSATE (SENOKOT S) TABLET PO SCH (08:39)
--- NOTE | 2020-01-07 09:05 | Physical Therapy Daily Note ---
PT Daily Note-Current Subjective Patient is very agreeable to participate with therapy. No c/o. He states he wants to go home soon. Pain Numeric Pain Scale: 0-No Pain Location: No Pain Reported Mental Status Patient Orientation: Normal For Age Attachments: Hernandez Catheter Transfers SCALE: Activities may be completed with or without assistive devices. 3-Kyodoihxvt-jcitmjl completes the activity by him/herself with no assistance from a helper. 5-Set-up or Clean-up Assistance-helper sets up or cleans up; patient completes activity. Roland assists only prior to or following the activity. 4-Supervision or Touching Assistance-helper provides verbal cues and/or touching/steadying and/or contact guard assistance as patient completes activity. Assistance may be provided throughout the activity or intermittently. 3-Partial/Moderate Assistance-helper does LESS THAN HALF the effort. Roland lifts, holds or supports trunk or limbs, but provides less than half the effort. 2-Substantial/Maximal Assistance-helper does MORE THAN HALF the effort. Roland lifts or holds trunk or limbs and provides more than half the effort. 3-Opvrhzmig-kpyyok does ALL the effort. Patient does none of the effort to co mplete the activity. Or, the assistance of 2 or more helpers is required for the patient to complete the activity. If activity was not attempted, code reason: 7-Patient Refused. 9-Not Applicable-not attempted and the patient did not perform the activity before the current illness, exacerbation or injury. 10-Not Attempted due to Environmental Limitations-(lack of equipment, weather restraints, etc.). 88-Not Attempted due to Medical Conditions or Safety Concerns. Roll Left & Right (QC): 6 Lying to Sitting/Side of Bed(Q: 6 Sit to Stand (QC): 6 Chair/Rtw-ud-Nkfsz Xfer(QC): 6 Gait Training Does the Patient Walk?: Yes Distance: 600' Walk 10 feet (QC): 6 Walk 50 ft with 2 Turns(QC): 6 Walk 150 ft (QC): 6 Gait Assistive Device: FWW safe and functional/extended UE's with FWW use Exercises Seated Therapy Exercises: Ankle pumps, Long arc quads, Hip flexion Seated Reps: 15 Assessment Patient tolerated treatment well and is up in recliner with needs met. Noted c ritical Hgb. PT Fuse Spooler Goals Longterm Goals PT Longterm Goals Time Frame: Jan 11, 2020 Roll Left & Right (QC): 6 Sit to Lying (QC): 6 Lying-Sitting on Side/Bed(QC): 6 Sit to Stand (QC): 6 Chair/Obv-ui-Qlkbq Xfer(QC): 6 Walk 10 feet (QC): 6 Walk 50ft with 2 Turns (QC): 6 PT Plan Treatment/Plan Treatment Plan: Continue Plan of Care Treatment Plan: Education, Functional Activity Cooper, Functional Strength, Gait, Safety, Therapeutic Exercise, Transfers Treatment Duration: Jan 11, 2020 Frequency: 6 times per week Estimated Hrs Per Day: .25 hour per day Patient and/or Family Agrees t: Yes Time/GCodes Time In: 831 Time Out: 854 Total Billed Treatment Time: 23 Total Billed Treatment 1 visit FA x 2 23min CARLINE BENTLEY PT Jan 07, 2020 09:05
--- NOTE | 2020-01-07 11:01 | Progress Note ---
Progress Note Assessment/Plan Date Seen by Provider: Jan 07, 2020 Time Seen by Provider: 10:56 Events since last exam Pt cried to me and wanted to go home today. He had another fever spike last night but he stated " I am feeling great. I am able to walk and I can move mountains if you let me." He looks good today. His stomach is pain better, specially after he eats food. "The pain goes away after I eat food." Hb is back to 6.8 today. ??? Iron study showed iron deficient. Assessment/Plan A/P 1. Iron deficiency anemia from GI bleeding: Continue Protonix for at least 2 months and Carafate for 2 weeks. 2. Prostate cancer. F/u with Dr Niño as scheduled. 3. I will hold off oral iron treatment for now and wait for his stomach pain/issue resolved, then start him on oral iron pills as out patient. 4. UTI: On IV antibiotics. Dr Ortega/Dr Guzman to decide the discharge time. Pt wants to go home. It is OK from hem/onc point of view to discharge home. f/u with Dr Niño next week. Vitals Last set of Vitals Signs Vital Signs Date Time Temp Pulse Resp B/P (MAP) Pulse Ox O2 Delivery O2 Flow Rate FiO2 01/07/20 08:00 100 Room Air 01/07/20 08:00 37.9 84 20 131/76 (94) 01/06/20 20:00 0.50 I&O I&O Intake and Output 01/07/20 00:00 Intake Total 3330 ml Output Total 3450 ml Balance -120 ml Intake Oral 3330 ml Output Urine Total 3450 ml # Bowel Movements 2 Labs Laboratory Tests 01/07/20 05:30: White Blood Count 6.6, Red Blood Count 2.33L, Hemoglobin 6.8*L, Hematocrit 21L, Mean Corpuscular Volume 91, Mean Corpuscular Hemoglobin 29, Mean Corpuscular Hemoglobin Concent 32, Red Cell Distribution Width 18.4H, Platelet Count 139, Mean Platelet Volume 9.0, Sodium Level 133L, Potassium Level 4.0, Chloride Level 99, Carbon Dioxide Level 22, Anion Gap 12, Blood Urea Nitrogen 14, Creatinine 0.73, Estimat Glomerular Filtration Rate > 60, BUN/Creatinine Ratio 19, Glucose Level 107H, Calcium Level 8.4L Microbiology 01/02/20 Throat Culture - Final, Complete No Beta Strep isolated 01/02/20 Blood Culture - Preliminary, Resulted No growth 01/02/20 Urine Culture - Final, Complete Mixed Bacterial Gracia Klebsiella pneumoniae Clinical Quality Measures AMI/AHF: ASA po Prior to arrival: No DVT/VTE Risk/Contraindication: Risk Factor Score Per Nursin RFS Level Per Nursing on Admit: 4+=Very High Contraindications-Pharm: Other *list below* Other: severe anemia requiring tx MARIA FERNANDA BABIN MD Jan 07, 2020 11:01
[2020-01-07 11:06] LABS: BASOPHILS # (AUTO) 0.1 10^3/uL (0.0-0.1); BASOPHILS % (AUTO) 1 % (0-10); EOSINOPHILS # (AUTO) 0.1 10^3/uL (0.0-0.3); EOSINOPHILS % (AUTO) 1 % (0-10); HEMATOCRIT 22 % (40-54); LYMPHOCYTES # (AUTO) 1.5 X 10^3 (1.0-4.0); LYMPHOCYTES % (AUTO) 20 % (12-44); MEAN CORPUSCULAR HEMOGLOBIN 29 PG (25-34); MEAN CORPUSCULAR HGB CONC 32 G/DL (32-36); MEAN CORPUSCULAR VOLUME 91 FL (80-99); MEAN PLATELET VOLUME 9.2 FL (7.4-10.4); MONOCYTES # (AUTO) 0.9 X 10^3 (0.0-1.0); MONOCYTES % (AUTO) 12 % (0-12); NEUTROPHILS # (AUTO) 4.8 X 10^3 (1.8-7.8); NEUTROPHILS % (AUTO) 65 % (42-75); PLATELET COUNT 147 10^3/uL (130-400); RED CELL DISTRIBUTION WIDTH 18.5 % (10.0-14.5); WHITE BLOOD COUNT 7.3 10^3/uL (4.3-11.0)
[2020-01-07 11:10] LABS: SMEAR SCAN COMMENT YES
--- NOTE | 2020-01-07 11:15 | NUR ---
"RD ASSESSMENT PMHx: Ca(prostate,mets); HTN PT INTERACTION:Pt was awake and pleasant during nutrition assessment for LOS. Pt states current appetite is very good, and has been for some time. Note avg PO intake of 100% of meals. Pt states following regular diet at home, and has no difficulty chewing/swallowing food. Note pt has poor dentition, per visual exam. Pt states no recent issues with n/v/c/d at this time. Note last BM was 01/05 and pt currently on bowel regimen of Senna BID, per chart review. Pt states recent wt loss, but unsure of amount/timeframe. Note recent 15# wt gain x1mon, per chart review. ABNORMAL NUTRITION-RELATED LAB VALUES LOW: Na 133; Ca 8.4 HIGH: glu 107 Est. kcal needs: 1202-2958 kcal | 25-30 kcal/kg Est. Pro needs: 59-70 g Pro | 1.0-1.2 g Pro/kg PES STATEMENT: Given PO intake, no nutrition diagnosis at this time (NO-1.1) INTERVENTION: Continue with current diet order of 3000mg Na diet. will continue to follow and reassess as pt needs, intake, and status change. MONITOR/EVALUATE: PO Intake; Plan of Care; Hydration Status; Weight Status; Lab Values Moses Cuevas, MS, RD, LD"
[2020-01-07] MEDS ORDERED: CEFD300C3 PO (11:28)
--- NOTE | 2020-01-07 11:36 | Discharge Summary ---
Discharge Summary Hospital Course Problems/Diagnosis: (1) Urinary tract infection Status: Acute Assessment & Plan: Klebsiella sensitive to ceftriaxone, continue. Febrile yesterday, will monitor today. Remained febrile, but asymptomatic and with negative blood cultures, clinically appearing well and wanting to go home, discussed with Oncology, consider possibility of fever related to bone marrow infiltration with his metastatic cancer. Will continue cefdinir for 5 days after d/c. (2) Anemia Status: Acute Assessment & Plan: Appreciate Hematology recommendations. Likely secondary to bone marrow infiltration with cancer. Hgb 6.8 on d/c, asymptomatic. 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 Hospital Course Date of Admission: Jan 02, 2020 at 13:00 Admission Diagnosis : Family Physician/Provider: Jaime Iyer Date of Discharge: 01/07/20 Discharge Diagnosis: See problem list Hospital Course: See problem list Labs and Pending Lab Test: Laboratory Tests 01/07/20 05:30: White Blood Count 6.6, Red Blood Count 2.33L, Hemoglobin 6.8*L, Hematocrit 21L, Mean Corpuscular Volume 91, Mean Corpuscular Hemoglobin 29, Mean Corpuscular Hemoglobin Concent 32, Red Cell Distribution Width 18.4H, Platelet Count 139, Mean Platelet Volume 9.0, Sodium Level 133L, Potassium Level 4.0, Chloride Level 99, Carbon Dioxide Level 22, Anion Gap 12, Blood Urea Nitrogen 14, Creatinine 0 .73, Estimat Glomerular Filtration Rate > 60, BUN/Creatinine Ratio 19, Glucose Level 107H, Calcium Level 8.4L 01/07/20 11:00: White Blood Count 7.3, Red Blood Count 2.41L, Hemoglobin 7.0L, Hematocrit 22L, Mean Corpuscular Volume 91, Mean Corpuscular Hemoglobin 29, Mean Corpuscular Hemoglobin Concent 32, Red Cell Distribution Width 18.5H, Platelet Count 147, Mean Platelet Volume 9.2, Neutrophils (%) (Auto) 65, Lymphocytes (%) (Auto) 20, Monocytes (%) (Auto) 12, Eosinophils (%) (Auto) 1, Basophils (%) (Auto) 1, Neutrophils # (Auto) 4.8, Lymphocytes # (Auto) 1.5, Monocytes # (Auto) 0.9, Eosinophils # (Auto) 0.1, Basophils # (Auto) 0.1, Smear Scan YES Microbiology 01/02/20 Throat Culture - Final, Complete No Beta Strep isolated 01/02/20 Blood Culture - Preliminary, Resulted No growth 01/02/20 Urine Culture - Final, Complete Mixed Bacterial Gracia Klebsiella pneumoniae Home Meds Active Cefdinir 300 Mg Capsule 300 Mg PO BID Reported Flomax (Tamsulosin HCl) 0.4 Mg Cap 0.4 Mg PO BID Pantoprazole Sodium 20 Mg Tablet.dr 20 Mg PO DAILY Prednisone 5 Mg Tablet 5 Mg PO BID Dexamethasone 4 Mg Tablet 8 Mg PO BID PRN TAKES 2 (4MG) TABS TWICE DAILY THE DAY BEFORE, THE DAY OF AND THEN DAY AFTER TREATMENT Finasteride 5 Mg Tablet 5 Mg PO DAILY Hydrocodone-Acetamin 10-325 mg (Hydrocodone/Acetaminophen) 1 Each Tablet 1 Ea PO Q4H PRN Tylenol (Acetaminophen) 325 Mg Tablet 650 Mg PO Q8H PRN Tramadol HCl 50 Mg Tablet 50 Mg PO BID PRN Assessment/Pt DC Instructions See above Discharge Diet: Regular Diet Activity as Tolerated: Yes Discharge Physical Examination Allergies: Coded Allergies: No Known Drug Allergies (Unverified , 12/03/19) General Appearance: No Apparent Distress Respiratory: Lungs Clear, Normal Breath Sounds Cardiovascular: Regular Rate, Rhythm, No Edema Gastrointestinal: Normal Bowel Sounds, Non Tender, Soft Skin: Warm/Dry Neurologic/Psychiatric: Alert, Normal Mood/Affect; No Abnormal Gait Clinical Quality Measures AMI/AHF: ASA po Prior to arrival: No DVT/VTE Risk/Contraindication: Risk Factor Score Per Nursin RFS Level Per Nursing on Admit: 4+=Very High Contraindications-Pharm: Other *list below* Other: severe anemia requiring tx JESSICA YING MD Jan 07, 2020 11:35
--- NOTE | 2020-01-07 11:38 | D/C HH Face to Face Order ---
D/C Face to Face Orders Instructions for Patient Patient Instructions/FollowUp: Follow up with Brandon Anton at [facility] in [place] (Craig Iyer does not have an appointment available at this time) on 01/12 at 10 am. Follow up with Oncology as directed. Physician to follow Patient: Craig IyerDARYA schaeffer Discharge Diet for Home: Regular Diet Patient Problems: Metastatic prostate cancer Urinary tract infection Urinary obstruction Patient Data-Allergies,Ht & Wt Patient Allergies: Coded Allergies: No Known Drug Allergies (Unverified , 12/03/19) Home Health Need/Face to Face Date of Face to Face: Jan 07, 2020 Clinical Findings: Generalized weakness and fatigue I have seen Pt [id number]: Yes Discharged To: Home Diagnosis/Conditions: Metastatic prostate cancer Anemia Urinary tract infection Urinary tract obstruction Patient is Homebound due to: Peterson fall risk due to instabilty Homebound Status Due to the above stated illness, injury or surgical procedure (medical condition or diagnosis) and associated clinical findings, the patient is homebound because of his/her inability to leave home except with aid of a supportive device and/or person AND leaving the home requires a considerable and taxing effort or is medically contraindicated. Pt req the following assistanc: Aid of another person Home Health Nursing Orders Home Health Services Order: Nursing Services, Neuro Psych Sales Specialist-Evaluate & Josephine t, Physical Therapy-Evaluate & Treat Home Health Infusion Therapy Line Start Date: Jan 02, 2020 Therapy Orders Therapy Orders: Physical Therapy, PT to assess for OT Therapy Specific Orders: Eval assistive deivces Certify Stmt I certify that this patient is under my care and that I, a nurse practitioner or a physician; a bar assistant working with me, had a face to face encounter that - meets the physician face to face encounter requirements with this patient as dated. JESSICA YING MD Jan 07, 2020 11:38
--- NOTE | 2020-01-07 12:47 | NUR ---
Arrangements completed for pt discharge home. His sister Cecille Franco will be providing him transportation home and will be providing intermittent care during the day to ensure his welfare. She has discussed with pt's friend,Courtney, the caregiving issues that pt describes as neglectful. Courtney has agreed to help pt if sister will assist who is willing to aid in the caregiving of setting up the medications and ensuring that pt is taking his pain medication on schedule. Pt was provided a case of Ensure for his nutrition needs. Physician orders were received for Home Health Care which was arranged by pt choice with [facility] who will visit him on January 08. Pt has a follow-up appt. with on January 12 at 10:30 am and will give appt. card to pt and notify sister.[facility] has been notified of our concerns about pt's home situationl Pt rejects any other continued care plan but to home.
[2020-01-07] MEDS: cefTRIAXone 1,000 MG/SWFI 10 ML IV PUSH IV SCH ×2 (13:05)
--- NOTE | 2020-01-07 14:17 | NUR ---
Medicare Important Message was reviewed with pt prior to his discharge. He had no plans to appeal discharge and was very pleased to be discharged home with Home Health Care and has followup apptl with Dr. Niño for January 12
--- NOTE | 2020-01-07 16:20 | NUR ---
PER CHIKA, SOCIAL WORK, I CALLED THE HOME HEALTH COMPANY AND LEFT A MESSAGE FOR ZEHRA ARANDA, TO REITERATE WHAT CHIKA HAD TOLD HER REGARDING THE NEEDS OF THIS PATIENT. CHIKA ASKED ME TO EXPRESS THE NEED FOR MEDICATION SET UP;CATHETER CARE; PAIN MANAGEMENT; SAFTEY AND NUTRITION. I LEFT MY NAME AND NUMBER BUT RECEIVED NO INQUIRY BACK.
--- NOTE | 2020-01-07 16:43 | NUR ---
[facility] called and asked for clarification of nursing order. ROSI Farias contacted [facility] and provided them their requested information.
== END 2020-01-07 14:07 | disposition home health service (06) | DRG 872 ==
LOC: EDUNIT# 12:04 → ER 12:06 → 4TH 13:00
PROVIDERS: ADMIT Internal Medicine; ATTEND Family Medicine
DX: A41.9 Sepsis, unspecified organism (principal); N39.0 Urinary tract infection, site not specified; C79.51 Secondary malignant neoplasm of bone; C78.01 Secondary malignant neoplasm of right lung; C78.02 Secondary malignant neoplasm of left lung; R64 Cachexia; K92.2 Gastrointestinal hemorrhage, unspecified; D61.82 Myelophthisis; Z66 Do not resuscitate; N13.8 Other obstructive and reflux uropathy; E87.1 Hypo-osmolality and hyponatremia; D63.0 Anemia in neoplastic disease; C61 Malignant neoplasm of prostate; E86.0 Dehydration; R63.0 Anorexia; I12.9 Hypertensive chronic kidney disease with stage 1 through stage 4 chronic kidney disease, or unspecified chronic kidney disease; N18.9 Chronic kidney disease, unspecified; F41.9 Anxiety disorder, unspecified; F32.9 Major depressive disorder, single episode, unspecified; Z87.891 Personal history of nicotine dependence; D50.0 Iron deficiency anemia secondary to blood loss (chronic); B96.1 Klebsiella pneumoniae [K. pneumoniae] as the cause of diseases classified elsewhere
CPT/HCPCS: 36415; 71045; 80048; 80053; 81000; 82274; 82728; 83540; 83605; 83880; 84484; 85007; 85025; 85027; 86850; 86900; 86901; 86920; 87040; 87077; 87088; 87186; 87430; 87804; 93005; 96374

== ENCOUNTER → 2020-01-22 | Outpatient (CLI) | payer MEDICARE ==
[~2020-01-22] MED LIST changes: +CEFD300C3 PO; +DEXA4TAB PO; +HYDR-3820 PO; +PANT20TA3 PO; +PRED5TAB PO; +TMSL.4C PO
[2020-01-22 15:32] LABS: HEMATOCRIT 25 % (40-54); HEMOGLOBIN 7.7 G/DL (13.3-17.7); MEAN CORPUSCULAR HEMOGLOBIN 29 PG (25-34); MEAN CORPUSCULAR HGB CONC 31 G/DL (32-36); MEAN CORPUSCULAR VOLUME 94 FL (80-99); RED CELL DISTRIBUTION WIDTH 19.2 % (10.0-14.5); WHITE BLOOD COUNT 5.4 10^3/uL (4.3-11.0)
[2020-01-22 15:33] LABS: BASOPHILS % (AUTO) 1 % (0-10); EOSINOPHILS % (AUTO) 1 % (0-10); LYMPHOCYTES % (AUTO) 26 % (12-44); MEAN PLATELET VOLUME 10.6 FL (7.4-10.4); MONOCYTES % (AUTO) 16 % (0-12); PLATELET COUNT 169 10^3/uL (130-400)
[2020-01-22 15:35] LABS: NEUTROPHILS # (AUTO) 2.4 X 10^3 (1.8-7.8)
[2020-01-22 15:36] LABS: EOSINOPHILS # (AUTO) 0.1 10^3/uL (0.0-0.3); LYMPHOCYTES # (AUTO) 1.4 X 10^3 (1.0-4.0); MONOCYTES # (AUTO) 0.9 X 10^3 (0.0-1.0); NEUTROPHILS % (AUTO) 44 % (42-75)
[2020-01-22 15:47] LABS: BUN/CREATININE RATIO 29; CALCIUM 8.9 MG/DL (8.5-10.1); CARBON DIOXIDE 24 MMOL/L (21-32); CHLORIDE 90 MMOL/L (98-107); CREATININE SERUM 0.95 MG/DL (0.60-1.30); GFR ESTIMATED > 60; GLUCOSE 97 MG/DL (70-105); POTASSIUM 4.2 MMOL/L (3.6-5.0); SODIUM 128 MMOL/L (135-145)
== END ==
LOC: LAB FS 15:03
PROVIDERS: ATTEND Internal Medicine Hematology & Oncology
DX: C61 Malignant neoplasm of prostate (principal); C79.51 Secondary malignant neoplasm of bone
CPT/HCPCS: 36415; 80048; 85025

== ENCOUNTER → 2020-01-29 | Outpatient (CLI) | payer MEDICARE ==
[2020-01-29 15:52] LABS: WHITE BLOOD COUNT 5.5 10^3/uL (4.3-11.0)
[2020-01-29 15:54] LABS: HEMATOCRIT 21 % (40-54); HEMOGLOBIN 6.8 G/DL (13.3-17.7); MEAN CORPUSCULAR HEMOGLOBIN 31 PG (25-34); MEAN CORPUSCULAR VOLUME 96 FL (80-99)
[2020-01-29 15:55] LABS: EOSINOPHILS % (AUTO) 2 % (0-10); LYMPHOCYTES % (AUTO) 40 % (12-44); MEAN CORPUSCULAR HGB CONC 32 G/DL (32-36); MEAN PLATELET VOLUME 9.9 FL (7.4-10.4); MONOCYTES % (AUTO) 16 % (0-12); NEUTROPHILS % (AUTO) 42 % (42-75); PLATELET COUNT 148 10^3/uL (130-400); RED CELL DISTRIBUTION WIDTH 19.9 % (10.0-14.5)
[2020-01-29 15:56] LABS: BASOPHILS % (AUTO) 0 % (0-10); EOSINOPHILS # (AUTO) 0.1 10^3/uL (0.0-0.3); LYMPHOCYTES # (AUTO) 2.2 X 10^3 (1.0-4.0); MONOCYTES # (AUTO) 0.9 X 10^3 (0.0-1.0); NEUTROPHILS # (AUTO) 2.3 X 10^3 (1.8-7.8)
[2020-01-29 16:00] LABS: BUN/CREATININE RATIO 38; CALCIUM 8.7 MG/DL (8.5-10.1); CARBON DIOXIDE 24 MMOL/L (21-32); CHLORIDE 98 MMOL/L (98-107); GFR ESTIMATED > 60; GLUCOSE 96 MG/DL (70-105); POTASSIUM 4.3 MMOL/L (3.6-5.0); SODIUM 136 MMOL/L (135-145)
[2020-01-29 16:27] LABS: BAND NEUTROPHILS 11 %; BASOPHILS % (MANUAL) 0 %; EOSINOPHILS % (MANUAL) 4 %; LYMPHOCYTES % (MANUAL) 36 %; METAMYELOCYTES % 7 %; MONOCYTES % (MANUAL) 8 %; MYELOCYTES % 1 %; NEUTROPHILS % (MANUAL) 28 %
[2020-01-29 16:28] LABS: ANISOCYTOSIS SLIGHT; ATYPICAL LYMPHOCYTES 5 %; NUCLEATED RED BLOOD CELLS 16; POIKILOCYTOSIS SLIGHT; POLYCHROMASIA MODERATE
== END ==
LOC: LAB FS 15:11
PROVIDERS: ATTEND Internal Medicine Hematology & Oncology
DX: C61 Malignant neoplasm of prostate (principal); C79.51 Secondary malignant neoplasm of bone
CPT/HCPCS: 36415; 80048; 85007; 85027

== ENCOUNTER → 2020-02-12 | Outpatient (CLI) | payer MEDICARE ==
[2020-02-12 16:18] LABS: CARBON DIOXIDE 27 MMOL/L (21-32); CHLORIDE 99 MMOL/L (98-107); POTASSIUM 4.8 MMOL/L (3.6-5.0); SODIUM 140 MMOL/L (135-145)
[2020-02-12 16:19] LABS: BUN/CREATININE RATIO 22; CALCIUM 8.7 MG/DL (8.5-10.1); CREATININE SERUM 0.86 MG/DL (0.60-1.30); GFR ESTIMATED > 60; GLUCOSE 90 MG/DL (70-105)
[2020-02-12 19:47] LABS: HEMATOCRIT 26 % (40-54); MEAN CORPUSCULAR HEMOGLOBIN 30 PG (25-34); WHITE BLOOD COUNT 6.5 10^3/uL (4.3-11.0)
[2020-02-12 19:48] LABS: BASOPHILS % (AUTO) 1 % (0-10); EOSINOPHILS % (AUTO) 1 % (0-10); LYMPHOCYTES % (AUTO) 25 % (12-44); MEAN CORPUSCULAR HGB CONC 31 G/DL (32-36); MEAN CORPUSCULAR VOLUME 95 FL (80-99); MEAN PLATELET VOLUME 10.5 FL (7.4-10.4); MONOCYTES % (AUTO) 17 % (0-12); PLATELET COUNT 146 10^3/uL (130-400); RED CELL DISTRIBUTION WIDTH 19.4 % (10.0-14.5)
[2020-02-12 19:50] LABS: NEUTROPHILS % (AUTO) 46 % (42-75)
[2020-02-12 19:51] LABS: BASOPHILS # (AUTO) 0.1 10^3/uL (0.0-0.1); EOSINOPHILS # (AUTO) 0.1 10^3/uL (0.0-0.3); LYMPHOCYTES # (AUTO) 1.6 X 10^3 (1.0-4.0); MONOCYTES # (AUTO) 1.1 X 10^3 (0.0-1.0)
[2020-02-12 19:52] LABS: BAND NEUTROPHILS 10 %; EOSINOPHILS % (MANUAL) 1 %; LYMPHOCYTES % (MANUAL) 21 %; MONOCYTES % (MANUAL) 5 %; NEUTROPHILS % (MANUAL) 45 %
[2020-02-12 19:53] LABS: ATYPICAL LYMPHOCYTES 10 %; BASOPHILS % (MANUAL) 1 %; METAMYELOCYTES % 3 %; MICROCYTOSIS 1+; MYELOCYTES % 4 %; NUCLEATED RED BLOOD CELLS 19; POLYCHROMASIA SLIGHT
== END ==
LOC: LAB FS 15:46
PROVIDERS: ATTEND Internal Medicine Hematology & Oncology
DX: C61 Malignant neoplasm of prostate (principal); C79.51 Secondary malignant neoplasm of bone
CPT/HCPCS: 36415; 80048; 85007; 85027

== ENCOUNTER → 2020-02-19 | Outpatient (CLI) | payer MEDICARE ==
[2020-02-19 15:03] LABS: CARBON DIOXIDE 26 MMOL/L (21-32); CHLORIDE 97 MMOL/L (98-107); POTASSIUM 4.3 MMOL/L (3.6-5.0); SODIUM 138 MMOL/L (135-145)
[2020-02-19 15:04] LABS: BUN/CREATININE RATIO 28; CALCIUM 9.5 MG/DL (8.5-10.1); CREATININE SERUM 0.81 MG/DL (0.60-1.30); GFR ESTIMATED > 60; GLUCOSE 148 MG/DL (70-105)
[2020-02-19 15:20] LABS: HEMATOCRIT 26 % (40-54); MEAN CORPUSCULAR HEMOGLOBIN 29 PG (25-34); MEAN CORPUSCULAR HGB CONC 31 G/DL (32-36); MEAN CORPUSCULAR VOLUME 95 FL (80-99); WHITE BLOOD COUNT 5.6 10^3/uL (4.3-11.0)
[2020-02-19 15:21] LABS: BAND NEUTROPHILS 14 %; BASOPHILS % (AUTO) 0 % (0-10); EOSINOPHILS % (AUTO) 0 % (0-10); LYMPHOCYTES # (AUTO) 1.5 X 10^3 (1.0-4.0); LYMPHOCYTES % (AUTO) 27 % (12-44); LYMPHOCYTES % (MANUAL) 31 %; MEAN PLATELET VOLUME 10.1 FL (7.4-10.4); MONOCYTES # (AUTO) 0.7 X 10^3 (0.0-1.0); MONOCYTES % (AUTO) 23 % (0-12); NEUTROPHILS # (AUTO) 2.8 X 10^3 (1.8-7.8); NEUTROPHILS % (AUTO) 50 % (42-75); NEUTROPHILS % (MANUAL) 43 %; PLATELET COUNT 149 10^3/uL (130-400)
[2020-02-19 15:22] LABS: ANISOCYTOSIS MODERATE; BASOPHILS % (MANUAL) 0 %; EOSINOPHILS % (MANUAL) 0 %; METAMYELOCYTES % 3 %; MONOCYTES % (MANUAL) 9 %; NUCLEATED RED BLOOD CELLS 12; POLYCHROMASIA SLIGHT
== END ==
LOC: LAB FS 14:13
PROVIDERS: ATTEND Internal Medicine Hematology & Oncology
DX: C61 Malignant neoplasm of prostate (principal); C79.51 Secondary malignant neoplasm of bone
CPT/HCPCS: 36415; 80048; 85007; 85027

== ENCOUNTER 2020-02-25 08:31 | Outpatient (RCR) | payer MEDICAID, MEDICARE ==
[2019-12-13 10:22] LABS: BASOPHILS # (AUTO) 0.1 10^3/uL (0.0-0.1); BASOPHILS % (AUTO) 1 % (0-10); EOSINOPHILS % (AUTO) 1 % (0-10); HEMATOCRIT 21 % (40-54); LYMPHOCYTES # (AUTO) 1.4 X 10^3 (1.0-4.0); LYMPHOCYTES % (AUTO) 31 % (12-44); MEAN CORPUSCULAR HEMOGLOBIN 28 PG (25-34); MEAN CORPUSCULAR HGB CONC 31 G/DL (32-36); MEAN CORPUSCULAR VOLUME 91 FL (80-99); MONOCYTES # (AUTO) 0.3 X 10^3 (0.0-1.0); MONOCYTES % (AUTO) 8 % (0-12); NEUTROPHILS # (AUTO) 2.7 X 10^3 (1.8-7.8); NEUTROPHILS % (AUTO) 60 % (42-75); PLATELET COUNT 85 10^3/uL (130-400); RED CELL DISTRIBUTION WIDTH 18.7 % (10.0-14.5); WHITE BLOOD COUNT 4.5 10^3/uL (4.3-11.0)
[2019-12-13 10:24] LABS: HEMOGLOBIN 6.5 G/DL (13.3-17.7)
[2019-12-13 10:51] LABS: ALANINE AMINOTRANSFERASE 15 U/L (0-55); ALBUMIN 3.7 GM/DL (3.2-4.5); ALKALINE PHOSPHATASE 238 U/L (40-136); BILIRUBIN,TOTAL 0.5 MG/DL (0.1-1.0); BUN/CREATININE RATIO 35; CARBON DIOXIDE 23 MMOL/L (21-32); CHLORIDE 98 MMOL/L (98-107); CREATININE SERUM 0.88 MG/DL (0.60-1.30); GFR ESTIMATED > 60; GLUCOSE 171 MG/DL (70-105); POTASSIUM 4.3 MMOL/L (3.6-5.0); SODIUM 133 MMOL/L (135-145); TOTAL PROTEIN 6.2 GM/DL (6.4-8.2)
[2020-01-13 11:23] LABS: BASOPHILS # (AUTO) 0.2 10^3/uL (0.0-0.1); BASOPHILS % (AUTO) 2 % (0-10); EOSINOPHILS # (AUTO) 0.1 10^3/uL (0.0-0.3); EOSINOPHILS % (AUTO) 1 % (0-10); HEMATOCRIT 23 % (40-54); HEMOGLOBIN 7.3 G/DL (13.3-17.7); LYMPHOCYTES # (AUTO) 2.4 X 10^3 (1.0-4.0); LYMPHOCYTES % (AUTO) 20 % (12-44); MEAN CORPUSCULAR HEMOGLOBIN 30 PG (25-34); MEAN CORPUSCULAR HGB CONC 31 G/DL (32-36); MEAN CORPUSCULAR VOLUME 94 FL (80-99); MEAN PLATELET VOLUME 9.6 FL (7.4-10.4); MONOCYTES # (AUTO) 1.4 X 10^3 (0.0-1.0); MONOCYTES % (AUTO) 11 % (0-12); NEUTROPHILS % (AUTO) 66 % (42-75); PLATELET COUNT 266 10^3/uL (130-400); RED CELL DISTRIBUTION WIDTH 19.1 % (10.0-14.5); WHITE BLOOD COUNT 12.1 10^3/uL (4.3-11.0)
[2020-01-14 09:44] LABS: ALBUMIN 3.5 GM/DL (3.2-4.5); CHLORIDE 96 MMOL/L (98-107); POTASSIUM 4.3 MMOL/L (3.6-5.0); SODIUM 134 MMOL/L (135-145)
[2020-01-14 09:45] LABS: CALCIUM 8.1 MG/DL (8.5-10.1)
[2020-01-14 09:46] LABS: GLUCOSE 169 MG/DL (70-105); TOTAL PROTEIN 6.4 GM/DL (6.4-8.2)
[2020-01-14 09:47] LABS: CARBON DIOXIDE 20 MMOL/L (21-32)
[2020-01-14 09:48] LABS: BILIRUBIN,TOTAL 0.5 MG/DL (0.1-1.0)
[2020-01-14 09:50] LABS: ALKALINE PHOSPHATASE 271 U/L (40-136); GFR ESTIMATED > 60
[2020-01-14 09:51] LABS: BUN/CREATININE RATIO 28
[2020-01-14 09:53] LABS: ALANINE AMINOTRANSFERASE 16 U/L (0-55)
[2020-02-05 14:00] LABS: BASOPHILS # (AUTO) 0.2 10^3/uL (0.0-0.1); BASOPHILS % (AUTO) 2 % (0-10); EOSINOPHILS # (AUTO) 0.1 10^3/uL (0.0-0.3); EOSINOPHILS % (AUTO) 1 % (0-10); HEMATOCRIT 26 % (40-54); HEMOGLOBIN 8.3 G/DL (13.3-17.7); LYMPHOCYTES # (AUTO) 2.6 X 10^3 (1.0-4.0); LYMPHOCYTES % (AUTO) 25 % (12-44); MEAN CORPUSCULAR HEMOGLOBIN 29 PG (25-34); MEAN CORPUSCULAR HGB CONC 32 G/DL (32-36); MEAN CORPUSCULAR VOLUME 92 FL (80-99); MEAN PLATELET VOLUME 8.9 FL (7.4-10.4); MONOCYTES # (AUTO) 1.1 X 10^3 (0.0-1.0); MONOCYTES % (AUTO) 11 % (0-12); NEUTROPHILS # (AUTO) 6.3 X 10^3 (1.8-7.8); NEUTROPHILS % (AUTO) 62 % (42-75); PLATELET COUNT 139 10^3/uL (130-400); RED CELL DISTRIBUTION WIDTH 19.4 % (10.0-14.5); WHITE BLOOD COUNT 10.3 10^3/uL (4.3-11.0)
[2020-02-05 14:19] LABS: ALANINE AMINOTRANSFERASE 13 U/L (0-55); ALBUMIN 3.9 GM/DL (3.2-4.5); ALKALINE PHOSPHATASE 342 U/L (40-136); BILIRUBIN,TOTAL 0.5 MG/DL (0.1-1.0); BUN/CREATININE RATIO 35; CALCIUM 8.9 MG/DL (8.5-10.1); CARBON DIOXIDE 21 MMOL/L (21-32); CHLORIDE 101 MMOL/L (98-107); CREATININE SERUM 0.91 MG/DL (0.60-1.30); GFR ESTIMATED > 60; GLUCOSE 130 MG/DL (70-105); SODIUM 136 MMOL/L (135-145); TOTAL PROTEIN 6.7 GM/DL (6.4-8.2)
[~2020-02-25] VITALS: Ht 162.6 cm; Wt 51.3 kg
[~2020-02-25 08:31] MED LIST changes: +FAMOTIDINE 20MG/2ML IV (CANCER CTR) IV SCH; +NS IV 1000 ML (CANCER CTR) IV SCH; +NS IV 500 ML (CANCER CENTER) 500 ML ONE; +ONDANSETRON MDV (CANCER CENTER 16 MG, DEXAMETHASONE INJECTION 10 MG in NS (IVPB) CANCER... IV SCH; +ONDANSETRON MDV (CANCER CENTER 8 MG, DEXAMETHASONE INJECTION 10 MG in NS (IVPB) CANCER ... IV SCH; +diphenhydrAMINE 25 MG TAB (BENADRYL) CANCER CENTER PO ONE; +diphenhydrAMINE 25 MG TAB (BENADRYL) CANCER CENTER PO SCH
[2020-02-25 09:12] LABS: BASOPHILS # (AUTO) 0.2 10^3/uL (0.0-0.1); BASOPHILS % (AUTO) 2 % (0-10); EOSINOPHILS # (AUTO) 0.1 10^3/uL (0.0-0.3); EOSINOPHILS % (AUTO) 1 % (0-10); HEMATOCRIT 21 % (40-54); LYMPHOCYTES # (AUTO) 1.8 X 10^3 (1.0-4.0); LYMPHOCYTES % (AUTO) 26 % (12-44); MEAN CORPUSCULAR HEMOGLOBIN 30 PG (25-34); MEAN CORPUSCULAR HGB CONC 32 G/DL (32-36); MEAN CORPUSCULAR VOLUME 93 FL (80-99); MEAN PLATELET VOLUME 9.7 FL (7.4-10.4); MONOCYTES # (AUTO) 0.9 X 10^3 (0.0-1.0); MONOCYTES % (AUTO) 13 % (0-12); NEUTROPHILS # (AUTO) 4.1 X 10^3 (1.8-7.8); NEUTROPHILS % (AUTO) 58 % (42-75); PLATELET COUNT 141 10^3/uL (130-400); RED CELL DISTRIBUTION WIDTH 19.9 % (10.0-14.5); WHITE BLOOD COUNT 7.1 10^3/uL (4.3-11.0)
[2020-02-25 09:17] LABS: HEMOGLOBIN 6.8 G/DL (13.3-17.7)
[2020-02-25 09:19] LABS: ALBUMIN 3.6 GM/DL (3.2-4.5); BILIRUBIN,TOTAL 0.9 MG/DL (0.1-1.0); CALCIUM 8.4 MG/DL (8.5-10.1); CREATININE SERUM 1.29 MG/DL (0.60-1.30); POTASSIUM 4.4 MMOL/L (3.6-5.0); TOTAL PROTEIN 6.2 GM/DL (6.4-8.2)
[2020-03-03] MEDS ORDERED: ONDA8TAB6 PO (15:11)
[2020-03-03] MEDS ORDERED: SERT25TA PO (15:11)
[2020-03-03] MEDS ORDERED: HYDR-83 PO (15:11)
[2020-03-03] MEDS ORDERED: MAGIC MOUTH WASH PO (15:11)
[2020-03-03] MEDS ORDERED: ASCO250T55 PO (15:11)
[2020-03-03] MEDS ORDERED: BETH25TA11 PO (15:11)
[2020-03-03] MEDS ORDERED: LISI10TA2 PO (15:12)
[2020-03-03] MEDS ORDERED: FERR-84 PO (15:14)
[2020-03-05] MEDS ORDERED: LEVO750T39 PO (10:17)
[2020-03-05] MEDS ORDERED: DILT-27 PO (10:17)
== END 2020-03-11 | disposition home or self-care (01) ==
LOC: ONC 08:31
PROVIDERS: ATTEND Internal Medicine Hematology & Oncology
DX: Z51.11 Encounter for antineoplastic chemotherapy (principal); C61 Malignant neoplasm of prostate; C79.51 Secondary malignant neoplasm of bone; D64.9 Anemia, unspecified
CPT/HCPCS: 36415; 36430; 80053; 84153; 85025; 86850; 86900; 86901; 86920; 96375; 96413; 99213

== ENCOUNTER 2020-03-01 20:41 | Inpatient (IN) | payer MEDICARE ==
[~2020-03-01] VITALS: Ht 162.6 cm; Wt 66.0 kg
[~2020-03-01 20:41] MED LIST changes: -FAMOTIDINE 20MG/2ML IV (CANCER CTR) IV SCH; -NS IV 1000 ML (CANCER CTR) IV SCH; -NS IV 500 ML (CANCER CENTER) 500 ML ONE; -ONDANSETRON MDV (CANCER CENTER 16 MG, DEXAMETHASONE INJECTION 10 MG in NS (IVPB) CANCER... IV SCH; -ONDANSETRON MDV (CANCER CENTER 8 MG, DEXAMETHASONE INJECTION 10 MG in NS (IVPB) CANCER ... IV SCH; -diphenhydrAMINE 25 MG TAB (BENADRYL) CANCER CENTER PO ONE; -diphenhydrAMINE 25 MG TAB (BENADRYL) CANCER CENTER PO SCH
[2020-03-01] MEDS ORDERED: LACTATED RINGERS 1,000 ML IV ONE (20:50)
--- NOTE | 2020-03-01 20:53 | ED GI ---
General Chief Complaint: Abdominal/GI Problems Stated Complaint: DIARRHEA/DEHYDRATION Source of Information: Patient Exam Limitations: No Limitations History of Present Illness Date Seen by Provider: March 01, 2020 Time Seen by Provider: 20:41 Initial Comments Patient presents to ER by EMS by [facility] from home with chief complaint of diarrhea since Monday, 4 days ago which turned dark 2 days ago and he was concerned he might have blood in the stool. He has a history of prostatic cancer with his last dose of chemotherapy on Monday the day prior to the diarrhea. He takes dexamethasone. EMS remarks that his blood pressure was 86/50 when they arrived and they initiated a liter fluids which improved him significantly. Patient denies any fever or chills. Is not on antibiotics. He is following with Dr. Niño, oncology locally. He has not been taking Imodium, Pepto-Bismol or any other antidiarrheals. He does take iron daily. He says he's had about 4 episodes of loose watery stool today. He did take a tablet of hydrocodone this morning for pain and is not having any significant pain at this time. He went to [facility] and was recently given Magic mouthwash and hydrocodone this week. Allergies and Home Medications Allergies Coded Allergies: No Known Drug Allergies (Unverified , 12/03/19) Home Medications Acetaminophen 325 Mg Tablet, 650 MG PO Q8H PRN for PAIN-MILD (1-4), (Reported) Cefdinir 300 Mg Capsule, 300 MG PO BID Prescribed by: JESSICA YING on 01/07/20 1128 Dexamethasone 4 Mg Tablet, 8 MG PO BID PRN for CHEMO TREATMENTS, (Reported) TAKES 2 (4MG) TABS TWICE DAILY THE DAY BEFORE, THE DAY OF AND THEN DAY AFTER TREATMENT Finasteride 5 Mg Tablet, 5 MG PO DAILY, (Reported) Hydrocodone/Acetaminophen 1 Each Tablet, 1 EA PO Q4H PRN for PAIN-MODERATE (5- 7), (Reported) Pantoprazole Sodium 20 Mg Tablet.dr, 20 MG PO DAILY, (Reported) Prednisone 5 Mg Tablet, 5 MG PO BID, (Reported) Tamsulosin HCl 0.4 Mg Cap, 0.4 MG PO BID, (Reported) Tramadol HCl 50 Mg Tablet, 50 MG PO BID PRN for PAIN-MODERATE (5-7), (Reported) Patient Home Medication List Home Medication List Reviewed: Yes Review of Systems Review of Systems Constitutional: No chills, No fever EENTM: No Blurred Vision, No Double Vision Respiratory: Denies Cough, Denies Shortness of Air Cardiovascular: Denies Chest Pain, Denies Edema, Denies Irregular Heart Rate; Lightheadedness Gastrointestinal: Denies Abdominal Pain, Denies Constipated; Diarrhea; Denies Nausea Genitourinary: Denies Burning, Denies Discharge Musculoskeletal: No back pain, No joint pain Skin: No pruritus, No rash Psychiatric/Neurological: Denies Headache, Denies Numbness All Other Systems Reviewed Negative Unless Noted: Yes Past Iazglbs-Jurwfe-Apmciz Hx Patient Social History Alcohol Use: Denies Use Recreational Drug Use: No Smoking Status: Never a Smoker 2nd Hand Smoke Exposure: No Recent Hopitalizations: No Immunizations Up To Date Tetanus Booster (TDap): Unknown Date of Influenza Vaccine: Aug 08, 2019 Seasonal Allergies Seasonal Allergies: No Past Medical History Surgeries: Yes (FACIAL) Orthopedic, Vasectomy Respiratory: No Cardiac: Yes Hypertension Neurological: No Genitourinary: Yes Prostate Problems Gastrointestinal: No Musculoskeletal: No Endocrine: No Cancer: Yes Prostate Did You Recieve Any Treatments: Yes What Type of Treatment Did You: Chemotherapy Psychosocial: No Physical Exam Vital Signs Vital Signs - First Documented 03/01/20 03/01/20 22:55 23:19 Temp 36.9 Pulse 101 Resp 22 B/P (MAP) 75/46 Pulse Ox 98 O2 Delivery OxyMask O2 Flow Rate 6.00 Capillary Refill : Height/Weight/BMI Height: '" Weight: lbs. oz. kg; 22.20 BMI Method: General Appearance: moderate distress, thin HEENT: PERRL/EOMI, pharynx normal (oropharynx was dry) Neck: full range of motion, normal inspection Respiratory: lungs clear, normal breath sounds, no respiratory distress, no accessory muscle use Cardiovascular: normal peripheral pulses, regular rate, rhythm, tachycardia (130-140) Peripheral Pulses: 2+ Radial Pulses (R), 2+ Radial Pulses (L) Gastrointestinal: normal bowel sounds (active), non tender, soft, no organomegaly Extremities: normal range of motion, normal capillary refill Neurologic/Psychiatric: alert, normal mood/affect, oriented x 3 Skin: normal color, warm/dry Focused Exam Lactate Level 03/01/20 20:55: Lactic Acid Level 1.26 Lactic Acid Level Laboratory Tests Test 03/01/20 20:55 Lactic Acid Level 1.26 MMOL/L (0.50-2.00) Procedures/Interventions Lumen: triple Central Line Procedure: betadine prep, sterile drapes applied, sterile dressing applied Position: internal jugular (R) Anesthesia: Lidocaine Volume Anesthetic (ccs): 3 Complications: none Post Position: sutured, good blood return, position confirmed w/ CXR Additional Procedures: cardioversion/defib Progress 1508: After discussing the case with Dr. Espinoza he agrees that after adequate IV fluid resuscitation the patient probably has multifactorial hypotension related to atrial fibrillation with rapid ventricular response as well as septic shock potentially. We discussed the case with the patient and explained to him the r isk of stroke and he conceded that if it was appropriate he would be willing to do anything necessary to try and feel better. Pads were placed and 2 large-bore IVs were initiated. We gave him 100 mg of fentanyl and 25 mg of mean. When the patient was adequately controlled we delivered 120 J which interrupted the pattern and he resumed around 90-100 in atrial fibrillation. Patient had a decent blood pressure 109- 113 systolic on the next 2 blood pressure so we initiated Cardizem at 10 mg per hour. Patient tolerated procedure well. Progress/Results/Core Measures Results/Orders Lab Results Laboratory Tests Test 03/01/20 20:55 03/01/20 22:25 Range/Units White Blood Count 0.7 *L 4.3-11.0 10^3/uL Red Blood Count 2.42 L 4.35-5.85 10^6/uL Hemoglobin 6.9 *L 13.3-17.7 G/DL Hematocrit 21 L 40-54 % Mean Corpuscular Volume 88 80-99 FL Mean Corpuscular Hemoglobin 29 25-34 PG Mean Corpuscular Hemoglobin Concent 32 32-36 G/DL Red Cell Distribution Width 19.0 H 10.0-14.5 % Platelet Count 149 130-400 10^3/uL Mean Platelet Volume 8.9 7.4-10.4 FL Neutrophils (%) (Auto) 39 L 42-75 % Lymphocytes (%) (Auto) 51 H 12-44 % Monocytes (%) (Auto) 10 0-12 % Eosinophils (%) (Auto) 0 0-10 % Basophils (%) (Auto) 0 0-10 % Neutrophils # (Auto) 0.3 L 1.8-7.8 X 10^3 Lymphocytes # (Auto) 0.4 L 1.0-4.0 X 10^3 Monocytes # (Auto) 0.1 0.0-1.0 X 10^3 Eosinophils # (Auto) 0.0 0.0-0.3 10^3/uL Basophils # (Auto) 0.0 0.0-0.1 10^3/uL Prothrombin Time 17.5 H 12.2-14.7 SEC INR Comment 1.4 0.8-1.4 Activated Partial Thromboplast Time 35 24-35 SEC Sodium Level 127 L 135-145 MMOL/L Potassium Level 3.3 L 3.6-5.0 MMOL/L Chloride Level 96 L 98-107 MMOL/L Carbon Dioxide Level 18 L 21-32 MMOL/L Anion Gap 13 5-14 MMOL/L Blood Urea Nitrogen 30 H 7-18 MG/DL Creatinine 0.93 0.60-1.30 MG/DL Estimat Glomerular Filtration Rate > 60 BUN/Creatinine Ratio 32 Glucose Level 108 H 70-105 MG/DL Lactic Acid Level 1.26 0.50-2.00 MMOL/L Calcium Level 7.2 L 8.5-10.1 MG/DL Corrected Calcium 8.4 L 8.5-10.1 MG/DL Phosphorus Level 3.2 2.3-4.7 MG/DL Magnesium Level 1.8 1.6-2.4 MG/DL Total Bilirubin 0.8 0.1-1.0 MG/DL Aspartate Amino Transf (AST/SGOT) 27 5-34 U/L Alanine Aminotransferase (ALT/SGPT) 11 0-55 U/L Alkaline Phosphatase 186 H 40-136 U/L Troponin I < 0.028 <0.028 NG/ML Total Protein 4.8 L 6.4-8.2 GM/DL Albumin 2.5 L 3.2-4.5 GM/DL Urine Color DARK YELLOW Urine Clarity SL CLOUDY Urine pH 7.0 5-9 Urine Specific [place] 1.015 L 1.016-1.022 Urine Protein 1+ H NEGATIVE Urine Glucose (UA) NEGATIVE NEGATIVE Urine Ketones NEGATIVE NEGATIVE Urine Nitrite POSITIVE H NEGATIVE Urine Bilirubin NEGATIVE NEGATIVE Urine Urobilinogen 2.0 < = 1.0 MG/DL Urine Leukocyte Esterase NEGATIVE NEGATIVE Urine RBC (Auto) NEGATIVE NEGATIVE Urine RBC NONE /HPF Urine WBC 0-2 /HPF Urine Squamous Epithelial Cells RARE /HPF Urine Crystals NONE /LPF Urine Bacteria NEGATIVE /HPF Urine Casts PRESENT /LPF Urine Hyaline Casts 0-2 H /LPF Urine Mucus SMALL H /LPF Urine Culture Indicated CULTURE PENDING My Orders Orders - ALBAFRANSISCO MCCALLUM J Cbc With Automated Diff (03/01/20 20:50) Comprehensive Metabolic Panel (03/01/20 20:50) Blood Culture (03/01/20 20:50) Sputum Culture (03/01/20 20:50) Urinalysis (03/01/20 20:50) Urine Culture (03/01/20 20:50) Protime With Inr (03/01/20 20:50) Partial Thromboplastin Time (03/01/20 20:50) Chest 1 View, Ap/Pa Only (03/01/20 20:50) Ed Iv/Invasive Line Start (03/01/20 20:50) Ed Iv/Invasive Line Start (03/01/20 20:50) Vital Signs Adult Sepsis Patie Q15M (03/01/20 20:50) O2 (03/01/20 20:50) Remove Rings In Anticipation O (03/01/20 20:50) Lactic Acid Analyzer (03/01/20 20:50) Lactated Ringers (Lr 1000 Ml Iv Solution (03/01/20 20:50) Ed Iv/Invasive Line Start (03/01/20 20:50) Magnesium (03/01/20 20:50) Phosphorus (03/01/20 20:50) Ekg Tracing (03/01/20 20:56) Continuous Ekg Monitoring (03/01/20 20:57) Ekg Tracing (03/01/20 20:57) Occult Blood Stool (03/01/20 21:01) Troponin I (03/01/20 21:01) Type And Screen (03/01/20 21:10) Vital Signs: Special (Order) (03/01/20 21:10) Consent-Obtain Consent For (03/01/20 21:10) Monitor S/S Transfusion Reacti (03/01/20 21:10) Ns Iv 500 Ml (Sodium Chloride 0.9%) (03/01/20 21:10) Red Cells Leukocytes Reduced (03/01/20 21:10) Piperacillin Sodium/Tazobactam (Zosyn Vi (03/01/20 21:45) Vancomycin Injection (Vancomycin Injecti (03/01/20 21:45) Vancomycin Injection (Vancomycin Injecti (03/01/20 22:45) Fentanyl Injection (Sublimaze Injection (03/01/20 22:00) Ketamine Syringe (Ed Only) (Ketamine Syr (03/01/20 22:00) Chest 1 View, Ap/Pa Only (03/01/20 ) Diltiazem Drip Pre-Mix (Cardizem Drip Pr (03/01/20 22:04) Diltiazem Drip Pre-Mix (Cardizem Drip Pr (03/01/20 22:15) Diltiazem Injection (Cardizem Injection) (03/01/20 22:30) Diltiazem Injection (Cardizem Injection) (03/01/20 22:12) Enoxaparin Injection (Lovenox Injection) (03/01/20 22:30) Norepinephrine 4 Mg/250 Ml (Norepinephri (03/01/20 22:37) Ns (Ivpb) (Sodium Chloride 0.9%) (03/01/20 22:57) Ct Abdomen/Pelvis W (03/02/20 00:01) Iohexol Injection (Omnipaque 350 Mg/Ml 1 (03/02/20 00:45) Received Contrast (Hold Metformin- Contr (03/02/20 00:45) Ns (Ivpb) (Sodium Chloride 0.9% Ivpb Bag (03/02/20 00:45) Medications Given in ED Current Medications Medications Dose Ordered Sig/Sofie Route Start Time Stop Time Status Last Admin Dose Admin Enoxaparin Sodium 60 mg ONCE ONCE SC 03/01/20 22:30 03/01/20 22:31 DC 03/01/20 23:27 60 MG Fentanyl Citrate 100 mcg ONCE ONCE IVP 03/01/20 22:00 03/01/20 22:01 DC 03/01/20 22:04 100 MCG Iohexol 100 ml ONCE ONCE IV 03/02/20 00:45 03/02/20 00:46 DC 03/02/20 00:47 73 ML Ketamine HCl 25 mg ONCE ONCE IV 03/01/20 22:00 03/01/20 22:01 DC 03/01/20 22:04 25 MG Lactated Ringer's 1,000 ml @ 0 mls/hr Q0M ONCE IV 03/01/20 20:50 03/01/20 20:52 DC 03/01/20 21:00 1,000 MLS/HR Norepinephrine Bitartrate 250 ml @ ud STK-MED ONCE IV 03/01/20 22:37 03/01/20 22:46 DC 03/01/20 22:55 43.5 MLS/HR Piperacillin Sod/ Tazobactam Sod 4.5 gm/Sodium Chloride 100 ml @ 200 mls/hr ONCE ONCE IV 03/01/20 21:45 03/01/20 22:14 DC 03/01/20 22:25 200 MLS/HR Sodium Chloride 100 ml ONCE ONCE IV 03/02/20 00:45 03/02/20 00:46 DC 03/02/20 00:48 80 ML Vancomycin HCl 500 mg/Sodium Chloride 100 ml @ 100 mls/hr ONCE ONCE IV 03/01/20 22:45 03/01/20 23:44 DC 03/02/20 00:03 100 MLS/HR Vancomycin HCl 750 mg/Sodium Chloride 100 ml @ 100 mls/hr ONCE ONCE IV 03/01/20 21:45 03/01/20 22:44 DC 03/01/20 23:58 100 MLS/HR Vital Signs/I&O 03/01/20 03/01/20 03/01/20 03/02/20 22:55 23:19 23:49 00:50 Temp 36.9 36.7 36.5 Pulse 101 95 103 110 Resp 22 20 18 B/P (MAP) 75/46 80/56 117/67 123/72 Pulse Ox 98 99 94 O2 Delivery OxyMask OxyMask OxyMask O2 Flow Rate 6.00 6.00 6.00 Progress Progress Note #1: Time: 20:59 Progress Note We'll give him a second liter fluids which would bring him up over 30 mL/kg for his presumed dehydration secondary to diarrhea. Black stools could be from blood or iron tablets. Plan to get a scan of his belly. We'll get a stool sample and send off for testing as well as fecal occult sample. Patient's blood pressure still in the 80s systolic on arrival and his tachycardia is meriting an EKG. Progress Note #2: Time: 21:15 Progress Note The patient is in atrial fibrillation. His tachycardia is likely due to dehydration and blood pressure has improved to 90-100 systolic however he needs more fluids. He is also anemic and we're going to give him a unit of blood to start. He is pancytopenic so we'll cover him with antibiotics. After fluid boluses if he still in the 130s to 140s tachycardic then we will initiate Cardizem. Progress Note #3: Time: 22:22 Progress Note Called to discuss initiating Oral anticoagulants with oncology and his oncologist is no longer available and there is no oncology on-call tonight. Plan to go ahead and initiate him on Lovenox since he's having diarrhea and oral absorption may be altered. Initial ECG Impression Date: March 01, 2020 Initial ECG Impression Time: 21:00 Initial ECG Rate: 138 Initial ECG Rhythm: A Fib/Flutter Initial ECG Intervals: QT (469) Initial ECG Impression: Atrial Fibrillation w/RVR Initial ECG Comparisson: Changed Comment Patient fibrillation with tachycardia without ST changes. Diagnostic Imaging Diagonstic Imaging: CT (with IV contrast) Plain Films/CT/US/NM/MRI: abdomen, pelvis Comments Large right lower lobe pulmonary consolidation. Small ascites. Anasarca. Right hydronephrosis with suspicion of stone on the right side of the urinary bladder. Reviewed: Reviewed by Me Diagonstic Imaging: Xray Plain Films/CT/US/NM/MRI: chest Comments Infiltrate right lower base Reviewed: Reviewed by Me Departure Communication (Admissions) Time/Spoke to Admitting Phy: 00:10 Discussed case lab imaging findings and plan with Dr. Grayson he agrees to admit the patient the ICU. Time/Spoke to Consulting Phy: 22:30 Discussed case lab findings with Dr. Leon he agrees with plan. Impression Primary Impression: Septic shock Additional Impressions: Atrial fibrillation with rapid ventricular response Urinary tract infection Qualified Codes: N30.01 - Acute cystitis with hematuria Colitis presumed to be due to infection Right ureteral stone Pneumonia Qualified Codes: J18.1 - Lobar pneumonia, unspecified organism Neutropenia Qualified Codes: D70.1 - Agranulocytosis secondary to cancer chemotherapy; T45.1X5A - Adverse effect of antineoplastic and immunosuppressive drugs, initial encounter History of malignant neoplasm of prostate Disposition: ADMITTED INPATIENT Condition: Critical Admissions Decision to Admit Reason: Admit from ER (General) Decision to Admit/Date: March 01, 2020 Time/Decision to Admit Time: 22:30 Departure-Patient Inst. Referrals: [facility] (PCP) Primary Care Physician NIRMAL HAQUE (Family) Primary Care Physician FRANSISCO WILLIS March 01, 2020 20:53
[2020-03-01 21:04] LABS: BASOPHILS % (AUTO) 0 % (0-10); EOSINOPHILS % (AUTO) 0 % (0-10); HEMATOCRIT 21 % (40-54); LYMPHOCYTES # (AUTO) 0.4 X 10^3 (1.0-4.0); LYMPHOCYTES % (AUTO) 51 % (12-44); MEAN CORPUSCULAR HEMOGLOBIN 29 PG (25-34); MEAN CORPUSCULAR HGB CONC 32 G/DL (32-36); MEAN CORPUSCULAR VOLUME 88 FL (80-99); MEAN PLATELET VOLUME 8.9 FL (7.4-10.4); MONOCYTES # (AUTO) 0.1 X 10^3 (0.0-1.0); MONOCYTES % (AUTO) 10 % (0-12); NEUTROPHILS # (AUTO) 0.3 X 10^3 (1.8-7.8); NEUTROPHILS % (AUTO) 39 % (42-75); PLATELET COUNT 149 10^3/uL (130-400)
[2020-03-01 21:05] LABS: HEMOGLOBIN 6.9 G/DL (13.3-17.7)
[2020-03-01 21:07] LABS: WHITE BLOOD COUNT 0.7 10^3/uL (4.3-11.0)
[2020-03-01] MEDS ORDERED: NS IV 500 ML 500 ML IV SCH (21:10)
[2020-03-01 21:19] LABS: INR 1.4 (0.8-1.4); PROTHROMBIN TIME PATIENT 17.5 SEC (12.2-14.7)
[2020-03-01 21:28] LABS: ALANINE AMINOTRANSFERASE 11 U/L (0-55); ALBUMIN 2.5 GM/DL (3.2-4.5); ALKALINE PHOSPHATASE 186 U/L (40-136); BILIRUBIN,TOTAL 0.8 MG/DL (0.1-1.0); BUN/CREATININE RATIO 32; CALCIUM 7.2 MG/DL (8.5-10.1); CARBON DIOXIDE 18 MMOL/L (21-32); CHLORIDE 96 MMOL/L (98-107); CREATININE SERUM 0.93 MG/DL (0.60-1.30); GFR ESTIMATED > 60; GLUCOSE 108 MG/DL (70-105); MAGNESIUM 1.8 MG/DL (1.6-2.4); PHOSPHORUS 3.2 MG/DL (2.3-4.7); POTASSIUM 3.3 MMOL/L (3.6-5.0); SODIUM 127 MMOL/L (135-145); TOTAL PROTEIN 4.8 GM/DL (6.4-8.2)
[2020-03-01] MEDS ORDERED: VANCOMYCIN INJECTION 750 MG in NS (IVPB) 100 ML IV ONE (21:45)
[2020-03-01] MEDS ORDERED: PIPERACILLIN SODIUM/TAZOBACTAM 4.5 GM in NS (IVPB) 100 ML IV ONE (21:45)
[2020-03-01] MEDS ORDERED: KETAMINE/NaCl 50 MG/5 ML SYRINGE (ED ONLY) IV ONE (22:00)
[2020-03-01] MEDS ORDERED: fentaNYL INJECTION 100 MCG/2 ML AMP IVP ONE (22:00)
[2020-03-01] MEDS ORDERED: dilTIAZem DRIP PRE-MIX 125 ML IV ONE (22:04)
--- NOTE | 2020-03-01 22:08 | NUR ---
PT CONSENTS TO CARDIOVERSION FOR A HEART RATE GREATER THAN 150 UNRESPONSIVE TO FLUIDS. PT PRETREATED WITH KETAMINE AND FENTANYL PRE PROCEDURE FOR PAIN, CARDIOVERTED WITH 120J. HEART RATE NOW 108 VS. 155 BPM.
[2020-03-01] MEDS ORDERED: dilTIAZem DRIP PRE-MIX 125 ML IV SCH (22:15)
[2020-03-01] MEDS ORDERED: ENOXAPARIN 60 MG/0.6 ML (LOVENOX) SYR SC ONE (22:30)
[2020-03-01 22:32] LABS: BILIRUBIN,URINE NEGATIVE (NEGATIVE); CLARITY,URINE SL CLOUDY; COLOR,URINE DARK YELLOW; GLUCOSE, URINE (UA) NEGATIVE (NEGATIVE); KETONES,URINE NEGATIVE (NEGATIVE); LEUKOCYTE ESTERASE ,URINE NEGATIVE (NEGATIVE); NITRITE,URINE POSITIVE (NEGATIVE); PROTEIN,URINE 1+ (NEGATIVE)
[2020-03-01] MEDS ORDERED: NOREPINEPHRINE 4 MG/250 ML 250 ML IV ONE (22:37)
[2020-03-01] MEDS ORDERED: VANCOMYCIN INJECTION 500 MG in NS (IVPB) 100 ML IV ONE (22:45)
[2020-03-01 22:46] LABS: BACTERIA,URINE NEGATIVE /HPF; HYALINE CASTS, URINE 0-2 /LPF; SQUAMOUS EPITHELIAL CELL,UR RARE /HPF; WBC,URINE 0-2 /HPF
[2020-03-01] MEDS ORDERED: NS (IVPB) 250 ML ONE (22:57)
[2020-03-01 23:19] VITALS: BP 80/56
[2020-03-01 23:49] VITALS: BP 117/67
[2020-03-02] VITALS (32 sets, daily range): BP systolic 91–123; BP diastolic 53–77
--- NOTE | 2020-03-02 00:40 | NUR ---
PT RETURNS FROM CT DEPT IN STABLE CONDITION
[2020-03-02] MEDS ORDERED: NS 100 ML (IVPB) BAG IV ONE (00:45)
[2020-03-02] MEDS ORDERED: IOHEXOL 350 MG/ML 100 ML (OMNIPAQUE 350) VIAL IV ONE (00:45)
[2020-03-02] MEDS ORDERED: HOLD METFORMIN - RECEIVED CONTRAST 20 ML VIAL IV SCH (00:45)
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
--- OUTSIDE RECORDS SUMMARY | 2020-03-02 01:57 | XMS REPORT | Continuity of Care Document ---
Author Organization Unknown Address Unknown Phone Unavailable Allergies Active Description Code Type Severity Reaction Onset Reported/Identified Relationship to Patient Clinical Status Yes No Known Drug Allergies [id number] Drug Allergy Unknown N/A 12/03/2019 Medications There [...] AVALOS MD, Ot M86.371 01/19/2016 NIRMAL AVALOS MD Ot M86.372 01/29/2016 BAILEY DUARTE, NIRMAL Cleary [...] 12/07/2019 NAI BERNARD MD Ot R64 CACHEXIA 12/17/2019 WINSTON JIMÉNEZ APRN Ot C61 MALIGNANT NEOPLASM OF PROSTATE 12/17/2019 WINSTON JIMÉNEZ APRN Ot R33 .9 RETENTION OF URINE, UNSPECIFIED 12/27/2019 MARIA FERNANDA BABIN MD Ot C61 MALIGNANT NEOPLASM OF PROSTATE 12/27/2019 MARIA FERNANDA BABIN MD Ot 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0 URINARY TRACT INFECTION, SITE NOT SPECIF 01/06/2020 JESSICA YING MD Ot R63 .0 ANOREXIA 01/06/2020 JESSICA YING MD Ot R63 .4 ABNORMAL WEIGHT LOSS 01/06/2020 JESSICA YING MD Ot R64 CACHEXIA 01/06/2020 JESSICA YING MD Ot Z87.891 PERSONAL HISTORY OF NICOTINE DEPENDENCE 01/07/2020 JESSICA YING MD Ot A41 .9 SEPSIS, UNSPECIFIED ORGANISM 01/07/2020 JESSICA YING MD Ot B96 .1 KLEBSIELLA PNEUMONIAE THE CAUSE OF DI 01/07/2020 JESSICA YING MD Ot C61 MALIGNANT NEOPLASM OF PROSTATE 01/07/2020 JESSICA YING MD Ot 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 01/07/2020 JESSICA YING MD Ot 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 01/07/2020 JESSICA YING MD Ot C79.51 SECONDARY MALIGNANT NEOPLASM OF BONE 01/07/2020 JESSICA YING MD Ot D50 .0 IRON DEFICIENCY ANEMIA SECONDARY TO BLOO 01/07/2020 JESSICA YING MD Ot D61.82 MYELOPHTHISIS 01/07/2020 JESSICA YING MD Ot D63 .0 ANEMIA IN NEOPLASTIC DISEASE 01/07/2020 JESSICA YING MD Ot E86 .0 DEHYDRATION 01/07/2020 JESSICA YING MD Ot E87 .1 HYPO-OSMOLALITY AND HYPONATREMIA 01/07/2020 JESSICA YING MD Ot F32 .9 MAJOR DEPRESSIVE DISORDER, SINGLE EPISOD 01/07/2020 JESSICA YING MD Ot F41 .9 ANXIETY DISORDER, UNSPECIFIED 01/07/2020 JESSICA YING MD Ot I12 .9 HYPERTENSIVE CHRONIC KIDNEY DISEASE W ST 01/07/2020 JESSICA YING MD Ot K92 .2 GASTROINTESTINAL HEMORRHAGE, UNSPECIFIED 01/07/2020 JESSICA YING MD Ot N13 .8 OTHER OBSTRUCTIVE AND REFLUX UROPATHY 01/07/2020 JESSICA YING MD Ot N18 .9 CHRONIC KIDNEY DISEASE, UNSPECIFIED 01/07/2020 JESSICA YING MD Ot N39 .0 URINARY TRACT INFECTION, SITE NOT SPECIF 01/07/2020 JESSICA YING MD Ot R63 .0 ANOREXIA 01/07/2020 JESSICA YING MD Ot R64 CACHEXIA 01/07/2020 JESSICA YING MD Ot Z66 DO NOT RESUSCITATE 01/07/2020 JESSICA YING MD Ot Z87.891 PERSONAL HISTORY OF NICOTINE DEPENDENCE 01/23/2020 BOBBY RICHARDS MD Ot C61 MALIGNANT NEOPLASM OF PROSTATE 01/23/2020 BOBBY RICHARDS MD Ot C79.51 SECONDARY MALIGNANT NEOPLASM OF BONE 01/30/2020 MARIA FERNANDA BABIN MD Ot C61 MALIGNANT NEOPLASM OF PROSTATE 01/30/2020 MARIA FERNANDA BABIN MD Ot 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 9 ANEMIA, UNSPECIFIED 02/13/2020 BOBBY RICHARDS MD Ot C61 MALIGNANT NEOPLASM OF PROSTATE 02/13/2020 BOBBY RICHARDS MD Ot C79.51 SECONDARY MALIGNANT NEOPLASM OF BONE 02/20/2020 BOBBY RICHARDS MD Ot C61 MALIGNANT NEOPLASM OF PROSTATE 02/20/2020 BOBBY RICHARDS MD, Ot C79.51 SECONDARY MALIGNANT NEOPLASM OF BONE Procedures Code Description [place] [address] LESI ON DESTRUCTION 1-14 (BENIGN) 10/10/2012 [id number] EX TRACTION OF ILIAC BONE MARROW, PERC [...] Pathologist review of blood test by scooby rodriguez - 12/03/19 16:38 Blood leukocytes automated count [...] 16:38 Serum or plasma ferritin measurement (mass/volume) 84205.3 % 32.0-356.0 Serum iron and total iron [...] RED CELLS LEUKO REDUCED AS1 T RANSFUSED 12/03/19 2007 NRG Blood type T Indirect antibody screen pa davide - 12/03/19 17:01 WRISTBAND NUMBER [id number] NRG ABO+Rh group AP NRG Blood group [...] Non-Reactive Serum hepatitis C virus antibody detection Non-[place] ctive Non-Reactive VITAMIN B 12 - 12/05/19 [...] g/dL 3.2-4.5 CALCIUM CORRECTED 9.5 mg/dL 8.5-10.1 RED CELLS LEUKO REDUCED AS1 - 12/13/19 1 0:30 RED CELLS LEUKO REDUCED AS1 P RSMD TRFSD 12/13/19 1137 NRG Blood type T Indirect antibody screen pa davide - 12/13/19 10:30 WRISTBAND NUMBER [id number] NRG ABO+Rh group AP NRG Blood group antibody screen NEGATIVE NR G Complete urinalysis with reflex to cultu re - 12/17/19 15:55 Urine color determination YELLOW NRG Urine clarity determination SL CLOUDY N RG Urine pH measurement by test strip 6.5 5-9 Specific gravity of urine by test strip 1.015 1.016-1.022 Urine protein assay by test strip, semi-quantitative NEGATIVE NEGATIVE Urine glucose detection by automated test strip NE GATIVE NEGATIVE Erythrocytes detection in urine sediment by light micr oscopy NEGATIVE NEGATIVE Urine ketones detection by automated test strip NE GATIVE NEGATIVE Urine nitrite detection by test strip NEGATIVE NEGATIVE Urine total bilirubin detection by test strip NEGA TIVE NEGATIVE Urine urobilinogen measurement by automated test strip (mass/volume) 0.2 mg/dL < = 1.0 Urine leukocyte esterase detection by dipstick NEG ATIVE NEGATIVE Automated urine sediment erythrocyte cou nt by microscopy (number/high power field) RARE NRG Automated urine sediment leukocyte count by microscopy (number/high power field) RARE NRG Bacteria detection in urine sediment by light microsco py TRACE NRG Crystals detection in urine sediment by light microsco py NONE NRG Casts detection in urine sediment by light microscopy NONE NRG Mucus detection in urine sediment by light microscopy NEGATIVE NRG Complete urinalysis with reflex to culture NO NRG Complete blood count (CBC) with automate d white blood cell (WBC) differential - 01/02/20 12:09 Blood leukocytes automated count (number/volume) 10.9 10*3/uL 4.3-11.0 Blood erythrocytes automated count (number/volume) 2.40 10*6/uL 4.35-5.85 Venous blood hemoglobin measurement (mass/volume) 7.0 g/dL 13.3-17.7 Blood hematocrit (volume fraction) 22 % 40-54 Automated erythrocyte mean corpuscular volume 90 [ foz_us] 80-99 Automated erythrocyte mean corpuscular h emoglobin (mass per erythrocyte) 29 pg 25-34 Automated erythrocyte mean corpuscular h emoglobin concentration measurement (mass/volume) 32 g/dL 32-36 Automated erythrocyte distribution width ratio 19. 8 % 10.0- 14.5 Automated blood platelet count (count/volume) 120 10*3/uL 130-400 Automated blood platelet mean volume measurement 9.5 [foz_us] 7.4-10.4 Automated blood neutrophils/100 leukocytes 70 % 42-75 Automated blood lymphocytes/100 leukocytes 19 % 12-44 Blood monocytes/100 leukocytes 9 % 0-12 Automated blood eosinophils/100 leukocytes 1 % 0-10 Automated blood basophils/100 leukocytes 1 % 0-10 Blood neutrophils automated count (number/volume) 7.6 10*3 1.8-7.8 Blood lymphocytes automated count (number/volume) 2.1 10*3 1.0-4.0 Blood monocytes automated count (number/volume) 1. 0 10*3 0.0-1.0 Automated eosinophil count 0.1 10*3/uL 0 .0-0.3 Automated blood basophil count (count/volume) 0.2 10*3/uL 0.0-0.1 Blood lactic acid measurement (moles/vol ume) - 01/02/20 12:09 Blood lactic acid measurement (moles/volume) 1.12 mmol/L 0.50-2.00 Comprehensive metabolic panel - 01/02/20 12:09 Serum or plasma sodium measurement (moles/volume) 128 mmol/L 135-145 Serum or plasma potassium measurement (moles/volume) 4.3 mmol/L 3.6-5.0 Serum or plasma chloride measurement (moles/volume) 96 mmol/L 98-107 Carbon dioxide 24 mmol/L 21-32 Serum or plasma anion gap determination (moles/volume) 8 mmol/L 5-14 Serum or plasma urea nitrogen measurement (mass/volume ) 28 mg/dL 7-18 Serum or plasma creatinine measurement (mass/volume) 0.92 mg/dL 0.60-1.30 Serum or plasma urea nitrogen/creatinine mass ratio 30 NRG Serum or plasma creatinine measurement w ith calculation of estimated glomerular filtration rate > NRG Serum or plasma glucose measurement (mass/volume) 103 mg/dL 70-105 Serum or plasma calcium measurement (mass/volume) 8.4 mg/dL 8.5-10.1 Serum or plasma total bilirubin measurement (mass/volu me) 1.4 mg/dL 0.1-1.0 Serum or plasma alkaline phosphatase zainab surement (enzymatic activity/volume) 551 U/L 40-136 Serum or plasma aspartate aminotransfera se measurement (enzymatic activity/volume) 1421 U/L 5-34 Serum or plasma alanine aminotransferase measurement (enzymatic activity/volume) 27 U/L 0-55 Serum or plasma protein measurement (mass/volume) 6.1 g/dL 6.4-8.2 Serum or plasma albumin measurement (mass/volume) 3.5 g/dL 3.2-4.5 CALCIUM CORRECTED 8.8 mg/dL 8.5-10.1 Serum or plasma troponin i.cardiac measu rement (mass/volume) - 01/02/20 12:09 Serum or plasma troponin i.cardiac measurement (mass/v olume) < ng/mL <0.028 Serum or plasma lithium measurement (mol es/volume) - 01/02/20 12:09 BNP PT 82.5 pg/mL <100.0 Bacterial blood culture - 01/02/20 12:09 Bacterial blood culture NG NRG Complete urinalysis with reflex to cultu re - 01/02/20 12:34 Urine color determination YELLOW NRG Urine clarity determination CLOUDY NR G Urine pH measurement by test strip 6.0 5-9 Specific gravity of urine by test strip 1.015 1.016-1.022 Urine protein assay by test strip, semi-quantitative 2+ NEGATIVE Urine glucose detection by automated test strip NE GATIVE NEGATIVE Erythrocytes detection in urine sediment by light micr oscopy 1+ NEGATIVE Urine ketones detection by automated test strip NE GATIVE NEGATIVE Urine nitrite detection by test strip NEGATIVE NEGATIVE Urine total bilirubin detection by test strip NEGA TIVE NEGATIVE Urine urobilinogen measurement by automated test strip (mass/volume) 4.0 mg/dL < = 1.0 Urine leukocyte esterase detection by dipstick 2+ NEGATIVE Automated urine sediment erythrocyte cou nt by microscopy (number/high power field) NONE NRG Automated urine sediment leukocyte count by microscopy (number/high power field) [HPF] NRG Bacteria detection in urine sediment by light microsco py LARGE NRG Squamous epithelial cells detection in u rine sediment by light microscopy NONE NRG Crystals detection in urine sediment by light microsco py NONE NRG Casts detection in urine sediment by light microscopy NONE NRG Mucus detection in urine sediment by light microscopy NEGATIVE NRG Complete urinalysis with reflex to culture YES NRG Bacterial urine culture - 01/02/20 12:34 Bacterial urine culture [id number] NRG COLONY COUNT >100,000/ML NRG SUSCEPTIBILITY SUSCEPTIBILITY REPORTED 01-04-20,140 3 NRG RAPID ID PRELIM RAPID ID TEST AT [facility] 01/02 06:55 NRG ID CONFIRMATION RML CONFIRMED ID 01/02 14:05 NRG Dirithromycin susceptibility test by dis k diffusion - 01/02/20 12:34 Gentamicin susceptibility test by minimum inhibitory c oncentration <= NRG Trimethoprim/sulfamethoxazole susceptibi lity test by minimum inhibitoryconcentration <= NRG Levofloxacin susceptibility test by minimum inhibitory concentration <= NRG Ampicillin susceptibility test by minimum inhibitory c oncentration > NRG Cefazolin susceptibility test by minimum inhibitory co ncentration <= NRG Ceftriaxone susceptibility test by minimum inhibitory concentration <= NRG Ciprofloxacin susceptibility test by minimum inhibitor y concentration <= NRG Meropenem susceptibility test by minimum inhibitory co ncentration <= NRG Nitrofurantoin susceptibility test by mi nimum inhibitory concentration 64 NRG Amoxicillin and clavulanate potassium susc SANDRA <= NRG Streptococcus pyogenes antigen detection - 01/02/20 12:35 Streptococcus pyogenes antigen detection NEGATIVE NEGATIVE Influenza virus A and B antigen detectio n - 01/02/20 12:35 FLU RESULT NEGATIVE FOR INFLUENZA A AND B ANTIGENS BY IA NRG Bacterial throat culture - 01/02/20 12:3 5 Bacterial throat culture NBS NRG Bacterial blood culture - 01/02/20 12:35 Bacterial blood culture NG NRG RED CELLS LEUKO REDUCED AS1 - 01/02/20 1 2:40 RED CELLS LEUKO REDUCED AS1 T RANSFUSED 01/02/20 1528 NRG Blood type T Indirect antibody screen pa davide - 01/02/20 12:40 WRISTBAND NUMBER [id number] NRG ABO+Rh group AP NRG Blood group antibody screen NEGATIVE NR G Complete blood count (CBC) with automate d white blood cell (WBC) differential - 01/03/20 05:56 Blood leukocytes automated count (number/volume) 6.7 10*3/uL 4.3-11.0 Blood erythrocytes automated count (number/volume) 2.50 10*6/uL 4.35-5.85 Venous blood hemoglobin measurement (mass/volume) 7.0 g/dL 13.3-17.7 Blood hematocrit (volume fraction) 22 % 40-54 Automated erythrocyte mean corpuscular volume 89 [ foz_us] 80-99 Automated erythrocyte mean corpuscular h emoglobin (mass per erythrocyte) 28 pg 25-34 Automated erythrocyte mean corpuscular h emoglobin concentration measurement (mass/volume) 32 g/dL 32-36 Automated erythrocyte distribution width ratio 18. 6 % 10.0- 14.5 Automated blood platelet count (count/volume) 110 10*3/uL 130-400 Automated blood platelet mean volume measurement 10.3 [foz_us] 7.4-10.4 Automated blood neutrophils/100 leukocytes 76 % 42-75 Automated blood lymphocytes/100 leukocytes 13 % 12-44 Blood monocytes/100 leukocytes 10 % 0-12 Automated blood eosinophils/100 leukocytes 1 % 0-10 Automated blood basophils/100 leukocytes 0 % 0-10 Blood neutrophils automated count (number/volume) 5.1 10*3 1.8-7.8 Blood lymphocytes automated count (number/volume) 0.9 10*3 1.0-4.0 Blood monocytes automated count (number/volume) 0. 7 10*3 0.0-1.0 Automated eosinophil count 0.1 10*3/uL 0 .0-0.3 Automated blood basophil count (count/volume) 0.0 10*3/uL 0.0-0.1 Comprehensive metabolic panel - 01/03/20 05:56 Serum or plasma sodium measurement (moles/volume) 131 mmol/L 135-145 Serum or plasma potassium measurement (moles/volume) 3.6 mmol/L 3.6-5.0 Serum or plasma chloride measurement (moles/volume) 99 mmol/L 98-107 Carbon dioxide 19 mmol/L 21-32 Serum or plasma anion gap determination (moles/volume) 13 mmol/L 5-14 Serum or plasma urea nitrogen measurement (mass/volume ) 25 mg/dL 7-18 Serum or plasma creatinine measurement (mass/volume) 0.79 mg/dL 0.60-1.30 Serum or plasma urea nitrogen/creatinine mass ratio 32 NRG Serum or plasma creatinine measurement w ith calculation of estimated glomerular filtration rate > NRG Serum or plasma glucose measurement (mass/volume) 84 mg/dL 70-105 Serum or plasma calcium measurement (mass/volume) 8.0 mg/dL 8.5-10.1 Serum or plasma total bilirubin measurement (mass/volu me) 1.2 mg/dL 0.1-1.0 Serum or plasma alkaline phosphatase zainab surement (enzymatic activity/volume) 426 U/L 40-136 Serum or plasma aspartate aminotransfera se measurement (enzymatic activity/volume) 94 U/L 5-34 Serum or plasma alanine aminotransferase measurement (enzymatic activity/volume) 12 U/L 0-55 Serum or plasma protein measurement (mass/volume) 5.2 g/dL 6.4-8.2 Serum or plasma albumin measurement (mass/volume) 2.9 g/dL 3.2-4.5 CALCIUM CORRECTED 8.9 mg/dL 8.5-10.1 Complete blood count (CBC) with automate d white blood cell (WBC) differential - 01/04/20 03:54 Blood leukocytes automated count (number/volume) 5.7 10*3/uL 4.3-11.0 Blood erythrocytes automated count (number/volume) 2.31 10*6/uL 4.35-5.85 Venous blood hemoglobin measurement (mass/volume) 6.7 g/dL 13.3-17.7 Blood hematocrit (volume fraction) 21 % 40-54 Automated erythrocyte mean corpuscular volume 90 [ foz_us] 80-99 Automated erythrocyte mean corpuscular h emoglobin (mass per erythrocyte) 29 pg 25-34 Automated erythrocyte mean corpuscular h emoglobin concentration measurement (mass/volume) 32 g/dL 32-36 Automated erythrocyte distribution width ratio 18. 4 % 10.0- 14.5 Automated blood platelet count (count/volume) 97 1 0*3/uL 130-400 Automated blood platelet mean volume measurement 9.0 [foz_us] 7.4-10.4 Automated blood neutrophils/100 leukocytes 70 % 42-75 Automated blood lymphocytes/100 leukocytes 19 % 12-44 Blood monocytes/100 leukocytes 9 % 0-12 Automated blood eosinophils/100 leukocytes 2 % 0-10 Automated blood basophils/100 leukocytes 0 % 0-10 Blood neutrophils automated count (number/volume) 4.0 10*3 1.8-7.8 Blood lymphocytes automated count (number/volume) 1.1 10*3 1.0-4.0 Blood monocytes automated count (number/volume) 0. 5 10*3 0.0-1.0 Automated eosinophil count 0.1 10*3/uL 0 .0-0.3 Automated blood basophil count (count/volume) 0.0 10*3/uL 0.0-0.1 Comprehensive metabolic panel - 01/04/20 03:59 Serum or plasma sodium measurement (moles/volume) 129 mmol/L 135-145 Serum or plasma potassium measurement (moles/volume) 3.5 mmol/L 3.6-5.0 Serum or plasma chloride measurement (moles/volume) 100 mmol/L 98-107 Carbon dioxide 19 mmol/L 21-32 Serum or plasma anion gap determination (moles/volume) 10 mmol/L 5-14 Serum or plasma urea nitrogen measurement (mass/volume ) 21 mg/dL 7-18 Serum or plasma creatinine measurement (mass/volume) 0.76 mg/dL 0.60-1.30 Serum or plasma urea nitrogen/creatinine mass ratio 28 NRG Serum or plasma creatinine measurement w ith calculation of estimated glomerular filtration rate > NRG Serum or plasma glucose measurement (mass/volume) 108 mg/dL 70-105 Serum or plasma calcium measurement (mass/volume) 7.6 mg/dL 8.5-10.1 Serum or plasma total bilirubin measurement (mass/volu me) 0.6 mg/dL 0.1-1.0 Serum or plasma alkaline phosphatase zainab surement (enzymatic activity/volume) 293 U/L 40-136 Serum or plasma aspartate aminotransfera se measurement (enzymatic activity/volume) 27 U/L 5-34 Serum or plasma alanine aminotransferase measurement (enzymatic activity/volume) 13 U/L 0-55 Serum or plasma protein measurement (mass/volume) 4.8 g/dL 6.4-8.2 Serum or plasma albumin measurement (mass/volume) 2.7 g/dL 3.2-4.5 CALCIUM CORRECTED 8.6 mg/dL 8.5-10.1 Complete blood count (CBC) with automate d white blood cell (WBC) differential - 01/05/20 04:25 Blood leukocytes automated count (number/volume) 5.0 10*3/uL 4.3-11.0 Blood erythrocytes automated count (number/volume) 2.30 10*6/uL 4.35-5.85 Venous blood hemoglobin measurement (mass/volume) 6.6 g/dL 13.3-17.7 Blood hematocrit (volume fraction) 21 % 40-54 Automated erythrocyte mean corpuscular volume 90 [ foz_us] 80-99 Automated erythrocyte mean corpuscular h emoglobin (mass per erythrocyte) 29 pg 25-34 Automated erythrocyte mean corpuscular h emoglobin concentration measurement (mass/volume) 32 g/dL 32-36 Automated erythrocyte distribution width ratio 18. 6 % 10.0- 14.5 Automated blood platelet count (count/volume) 108 10*3/uL 130-400 Automated blood platelet mean volume measurement 9.5 [foz_us] 7.4-10.4 Automated blood neutrophils/100 leukocytes 67 % 42-75 Automated blood lymphocytes/100 leukocytes 20 % 12-44 Blood monocytes/100 leukocytes 11 % 0-12 Automated blood eosinophils/100 leukocytes 2 % 0-10 Automated blood basophils/100 leukocytes 1 % 0-10 Blood neutrophils automated count (number/volume) 3.3 10*3 1.8-7.8 Blood lymphocytes automated count (number/volume) 1.0 10*3 1.0-4.0 Blood monocytes automated count (number/volume) 0. 5 10*3 0.0-1.0 Automated eosinophil count 0.1 10*3/uL 0 .0-0.3 Automated blood basophil count (count/volume) 0.0 10*3/uL 0.0-0.1 Comprehensive metabolic panel - 01/05/20 04:25 Serum or plasma sodium measurement (moles/volume) 134 mmol/L 135-145 Serum or plasma potassium measurement (moles/volume) 3.8 mmol/L 3.6-5.0 Serum or plasma chloride measurement (moles/volume) 103 mmol/L 98-107 Carbon dioxide 21 mmol/L 21-32 Serum or plasma anion gap determination (moles/volume) 10 mmol/L 5-14 Serum or plasma urea nitrogen measurement (mass/volume ) 18 mg/dL 7-18 Serum or plasma creatinine measurement (mass/volume) 0.70 mg/dL 0.60-1.30 Serum or plasma urea nitrogen/creatinine mass ratio 26 NRG Serum or plasma creatinine measurement w ith calculation of estimated glomerular filtration rate > NRG Serum or plasma glucose measurement (mass/volume) 96 mg/dL 70-105 Serum or plasma calcium measurement (mass/volume) 8.0 mg/dL 8.5-10.1 Serum or plasma total bilirubin measurement (mass/volu me) 0.5 mg/dL 0.1-1.0 Serum or plasma alkaline phosphatase zainab surement (enzymatic activity/volume) 267 U/L 40-136 Serum or plasma aspartate aminotransfera se measurement (enzymatic activity/volume) 20 U/L 5-34 Serum or plasma alanine aminotransferase measurement (enzymatic activity/volume) 9 U/L 0-55 Serum or plasma protein measurement (mass/volume) 5.0 g/dL 6.4-8.2 Serum or plasma albumin measurement (mass/volume) 2.7 g/dL 3.2-4.5 CALCIUM CORRECTED 9.0 mg/dL 8.5-10.1 OCCULT BLOOD STOOL - 01/05/20 08:50 Stool gastrointestinal hemoglobin detection POSITI VE NEGATIVE [id number] - 01/06/20 09:08 [id number] SPECIMEN AVAILABLE [facility] Complete blood count (CBC) with automate d white blood cell (WBC) differential - 01/06/20 09:08 Blood leukocytes automated count (number/volume) 6.3 10*3/uL 4.3-11.0 Blood erythrocytes automated count (number/volume) 2.97 10*6/uL 4.35-5.85 Venous blood hemoglobin measurement (mass/volume) 8.5 g/dL 13.3-17.7 Blood hematocrit (volume fraction) 27 % 40-54 Automated erythrocyte mean corpuscular volume 91 [ foz_us] 80-99 Automated erythrocyte mean corpuscular h emoglobin (mass per erythrocyte) 29 pg 25-34 Automated erythrocyte mean corpuscular h emoglobin concentration measurement (mass/volume) 32 g/dL 32-36 Automated erythrocyte distribution width ratio 18. 2 % 10.0- 14.5 Automated blood platelet count (count/volume) 156 10*3/uL 130-400 Automated blood platelet mean volume measurement 9.7 [foz_us] 7.4-10.4 Automated blood neutrophils/100 leukocytes 73 % 42-75 Automated blood lymphocytes/100 leukocytes 18 % 12-44 Blood monocytes/100 leukocytes 8 % 0-12 Automated blood eosinophils/100 leukocytes 1 % 0-10 Automated blood basophils/100 leukocytes 1 % 0-10 Blood neutrophils automated count (number/volume) 4.6 10*3 1.8-7.8 Blood lymphocytes automated count (number/volume) 1.1 10*3 1.0-4.0 Blood monocytes automated count (number/volume) 0. 5 10*3 0.0-1.0 Automated eosinophil count 0.1 10*3/uL 0 .0-0.3 Automated blood basophil count (count/volume) 0.0 10*3/uL 0.0-0.1 Manual absolute plasma cell count - 12/09 09:08 Blood monocytes/100 leukocytes 5 % NRG Manual blood segmented neutrophils/100 leukocytes 54 % NRG Blood band neutrophils/100 leukocytes 12 % NRG Manual blood lymphocytes/100 leukocytes 19 % NRG Manual eosinophils/100 leukocytes in nose 1 % NRG Manual blood basophils/100 leukocytes 0 % NRG Blood anisocytosis detection by light microscopy S LIGHT NRG Manual blood metamyelocytes/100 leukocytes 2 % NRG Blood poikilocytosis detection by light microscopy SLIGHT NRG Manual blood myelocytes/100 leukocytes 7 % NRG Whole blood basic metabolic panel - 12/09 09:08 Serum or plasma sodium measurement (moles/volume) 135 mmol/L 135-145 Serum or plasma potassium measurement (moles/volume) 3.0 mmol/L 3.6-5.0 Serum or plasma chloride measurement (moles/volume) 98 mmol/L 98-107 Carbon dioxide 24 mmol/L 21-32 Serum or plasma anion gap determination (moles/volume) 13 mmol/L 5-14 Serum or plasma urea nitrogen measurement (mass/volume ) 13 mg/dL 7-18 Serum or plasma creatinine measurement (mass/volume) 0.78 mg/dL 0.60-1.30 Serum or plasma urea nitrogen/creatinine mass ratio 17 NRG Serum or plasma creatinine measurement w ith calculation of estimated glomerular filtration rate > NRG Serum or plasma glucose measurement (mass/volume) 131 mg/dL 70-105 Serum or plasma calcium measurement (mass/volume) 8.8 mg/dL 8.5-10.1 Serum iron and total iron binding capaci ty panel - 01/06/20 09:08 TIBC 190 % 280-380 UIBC 162 % 55-450 Serum or plasma iron measurement (mass/volume) 28 % 40-180 Total iron binding capacity and transferrin saturation measurement 15 % 15-50 Serum or plasma ferritin measurement (mass/volume) 6383.4 % 32.0-356.0 Automated blood complete blood count (he mogram) panel - 01/07/20 05:30 Blood leukocytes automated count (number/volume) 6.6 10*3/uL 4.3-11.0 Blood erythrocytes automated count (number/volume) 2.33 10*6/uL 4.35-5.85 Venous blood hemoglobin measurement (mass/volume) 6.8 g/dL 13.3-17.7 Blood hematocrit (volume fraction) 21 % 40-54 Automated erythrocyte mean corpuscular volume 91 [ foz_us] 80-99 Automated erythrocyte mean corpuscular h emoglobin (mass per erythrocyte) 29 pg 25-34 Automated erythrocyte mean corpuscular h emoglobin concentration measurement (mass/volume) 32 g/dL 32-36 Automated erythrocyte distribution width ratio 18. 4 % 10.0- 14.5 Automated blood platelet count (count/volume) 139 10*3/uL 130-400 Automated blood platelet mean volume measurement 9.0 [foz_us] 7.4-10.4 Whole blood basic metabolic panel - 12/09 10/28 05:30 Serum or plasma sodium measurement (moles/volume) 133 mmol/L 135-145 Serum or plasma potassium measurement (moles/volume) 4.0 mmol/L 3.6-5.0 Serum or plasma chloride measurement (moles/volume) 99 mmol/L 98-107 Carbon dioxide 22 mmol/L 21-32 Serum or plasma anion gap determination (moles/volume) 12 mmol/L 5-14 Serum or plasma urea nitrogen measurement (mass/volume ) 14 mg/dL 7-18 Serum or plasma creatinine measurement (mass/volume) 0.73 mg/dL 0.60-1.30 Serum or plasma urea nitrogen/creatinine mass ratio 19 NRG Serum or plasma creatinine measurement w ith calculation of estimated glomerular filtration rate > NRG Serum or plasma glucose measurement (mass/volume) 107 mg/dL 70-105 Serum or plasma calcium measurement (mass/volume) 8.4 mg/dL 8.5-10.1 Complete blood count (CBC) with automate d white blood cell (WBC) differential - 01/07/20 11:00 Blood leukocytes automated count (number/volume) 7.3 10*3/uL 4.3-11.0 Blood erythrocytes automated count (number/volume) 2.41 10*6/uL 4.35-5.85 Venous blood hemoglobin measurement (mass/volume) 7.0 g/dL 13.3-17.7 Blood hematocrit (volume fraction) 22 % 40-54 Automated erythrocyte mean corpuscular volume 91 [ foz_us] 80-99 Automated erythrocyte mean corpuscular h emoglobin (mass per erythrocyte) 29 pg 25-34 Automated erythrocyte mean corpuscular h emoglobin concentration measurement (mass/volume) 32 g/dL 32-36 Automated erythrocyte distribution width ratio 18. 5 % 10.0- 14.5 Automated blood platelet count (count/volume) 147 10*3/uL 130-400 Automated blood platelet mean volume measurement 9.2 [foz_us] 7.4-10.4 Automated blood neutrophils/100 leukocytes 65 % 42-75 Automated blood lymphocytes/100 leukocytes 20 % 12-44 Blood monocytes/100 leukocytes 12 % 0-12 Automated blood eosinophils/100 leukocytes 1 % 0-10 Automated blood basophils/100 leukocytes 1 % 0-10 Blood neutrophils automated count (number/volume) 4.8 10*3 1.8-7.8 Blood lymphocytes automated count (number/volume) 1.5 10*3 1.0-4.0 Blood monocytes automated count (number/volume) 0. 9 10*3 0.0-1.0 Automated eosinophil count 0.1 10*3/uL 0 .0-0.3 Automated blood basophil count (count/volume) 0.1 10*3/uL 0.0-0.1 Blood blood smear finding identification by light micr oscopy YES NRG Complete blood count (CBC) with automate d white blood cell (WBC) differential - 01/22/20 11:30 Blood leukocytes automated count (number/volume) 5.4 10*3/uL 4.3-11.0 Blood erythrocytes automated count (number/volume) 2.65 10*6/uL 4.35-5.85 Venous blood hemoglobin measurement (mass/volume) 7.7 g/dL 13.3-17.7 Blood hematocrit (volume fraction) 25 % 40-54 Automated erythrocyte mean corpuscular volume 94 [ foz_us] 80-99 Automated erythrocyte mean corpuscular h emoglobin (mass per erythrocyte) 29 pg 25-34 Automated erythrocyte mean corpuscular h emoglobin concentration measurement (mass/volume) 31 g/dL 32-36 Automated erythrocyte distribution width ratio 19. 2 % 10.0- 14.5 Automated blood platelet count (count/volume) 169 10*3/uL 130-400 Automated blood platelet mean volume measurement 10.6 [foz_us] 7.4-10.4 Automated blood neutrophils/100 leukocytes 44 % 42-75 Automated blood lymphocytes/100 leukocytes 26 % 12-44 Blood monocytes/100 leukocytes 16 % 0-12 Automated blood eosinophils/100 leukocytes 1 % 0-10 Automated blood basophils/100 leukocytes 1 % 0-10 Blood neutrophils automated count (number/volume) 2.4 10*3 1.8-7.8 Blood lymphocytes automated count (number/volume) 1.4 10*3 1.0-4.0 Blood monocytes automated count (number/volume) 0. 9 10*3 0.0-1.0 Automated eosinophil count 0.1 10*3/uL 0 .0-0.3 Automated blood basophil count (count/volume) 0.0 10*3/uL 0.0-0.1 Whole blood basic metabolic panel - 01/07 02/25 11:30 Serum or plasma sodium measurement (moles/volume) 128 mmol/L 135-145 Serum or plasma potassium measurement (moles/volume) 4.2 mmol/L 3.6-5.0 Serum or plasma chloride measurement (moles/volume) 90 mmol/L 98-107 Carbon dioxide 24 mmol/L 21-32 Serum or plasma anion gap determination (moles/volume) 14 mmol/L 5-14 Serum or plasma urea nitrogen measurement (mass/volume ) 28 mg/dL 7-18 Serum or plasma creatinine measurement (mass/volume) 0.95 mg/dL 0.60-1.30 Serum or plasma urea nitrogen/creatinine mass ratio 29 NRG Serum or plasma creatinine measurement w ith calculation of estimated glomerular filtration rate > NRG Serum or plasma glucose measurement (mass/volume) 97 mg/dL 70-105 Serum or plasma calcium measurement (mass/volume) 8.9 mg/dL 8.5-10.1 Blood CBC with ordered manual differenti al panel - 01/29/20 11:45 Blood leukocytes automated count (number/volume) 5.5 10*3/uL 4.3-11.0 Blood erythrocytes automated count (number/volume) 2.22 10*6/uL 4.35-5.85 Venous blood hemoglobin measurement (mass/volume) 6.8 g/dL 13.3-17.7 Blood hematocrit (volume fraction) 21 % 40-54 Automated erythrocyte mean corpuscular volume 96 [ foz_us] 80-99 Automated erythrocyte mean corpuscular h emoglobin (mass per erythrocyte) 31 pg 25-34 Automated erythrocyte mean corpuscular h emoglobin concentration measurement (mass/volume) 32 g/dL 32-36 Automated erythrocyte distribution width ratio 19. 9 % 10.0- 14.5 Automated blood platelet count (count/volume) 148 10*3/uL 130-400 Automated blood platelet mean volume measurement 9.9 [foz_us] 7.4-10.4 Automated blood neutrophils/100 leukocytes 42 % 42-75 Automated blood lymphocytes/100 leukocytes 40 % 12-44 Blood monocytes/100 leukocytes 8 % NRG Automated blood eosinophils/100 leukocytes 2 % 0-10 Automated blood basophils/100 leukocytes 0 % 0-10 Blood neutrophils automated count (number/volume) 2.3 10*3 1.8-7.8 Blood lymphocytes automated count (number/volume) 2.2 10*3 1.0-4.0 Blood monocytes automated count (number/volume) 0. 9 10*3 0.0-1.0 Automated eosinophil count 0.1 10*3/uL 0 .0-0.3 Automated blood basophil count (count/volume) 0.0 10*3/uL 0.0-0.1 Manual blood segmented neutrophils/100 leukocytes 28 % NRG Blood band neutrophils/100 leukocytes 11 % NRG Manual blood lymphocytes/100 leukocytes 36 % NRG Manual eosinophils/100 leukocytes in nose 4 % NRG Manual blood basophils/100 leukocytes 0 % NRG Manual blood lymphocytes variant/100 leukocytes 5 % NRG Blood polychromasia detection by light microscopy MODERATE NRG Blood anisocytosis detection by light microscopy S LIGHT NRG Manual blood metamyelocytes/100 leukocytes 7 % NRG Blood poikilocytosis detection by light microscopy SLIGHT NRG Manual blood nucleated erythrocytes/100 leukocytes rat io 16 NRG Manual blood myelocytes/100 leukocytes 1 % NRG Whole blood basic metabolic panel - 01/08 11/28 11:45 Serum or plasma sodium measurement (moles/volume) 136 mmol/L 135-145 Serum or plasma potassium measurement (moles/volume) 4.3 mmol/L 3.6-5.0 Serum or plasma chloride measurement (moles/volume) 98 mmol/L 98-107 Carbon dioxide 24 mmol/L 21-32 Serum or plasma anion gap determination (moles/volume) 14 mmol/L 5-14 Serum or plasma urea nitrogen measurement (mass/volume ) 30 mg/dL 7-18 Serum or plasma creatinine measurement (mass/volume) 0.80 mg/dL 0.60-1.30 Serum or plasma urea nitrogen/creatinine mass ratio 38 NRG Serum or plasma creatinine measurement w ith calculation of estimated glomerular filtration rate > NRG Serum or plasma glucose measurement (mass/volume) 96 mg/dL 70-105 Serum or plasma calcium measurement (mass/volume) 8.7 mg/dL 8.5-10.1 Whole blood basic metabolic panel - 02/06 12/26 11:30 Serum or plasma sodium measurement (moles/volume) 138 mmol/L 135-145 Serum or plasma potassium measurement (moles/volume) 4.3 mmol/L 3.6-5.0 Serum or plasma chloride measurement (moles/volume) 97 mmol/L 98-107 Carbon dioxide 26 mmol/L 21-32 Serum or plasma anion gap determination (moles/volume) 15 mmol/L 5-14 Serum or plasma urea nitrogen measurement (mass/volume ) 23 mg/dL 7-18 Serum or plasma creatinine measurement (mass/volume) 0.81 mg/dL 0.60-1.30 Serum or plasma urea nitrogen/creatinine mass ratio 28 NRG Serum or plasma creatinine measurement w ith calculation of estimated glomerular filtration rate > NRG Serum or plasma glucose measurement (mass/volume) 148 mg/dL 70-105 Serum or plasma calcium measurement (mass/volume) 9.5 mg/dL 8.5-10.1 Complete blood count (CBC) with automate d white blood cell (WBC) differential - 02/19/20 11:30 Blood leukocytes automated count (number/volume) 5.6 10*3/uL 4.3-11.0 Blood erythrocytes automated count (number/volume) 2.73 10*6/uL 4.35-5.85 Venous blood hemoglobin measurement (mass/volume) 8.0 g/dL 13.3-17.7 Blood hematocrit (volume fraction) 26 % 40-54 Automated erythrocyte mean corpuscular volume 95 [ foz_us] 80-99 Automated erythrocyte mean corpuscular h emoglobin (mass per erythrocyte) 29 pg 25-34 Automated erythrocyte mean corpuscular h emoglobin concentration measurement (mass/volume) 31 g/dL 32-36 Automated erythrocyte distribution width ratio 20. 0 % 10.0- 14.5 Automated blood platelet count (count/volume) 149 10*3/uL 130-400 Automated blood platelet mean volume measurement 10.1 [foz_us] 7.4-10.4 Automated blood neutrophils/100 leukocytes 50 % 42-75 Automated blood lymphocytes/100 leukocytes 27 % 12-44 Blood monocytes/100 leukocytes 23 % 0-12 Automated blood eosinophils/100 leukocytes 0 % 0-10 Automated blood basophils/100 leukocytes 0 % 0-10 Blood neutrophils automated count (number/volume) 2.8 10*3 1.8-7.8 Blood lymphocytes automated count (number/volume) 1.5 10*3 1.0-4.0 Blood monocytes automated count (number/volume) 0. 7 10*3 0.0-1.0 Automated eosinophil count 0.0 10*3/uL 0 .0-0.3 Automated blood basophil count (count/volume) 0.0 10*3/uL 0.0-0.1 Manual absolute plasma cell count - 0512/26 11:30 Blood monocytes/100 leukocytes 9 % NRG Manual blood segmented neutrophils/100 leukocytes 43 % NRG Blood band neutrophils/100 leukocytes 14 % NRG Manual blood lymphocytes/100 leukocytes 31 % NRG Manual eosinophils/100 leukocytes in nose 0 % NRG Manual blood basophils/100 leukocytes 0 % NRG Blood polychromasia detection by light microscopy SLIGHT NRG Blood anisocytosis detection by light microscopy M ODERATE NRG Manual blood metamyelocytes/100 leukocytes 3 % NRG Manual blood nucleated erythrocytes/100 leukocytes rat io 12 NRG Encounters ACCT No. Visit Date/Time Discharge Status Pt. Type Provider Facility Loc./Unit Complaint [id number] 10/29/2012 10:07:00 10/29/2012 23:59: 59 CLS Outpatient [id number] 10/10/2012 09:59:00 10/10/2012 23:59: 59 CLS Outpatient [id number] 09/13/2012 15:00:00 09/13/2012 23:59: 59 CLS Outpatient NIRMAL HAQUE APRN [id number] 02/11/2013 11:23:00 Document Registration [id number] 01/06/2015 16:03:17 5 16:03:17 DIS Outpatient [id number] 02/25/2020 08:31:00 23:59:59 CLS Outpatient TALYA DUARTE, FELIPEGEGE [facility] ONC [id number] 02/19/2020 14:13:00 23:59:59 CLS Outpatient BOBBY RICHARDS MD, V [facility] [place] [id number] 02/12/2020 15:46:00 23:59:59 CLS Outpatient BOBBY RICHARDS MD, V [facility] LAB FS C61,C79.51 [id number] 01/29/2020 15:11:00 23:59:59 CLS Outpatient BOBBY RICHARDS MD, V [facility] LAB FS PROST[place] CA/SECONDARY C CHLER OF BONE [id number] 01/22/2020 15:03:00 23:59:59 CLS Outpatient BOBBY RICHARDS MD, V [facility] LAB FS [place] CA,SECONDARY M ALIGNANT NEOPLASM OF BONE [id number] 01/02/2020 13:00:00 14:07:00 DIS Inpatient DEONNA DUARTE, JESSICA Parham [facility] 4TH ANEMIA,WEAKNESS,METASTA TIC [place]OST[place] CA,UTI [id number] 12/17/2019 14:55:00 16:00:00 DIS Emergency WINSTON JIMÉNEZ APRN [facility] ER TROUBLE URINATING [id number] 12/12/2019 09:14:00 23:59:59 CLS Outpatient PATRIZIA TOBIN MD [facility] RAD CA [place]OST[place] [id number] 12/06/2019 15:53:00 17:40:00 DIS Inpatient NAI BERNARD MD [facility] 4TH [place] CA [id number] 12/03/2019 17:56:00 020 15:33:00 DIS Inpatient KARSON SOLARES, ELENA [facility] 4TH CACHEXIA, [place] [id number] 02/08/2016 08:44:00 016 12:00:00 DIS Outpatient NIRMAL AVALOS MD [facility] WOUNDCARE [id number] 01/18/2016 09:41:00 23:59:59 CLS Outpatient NIRMAL AVALOS MD [facility] RAD ACROMEGALY,CHRONIC OSTEOMYLITIS,RIGHT ANKLE FOOT [id number] 01/18/2016 06:29:00 23:59:59 CLS Outpatient NIRMAL AVALOS MD [facility] LAB CBC [id number] 11/18/2019 14:40:00 11/18/2019 23:59:5 9 CLS Outpatient NIRMAL HAQUE APRN [facility] [address] [id number] 11/11/2019 09:20:00 Document Registration [id number] 11/07/2019 09:20:00 Document Registration [id number] 05/08/2018 10:00:00 Document Registration [id number] 02/09/2017 11:15:58 02/09/2017 23:59: 59 CLS Outpatient Maylin Duncan [id number] 03/31/2016 12:05:37 03/31/2016 23:59: 59 CLS Outpatient Maylin Duncan
--- NOTE | 2020-03-02 02:45 | NUR ---
DURING PT TRANSFER UPSTAIRS MONITOR ALARMS LOW POWER AND SHUTS DOWN DESPITE BEING PLUGGED INTO WALL ALL NIGHT. ALL VITALS LOST. BIOMED NOTIFIED.
[2020-03-02] MEDS ORDERED: ACETAMINOPHEN 325 MG TABLET PO PRN (03:00)
[2020-03-02] MEDS ORDERED: ONDANSETRON 4 MG/2 ML (SDV) Z0FRAN IV PRN (03:00)
[2020-03-02 03:52] LABS: BASOPHILS % (AUTO) 2 % (0-10); EOSINOPHILS % (AUTO) 2 % (0-10); HEMATOCRIT 25 % (40-54); HEMOGLOBIN 8.2 G/DL (13.3-17.7); LYMPHOCYTES # (AUTO) 0.4 X 10^3 (1.0-4.0); LYMPHOCYTES % (AUTO) 55 % (12-44); MEAN CORPUSCULAR HEMOGLOBIN 28 PG (25-34); MEAN CORPUSCULAR HGB CONC 32 G/DL (32-36); MEAN CORPUSCULAR VOLUME 88 FL (80-99); MEAN PLATELET VOLUME 9.8 FL (7.4-10.4); MONOCYTES # (AUTO) 0.1 X 10^3 (0.0-1.0); MONOCYTES % (AUTO) 12 % (0-12); NEUTROPHILS # (AUTO) 0.2 X 10^3 (1.8-7.8); NEUTROPHILS % (AUTO) 30 % (42-75); PLATELET COUNT 168 10^3/uL (130-400); RED CELL DISTRIBUTION WIDTH 18.4 % (10.0-14.5)
[2020-03-02] MEDS: NOREPINEPHRINE 4 MG/250 ML 250 ML IV SCH ×4 (03:53→19:31)
[2020-03-02] MEDS: metroNIDAZOLE 500 MG/100 ML IVPB (PRE-MIX) IV SCH ×2 (03:53→11:52)
[2020-03-02 04:04] LABS: WHITE BLOOD COUNT 0.7 10^3/uL (4.3-11.0)
[2020-03-02 04:10] LABS: ALBUMIN 2.7 GM/DL (3.2-4.5); CHLORIDE 97 MMOL/L (98-107); POTASSIUM 3.2 MMOL/L (3.6-5.0); SODIUM 127 MMOL/L (135-145)
[2020-03-02 04:12] LABS: CALCIUM 7.4 MG/DL (8.5-10.1)
[2020-03-02 04:13] LABS: GLUCOSE 130 MG/DL (70-105); TOTAL PROTEIN 5.1 GM/DL (6.4-8.2)
[2020-03-02 04:14] LABS: CARBON DIOXIDE 19 MMOL/L (21-32)
[2020-03-02 04:16] LABS: ALKALINE PHOSPHATASE 181 U/L (40-136)
[2020-03-02 04:17] LABS: CREATININE SERUM 0.79 MG/DL (0.60-1.30); GFR ESTIMATED > 60
[2020-03-02 04:18] LABS: BUN/CREATININE RATIO 32
[2020-03-02 04:19] LABS: MAGNESIUM 1.8 MG/DL (1.6-2.4)
[2020-03-02 04:20] LABS: ALANINE AMINOTRANSFERASE 11 U/L (0-55)
[2020-03-02] MEDS: NS W/KCL 40 MEQ/L 1,000 ML IV SCH ×4 (04:37→19:31)
[2020-03-02] MEDS: CEFEPIME 1,000 MG/SWFI 10 ML IV PUSH IV SCH ×8 (05:25→22:56)
[2020-03-02] MEDS: POTASSIUM CL 10MEQ/50ML IVPB 50 ML IV SCH ×5 (05:27→07:54)
[2020-03-02] MEDS: MAGNESIUM 1 GM/100 ML IVPB 100 ML IV SCH (05:27)
[2020-03-02] MEDS: KCL 20 MEQ TAB (K-DUR) PO SCH (05:29)
--- NOTE | 2020-03-02 07:21 | Diagnostic Imaging Report ---
Portable erect AP chest at 9:54. INDICATION: Dehydration. The heart size is within normal limits and stable when compared to 01/02/2020. However in the interval since the prior exam a dense alveolar/interstitial infiltrate has developed in the right infrahilar region. Most likely this is due to pneumonia/atelectasis. The lungs are otherwise clear. There is no significant pleural effusion identified. The mediastinum is not widened. The osseous structures are intact. IMPRESSION: The appearance of the chest has worsened since the prior exam as a prominent area of pneumonia/atelectasis has developed in the right lung base. A followup study would be recommended for continued evaluation. Dictated by: Dictated on workstation # [id number]
--- NOTE | 2020-03-02 07:26 | Diagnostic Imaging Report ---
Portable erect AP chest at 11:50. Indication: Central line placement. In the interval since the exam performed earlier today at 9:54 PM, a central venous catheter has been inserted on the right. The tip of the catheter overlies the midportion of the superior vena cava. There is no sign of a pneumothorax. The overall appearance of the chest has not changed significantly otherwise. A prominent area of pneumonia/atelectasis in the right infrahilar region seen previously is again evident. Impression: There has been interval insertion of a central venous catheter on the right without apparent complication. The tip of the line overlies the mid portion of the superior vena cava. Dictated by: Dictated on workstation # [id number]
--- NOTE | 2020-03-02 07:37 | Diagnostic Imaging Report ---
PROCEDURE: CT abdomen and pelvis with contrast. TECHNIQUE: Multiple contiguous axial images were obtained through the abdomen and pelvis after administration of intravenous contrast. Auto Exposure Controls were utilized during the CT exam to meet ALARA standards for radiation dose reduction. INDICATION: Dehydration, diarrhea. The CT chest, abdomen and pelvis exam of 12/12/2019 noted otherwise osseous metastatic disease with extensive involvement of the left acetabulum. There are also scattered pulmonary nodules and retroperitoneal lymphadenopathy. The images through the lung bases do show prominent area of consolidation in the right lung base. This corresponds to the finding of the chest exam performed prior to the study. There may also be lymphadenopathy in the right infrahilar region. If further study is desired, then CT chest would be recommended. The left lung base is generally clear. There are a number of fluid-filled segments of small bowel present. This appearance is nonspecific but may correspond the patient's history of diarrhea. There is no evidence of bowel obstruction. The renal pelves do seem more prominent than on the prior exam but there is no sign of an obstructive calculus. There is also generalized increased density throughout the mesenteric fat. This does suggest edema/inflammation. There is no significant collection of ascites however. The liver, spleen, pancreas, adrenals, aorta and inferior vena cava and gallbladder show no sign of an acute abnormality. Stomach is partially filled with fluid and consequently difficult to assess. The retroperitoneal adenopathy noted on the prior exam and the extensive osseous metastatic disease are again evident and no different. The urinary bladder is grossly unremarkable. There may be a calculus in the bladder on the right. This finding is difficult to evaluate however due to streak artifact related to the total hip prosthesis on the right. The prostate gland is poorly visualized. IMPRESSION: 1. There is a prominent area of consolidation in the right lung base. There may also be right infrahilar adenopathy. If further study is desired, then CT of the chest with contrast recommended. 2. There is fluid throughout much of the small bowel. There is no evidence for a bowel obstruction however. The generalized increased density throughout the mesenteric fat does suggest edema/inflammation. There is no mass or abscess visualized. 3. The retroperitoneal adenopathy and extensive osseous metastatic disease seen previously are again evident and no different. Dictated by: Dictated on workstation # [id number]
--- NOTE | 2020-03-02 07:43 | NUR ---
VANCOMYCIN DOSING SCR 0.79 (USED 1.0); IBW 59 KG; CRCL ~ 60; VANC 15 MG/KG X 60.4 KG ~ 750 MG Q12H CHECK TROUGH LEVEL 03/03 1100 HOLD DOSE AND CONTACT PHARMACY IF LEVEL IS GREATER THAN 20
[2020-03-02] MEDS: VANCOMYCIN 750 MG/NS 250 ML IVPB IV SCH ×4 (12:03→22:56)
--- NOTE | 2020-03-02 13:26 | History & Physical ---
HPI History of Present Illness: 64 yo male with metastatic prostate cancer, came to ER due to onset of diarrhea and feeling ill. Reports he made a mess in his bed and it was dark, he was concerned for bleeding. He was found to also have atrial fibrillation with RVR, right sided lung infiltrate and evidence of enteritis on CT as well as urine consistent with infection and underlying chronic pancytopenia, concerning for both volume depletion and sepsis. He was fluid resuscitated and attempted electrical cardioversion which slowed rate but he remained in a fib so he was started on both cardizem drip and norepinephrine drip due to a fib and low BP. This morning he states he still feels weak and poorly. He was febrile to 38.5 this morning, and telehealth ICU physician requested COVID-19 swab which was done this am. Exam Limitations: no limitations Date seen by provider: March 02, 2020 Time Seen by Provider: 11:00 Attending Physician Jessica Guzman MD PCP [facility] [place] [facility] Date of Admission March 02, 2020 at 00:10 Home Medications Home Medications Reviewed patient Home Medication Reconciliation performed by pharmacy medication reconciliations diploma pharmacy technician and/or nursing. Patients Allergies have been reviewed. Allergies Coded Allergies: No Known Drug Allergies (Unverified , 12/03/19) [id number] Hx Patient Social History Alcohol Use: Denies Use Recreational Drug Use: No Smoking Status: Never a Smoker 2nd Hand Smoke Exposure: No Recent Foreign Travel: No Contact w/other who traveled: No Recent Hopitalizations: No Recent Infectious Disease Expo: No Immunizations Up To Date Tetanus Booster (TDap): Unknown Date of Influenza Vaccine: Aug 08, 2019 Past Medical History PMHx: Prostate cancer HTN Osteoarthritis Depression SurgHx: Vasectomy Facial reconstruction Right hip replacement Foot surgery Family Medical History Significant Family History: Diabetes Review of Systems ([facility]) Constitutional: fever, malaise Gastrointestinal: abdominal pain, diarrhea Reviewed Test Results Reviewed Test Results Lab Laboratory Tests Test 03/01/20 20:55 03/01/20 22:25 03/02/20 03:31 03/02/20 09:40 Range/Units White Blood Count 0.7 *L 0.7 *L 4.3-11.0 10^3/uL Red Blood Count 2.42 L 2.89 L 4.35-5.85 10^6/uL Hemoglobin 6.9 *L 8.2 L 13.3-17.7 G/DL Hematocrit 21 L 25 L 40-54 % Mean Corpuscular Volume 88 88 80-99 FL Mean Corpuscular Hemoglobin 29 28 25-34 PG Mean Corpuscular Hemoglobin Concent 32 32 32-36 G/DL Red Cell Distribution Width 19.0 H 18.4 H 10.0-14.5 % Platelet Count 149 168 130-400 10^3/uL Mean Platelet Volume 8.9 9.8 7.4-10.4 FL Neutrophils (%) (Auto) 39 L 30 L 42-75 % Lymphocytes (%) (Auto) 51 H 55 H 12-44 % Monocytes (%) (Auto) 10 12 0-12 % Eosinophils (%) (Auto) 0 2 0-10 % Basophils (%) (Auto) 0 2 0-10 % Neutrophils # (Auto) 0.3 L 0.2 L 1.8-7.8 X 10^3 Lymphocytes # (Auto) 0.4 L 0.4 L 1.0-4.0 X 10^3 Monocytes # (Auto) 0.1 0.1 0.0-1.0 X 10^3 Eosinophils # (Auto) 0.0 0.0 0.0-0.3 10^3/uL Basophils # (Auto) 0.0 0.0 0.0-0.1 10^3/uL Prothrombin Time 17.5 H 12.2-14.7 SEC INR Comment 1.4 0.8-1.4 Activated Partial Thromboplast Time 35 24-35 SEC Sodium Level 127 L 127 L 135-145 MMOL/L Potassium Level 3.3 L 3.2 L 3.6-5.0 MMOL/L Chloride Level 96 L 97 L 98-107 MMOL/L Carbon Dioxide Level 18 L 19 L 21-32 MMOL/L Anion Gap 13 11 5-14 MMOL/L Blood Urea Nitrogen 30 H 25 H 7-18 MG/DL Creatinine 0.93 0.79 0.60-1.30 MG/DL Estimat Glomerular Filtration Rate > 60 > 60 BUN/Creatinine Ratio 32 32 Glucose Level 108 H 130 H 70-105 MG/DL Lactic Acid Level 1.26 0.50-2.00 MMOL/L Calcium Level 7.2 L 7.4 L 8.5-10.1 MG/DL Corrected Calcium 8.4 L 8.4 L 8.5-10.1 MG/DL Phosphorus Level 3.2 3.0 2.3-4.7 MG/DL Magnesium Level 1.8 1.8 1.6-2.4 MG/DL Total Bilirubin 0.8 1.0 0.1-1.0 MG/DL Aspartate Amino Transf (AST/SGOT) 27 26 5-34 U/L Alanine Aminotransferase (ALT/SGPT) 11 11 0-55 U/L Alkaline Phosphatase 186 H 181 H 40-136 U/L Troponin I < 0.028 <0.028 NG/ML Total Protein 4.8 L 5.1 L 6.4-8.2 GM/DL Albumin 2.5 L 2.7 L 3.2-4.5 GM/DL Urine Color DARK YELLOW Urine Clarity SL CLOUDY Urine pH 7.0 5-9 Urine Specific [place] 1.015 L 1.016-1.022 Urine Protein 1+ H NEGATIVE Urine Glucose (UA) NEGATIVE NEGATIVE Urine Ketones NEGATIVE NEGATIVE Urine Nitrite POSITIVE H NEGATIVE Urine Bilirubin NEGATIVE NEGATIVE Urine Urobilinogen 2.0 < = 1.0 MG/DL Urine Leukocyte Esterase NEGATIVE NEGATIVE Urine RBC (Auto) NEGATIVE NEGATIVE Urine RBC NONE /HPF Urine WBC 0-2 /HPF Urine Squamous Epithelial Cells RARE /HPF Urine Crystals NONE /LPF Urine Bacteria NEGATIVE /HPF Urine Casts PRESENT /LPF Urine Hyaline Casts 0-2 H /LPF Urine Mucus SMALL H /LPF Urine Culture Indicated CULTURE PENDING Test 03/02/20 10:00 Range/Units Stool Occult Blood Immunoassay NEGATIVE NEGATIVE Radiology CT abd/pelvis 03/01 IMPRESSION: 1. There is a prominent area of consolidation in the right lung base. There may also be right infrahilar adenopathy. If further study is desired, then CT of the chest with contrast recommended. 2. There is fluid throughout much of the small bowel. There is no evidence for a bowel obstruction however. The generalized increased density throughout the mesenteric fat does suggest edema/inflammation. There is no mass or abscess visualized. 3. The retroperitoneal adenopathy and extensive osseous metastatic disease seen previously are again evident and no different. Physical Exam-([facility]) Physical Exam Vital Signs VS - Last 72 Hours, by Label 03/01/20 03/01/20 03/01/20 03/01/20 20:42 20:45 21:00 22:55 Temp 38.0 38.0 Pulse 145 145 101 Resp 20 20 B/P (MAP) 77/64 (68) 77/64 75/46 Pulse Ox 98 97 97 O2 Delivery OxyMask OxyMask OxyMask O2 Flow Rate 6.00 6.00 6.00 03/01/20 5/ 5//03/02/20 23:19 23:49 00:50 02:45 Temp 36.9 36.7 36.5 36.5 Pulse 95 103 110 112 Resp 22 20 18 18 B/P (MAP) 80/56 117/67 123/72 109/58 (89) Pulse Ox 98 99 94 94 O2 Delivery OxyMask OxyMask OxyMask OxyMask O2 Flow Rate 6.00 6.00 6.00 6.00 03/02/2003/02/ 5//03/02/20 02:50 02:50 02:54 02:55 Temp 37.8 Pulse 108 105 108 Resp 24 B/P (MAP) 117/68 (84) 94/57 (69) Pulse Ox 100 100 100 O2 Delivery OxyMask OxyMask OxyMask O2 Flow Rate 6.00 6.00 3.00 03/02/25 02// 5//03/02/20 03:00 03:15 03:30 03:45 Pulse 101 104 101 105 Resp 23 16 32 20 B/P (MAP) 110/60 (77) 99/60 (73) 103/61 (75) 98/56 (70) Pulse Ox 100 100 95 96 O2 Delivery OxyMask OxyMask OxyMask OxyMask O2 Flow Rate 3.00 3.00 3.00 3.00 03/02/ 5/ 5// 5 04:00 04:00 04:08 04:43 Pulse 93 Resp 21 B/P (MAP) 98/59 (72) 102/59 Pulse Ox 96 94 O2 Delivery OxyMask OxyMask OxyMask O2 Flow Rate 3.00 3.00 4.00 FiO2 36 //20 5//20 5//20 5/20 05:00 05:15 05:30 05:45 Pulse 100 108 104 92 Resp 26 25 34 14 B/P (MAP) 100/58 (72) 99/56 (70) 111/57 (75) 94/53 (67) Pulse Ox 96 93 93 92 O2 Delivery OxyMask OxyMask OxyMask OxyMask O2 Flow Rate 3.00 6.00 6.00 6.00 03/02/20 03/02/20 03/02/20 03/02/20 06:00 06:15 06:30 06:43 Pulse 96 104 96 Resp 21 21 12 B/P (MAP) 98/62 (74) 101/53 (69) 100/63 (75) Pulse Ox 91 91 97 96 O2 Delivery OxyMask High Flow N/C High Flow N/C High Flow N/C O2 Flow Rate 6.00 6.00 6.00 6.00 03/02/20 03/02/20 03/02/20 03/02/20 06:45 07:00 07:00 07:53 Temp 38.0 Pulse 94 95 96 Resp 20 15 B/P (MAP) 95/55 (68) 91/54 (66) Pulse Ox 92 94 O2 Delivery High Flow N/C High Flow N/C O2 Flow Rate 6.00 6.00 03/02/20 03/02/20 03/02/20 03/02/20 08:00 08:00 08:00 09:00 Temp 38.5 Pulse 99 95 Resp 15 12 B/P (MAP) 105/58 (74) 91/58 (69) Pulse Ox 100 97 97 O2 Delivery Nasal Cannula High Flow N/C High Flow N/C O2 Flow Rate 6.00 6.00 6.00 03/02/20 03/02/20 03/02/20 03/02/20 10:00 11:00 12:00 12:00 Pulse 94 88 93 Resp 17 15 B/P (MAP) 92/57 (69) Pulse Ox 100 99 O2 Delivery High Flow N/C High Flow N/C Nasal Cannula O2 Flow Rate 6.00 6.00 6.00 03/02/20 03/02/20 12:00 12:30 Pulse 93 88 Resp 19 B/P (MAP) 95/66 (76) Pulse Ox 97 O2 Delivery High Flow N/C O2 Flow Rate 6.00 Capillary Refill : Less Than 3 Seconds General Appearance: no apparent distress Respiratory: rhonchi Cardiovascular: regular rate, rhythm Gastrointestinal: normal bowel sounds, guarding, tenderness Extremities: no pedal edema Neurologic/Psychiatric: alert, normal mood/affect Skin: warm/dry Assessment/Plan Assessment/Plan Admission Status: Inpatient Order (span 2 midnights) Reason for Inpatient Admission: Septic shock with underlying immunocompromise due to metastatic cancer (1) Septic shock Status: Acute Assessment & Plan: Secondary to pneumonia and/or UTI and/or enteritis. Fluid boluses given in ER, still had low BP, on norepinphrine drip. On vanc, cefepime and metronidazole. (2) Atrial fibrillation with rapid ventricular response Status: Acute Assessment & Plan: Rate improved, still on cardizem drip, appreciate Cardiology recommendations. Enoxaparin treatment dose started for now for stroke prophylaxis. (3) Colitis presumed to be due to infection Status: Acute Assessment & Plan: Stool occult blood negative, IV fluid for volume depletion. Metronidazole and cefepime for intraabdominal infection. (4) Pneumonia Status: Acute Assessment & Plan: Blood cultures pending. On cefepime and vancomycin, requiring 6 lpm supplemental oxygen. Qualifiers: Qualified Codes: J18.1 - Lobar pneumonia, unspecified organism (5) Urinary tract infection Status: Acute Assessment & Plan: Urine and blood cultures pending, on cefepime. Qualifiers: Qualified Codes: N30.01 - Acute cystitis with hematuria (6) Prostate cancer metastatic to bone Status: Chronic (7) Hyponatremia Assessment & Plan: Likely hypovolemic hyponatremia. Continue NS with KCl. (8) Hypokalemia Status: Acute Assessment & Plan: Replace and follow. (9) Anemia Status: Chronic Assessment & Plan: Suspect secondary to bony metastases and/or chemotherapy, initial Hgb below 7, one unit PRBC given and hemoglobin 8.2 this am. Stool occult blood negative, monitor closely. (10) Neutropenia Status: Acute Qualifiers: Qualified Codes: D70.1 - Agranulocytosis secondary to cancer chemotherapy; T45.1X5A - Adverse effect of antineoplastic and immunosuppressive drugs, initial encounter (11) DVT prophylaxis Assessment & Plan: On enoxaparin treatment dose (12) Goals of care, counseling/discussion Status: Acute Assessment & Plan: Discussed patient's wishes this morning, he states he does not think he will get better if he has to be intubated or shocked, and in that case, he would prefer to be comfortable even if it means a shorter life-span. Code status changed to DNR, encouraged him to let his family know about his decision. Clinical Quality Measures DVT/VTE Risk/Contraindication: Risk Factor Score Per Nursin RFS Level Per Nursing on Admit: 4+=Very High JESSICA GUZMAN MD March 02, 2020 13:26
[2020-03-02] MEDS: ENOXAPARIN 60 MG/0.6 ML (LOVENOX) SYR SC SCH (16:02)
--- NOTE | 2020-03-02 17:40 | NUR ---
After speaking with pt during shift, pt requested this RN reach out to care team and express pt's wishes to "go home and ". Education provided by this RN on palliative care and hospice. Pt expresses wishes to return home at this time.
--- NOTE | 2020-03-02 17:42 | NUR ---
Shift Summary: Pt VS have remained stable during shift with the support of Levophed. Pt remains on 6L NC throughout shift tolerating well. Pt and RN discussed and education provided on comfort care measures and end of life care. Pt expressed wishes of DNR status and possibilities of returning home to this RN during shift. Will pass information along in bedside report. Pt continues to have multiple loose/semiformed stools during shift. Pt expresses concerns of incontinent episodes at home and wishes to speak with SS regarding home care if possible to return home. Will continue to monitor.
[2020-03-03] VITALS (24 sets, daily range): BP systolic 90–117; BP diastolic 56–76
[2020-03-03] MEDS: ENOXAPARIN 60 MG/0.6 ML (LOVENOX) SYR SC SCH ×2 (01:50→14:09)
[2020-03-03] MEDS: metroNIDAZOLE 500 MG/100 ML IVPB (PRE-MIX) IV SCH ×2 (02:24→14:10)
[2020-03-03] MEDS: NS W/KCL 40 MEQ/L 1,000 ML IV SCH ×3 (02:24→19:27)
[2020-03-03 02:49] LABS: BASOPHILS % (AUTO) 0 % (0-10); EOSINOPHILS % (AUTO) 0 % (0-10); HEMATOCRIT 22 % (40-54); HEMOGLOBIN 7.2 G/DL (13.3-17.7); LYMPHOCYTES # (AUTO) 0.4 X 10^3 (1.0-4.0); LYMPHOCYTES % (AUTO) 39 % (12-44); MEAN CORPUSCULAR HEMOGLOBIN 29 PG (25-34); MEAN CORPUSCULAR HGB CONC 33 G/DL (32-36); MEAN CORPUSCULAR VOLUME 89 FL (80-99); MEAN PLATELET VOLUME 9.2 FL (7.4-10.4); MONOCYTES # (AUTO) 0.1 X 10^3 (0.0-1.0); MONOCYTES % (AUTO) 11 % (0-12); NEUTROPHILS # (AUTO) 0.5 X 10^3 (1.8-7.8); NEUTROPHILS % (AUTO) 51 % (42-75); PLATELET COUNT 130 10^3/uL (130-400); RED CELL DISTRIBUTION WIDTH 18.2 % (10.0-14.5)
[2020-03-03 03:00] LABS: ALBUMIN 2.4 GM/DL (3.2-4.5); CHLORIDE 104 MMOL/L (98-107); POTASSIUM 3.7 MMOL/L (3.6-5.0); SODIUM 130 MMOL/L (135-145)
[2020-03-03 03:01] LABS: CALCIUM 7.3 MG/DL (8.5-10.1)
[2020-03-03 03:02] LABS: GLUCOSE 107 MG/DL (70-105)
[2020-03-03 03:03] LABS: TOTAL PROTEIN 4.7 GM/DL (6.4-8.2)
[2020-03-03 03:04] LABS: BILIRUBIN,TOTAL 0.5 MG/DL (0.1-1.0); CARBON DIOXIDE 18 MMOL/L (21-32)
[2020-03-03] MEDS: KCL 20 MEQ TAB (K-DUR) PO SCH (03:05)
[2020-03-03] MEDS: POTASSIUM CL 10MEQ/50ML IVPB 50 ML IV SCH (03:05)
[2020-03-03 03:06] LABS: ALKALINE PHOSPHATASE 147 U/L (40-136); CREATININE SERUM 0.65 MG/DL (0.60-1.30); GFR ESTIMATED > 60; PHOSPHORUS 1.8 MG/DL (2.3-4.7)
[2020-03-03 03:07] LABS: BUN/CREATININE RATIO 31
[2020-03-03 03:09] LABS: ALANINE AMINOTRANSFERASE 10 U/L (0-55); MAGNESIUM 1.8 MG/DL (1.6-2.4)
[2020-03-03] MEDS: MAGNESIUM 1 GM/100 ML IVPB 100 ML IV SCH (03:34)
--- NOTE | 2020-03-03 05:43 | Diagnostic Imaging Report ---
INDICATION: Sepsis. Comparison made with prior examination 03/01/2020. FINDINGS: There is cardiomegaly. There is a right basilar infiltrate. There is no pleural effusion or pneumothorax. Mediastinum is unremarkable. The right internal jugular central venous catheter is in place. IMPRESSION: Persistent right basilar infiltrate. Mild cardiomegaly. Dictated by: Dictated on workstation # [id number]
[2020-03-03] MEDS: CEFEPIME 1,000 MG/SWFI 10 ML IV PUSH IV SCH ×4 (05:54→11:13)
--- NOTE | 2020-03-03 10:07 | Consultation-Cardiology ---
HPI-Cardiology Cardiology Consultation: Date of Consultation 03/03/20 Date of Admission Attending Physician Hina Guzman MD Admitting Physician GinaSwisher - [facility] Of Consulting Physician Beth ESPINOZA MD HPI: Time Seen by a Provider: 09:30 Chief Complaint: Atrial fibrillation This is a 64-year-old gentleman with metastatic prostate cancer. He presented to the ER with complain of severe diarrhea. In the ER he was found to have atrial fibrillation with RVR. Possible right sided pneumonia and colitis/enteritis on CT abdomen. Patient has significant neutropenia. He was aggressively resuscitated due to hypotension as well. He was started on Cardizem infusion as well as non-epinephrine infusion. Overnight after admission he was febrile therefore COVID-19 was tested which came out to be negative. Patient denied any significant chest pain or shortness of breath when I saw the patient. His atrial fibrillation which was better controlled. Review of Systems-Cardiology Review of Systems Constitutional: As described under HPI; No As described under HPI, No no symptoms reported, No chills; fever; No lightheadedness Eyes: No As described under HPI, No no symptoms reported, No blindness, No blurred vision, No contact lenses, No drainage, No decreased acuity, No foreign body sensation, No pain, No vision change Ears/Nose/Throat: No As described under HPI, No no symptoms reported, No chronic hearing loss, No ear discharge, No ear pain, No nasal drainage, No ulcerations Respiratory: No no symptoms reported; As described under HPI; No As described under HPI, No cough, No orthopnea, No shortness of breath, No SOB with excertion Cardiovascular: No no symptoms reported; As described under HPI; No As described under HPI, No chest pain, No edema, No irregular heart rate, No lightheadedness; palpitations Gastrointestinal: No no symptoms reported, No As described under HPI, No abdomen distended, No abdominal pain, No blood streaked bowels, No constipation, No diarrhea, No nausea, No vomiting, No stool coloration changes Genitourinary: No As described under HPI, No burning, No dysuria, No discharge, No frequency, No flank pain, No hematuria, No urgency Skin: No rash, No skin related problems, No ulcerations Psychiatric/Neurological: No anxiety, No depression, No seizure, No focal weakness, No syncope Hematologic: No bleeding abnormalities All Other Systems Reviewed Negative Unless Noted: Yes [id number] Hx Patient Social History Alcohol Use: Denies Use Recreational Drug Use: No Smoking Status: Never a Smoker 2nd Hand Smoke Exposure: No Recent Foreign Travel: No Recent Infectious Disease Expo: No Hospitalization with Isolation: Denies Immunizations Up To Date Tetanus Booster (TDap): Unknown Date of Influenza Vaccine: Aug 08, 2019 Past Medical History PMH As described under Assessment. Allergies and Home Medications Allergies Coded Allergies: No Known Drug Allergies (Unverified , 12/03/19) Home Medications Acetaminophen 325 Mg Tablet, 650 MG PO Q8H PRN for PAIN-MILD (1-4), (Reported) Ascorbic Acid/Ascorbate Sodium 250 Mg Tab.chew, 250 MG PO DAILY, (Reported) Bethanechol Chloride 25 Mg Tablet, 25 MG PO QID, (Reported) Dexamethasone 4 Mg Tablet, 8 MG PO BID PRN for CHEMO TREATMENTS, (Reported) TAKES 2 (4MG) TABS TWICE DAILY THE DAY BEFORE, THE DAY OF AND THEN DAY AFTER TREATMENT Ferrous Sulfate 325 Mg Tablet, 325 MG PO DAILY, (Reported) Finasteride 5 Mg Tablet, 5 MG PO DAILY, (Reported) Hydrocodone/Acetaminophen 1 Each Tablet, 1-2 EA PO Q8H PRN for PAIN-MODERATE (5- 7), (Reported) Lisinopril 10 Mg Tablet, 5 MG PO DAILY, (Reported) TAKES OF A 10MG TAB LAST FILLED 12-18-2017 #90 Ondansetron HCl 8 Mg Tablet, 8 MG PO Q8H PRN for NAUSEA/VOMITING-1ST LINE, (Reported) Pantoprazole Sodium 20 Mg Tablet.dr, 20 MG PO DAILY, (Reported) Prednisone 5 Mg Tablet, 5 MG PO BID, (Reported) Sertraline HCl 25 Mg Tablet, 25 MG PO DAILY, (Reported) Tamsulosin HCl 0.4 Mg Cap, 0.4 MG PO BID, (Reported) [Magic Mouth Wash] , 1 EACH PO 2-3 TIMES DAILY, (Reported) Patient Home Medication List Home Medication List Reviewed: Yes Physical Exam-Cardiology Physical Exam Vital Signs/I&O 03/04/20 03/04/20 03/04/20 03/04/20 02:00 03:00 03:35 04:00 Temp 36.8 Pulse 111 103 Resp 10 26 B/P (MAP) 110/77 (88) 108/77 (87) Pulse Ox 97 97 97 O2 Delivery High Flow N/C High Flow N/C High Flow N/C O2 Flow Rate 2.00 2.00 2.00 03/04/20 03/04/20 03/04/20 03/04/20 04:00 04:56 05:00 05:09 Temp 36.8 37.0 Pulse 106 101 108 108 Resp 22 23 25 20 B/P (MAP) 114/73 (87) 109/69 99/59 (72) 99/59 Pulse Ox 96 97 97 96 O2 Delivery High Flow N/C Room Air High Flow N/C High Flow N/C O2 Flow Rate 2.00 2.00 2.00 03/04/20 03/04/20 03/04/20 03/04/20 06:00 07:00 07:10 07:30 Temp 36.5 Pulse 113 110 125 Resp 23 31 B/P (MAP) 102/63 (76) 108/75 (86) Pulse Ox 95 75 O2 Delivery High Flow N/C High Flow N/C O2 Flow Rate 2.00 2.00 03/04/20 03/04/20 03/04/20 03/04/20 07:30 08:00 09:00 10:00 Pulse 107 101 106 Resp 26 26 10 B/P (MAP) 120/75 (90) 112/72 (85) 102/61 (75) Pulse Ox 95 97 97 97 O2 Delivery High Flow N/C High Flow N/C High Flow N/C High Flow N/C O2 Flow Rate 2.00 2.00 2.00 2.00 03/04/20 03/04/20 03/04/20 03/04/20 10:51 11:00 12:00 12:12 Pulse 101 126 Resp 12 21 B/P (MAP) 106/80 (89) 126/79 (95) Pulse Ox 99 98 97 O2 Delivery High Flow N/C High Flow N/C High Flow N/C High Flow N/C O2 Flow Rate 2.00 2.00 2.00 2.00 03/03/20 23:59 Intake Total 2577.5 ml Output Total 875 ml Balance 1702.5 ml Capillary Refill : Less Than 3 Seconds Constitutional: appears stated age, AAO x 3; No apparent distress; well- developed, well-nourished HEENT: PERRL; No discharge; hearing is well preserved, oral hygience is good; No ulceration, No xanthelasmas are seen Neck: No carotid bruit; carotid pulses are 2 + bilaterally Respiratory: chest is bilaterally symmetric, lungs clear to auscultation Cardiovascular: irregularly irregular, tachycardia, S1 and S2 Gastrointestinal: soft, audible bowel sounds; No spleenomegaly Rectal: deferred Extremities: normal range of motion, non-tender, normal inspection; No clubbing, No cyanosis, No significant edema Neurologic/Psychiatric: no motor/sensory deficits, alert, normal mood/affect, oriented x 3, power is 5/5 both on sides Skin: normal color, warm/dry; No rash, No ulcerations Data Review Labs Laboratory Tests 03/04/20 03:15: White Blood Count 3.4L, Red Blood Count 2.31L, Hemoglobin 6.6*L, Hematocrit 21L, Mean Corpuscular Volume 92, Mean Corpuscular Hemoglobin 29, Mean Corpuscular Hemoglobin Concent 31L, Red Cell Distribution Width 18.9H, Platelet Count 127L, Mean Platelet Volume 9.1, Neutrophils (%) (Auto) 73, Lymphocytes (%) (Auto) 21, Monocytes (%) (Auto) 6, Eosinophils (%) (Auto) 0, Basophils (%) (Auto) 0, Neutrophils # (Auto) 2.5, Lymphocytes # (Auto) 0.7L, Monocytes # (Auto) 0.2, Eosinophils # (Auto) 0.0, Basophils # (Auto) 0.0, Sodium Level 132L, Potassium Level 4.1, Chloride Level 107, Carbon Dioxide Level 18L, Anion Gap 7, Blood Urea Nitrogen 16, Creatinine 0.62, Estimat Glomerular Filtration Rate > 60, BUN/Creatinine Ratio 26, Glucose Level 87, Calcium Level 7.1L, Corrected Calcium 8.5, Phosphorus Level 1.3L, Magnesium Level 1.7, Total Bilirubin 0.3, Aspartate Amino Transf (AST/SGOT) 18, Alanine Aminotransferase (ALT/SGPT) 10, Alkaline Phosphatase 128, Total Protein 4.4L, Albumin 2.3L Microbiology 03/02/20 C. difficile GDH Antigen & Toxins - Final, Complete 03/02/20 MRSA Screen - Final, Complete MRSA not isolated 03/01/20 Urine Culture - Final, Complete Staphylococcus epidermidis Staphylococcus saphrophyticus See Comments 03/01/20 Blood Culture - Final, Complete Streptococcus pneumoniae ECG Impression ECG Initial ECG Impression: Atrial Fibrillation w/RVR A/P-Cardiology Assessment/Admission Diagnosis Febrile neutropenia, Severe sepsis, Septic shock, Metastatic prostate cancer, Atrial fibrillation with RVR, Acute colitis. Plan Febrile neutropenia, defer to the primary team and oncology. Aggressive IV fluid resuscitation. Broad-spectrum antibiotics. Severe sepsis, Septic shock, on levophed. Metastatic prostate cancer, Atrial fibrillation with RVR, overnight IV Cardizem with good control. Lovenox started. I requested that primary team/hematology oncology give approval before full dose oral anticoagulation is started for atrial fibrillation, Due to the patient's pancytopenia. Acute colitis. Thank you for your consultation. Please call me if you have any questions. Sharmila Espinoza MD, FACP, FACC, FSCAI, FHRS, CCDS Interventional Cardiology Cardiac Electrophysiology Vascular Medicine and Endovascular Interventions Clinical Quality Measures DVT/VTE Risk/Contraindication: Risk Factor Score Per Nursin RFS Level Per Nursing on Admit: 4+=Very High Beth ESPINOZA MD March 03, 2020 10:06
[2020-03-03] MEDS ORDERED: TROUGH ORDER-PHARMACY XX NR (11:00)
[2020-03-03] MEDS: cefTRIAXone FOR IV USE 1,000 MG in WATER (STERILE) FOR INJECTION 10 ML IV SCH (11:13)
[2020-03-03] MEDS: dilTIAZem120 MG (CARDIZEM CD) CAP PO SCH (11:19)
[2020-03-03] MEDS: fentaNYL INJECTION 100 MCG/2 ML AMP IV PRN (11:23)
--- NOTE | 2020-03-03 11:57 | NUR ---
Discussed pt's request to be discharged with hospice services. Contacted his sister Cecille Franco and she has concerns about whether hospice would be able to provide enough services for Rich in the home. He has a friend Courtney that lives with him but she has difficulty with the caregiving role. His sister is a retired nurse and lives in [place] and is able to provide intermittent care only. Sister would like to talk with hospice and will arrange hospice consult. They have had visits from [facility] and would like to access [facility].
--- NOTE | 2020-03-03 13:24 | Progress Note ---
Subjective Subjective/Events-last exam Afebrile, remains on norepinephrine. Reports feeling very tired, but a little better. Supplemental oxygen need down to 2 lpm. Focused Exam Lactate Level 03/01/20 20:55: Lactic Acid Level 1.26 Objective Exam Last Set of Vital Signs Vital Signs Date Time Temp Pulse Resp B/P (MAP) Pulse Ox O2 Delivery O2 Flow Rate FiO2 03/03/20 13:00 85 17 94/70 (78) 97 High Flow N/C 2.00 03/03/20 08:00 37.0 03/02/20 04:08 36 Capillary Refill : Less Than 3 Seconds I&O Intake and Output 03/03/20 00:00 Intake Total 3730 ml Output Total 1020 ml Balance 2710 ml Intake Oral 1710 ml IV Total 2020 ml Output Urine Total 1020 ml # Voids 2 # Bowel Movements 3 Daily Weight Change No General: Alert, Mild Distress Lungs: Other (decreased air movement) Heart: Regular Rate Abdomen: Normal Bowel Sounds, Other (ttp, distended) Extremities: No Edema Neuro: Normal Speech Psych/Mental Status: Mood NL Results/Procedures Lab Laboratory Tests 03/03/20 02:43: White Blood Count 1.0*L, Red Blood Count 2.47L, Hemoglobin 7.2L, Hematocrit 22L, Mean Corpuscular Volume 89, Mean Corpuscular Hemoglobin 29, Mean Corpuscular Hemoglobin Concent 33, Red Cell Distribution Width 18.2H, Platelet Count 130, Mean Platelet Volume 9.2, Neutrophils (%) (Auto) 51, Lymphocytes (%) (Auto) 39, Monocytes (%) (Auto) 11, Eosinophils (%) (Auto) 0, Basophils (%) (Auto) 0, Neutrophils # (Auto) 0.5L, Lymphocytes # (Auto) 0.4L, Monocytes # (Auto) 0.1, Eosinophils # (Auto) 0.0, Basophils # (Auto) 0.0, Sodium Level 130L, Potassium Level 3.7, Chloride Level 104, Carbon Dioxide Level 18L, Anion Gap 8, Blood Urea Nitrogen 20H, Creatinine 0.65, Estimat Glomerular Filtration Rate > 60, BUN/Creatinine Ratio 31, Glucose Level 107H, Calcium Level 7.3L, Corrected Calcium 8.6, Phosphorus Level 1.8L, Magnesium Level 1.8, Total Bilirubin 0.5, Aspartate Amino Transf (AST/SGOT) 22, Alanine Aminotransferase (ALT/SGPT) 10, Alkaline Phosphatase 147H, Total Protein 4.7L, Albumin 2.4L 03/03/20 06:25: Lab Scanned Report Transfusion Reaction Form 03/03/20 12:30: Vancomycin Level Trough 8.6L Microbiology 03/02/20 C. difficile GDH Antigen & Toxins - Final, Complete 03/02/20 MRSA Screen - Final, Complete MRSA not isolated 03/01/20 Urine Culture - Preliminary, Resulted Staphylococcus epidermidis Staphylococcus saphrophyticus See Comments 03/01/20 Blood Culture - Preliminary, Resulted Probable Strep Pneumoniae Radiology CT abd/pelvis 03/01 IMPRESSION: 1. There is a prominent area of consolidation in the right lung base. There may also be right infrahilar adenopathy. If further study is desired, then CT of the chest with contrast recommended. 2. There is fluid throughout much of the small bowel. There is no evidence for a bowel obstruction however. The generalized increased density throughout the mesenteric fat does suggest edema/inflammation. There is no mass or abscess visualized. 3. The retroperitoneal adenopathy and extensive osseous metastatic disease seen previously are again evident and no different. Assessment/Plan Assessment/Plan (1) Septic shock Status: Acute Assessment & Plan: Secondary to pneumonia and/or UTI and/or enteritis. Fluid boluses given in ER, still had low BP, on norepinphrine drip. On vanc, cefepime and metronidazole. 03/03 continues to require norepinephrine. Blood cultures with likely strep pneumo. Stop vanc, change cefepime to ceftriaxone, continue metronidazole. (2) Atrial fibrillation with rapid ventricular response Status: Acute Assessment & Plan: Rate improved, still on cardizem drip, appreciate Cardiology recommendations. Enoxaparin treatment dose started for now for stroke prophylaxis. (3) Colitis presumed to be due to infection Status: Acute Assessment & Plan: Stool occult blood negative, c diff negative, IV fluid for volume depletion. Metronidazole for possible intraabdominal infection. (4) Pneumonia Status: Acute Assessment & Plan: Blood cultures pending. On cefepime and vancomycin, requiring 6 lpm supplemental oxygen. 03/03 improving, oxygen requirement decreased, blood cultures with likely strep pneumo, changing abx to ceftriaxone. Qualifiers: Qualified Codes: J18.1 - Lobar pneumonia, unspecified organism (5) Urinary tract infection Status: Acute Assessment & Plan: Urine and blood cultures pending, on cefepime, changed to ceftriaxone 03/03. Qualifiers: Qualified Codes: N30.01 - Acute cystitis with hematuria (6) Prostate cancer metastatic to bone Status: Chronic (7) Hyponatremia Assessment & Plan: Likely hypovolemic hyponatremia. Continue NS with KCl. (8) Hypokalemia Status: Acute Assessment & Plan: Replace and follow. (9) Anemia Status: Chronic Assessment & Plan: Suspect secondary to bony metastases and/or chemotherapy, initial Hgb below 7, one unit PRBC given and hemoglobin 8.2 this am. Stool occult blood negative, monitor closely. (10) Neutropenia Status: Acute Qualifiers: Qualified Codes: D70.1 - Agranulocytosis secondary to cancer chemotherapy; T45.1X5A - Adverse effect of antineoplastic and immunosuppressive drugs, initial encounter (11) DVT prophylaxis Assessment & Plan: On enoxaparin treatment dose (12) Goals of care, counseling/discussion Status: Acute Assessment & Plan: Discussed patient's wishes this morning, he states he does not think he will get better if he has to be intubated or shocked, and in that case, he would prefer to be comfortable even if it means a shorter life-span. Code status changed to DNR, encouraged him to let his family know about his decision. Hospice to visit with patient Clinical Quality Measures DVT/VTE Risk/Contraindication: Risk Factor Score Per Nursin RFS Level Per Nursing on Admit: 4+=Very High JESSICA YING MD March 03, 2020 13:24
[2020-03-03] MEDS: VANCOMYCIN 750 MG/NS 250 ML IVPB IV SCH ×2 (14:10)
--- NOTE | 2020-03-03 14:20 | NUR ---
PTD VANCOMYCIN LABS: SCR 0.65 VANCOMYCIN TROUGH (PRIOR TO 4TH DOSE) 8.6 PLAN: INCREASE VANCOMYCIN TO 1,250MG IV Q 12 HOURS, 750MG GIVE TODAY AT 1400, WILL SCHEDULE HIGHER DOSE TONIGHT AT 2300, AND DOSE Q12H @ 1100 AND 2300. REPEAT A TROUGH LEVEL ON 02/11/28 @ 1000. Addendum: 03/04/20 at 0703 by EDUARDO NAPIER [facility] CORRECTION LEVEL IS SCHEDULED FOR 03/05 @1000
[2020-03-03] MEDS ORDERED: MAGIC MOUTH WASH PO (15:11)
[2020-03-03] MEDS ORDERED: HYDR-83 PO (15:11)
[2020-03-03] MEDS ORDERED: SERT25TA PO (15:11)
[2020-03-03] MEDS ORDERED: BETH25TA11 PO (15:11)
[2020-03-03] MEDS ORDERED: ONDA8TAB6 PO (15:11)
[2020-03-03] MEDS ORDERED: ASCO250T55 PO (15:11)
[2020-03-03] MEDS ORDERED: LISI10TA2 PO (15:12)
[2020-03-03] MEDS ORDERED: FERR-84 PO (15:14)
--- NOTE | 2020-03-03 15:15 | NUR ---
SPOKE WITH THE PT, WENT THRU THE EXT MED HISTORY AND CALLED GEOVANNY WOODS TO COMPLETE THE MED REC THE PT HAS HIS MEDICATION WITH HIM- SOME OF THE BOTTLES HE BROUGHT HE NO LONGER TAKES THE FOLLOWING ARE FILL DATES NOT LISTED ON THE EXT MED HISTORY: 02-17-2020 FINASTERIDE 5MG #30/30DS 02-19-2020 ZOFRAN 8MG #35 02-27-2020 SERTRALINE 25MG #60 LAST TIME THE PT WAS HERE WE TALKED ABOUT LISINOPRIL BUT I DID NOT INCLUDE IT ON THE MED REC SINCE I COULD NOT FIND A PHARMACY THAT HAD FILLED IT. THE PT BROUGHT IT WITH HIM THIS TIME- IT WAS FROM [facility] IN [place] ON 12-18-2017 #90-LISINOPRIL 10MG: TAB DAILY. I INCLUDED IT ON THE MED REC AT THIS TIME SINCE THE PT IS STILL ADAMANT HE TAKES IT . I DID NOTE THE PAST DUE FILL ON THE MED REC ZOLOFT 25MG: THE DIRECTIONS SHOW " 1 TAB DAILY X 2 WEEKS, THEN INCREASE TO 2 TAB DAILY" THE PT IS STILL TAKING 1 TAB DAILY. OTC MEDS: VITAMIN C IRON TYLENOL
--- NOTE | 2020-03-03 15:15 | NUR ---
RD ASSESSMENT PMHx: CA(metastatic prostate); HTN; osteoarthritis PT INTERACTION: Pt was awake and pleasant during nutrition assessment. Pt states current appetite is "terrible" and has been this way since admit. Pt states appetite is normally good. Note avg PO intake 20% x1d, per chart review. Pt states following a regular diet at home, and has no issues with chewing/swallowing food. Note pt has poor teeth, per visual assessment. Pt states no recent issues with nausea, vomiting, or constipation, but had some recent issues with diarrhea. Note last BM was 03/03 and pt not currently on bowel regimen per chart review. Pt states recent 15# wt loss x6mon. Note recent 10# wt gain x2mon, per chart review. ABNORMAL NUTRITION-RELATED LAB VALUES LOW: Na 130; Ca 7.3; phos 1.8; Pro 4.7; alb 2.4 HIGH: BUN 20; glu 107; akphos 147 Est. kcal needs: 1099-6152 kcal | 25-30 kcal/kg Est. Pro needs: 63-75 g Pro | 1.0-1.2 g Pro/kg PES STATEMENT: Inadequate oral intake (NI-2.1) related to loss of appetite | diarrhea as evidenced by pt interview | avg PO intake 20% x1d INTERVENTION: Continue with current diet order of Regular diet. Add Ensure Enlive (vary) to meals TID, for increased kcal intake. Provides 350 kcal and 13 g Pro per serving. Encouraged pt to eat when able. Will continue to follow and reassess as pt needs, intake, and status change. MONITOR/EVALUATE: PO Intake; Plan of Care; Hydration Status; Weight Status; Lab Values Moses Cuevas, MS, RD, LD
[2020-03-03] MEDS: NOREPINEPHRINE 4 MG/250 ML 250 ML IV SCH (15:17)
[2020-03-03] MEDS: SERTRALINE 50 MG (ZOLOFT) TABLET PO SCH (20:50)
[2020-03-03] MEDS: VANCOMYCIN 1250 MG/NS 250 ML IVPB IV SCH ×2 (23:08)
[2020-03-04] VITALS (26 sets, daily range): BP systolic 90–135; BP diastolic 56–98
[2020-03-04] MEDS: ENOXAPARIN 60 MG/0.6 ML (LOVENOX) SYR SC SCH (01:49)
[2020-03-04] MEDS: fentaNYL INJECTION 100 MCG/2 ML AMP IV PRN ×2 (01:49→22:21)
[2020-03-04] MEDS: NS W/KCL 40 MEQ/L 1,000 ML IV SCH ×3 (01:56→20:56)
[2020-03-04] MEDS: metroNIDAZOLE 500 MG/100 ML IVPB (PRE-MIX) IV SCH ×2 (02:17→16:48)
[2020-03-04 03:34] LABS: BASOPHILS % (AUTO) 0 % (0-10); EOSINOPHILS % (AUTO) 0 % (0-10); HEMATOCRIT 21 % (40-54); LYMPHOCYTES # (AUTO) 0.7 X 10^3 (1.0-4.0); LYMPHOCYTES % (AUTO) 21 % (12-44); MEAN CORPUSCULAR HEMOGLOBIN 29 PG (25-34); MEAN CORPUSCULAR HGB CONC 31 G/DL (32-36); MEAN CORPUSCULAR VOLUME 92 FL (80-99); MEAN PLATELET VOLUME 9.1 FL (7.4-10.4); MONOCYTES # (AUTO) 0.2 X 10^3 (0.0-1.0); MONOCYTES % (AUTO) 6 % (0-12); NEUTROPHILS # (AUTO) 2.5 X 10^3 (1.8-7.8); NEUTROPHILS % (AUTO) 73 % (42-75); PLATELET COUNT 127 10^3/uL (130-400); RED CELL DISTRIBUTION WIDTH 18.9 % (10.0-14.5); WHITE BLOOD COUNT 3.4 10^3/uL (4.3-11.0)
[2020-03-04 03:38] LABS: HEMOGLOBIN 6.6 G/DL (13.3-17.7)
[2020-03-04 03:53] LABS: ALBUMIN 2.3 GM/DL (3.2-4.5); CHLORIDE 107 MMOL/L (98-107); POTASSIUM 4.1 MMOL/L (3.6-5.0); SODIUM 132 MMOL/L (135-145)
[2020-03-04 03:55] LABS: CALCIUM 7.1 MG/DL (8.5-10.1)
[2020-03-04 03:56] LABS: GLUCOSE 87 MG/DL (70-105); TOTAL PROTEIN 4.4 GM/DL (6.4-8.2)
[2020-03-04 03:57] LABS: CARBON DIOXIDE 18 MMOL/L (21-32)
[2020-03-04 03:58] LABS: BILIRUBIN,TOTAL 0.3 MG/DL (0.1-1.0)
[2020-03-04 03:59] LABS: ALKALINE PHOSPHATASE 128 U/L (40-136); CREATININE SERUM 0.62 MG/DL (0.60-1.30); GFR ESTIMATED > 60; PHOSPHORUS 1.3 MG/DL (2.3-4.7)
[2020-03-04 04:01] LABS: BUN/CREATININE RATIO 26
[2020-03-04 04:02] LABS: ALANINE AMINOTRANSFERASE 10 U/L (0-55); MAGNESIUM 1.7 MG/DL (1.6-2.4)
[2020-03-04] MEDS: POTASSIUM CL 10MEQ/50ML IVPB 50 ML IV SCH (04:10)
[2020-03-04] MEDS: MAGNESIUM 1 GM/100 ML IVPB 100 ML IV SCH (04:10)
[2020-03-04] MEDS: KCL 20 MEQ TAB (K-DUR) PO SCH (04:10)
[2020-03-04] MEDS ORDERED: NS IV 500 ML 500 ML IV SCH ×2 (04:14→04:15)
--- NOTE | 2020-03-04 05:44 | Diagnostic Imaging Report ---
Indication: Arrhythmia Portable chest 3:55 AM Right IJ central tip projects over the SVC. There is a consolidation right lower lung that is increased from the previous day. Left lung is clear. There are no effusions. IMPRESSION: Expanding consolidation medial aspect right lower lung suspicious for pneumonia. Dictated by: Dictated on workstation # [id number]
[2020-03-04] MEDS ORDERED: HYDROcodone/APAP 5 MG/325 MG (LORTAB) TAB PO PRN (07:15)
[2020-03-04] MEDS ORDERED: SODIUM PHOSPHATE INJ 30 MM in NS (IVPB) 250 ML IV NR (07:15)
--- NOTE | 2020-03-04 09:05 | NUR ---
[facility] nurse met with pt yesterday. Plans are for Hospice staff to meet with pt's sister to determine if they are willing to have him back home with hospice services. Will advise.
[2020-03-04] MEDS: cefTRIAXone FOR IV USE 1,000 MG in WATER (STERILE) FOR INJECTION 10 ML IV SCH (09:08)
[2020-03-04] MEDS: FERROUS SULF 325 MG (IRON) TAB PO SCH (09:09)
[2020-03-04] MEDS: dilTIAZem120 MG (CARDIZEM CD) CAP PO SCH (09:09)
[2020-03-04] MEDS: predniSONE 5 MG TAB PO SCH ×3 (09:09→18:13)
[2020-03-04] MEDS: BETHANECHOL 25 MG (URECHOLINE) TAB PO SCH ×4 (09:09→20:24)
--- NOTE | 2020-03-04 09:54 | Progress Note ---
Subjective Subjective/Events-last exam Afebrile, feeling better. Focused Exam Lactate Level 03/01/20 20:55: Lactic Acid Level 1.26 Objective Exam Last Set of Vital Signs Vital Signs Date Time Temp Pulse Resp B/P (MAP) Pulse Ox O2 Delivery O2 Flow Rate FiO2 03/04/20 07:10 125 03/04/20 06:00 23 102/63 (76) 95 High Flow N/C 2.00 03/04/20 05:09 37.0 03/02/20 04:08 36 Capillary Refill : Less Than 3 Seconds I&O Intake and Output 03/04/20 00:00 Intake Total 5255.0 ml Output Total 2175 ml Balance 3080.0 ml Intake Oral 1270 ml IV Total 3985.0 ml Output Urine Total 2175 ml # Bowel Movements 2 General: Alert, No Acute Distress Lungs: Normal Air Movement Heart: Regular Rate Abdomen: Normal Bowel Sounds, Soft Neuro: Normal Speech Psych/Mental Status: Mental Status NL Results/Procedures Lab Laboratory Tests 03/03/20 12:30: Vancomycin Level Trough 8.6L 03/04/20 03:15: White Blood Count 3.4L, Red Blood Count 2.31L, Hemoglobin 6.6*L, Hematocrit 21L, Mean Corpuscular Volume 92, Mean Corpuscular Hemoglobin 29, Mean Corpuscular Hemoglobin Concent 31L, Red Cell Distribution Width 18.9H, Platelet Count 127L, Mean Platelet Volume 9.1, Neutrophils (%) (Auto) 73, Lymphocytes (%) (Auto) 21, Monocytes (%) (Auto) 6, Eosinophils (%) (Auto) 0, Basophils (%) (Auto) 0, Neutrophils # (Auto) 2.5, Lymphocytes # (Auto) 0.7L, Monocytes # (Auto) 0.2, Eosinophils # (Auto) 0.0, Basophils # (Auto) 0.0, Sodium Level 132L, Potassium Level 4.1, Chloride Level 107, Carbon Dioxide Level 18L, Anion Gap 7, Blood Urea Nitrogen 16, Creatinine 0.62, Estimat Glomerular Filtration Rate > 60, BUN/Creatinine Ratio 26, Glucose Level 87, Calcium Level 7.1L, Corrected Calcium 8.5, Phosphorus Level 1.3L, Magnesium Level 1.7, Total Bilirubin 0.3, Aspartate Amino Transf (AST/SGOT) 18, Alanine Aminotransferase (ALT/SGPT) 10, Alkaline P hosphatase 128, Total Protein 4.4L, Albumin 2.3L Microbiology 03/02/20 C. difficile GDH Antigen & Toxins - Final, Complete 03/02/20 MRSA Screen - Final, Complete MRSA not isolated 03/01/20 Urine Culture - Final, Complete Staphylococcus epidermidis Staphylococcus saphrophyticus See Comments 03/01/20 Blood Culture - Preliminary, Resulted Probable Strep Pneumoniae Radiology CT abd/pelvis 03/01 IMPRESSION: 1. There is a prominent area of consolidation in the right lung base. There may also be right infrahilar adenopathy. If further study is desired, then CT of the chest with contrast recommended. 2. There is fluid throughout much of the small bowel. There is no evidence for a bowel obstruction however. The generalized increased density throughout the mesenteric fat does suggest edema/inflammation. There is no mass or abscess visualized. 3. The retroperitoneal adenopathy and extensive osseous metastatic disease seen previously are again evident and no different. Assessment/Plan Assessment/Plan (1) Septic shock Status: Acute Assessment & Plan: Secondary to pneumonia and/or UTI and/or enteritis. Fluid boluses given in ER, still had low BP, on norepinphrine drip. On vanc, cefepime and metronidazole. 03/03 continues to require norepinephrine. Blood cultures with likely strep pneumo. Stop vanc, change cefepime to ceftriaxone, continue metronidazole. 03/04 norepinephrine held, continues to improve, waiting on blood culture sensitivities. (2) Atrial fibrillation with rapid ventricular response Status: Acute Assessment & Plan: Rate improved, still on cardizem drip, appreciate Cardiology recommendations. Enoxaparin treatment dose started for now for stroke prophylaxis. 03/04 has been changed to PO cardizem, heart rate remains mildly elevated, appreciate Cardiology recommendations. (3) Colitis presumed to be due to infection Status: Acute Assessment & Plan: Stool occult blood negative, c diff negative, IV fluid for volume depletion. Metronidazole for possible intraabdominal infection. (4) Pneumonia Status: Acute Assessment & Plan: Blood cultures pending. On cefepime and vancomycin, requiring 6 lpm supplemental oxygen. 03/03 improving, oxygen requirement decreased, blood cultures with likely strep pneumo, changing abx to ceftriaxone. Qualifiers: Qualified Codes: J18.1 - Lobar pneumonia, unspecified organism (5) Urinary tract infection Status: Acute Assessment & Plan: Urine and blood cultures pending, on cefepime, changed to ceftriaxone 03/03. Qualifiers: Qualified Codes: N30.01 - Acute cystitis with hematuria (6) Prostate cancer metastatic to bone Status: Chronic (7) Hyponatremia Assessment & Plan: Likely hypovolemic hyponatremia. Continue NS with KCl. (8) Hypokalemia Status: Acute Assessment & Plan: Replace and follow. (9) Anemia Status: Chronic Assessment & Plan: Suspect secondary to bony metastases and/or chemotherapy, initial Hgb below 7, one unit PRBC given and hemoglobin 8.2 this am. Stool occult blood negative, monitor closely. 03/04 Hgb 6.6 today, transfusion done this morning (10) Neutropenia Status: Acute Qualifiers: Qualified Codes: D70.1 - Agranulocytosis secondary to cancer chemotherapy; T45.1X5A - Adverse effect of antineoplastic and immunosuppressive drugs, initial encounter (11) DVT prophylaxis Assessment & Plan: On enoxaparin treatment dose (12) Goals of care, counseling/discussion Status: Acute Assessment & Plan: Discussed patient's wishes this morning, he states he does not think he will get better if he has to be intubated or shocked, and in that case, he would prefer to be comfortable even if it means a shorter life-span. Code status changed to DNR, encouraged him to let his family know about his decision. Hospice to visit with patient Clinical Quality Measures DVT/VTE Risk/Contraindication: Risk Factor Score Per Nursin RFS Level Per Nursing on Admit: 4+=Very High JESSICA YING MD March 04, 2020 09:54
[2020-03-04] MEDS: VANCOMYCIN 1250 MG/NS 250 ML IVPB IV SCH ×4 (11:14→23:13)
[2020-03-04] MEDS: NOREPINEPHRINE 4 MG/250 ML 250 ML IV SCH ×2 (11:15→23:14)
--- NOTE | 2020-03-04 13:30 | Cardiology Progress Note ---
Cardiology SOAP Progress Note Subjective: Feeling much better. Objective: I&O/Vital Signs 03/04/20 03/04/20 03/04/20 03/04/20 02:00 03:00 03:35 04:00 Temp 36.8 Pulse 111 103 Resp 10 26 B/P (MAP) 110/77 (88) 108/77 (87) Pulse Ox 97 97 97 O2 Delivery High Flow N/C High Flow N/C High Flow N/C O2 Flow Rate 2.00 2.00 2.00 03/04/20 03/04/20 03/04/20 03/04/20 04:00 04:56 05:00 05:09 Temp 36.8 37.0 Pulse 106 101 108 108 Resp 22 20 B/P (MAP) 114/73 (87) 109/69 99/59 (72) 99/59 Pulse Ox 96 97 97 96 O2 Delivery High Flow N/C Room Air High Flow N/C High Flow N/C O2 Flow Rate 2.00 2.00 2.00 03/04/20 03/04/20 03/04/20 03/04/20 06:00 07:00 07:10 07:30 Temp 36.5 Pulse 113 110 125 Resp 23 31 B/P (MAP) 102/63 (76) 108/75 (86) Pulse Ox 95 75 O2 Delivery High Flow N/C High Flow N/C O2 Flow Rate 2.00 2.00 03/04/20 03/04/20 03/04/20 03/04/20 07:30 08:00 09:00 10:00 Pulse 107 101 106 Resp 26 26 10 B/P (MAP) 120/75 (90) 112/72 (85) 102/61 (75) Pulse Ox 95 97 97 97 O2 Delivery High Flow N/C High Flow N/C High Flow N/C High Flow N/C O2 Flow Rate 2.00 2.00 2.00 2.00 03/04/20 03/04/20 03/04/20 03/04/20 10:51 11:00 12:00 12:12 Pulse 101 126 Resp 12 21 B/P (MAP) 106/80 (89) 126/79 (95) Pulse Ox 99 98 97 O2 Delivery High Flow N/C High Flow N/C High Flow N/C High Flow N/C O2 Flow Rate 2.00 2.00 2.00 2.00 03/03/20 23:59 Intake Total 2577.5 ml Output Total 875 ml Balance 1702.5 ml Constitutional: appears stated age, AAO x 3; No apparent distress; well- developed, well-nourished Respiratory: chest is bilaterally symmetric, lungs clear to auscultation Cardiovascular: irregularly irregular, S1 and S2 Gastrointestional: soft, audible bowel sounds; No spleenomegaly Extremities: normal range of motion, non-tender, normal inspection; No clubbing, No cyanosis, No significant edema Neurologic/Psychiatric: no motor/sensory deficits, alert, normal mood/affect, oriented x 3, power is 5/5 both on sides Skin: normal color, warm/dry; No rash, No ulcerations Results/Procedures: Labs Laboratory Tests 03/04/20 03:15: White Blood Count 3.4L, Red Blood Count 2.31L, Hemoglobin 6.6*L, Hematocrit 21L, Mean Corpuscular Volume 92, Mean Corpuscular Hemoglobin 29, Mean Corpuscular Hemoglobin Concent 31L, Red Cell Distribution Width 18.9H, Platelet Count 127L, Mean Platelet Volume 9.1, Neutrophils (%) (Auto) 73, Lymphocytes (%) (Auto) 21, Monocytes (%) (Auto) 6, Eosinophils (%) (Auto) 0, Basophils (%) (Auto) 0, Neutrophils # (Auto) 2.5, Lymphocytes # (Auto) 0.7L, Monocytes # (Auto) 0.2, Eosinophils # (Auto) 0.0, Basophils # (Auto) 0.0, Sodium Level 132L, Potassium Level 4.1, Chloride Level 107, Carbon Dioxide Level 18L, Anion Gap 7, Blood Urea Nitrogen 16, Creatinine 0.62, Estimat Glomerular Filtration Rate > 60, BUN/Creatinine Ratio 26, Glucose Level 87, Calcium Level 7.1L, Corrected Calcium 8.5, Phosphorus Level 1.3L, Magnesium Level 1.7, Total Bilirubin 0.3, Aspartate Amino Transf (AST/SGOT) 18, Alanine Aminotransferase (ALT/SGPT) 10, Alkaline Phosphatase 128, Total Protein 4.4L, Albumin 2.3L Microbiology 03/02/20 C. difficile GDH Antigen & Toxins - Final, Complete 5/25/20 MRSA Screen - Final, Complete MRSA not isolated 03/01/20 Urine Culture - Final, Complete Staphylococcus epidermidis Staphylococcus saphrophyticus See Comments 03/01/20 Blood Culture - Final, Complete Streptococcus pneumoniae A/P: Assessment/Dx: Febrile neutropenia, Severe sepsis, Septic shock, Metastatic prostate cancer, Atrial fibrillation with RVR, Acute colitis. Plan: Febrile neutropenia, defer to the primary team and oncology. Aggressive IV fluid resuscitation. Broad-spectrum antibiotics. Severe sepsis, Septic shock, blood pressure much stable. Vasopressors discontinued. Metastatic prostate cancer, Atrial fibrillation with RVR, change IV Cardizem to by mouth. Lovenox . I requested that primary team/hematology oncology give approval before full dose oral anticoagulation such as Eliquis is started for atrial fibrillation, Due to the patient's pancytopenia. Acute colitis. Thank you for your consultation. Please call me if you have any questions. Sharmila Espinoza MD, FACP, FACC, FSCAI, FHRS, CCDS Interventional Cardiology Cardiac Electrophysiology Vascular Medicine and Endovascular Interventions Focused Exam Lactate Level 03/01/20 20:55: Lactic Acid Level 1.26 Beth ESPINOZA MD March 04, 2020 13:30
--- NOTE | 2020-03-04 14:29 | Physician Query Clarification ---
"Physician Query-General Query to Physician: The medical record reflects the following clinical scenario: History/Risk factors: Sepsis, pneumonia, At fib Clinical Findings: O2 sat 88% on Admission. Requiring supplemental 02 since admission Treatment: supplemental O2, IV ABX Question: What condition best reflects the above clinical scenario? Please document response in the Progress notes or Discharge Summary. 1. Acute Mild Respiratory Failure. 2. Pneumonia ( as currently documented) 3. Other , with explanation of the clinical findings 4. Clinically undetermined, no explanation for the clinical findings Please remember a lack of response to the above will prompt a phone page by CDI/coding staff In responding to this query, please exercise your independent professional judgment. The purpose of this communication is to more accurately reflect the complexity of your patients condition. The fact that a question is asked does not imply that any particular answer is desired or expected. Thank you for timely response to this clarification. Angelina Small, MSN, RN RN Specialist-Clinical Doc Improvement CD -Health Info Mgmt Operations [address] [facility] t: [phone] | f: [phone] If you are unable to reach me at my extension, I may be working from home. Please contact me at [phone] PHYSICIAN RESPONSE: Based on the clinical findings in the record, please respond to the query above on this document as an addendum. Physician Response: Physician Response Acute mild respiratory failure secondary to pneumonia. If you have questions please contact: Viticulture Teacher: Ext: Thank you for your time and cooperation. Clinical Capture Manager/Viticulture Teacher This is a permanent part of the medical record ANGELINA SMALL March 04, 2020 14:29 JESSICA YING MD March 04, 2020 15:01"
--- NOTE | 2020-03-04 15:26 | NUR ---
Arrangements made for pt to be discharged to his home in [place] with [facility]. Pt's sister notified and agreeable. Hospice is making arrangements for hospital bed and home oxygen to be delivered morning. [facility] aware of possible transfer and agreeable.Please notify them at [phone] when pt ready for discharge. Sister is not a retired nurse as previously documented and in fact quite anxious about how to use oxygen and set up hospital bed etc. [facility] RN is aware of her anxiety and will meet with family at pt's home upon their arrival to assist in the transition to home. Hospice nurse is Juli and she can be reached at [phone].
--- NOTE | 2020-03-04 16:00 | NUR ---
HOME O2 WALK CANCELLED DUE TO PT UNABLE TO WALK. PT IS NEEDING 2L FOR COMFORT.
[2020-03-04] MEDS: APIXABAN 5 MG (ELIQUIS) TABLET PO SCH (20:24)
[2020-03-04] MEDS: SERTRALINE 50 MG (ZOLOFT) TABLET PO SCH (20:24)
[2020-03-05] VITALS (9 sets, daily range): BP systolic 96–119; BP diastolic 70–81
[2020-03-05] MEDS: fentaNYL INJECTION 100 MCG/2 ML AMP IV PRN (03:14)
[2020-03-05] MEDS: metroNIDAZOLE 500 MG/100 ML IVPB (PRE-MIX) IV SCH (03:14)
[2020-03-05 03:44] LABS: BASOPHILS # (AUTO) 0.1 10^3/uL (0.0-0.1); BASOPHILS % (AUTO) 1 % (0-10); EOSINOPHILS % (AUTO) 0 % (0-10); HEMATOCRIT 27 % (40-54); HEMOGLOBIN 8.9 G/DL (13.3-17.7); LYMPHOCYTES # (AUTO) 1.2 X 10^3 (1.0-4.0); LYMPHOCYTES % (AUTO) 14 % (12-44); MEAN CORPUSCULAR HEMOGLOBIN 29 PG (25-34); MEAN CORPUSCULAR HGB CONC 33 G/DL (32-36); MEAN CORPUSCULAR VOLUME 88 FL (80-99); MEAN PLATELET VOLUME 9.1 FL (7.4-10.4); MONOCYTES # (AUTO) 0.4 X 10^3 (0.0-1.0); MONOCYTES % (AUTO) 5 % (0-12); NEUTROPHILS % (AUTO) 80 % (42-75); PLATELET COUNT 130 10^3/uL (130-400); RED CELL DISTRIBUTION WIDTH 20.9 % (10.0-14.5); WHITE BLOOD COUNT 8.8 10^3/uL (4.3-11.0)
[2020-03-05 04:09] LABS: ALANINE AMINOTRANSFERASE 9 U/L (0-55); ALBUMIN 2.4 GM/DL (3.2-4.5); ALKALINE PHOSPHATASE 139 U/L (40-136); BILIRUBIN,TOTAL 0.4 MG/DL (0.1-1.0); BUN/CREATININE RATIO 21; CALCIUM 7.1 MG/DL (8.5-10.1); CARBON DIOXIDE 19 MMOL/L (21-32); CHLORIDE 107 MMOL/L (98-107); CREATININE SERUM 0.62 MG/DL (0.60-1.30); GFR ESTIMATED > 60; GLUCOSE 100 MG/DL (70-105); MAGNESIUM 1.7 MG/DL (1.6-2.4); POTASSIUM 4.2 MMOL/L (3.6-5.0); SODIUM 133 MMOL/L (135-145); TOTAL PROTEIN 4.6 GM/DL (6.4-8.2)
[2020-03-05 05:48] LABS: BAND NEUTROPHILS 12 %; LYMPHOCYTES % (MANUAL) 18 %; METAMYELOCYTES % 10 %; MONOCYTES % (MANUAL) 5 %; MYELOCYTES % 4 %; NEUTROPHILS % (MANUAL) 51 %
[2020-03-05 05:49] LABS: ANISOCYTOSIS MODERATE; SCHISTOCYTES MODERATE
[2020-03-05] MEDS: MAGNESIUM 1 GM/100 ML IVPB 100 ML IV SCH (05:55)
[2020-03-05] MEDS: KCL 20 MEQ TAB (K-DUR) PO SCH (05:55)
[2020-03-05] MEDS: POTASSIUM CL 10MEQ/50ML IVPB 50 ML IV SCH (05:55)
[2020-03-05] MEDS: BETHANECHOL 25 MG (URECHOLINE) TAB PO SCH (05:56)
[2020-03-05] MEDS: cefTRIAXone FOR IV USE 1,000 MG in WATER (STERILE) FOR INJECTION 10 ML IV SCH (07:40)
[2020-03-05] MEDS: APIXABAN 5 MG (ELIQUIS) TABLET PO SCH (07:41)
[2020-03-05] MEDS: predniSONE 5 MG TAB PO SCH (07:41)
[2020-03-05] MEDS: dilTIAZem120 MG (CARDIZEM CD) CAP PO SCH (07:41)
[2020-03-05] MEDS: FERROUS SULF 325 MG (IRON) TAB PO SCH (07:41)
[2020-03-05] MEDS ORDERED: TROUGH ORDER-PHARMACY XX ONE (10:00)
--- NOTE | 2020-03-05 10:07 | Cardiology Progress Note ---
Cardiology SOAP Progress Note Subjective: Feeling much better today. Objective: I&O/Vital Signs 03/04/20 03/05/20 03/05/20 03/05/20 23:00 00:00 00:00 01:00 Pulse 112 106 111 Resp 18 20 B/P (MAP) 129/89 (102) 115/74 (88) Pulse Ox 97 97 99 O2 Delivery High Flow N/C High Flow N/C High Flow N/C O2 Flow Rate 2.00 2.00 2.00 03/05/20 03/05/20 03/05/20 03/05/20 01:00 02:00 03:00 04:00 Pulse 93 105 112 99 Resp 19 19 15 16 B/P (MAP) 107/77 (87) 116/74 (88) 119/81 (94) 98/70 (79) Pulse Ox 98 97 97 96 O2 Delivery High Flow N/C High Flow N/C High Flow N/C High Flow N/C O2 Flow Rate 2.00 2.00 2.00 2.00 03/05/20 03/05/20 03/05/20 03/05/20 04:00 05:00 06:00 07:00 Pulse 90 105 128 Resp 15 15 20 B/P (MAP) 105/70 (82) 108/79 (89) 96/78 (84) Pulse Ox 97 99 98 90 O2 Delivery High Flow N/C High Flow N/C High Flow N/C High Flow N/C O2 Flow Rate 2.00 2.00 2.00 2.00 03/05/20 03/05/20 03/05/20 07:03 08:00 08:00 Temp 36.3 Pulse 102 111 Resp 21 B/P (MAP) 115/79 (91) Pulse Ox 95 O2 Delivery High Flow N/C O2 Flow Rate 2.00 03/05/20 00:00 Intake Total 1202.5 ml Output Total 1100 ml Balance 102.5 ml Constitutional: appears stated age, AAO x 3; No apparent distress; well- developed, well-nourished Respiratory: chest is bilaterally symmetric, lungs clear to auscultation Cardiovascular: irregularly irregular, S1 and S2 Gastrointestional: soft, audible bowel sounds; No spleenomegaly Extremities: normal range of motion, non-tender, normal inspection; No clubbing, No cyanosis, No significant edema Neurologic/Psychiatric: no motor/sensory deficits, alert, normal mood/affect, oriented x 3, power is 5/5 both on sides Skin: normal color, warm/dry; No rash, No ulcerations Results/Procedures: Labs Laboratory Tests 03/05/20 03:30: White Blood Count 8.8, Red Blood Count 3.10L, Hemoglobin 8.9#L, Hematocrit 27L, Mean Corpuscular Volume 88, Mean Corpuscular Hemoglobin 29, Mean Corpuscular Hemoglobin Concent 33, Red Cell Distribution Width 20.9H, Platelet Count 130, Mean Platelet Volume 9.1, Neutrophils (%) (Auto) 80H, Lymphocytes (%) (Auto) 14, Monocytes (%) (Auto) 5, Eosinophils (%) (Auto) 0, Basophils (%) (Auto) 1, Neutrophils # (Auto) 7.0, Lymphocytes # (Auto) 1.2, Monocytes # (Auto) 0.4, Eosinophils # (Auto) 0.0, Basophils # (Auto) 0.1, Neutrophils % (Manual) 51, Lymphocytes % (Manual) 18, Monocytes % (Manual) 5, Metamyelocytes % 10, Myelocytes % 4, Band Neutrophils 12, Anisocytosis MODERATE, Schistocytes MODERATE, Sodium Level 133L, Potassium Level 4.2, Chloride Level 107, Carbon Dioxide Level 19L, Anion Gap 7, Blood Urea Nitrogen 13, Creatinine 0.62, Estimat Glomerular Filtration Rate > 60, BUN/Creatinine Ratio 21, Glucose Level 100, Calcium Level 7.1L, Corrected Calcium 8.4L, Phosphorus Level 2.0L, Magnesium Level 1.7, Total Bilirubin 0.4, Aspartate Amino Transf (AST/SGOT) 23, Alanine Aminotransferase (ALT/SGPT) 9, Alkaline Phosphatase 139H, Total Protein 4.6L, Albumin 2.4L Microbiology 03/02/20 C. difficile GDH Antigen & Toxins - Final, Complete 03/02/20 MRSA Screen - Final, Complete MRSA not isolated 03/01/20 Urine Culture - Final, Complete Staphylococcus epidermidis Staphylococcus saphrophyticus See Comments 03/01/20 Blood Culture - Final, Complete Streptococcus pneumoniae A/P: Assessment/Dx: Febrile neutropenia, Severe sepsis, Septic shock, Metastatic prostate cancer, Atrial fibrillation with RVR, Acute colitis. Plan: Febrile neutropenia, defer to the primary team and oncology. Aggressive IV fluid resuscitation. Broad-spectrum antibiotics. Severe sepsis, Septic shock, blood pressure much stable. Vasopressors discontinued over 24 hours. Metastatic prostate cancer, Atrial fibrillation with controlled ventricular rate, by mouth Cardizem. Eliquis for oral anti-coagulation. Acute colitis. Thank you for your consultation. Please call me if you have any questions. Sharmila Espinoza MD, FACP, FACC, FSCAI, FHRS, CCDS Interventional Cardiology Cardiac Electrophysiology Vascular Medicine and Endovascular Interventions Beth ESPINOZA MD March 05, 2020 10:07
[2020-03-05] MEDS: NOREPINEPHRINE 4 MG/250 ML 250 ML IV SCH (10:10)
[2020-03-05] MEDS ORDERED: DILT-27 PO (10:17)
[2020-03-05] MEDS ORDERED: LEVO750T39 PO (10:17)
--- NOTE | 2020-03-05 10:25 | Discharge Summary ---
Discharge Summary Hospital Course Problems/Diagnosis: (1) Septic shock Status: Acute Assessment & Plan: Secondary to pneumonia and/or UTI and/or enteritis. Fluid boluses given in ER, still had low BP, on norepinphrine drip. On vanc, cefepime and metronidazole. 03/03 continues to require norepinephrine. Blood cultures with likely strep pneumo. Stop vanc, change cefepime to ceftriaxone, continue metronidazole. 03/04 norepinephrine held, continues to improve, waiting on blood culture sensitivities. 03/05 has not needed norepinephrine since 03/04 at 2 am, blood cultures with strep pneumo, sensitive to levofloxacin, continue treatment for 7 days after d/c. (2) Atrial fibrillation with rapid ventricular response Status: Acute Assessment & Plan: Rate improved, still on cardizem drip, appreciate Cardiology recommendations. Enoxaparin treatment dose started for now for stroke prophylaxis. 03/04 has been changed to PO cardizem, heart rate remains mildly elevated, appreciate Cardiology recommendations. 03/05 going home with hospice, will continue cardizem as it may improve symptoms, but after discussion with patient, considering his anemia and comfort goals, will not continue anticoagulation. (3) Colitis presumed to be due to infection Status: Acute Assessment & Plan: Stool occult blood negative, c diff negative, IV fluid for volume depletion. Metronidazole for possible intraabdominal infection. D/C metronidazole on discharge, continued on levofloxacin as above. (4) Pneumonia Status: Acute Assessment & Plan: Blood cultures pending. On cefepime and vancomycin, requiring 6 lpm supplemental oxygen. 03/03 improving, oxygen requirement decreased, blood cultures with likely strep pneumo, changing abx to ceftriaxone. 03/05 discharged on hospice with oxygen for comfort, continued on levofloxacin for strep pneumo pneumonia at d/c which also covered the UTI. Qualifiers: Qualified Codes: J18.1 - Lobar pneumonia, unspecified organism (5) Urinary tract infection Status: Acute Assessment & Plan: Urine and blood cultures pending, on cefepime, changed to ceftriaxone 03/03. 03/05 staph epi sensitive to levofloxacin Qualifiers: Qualified Codes: N30.01 - Acute cystitis with hematuria (6) Prostate cancer metastatic to bone Status: Chronic Assessment & Plan: Discharged with hospice services. (7) Hyponatremia Assessment & Plan: Likely hypovolemic hyponatremia. Improved with IVF but not resolved entirely. (8) Hypokalemia Status: Acute Assessment & Plan: Replaced (9) Anemia Status: Chronic Assessment & Plan: Suspect secondary to bony metastases and/or chemotherapy, initial Hgb below 7, one unit PRBC given and hemoglobin 8.2 this am. Stool occult blood negative, monitor closely. 03/04 Hgb 6.6 today, transfusion done this morning 03/05 Hgb above 8 after transfusion (10) Neutropenia Status: Acute Qualifiers: Qualified Codes: D70.1 - Agranulocytosis secondary to cancer chemotherapy; T45.1X5A - Adverse effect of antineoplastic and immunosuppressive drugs, initial encounter (11) Goals of care, counseling/discussion Status: Acute Assessment & Plan: Discussed patient's wishes this morning, he states he does not think he will get better if he has to be intubated or shocked, and in that case, he would prefer to be comfortable even if it means a shorter life-span. Code status changed to DNR, encouraged him to let his family know about his decision. Hospice to visit with patient 03/05 patient discharged with hospice services Hospital Course Date of Admission: March 02, 2020 at 00:10 Admission Diagnosis : Family Physician/Provider: Jaime Iyer Date of Discharge: 03/05/20 Discharge Diagnosis: See problem list Hospital Course: See problem list Labs and Pending Lab Test: Laboratory Tests 03/05/20 03:30: White Blood Count 8.8, Red Blood Count 3.10L, Hemoglobin 8.9#L, Hematocrit 27L, Mean Corpuscular Volume 88, Mean Corpuscular Hemoglobin 29, Mean Corpuscular H emoglobin Concent 33, Red Cell Distribution Width 20.9H, Platelet Count 130, Mean Platelet Volume 9.1, Neutrophils (%) (Auto) 80H, Lymphocytes (%) (Auto) 14, Monocytes (%) (Auto) 5, Eosinophils (%) (Auto) 0, Basophils (%) (Auto) 1, Neutrophils # (Auto) 7.0, Lymphocytes # (Auto) 1.2, Monocytes # (Auto) 0.4, Eosinophils # (Auto) 0.0, Basophils # (Auto) 0.1, Neutrophils % (Manual) 51, Lymphocytes % (Manual) 18, Monocytes % (Manual) 5, Metamyelocytes % 10, Myelocytes % 4, Band Neutrophils 12, Anisocytosis MODERATE, Schistocytes MODERATE, Sodium Level 133L, Potassium Level 4.2, Chloride Level 107, Carbon Dioxide Level 19L, Anion Gap 7, Blood Urea Nitrogen 13, Creatinine 0.62, Estimat Glomerular Filtration Rate > 60, BUN/Creatinine Ratio 21, Glucose Level 100, Calcium Level 7.1L, Corrected Calcium 8.4L, Phosphorus Level 2.0L, Magnesium Level 1.7, Total Bilirubin 0.4, Aspartate Amino Transf (AST/SGOT) 23, Alanine Aminotransferase (ALT/SGPT) 9, Alkaline Phosphatase 139H, Total Protein 4.6L, Albumin 2.4L Microbiology 03/02/20 C. difficile GDH Antigen & Toxins - Final, Complete 03/02/20 MRSA Screen - Final, Complete MRSA not isolated 03/01/20 Urine Culture - Final, Complete Staphylococcus epidermidis Staphylococcus saphrophyticus See Comments 03/01/20 Blood Culture - Final, Complete Streptococcus pneumoniae Home Meds Active Levofloxacin 750 Mg Tablet 750 Mg PO DAILY Diltiazem 24Hr ER (Diltiazem HCl) 120 Mg Cap.er.24h 120 Mg PO DAILY Reported Iron (Ferrous Sulfate) 325 Mg Tablet 325 Mg PO DAILY Lisinopril 10 Mg Tablet 5 Mg PO DAILY TAKES OF A 10MG TAB LAST FILLED 12-18-2017 #90 Vitamin C 250 mg Tablet Chew (Ascorbic Acid/Ascorbate Sodium) 250 Mg Tab.chew 250 Mg PO DAILY Zofran (Ondansetron HCl) 8 Mg Tablet 8 Mg PO Q8H PRN Zoloft (Sertraline HCl) 25 Mg Tablet 25 Mg PO DAILY Hydrocodone-Acetamin 5-325 mg (Hydrocodone/Acetaminophen) 1 Each Tablet 1-2 Ea PO Q8H PRN Urecholine (Bethanechol Chloride) 25 Mg Tablet 25 Mg PO QID [Magic Mouth Wash] 1 Each PO 2-3 TIMES DAILY Flomax (Tamsulosin HCl) 0.4 Mg Cap 0.4 Mg PO BID Pantoprazole Sodium 20 Mg Tablet.dr 20 Mg PO DAILY Prednisone 5 Mg Tablet 5 Mg PO BID Dexamethasone 4 Mg Tablet 8 Mg PO BID PRN TAKES 2 (4MG) TABS TWICE DAILY THE DAY BEFORE, THE DAY OF AND THEN DAY AFTER TREATMENT Finasteride 5 Mg Tablet 5 Mg PO DAILY Tylenol (Acetaminophen) 325 Mg Tablet 650 Mg PO Q8H PRN Assessment/Pt DC Instructions Follow up per hospice Discharge Diet: No Restrictions Activity as Tolerated: Yes Discharge Physical Examination Allergies: Coded Allergies: No Known Drug Allergies (Unverified , 12/03/19) General Appearance: No Apparent Distress Respiratory: Lungs Clear, Normal Breath Sounds Cardiovascular: Irregularly Irregular Gastrointestinal: Normal Bowel Sounds, Other (distended) Skin: Warm/Dry Neurologic/Psychiatric: Alert, Normal Mood/Affect Copy Copies To 1: Craig Iyer APRN Clinical Quality Measures DVT/VTE Risk/Contraindication: Risk Factor Score Per Nursin RFS Level Per Nursing on Admit: 4+=Very High JESSICA YING MD March 05, 2020 10:23
--- NOTE | 2020-03-05 10:52 | NUR ---
pt leaving for home via [facility] with eddie carrizales notified and pt's clothes and home medications with him on departure .
--- NOTE | 2020-03-05 12:24 | Cardiology Progress Note ---
Cardiology SOAP Progress Note Subjective: Feeling much better. Objective: I&O/Vital Signs 03/05/20 03/05/20 03/05/20 03/05/20 01:00 01:00 02:00 03:00 Pulse 111 93 105 112 Resp 19 19 15 B/P (MAP) 107/77 (87) 116/74 (88) 119/81 (94) Pulse Ox 98 97 97 O2 Delivery High Flow N/C High Flow N/C High Flow N/C O2 Flow Rate 2.00 2.00 2.00 03/05/20 03/05/20 03/05/20 03/05/20 04:00 04:00 05:00 06:00 Pulse 99 90 105 Resp 16 15 15 B/P (MAP) 98/70 (79) 105/70 (82) 108/79 (89) Pulse Ox 96 97 99 98 O2 Delivery High Flow N/C High Flow N/C High Flow N/C High Flow N/C O2 Flow Rate 2.00 2.00 2.00 2.00 03/05/20 03/05/20 03/05/20 03/05/20 07:00 07:03 08:00 08:00 Temp 36.3 Pulse 128 102 111 Resp 20 21 B/P (MAP) 96/78 (84) 115/79 (91) Pulse Ox 90 95 O2 Delivery High Flow N/C High Flow N/C O2 Flow Rate 2.00 2.00 03/05/20 03/05/20 08:00 10:55 B/P (MAP) Pulse Ox 97 O2 Delivery High Flow N/C O2 Flow Rate 2.00 03/05/20 00:00 Intake Total 1202.5 ml Output Total 1100 ml Balance 102.5 ml Constitutional: appears stated age, AAO x 3; No apparent distress; well- developed, well-nourished Respiratory: chest is bilaterally symmetric, lungs clear to auscultation Cardiovascular: irregularly irregular, S1 and S2 Gastrointestional: soft, audible bowel sounds; No spleenomegaly Extremities: normal range of motion, non-tender, normal inspection; No clubbing, No cyanosis, No significant edema Neurologic/Psychiatric: no motor/sensory deficits, alert, normal mood/affect, oriented x 3, power is 5/5 both on sides Skin: normal color, warm/dry; No rash, No ulcerations Results/Procedures: Labs Laboratory Tests 03/05/20 03:30: White Blood Count 8.8, Red Blood Count 3.10L, Hemoglobin 8.9#L, Hematocrit 27L, Mean Corpuscular Volume 88, Mean Corpuscular Hemoglobin 29, Mean Corpuscular Hemoglobin Concent 33, Red Cell Distribution Width 20.9H, Platelet Count 130, Mean Platelet Volume 9.1, Neutrophils (%) (Auto) 80H, Lymphocytes (%) (Auto) 14, Monocytes (%) (Auto) 5, Eosinophils (%) (Auto) 0, Basophils (%) (Auto) 1, Neutrophils # (Auto) 7.0, Lymphocytes # (Auto) 1.2, Monocytes # (Auto) 0.4, Eosinophils # (Auto) 0.0, Basophils # (Auto) 0.1, Neutrophils % (Manual) 51, Lymphocytes % (Manual) 18, Monocytes % (Manual) 5, Metamyelocytes % 10, Myelo cytes % 4, Band Neutrophils 12, Anisocytosis MODERATE, Schistocytes MODERATE, Sodium Level 133L, Potassium Level 4.2, Chloride Level 107, Carbon Dioxide Level 19L, Anion Gap 7, Blood Urea Nitrogen 13, Creatinine 0.62, Estimat Glomerular Filtration Rate > 60, BUN/Creatinine Ratio 21, Glucose Level 100, Calcium Level 7.1L, Corrected Calcium 8.4L, Phosphorus Level 2.0L, Magnesium Level 1.7, Total Bilirubin 0.4, Aspartate Amino Transf (AST/SGOT) 23, Alanine Aminotransferase (ALT/SGPT) 9, Alkaline Phosphatase 139H, Total Protein 4.6L, Albumin 2.4L Microbiology 03/02/20 C. difficile GDH Antigen & Toxins - Final, Complete 03/02/20 MRSA Screen - Final, Complete MRSA not isolated 03/01/20 Urine Culture - Final, Complete Staphylococcus epidermidis Staphylococcus saphrophyticus See Comments 03/01/20 Blood Culture - Final, Complete Streptococcus pneumoniae A/P: Assessment/Dx: Febrile neutropenia, Severe sepsis, Septic shock, Metastatic prostate cancer, Atrial fibrillation with RVR, Acute colitis. Plan: Febrile neutropenia, defer to the primary team and oncology. Aggressive IV fluid resuscitation. Broad-spectrum antibiotics. Severe sepsis, Septic shock, blood pressure much stable. Vasopressors discontinued over 48 hours ago. Metastatic prostate cancer, Atrial fibrillation with controlled ventricular rate, by mouth Cardizem. Eliquis for oral anti-coagulation. Acute colitis. I'm happy to follow as an outpatient if the primary team requires. Thank you for your consultation. Please call me if you have any questions. Sharmila Espinoza MD, FACP, FACC, FSCAI, FHRS, CCDS Interventional Cardiology Cardiac Electrophysiology Vascular Medicine and Endovascular Interventions Beth ESPINOZA MD March 05, 2020 12:24
== END 2020-03-05 10:52 | disposition hospice, home (50) | DRG 871 ==
LOC: EDUNIT# 20:41 → ER 20:42 → ICU 03-02 00:10
PROVIDERS: ADMIT Internal Medicine; ATTEND Family Medicine
PROC: 5A2204Z Restoration of Cardiac Rhythm, Single (ICD-10-PCS; principal; 2020-03-02)
DX: A41.9 Sepsis, unspecified organism (principal); R65.21 Severe sepsis with septic shock; N39.0 Urinary tract infection, site not specified; J96.00 Acute respiratory failure, unspecified whether with hypoxia or hypercapnia; J18.9 Pneumonia, unspecified organism; C79.51 Secondary malignant neoplasm of bone; A09 Infectious gastroenteritis and colitis, unspecified; E87.1 Hypo-osmolality and hyponatremia; Z66 Do not resuscitate; N20.1 Calculus of ureter; I10 Essential (primary) hypertension; D70.1 Agranulocytosis secondary to cancer chemotherapy; T45.1X5A Adverse effect of antineoplastic and immunosuppressive drugs, initial encounter; D64.81 Anemia due to antineoplastic chemotherapy; D63.0 Anemia in neoplastic disease; E87.6 Hypokalemia; M19.91 Primary osteoarthritis, unspecified site; F32.9 Major depressive disorder, single episode, unspecified; Z85.46 Personal history of malignant neoplasm of prostate; Z92.21 Personal history of antineoplastic chemotherapy; Z96.641 Presence of right artificial hip joint; Z20.828 Contact with and (suspected) exposure to other viral communicable diseases
CPT/HCPCS: 36415; 71045; 74177; 80053; 80202; 81000; 82274; 83605; 83735; 84100; 84484; 85007; 85025; 85027; 85610; 85730; 86850; 86900; 86901; 86920; 87040; 87077; 87081; 87088; 87181; 87184; 87186; 87324; 87449; 87635; 93005; 93306; 96365; 96366; 96367; 96368; 96372; 96375